=== PATIENT | female | born 1970 | race Asian ===

== ENCOUNTER 2018-12-14 16:56 | Inpatient (IN) | payer MEDICARE ==
[~2018-12-14] VITALS: Ht 162.6 cm; Wt 49.1 kg
[2018-12-14 16:56] VITALS: BP 154/88
[~2018-12-14 16:56] MED LIST: GABAPENTIN100 MG ORAL; TRAMADOL HCL100 M2 ORAL
--- NOTE | 2018-12-14 16:56 | NUR ---
ED Nurse Note: Patient brought in to ER by RA from home due to lower back pain. She is a dialysis patient with right upper leg shunt. Dialysis days are / / sat. Alert adn oriented, verbally responsive. No SOB. Breathing even and unlabored. VS are stable.
--- NOTE | 2018-12-14 17:10 | Emergency Room Report ---
History of Present Illness General Chief Complaint: Back Pain-No Injury Source: Patient, EMS Present Illness HPI Patient presents via EMS. She is complaining about lower back pain. She is a dialysis patient. Her last dialysis was on Friday. She states that she has had osteomyelitis of her lower spine. This feels similar to that although this began earlier this morning. The pain radiates down both legs. She refused to have surgery at that time. Pain is 10/10 at this time. Pain radiating to her legs as burning pain. She denies weakness or numbness. No recent trauma. She has been feeling flushed and with chills. Paramedics attributed this to the room being hot and enclosed. She denies shortness of breath. She does not produce urine. According to the EMS the patient just arrived in town a week ago. From the airport she was hospitalized [facility]. She was arranged to have dialysis from there. Her diagnosis unclear. According to EMS living conditions are not good. Also the patient told EMS she was unable to go to distant dialysis center. No fevers, sore throat, chest pain, palpitations, nausea, vomiting, diarrhea, abdominal pain, shortness of breath, joint pain, rashes, depression, anxiety, visual changes, headache. Allergies: Coded Allergies: CEPHALEXIN (Unverified Allergy, Unknown, 12/14/18) SULFAMETHOXAZOLE (Unverified Allergy, Unknown, 12/14/18) TRIMETHOPRIM (Unverified Allergy, Unknown, 12/14/18) VANCOMYCIN (Unverified Allergy, Unknown, 12/14/18) Patient History Past Medical History: see triage record, dialysis, other - osteomyelitis of spine Past Surgical History: other - Dialysis fistula Social History: Denies: smoking Social History Narrative Recently moved to [place] Reviewed Nursing Documentation: PMH: Agreed; PSxH: Agreed Nursing Documentation-PMH Past Medical History: No History, Except For Hx Hypertension: Yes Hx Dialysis: Yes - T/TH/SAT Review of Systems All Other Systems: negative except mentioned in HPI Physical Exam Vital Signs Date Time Temp Pulse Resp B/P (MAP) Pulse Ox O2 Delivery O2 Flow Rate FiO2 12/14/18 16:51 98.1 90 18 166/102 (123) 97 Room Air Sp02 EP Interpretation: reviewed, normal General Appearance: alert, GCS 15, mild distress, Chronically Ill Head: normocephalic Eyes: bilateral eye normal inspection, bilateral eye PERRL, bilateral eye EOMI ENT: moist mucus membranes Neck: supple Respiratory: chest non-tender, lungs clear, normal breath sounds Cardiovascular #1: regular rate, rhythm, JVD Cardiovascular #2: 2+ radial (R), 2+ radial (L) - Dialysis fistula left upper arm Gastrointestinal: normal inspection, normal bowel sounds, non tender, no mass, non-distended Genitourinary: no CVA tenderness Musculoskeletal: gait/station normal, normal range of motion, no calf tenderness, other - Atrophy lower extremities, tender - Upper lumbar spine, variable exam Neurologic: alert, motor strength/tone normal, DTRs symmetric, sensory intact, speech normal, oriented - X2 Psychiatric: anxious, other - Occasionally refusing care Skin: other - Sallow Procedures Critical Care Time Critical Care Time Total Critical Care Time: 120 min bedside evaluation and treatment excludes procedures (EKG). Reason for critical care: Hyperkalemia, renal failure, possible infective discitis, attempts at transfer to higher level of care. Treatment of hyperkalemia Possible complications: hypotension, hypertension, OK, shock, arrhythmias, metabolic acidosis, end organ damage, respiratory failure. Interventions:, Multiple calls for attempts at transfer, dealing with patient refusal of treatment Course: Dialysis patient presents with severe back pain. Evaluation encountered hyperkalemia. Treatment ordered. Patient refused Kayexalate and other treatment. Discussed the need for treatment and patient agreed. MRI performed. Patient initially refused because she had pain. Discussed with radiology tech and MRI completed. MRI with question of osteomyelitis versus discitis. Multiple discussions with [facility] and [facility] for the possibility of transfer. As they are on diversion this is not possible however they will consider transfer in the future hospital to hospital. Repeat evaluations of patient and treatment of pain. Consultations: nursing staff, EMS, radiology specialist, [facility] transferred, [facility] transfer, admitting physician Performed by: Dr. Rodríguez Tolerated well condition = critical Medical Decision Making Diagnostic Impression: Primary Impression: Hyperkalemia Additional Impressions: ESRD (end stage renal disease) on dialysis Diskitis Qualified Codes: M46.46 - Discitis, unspecified, lumbar region Anemia Qualified Codes: N18.6 - End stage renal disease; D63.1 - Anemia in chronic kidney disease; Z99.2 - Dependence on renal dialysis ER Course Patient presents with severe back pain with multiple comorbidities. She has a history of osteomyelitis. Differential includes back strain, back spasm, osteomyelitis, lumbar fracture, embolic phenomenon amongst others. She has clear JVD suggesting fluid overload. Evaluation will be with EKG, chest x-ray, MRI of the lumbar spine and labs. The patient will be treated with morphine. EKG without peak T waves. Chest x-ray pulmonary edema, mild. Labs with hyperkalemia and renal failure. Anemia. Medications ordered for hyperkalemia treatment. Patient refuses Kayexalate and all treatment. Discussed with patient and she accepts IV treatment. Still refusing Kayexalate. Threatening to sign out AGAINST MEDICAL ADVICE. Convinced to stay in the hospital. MRI diskitis possible osteo. Some compression of the dura into the canal. Repeat neurologic exam with good strength and sensation in lower extremities. Call [facility]. Call [facility] 22:00. Presented to both facilities. [facility] transfer case #[id number]. Both [facility] and [facility] unable to take patient due to saturation. Patient admitted to telemetry Dr. Nguyen. Laboratory Tests Test 12/14/18 17:20 White Blood Count 7.2 K/UL (4.8-10.8) Red Blood Count 2.37 M/UL (4.20-5.40) L Hemoglobin 7.3 G/DL (12.0-16.0) L Hematocrit 23.6 % (37.0-47.0) L Mean Corpuscular Volume 100 FL (80-99) H Mean Corpuscular Hemoglobin 30.7 PG (27.0-31.0) Mean Corpuscular Hemoglobin Concent 30.8 G/DL (32.0-36.0) L Red Cell Distribution Width 19.7 % (11.6-14.8) H Platelet Count 247 K/UL (150-450) Mean Platelet Volume 5.6 FL (6.5-10.1) L Neutrophils (%) (Auto) % (45.0-75.0) Lymphocytes (%) (Auto) % (20.0-45.0) Monocytes (%) (Auto) % (1.0-10.0) Eosinophils (%) (Auto) % (0.0-3.0) Basophils (%) (Auto) % (0.0-2.0) Differential Total Cells Counted 100 Neutrophils % (Manual) 71 % (45-75) Lymphocytes % (Manual) 15 % (20-45) L Monocytes % (Manual) 12 % (1-10) H Eosinophils % (Manual) 1 % (0-3) Basophils % (Manual) 0 % (0-2) Band Neutrophils 1 % (0-8) Platelet Estimate Adequate Platelet Morphology Normal Polychromasia 1+ Hypochromasia 2+ Anisocytosis 2+ Macrocytosis Prothrombin Time 9.8 SEC (9.30-11.50) Prothrombin Time INR 0.9 (0.9-1.1) PTT 26 SEC (23-33) Sodium Level 136 MMOL/L (136-145) Potassium Level 6.6 MMOL/L (3.5-5.1) *H Chloride Level 97 MMOL/L (98-107) L Carbon Dioxide Level 21 MMOL/L (21-32) Anion Gap 19 mmol/L (5-15) H Blood Urea Nitrogen 85 mg/dL (7-18) H Creatinine 7.5 MG/DL (0.55-1.30) H Estimate Glomerular Filtration Rate 5.8 mL/min (>60) Glucose Level 97 MG/DL (74-106) Calcium Level 8.8 MG/DL (8.5-10.1) Total Bilirubin 0.4 MG/DL (0.2-1.0) Aspartate Amino Transferase (AST) 37 U/L (15-37) Alanine Aminotransferase (ALT) 13 U/L (12-78) Alkaline Phosphatase 406 U/L (46-116) H Total Creatine Kinase 120 U/L (26-308) Troponin I 0.015 ng/mL (0.000-0.056) C-Reactive Protein, Quantitative 6.1 mg/dL (0.00-0.90) H Pro-B-Type Natriuretic Peptide 9694 pg/mL (0-125) H Total Protein 7.4 G/DL (6.4-8.2) Albumin 2.4 G/DL (3.4-5.0) L Globulin 5.0 g/dL Albumin/Globulin Ratio 0.5 (1.0-2.7) L Lipase 133 U/L (73-393) EKG Diagnostic Results Rate: normal Rhythm: NSR ST Segments: no acute changes - Left axis deviation left atrial enlargement Rhythm Strip Diag. Results EP Interpretation: yes Rhythm: NSR, no PVC's, no ectopy Chest X-Ray Diagnostic Results Chest X-Ray Diagnostic Results : Chest X-Ray Ordered: Yes # of Views/Limited/Complete: 1 View Indication: Other EP Interpretation: Yes Interpretation: no effusion, no pneumothorax, other - Reversal of flow Impression: Other Electronically Signed by: Electronically signed by Triston Rodríguez MD CT/MRI/US Diagnostic Results CT/MRI/US Diagnostic Results : Imaging Test Ordered: LS spine MRI Impression Impression: Findings suspicious of osteomyelitis discitis involving L2-L3 with some subtle epidural enhancement is suggested. Effacement of the canal due to collapse of the disc space and compression deformity of L2-L3 Last Vital Signs Date Time Temp Pulse Resp B/P (MAP) Pulse Ox O2 Delivery O2 Flow Rate FiO2 12/15/18 04:00 98.0 66 18 149/98 (115) 96 12/15/18 01:01 Room Air 12/14/18 23:55 21 Status: improved Disposition: ADMITTED INPATIENT Condition: Critical Triston Rodríguez MD Dec 14, 2018 17:09
[2018-12-14] MEDS ORDERED: Gadavist 7.5mMol/7.5ml vial IV PRN (17:15)
[2018-12-14] MEDS ORDERED: Morphine Sulfate 2mg/ml Inj(IV/IM USE ONLY) IVP ONE ×2 (17:15→20:15)
[2018-12-14 17:39] LABS: HEMATOCRIT 23.6 % (37.0-47.0); HEMOGLOBIN 7.3 G/DL (12.0-16.0); MEAN CORPUSCULAR VOLUME 100 FL (80-99); PLATELET COUNT 247 K/UL (150-450); RED BLOOD COUNT 2.37 M/UL (4.20-5.40); RED CELL DISTRIBUTION WIDTH 19.7 % (11.6-14.8); WHITE BLOOD COUNT 7.2 K/UL (4.8-10.8)
[2018-12-14 17:43] LABS: INR 0.9 (0.9-1.1)
--- NOTE | 2018-12-14 17:45 | NUR ---
ED Nurse Note: Went down for MRI.
--- NOTE | 2018-12-14 17:55 | NUR ---
attempted ekg, patient at MRI.
[2018-12-14 17:59] LABS: ALANINE AMINOTRANSFERASE 13 U/L (12-78); ALBUMIN 2.4 G/DL (3.4-5.0); ALBUMIN/GLOBULIN RATIO 0.5 (1.0-2.7); ALKALINE PHOSPHATASE 406 U/L (46-116); ANION GAP 19 mmol/L (5-15); ASPARTATE AMINO TRANSFERASE 37 U/L (15-37); BILIRUBIN,TOTAL 0.4 MG/DL (0.2-1.0); BLOOD UREA NITROGEN 85 mg/dL (7-18); CALCIUM 8.8 MG/DL (8.5-10.1); CARBON DIOXIDE 21 MMOL/L (21-32); CHLORIDE 97 MMOL/L (98-107); CREATINE KINASE 120 U/L (26-308); CREATININE 7.5 MG/DL (0.55-1.30); SODIUM 136 MMOL/L (136-145)
[2018-12-14 18:00] VITALS: BP 135/77
[2018-12-14 18:08] LABS: POTASSIUM 6.6 MMOL/L (3.5-5.1)
--- NOTE | 2018-12-14 18:42 | NUR ---
Patient still at MRI, EKG will be taken once patient comes back.
[2018-12-14] MEDS ORDERED: Sodium Bicarbonate 50ml Carp IV ONE (18:45)
[2018-12-14] MEDS ORDERED: Sodium Polystyrene Sulfonate 15gm Powder ORAL ONE (18:45)
[2018-12-14] MEDS ORDERED: Insulin Human Regular 100units/ml 3ml IV ONE (18:45)
[2018-12-14] MEDS ORDERED: Albuterol ud Inhalation HHN ONE (18:45)
[2018-12-14] MEDS ORDERED: Calcium Gluconate 1gm/10ml vial IVP ONE (18:45)
--- NOTE | 2018-12-14 19:12 | NUR ---
HAND-OFF: Report given to Caro JORDAN.
--- NOTE | 2018-12-14 19:15 | NUR ---
ED Nurse Note: Recieved report from am nurse to resume care, pt in bed awake, laert and oriented x 4, pt here for back pain and just returning from MRI, pt has patent iv line in right hand, placed pt on cardiac monitoring, pt has pain in back at 5/10, declines need for pain meds, will resume care as ordered and continue to closely monitor while waiting for disposition.
[2018-12-14 20:00] VITALS: BP 147/84
--- NOTE | 2018-12-14 20:00 | NUR ---
ED Nurse Note: Pt had med ordere, meds given, pt refuses to take oral kayexalate, stating she does not want to get diarrhea, importance of med explained and pt continues to refuse, MD informed immediately and spoke to pt, pt continues to refuse, all other meds given, pt remains on cardiac monitoring, deneis chest pain, will continue to closely monitor, pt waiting for transfer to [facility].
[2018-12-14 22:00] VITALS: BP 136/79
[2018-12-14 23:30] VITALS: BP 129/71
--- NOTE | 2018-12-14 23:30 | NUR ---
ED Nurse Note: Pt disposition has been chagned to admission for here, pt is aware and agrees, pt re-medicated for pain and meds effective, pt reports pain at 0 at this time, remains on cardiac monitoring, iv site patent, pt has ordered blood cultures not done, she refuses informed and states ok, pt threatning to leave AMA if we do it anyway, pt has room for admission here, report called to floor nurse JULIAN Barajas on unit, pt swabs collected and sent, pt being taken to floor bed via gurney and acls protocols with RN and Er-tech, nad noted during pt transport.
[2018-12-15 00:55] VITALS: BP 157/95
--- NOTE | 2018-12-15 00:57 | NUR ---
NURSE NOTES: Pt received from JULIAN Elizondo alert and oriented x4, irritated and yelling at staff. VS - 157/94, HR 77, RR 18, 95% on room air, 97.5 temp, 10/10 aching pain on the lower back radiating to bilateral legs. IV site asymptomatic and patent, on L hand 20g, saline lock. AV shunt on R upper thigh, dressing dry and intact, bruit auscultated and thrill palpated. Per pt, she is anuric. Pt refused to go over belongings and have her purse assessed. Skin intact. Bed in lowest position, call light and belongings within reach.
--- NOTE | 2018-12-15 01:01 | NUR ---
NURSE NOTES: RN contacted [facility] Nephrology for stat hemodialysis order. Per Katya, she will contact on-call nurse for HD.
[2018-12-15] MEDS: Morphine Sulfate 2mg/ml Inj(IV/IM USE ONLY) IVP PRN ×2 (01:18→05:26)
--- NOTE | 2018-12-15 02:15 | NUR ---
NURSE NOTES: RN called [facility] Nephrology and spoke with Melisa, informed of stat HD order. Per Melisa, she will call on-call HD nurse to confirm.
[2018-12-15 04:00] VITALS: BP 149/98
[2018-12-15] MEDS ORDERED: traMADol 50mg tab ORAL PRN (06:45)
[2018-12-15] MEDS ORDERED: Morphine Sulfate 2mg/ml Inj(IV/IM USE ONLY) IVP PRN (06:45)
--- NOTE | 2018-12-15 06:45 | NUR ---
NURSE NOTES: RN called [facility] Nephrology to confirm HD stat order and spoke with Frankie who stated that he will contact on-call HD RN regarding HD stat order.
--- NOTE | 2018-12-15 07:05 | NUR ---
NURSE NOTES: Received phone call from Isaias JENKINS RN from [facility] Nephrology who stated that "he will come in to do HD on pt and she will be the first patient because it is a stat order." AM nurse notified.
--- NOTE | 2018-12-15 07:20 | NUR ---
NURSE NOTES: Nurse report given by JULIAN Newman. Patient's eating breakfast in bed. Denies pain. No s/s of distress or SOB. IV is patent and flushed. R upper thigh AV shunt for dialysis only. Bed at lowest position, break engaged and call light within reach. Will continue to monitor.
[2018-12-15 07:33] LABS: HEMOGLOBIN 7.5 G/DL (12.0-16.0); MEAN CORPUSCULAR VOLUME 101 FL (80-99); PLATELET COUNT 241 K/UL (150-450); RED BLOOD COUNT 2.47 M/UL (4.20-5.40); RED CELL DISTRIBUTION WIDTH 19.4 % (11.6-14.8); WHITE BLOOD COUNT 6.5 K/UL (4.8-10.8)
[2018-12-15 07:35] LABS: ANION GAP 18 mmol/L (5-15); BLOOD UREA NITROGEN 97 mg/dL (7-18); CALCIUM 9.1 MG/DL (8.5-10.1); CARBON DIOXIDE 23 MMOL/L (21-32); CHLORIDE 97 MMOL/L (98-107); CREATININE 8.1 MG/DL (0.55-1.30); SODIUM 137 MMOL/L (136-145)
[2018-12-15 07:36] LABS: POTASSIUM 6.9 MMOL/L (3.5-5.1)
--- NOTE | 2018-12-15 07:36 | NUR ---
HAND-OFF: Report given to JULIAN Wright.
[2018-12-15 08:00] VITALS: BP 152/91
--- NOTE | 2018-12-15 08:11 | NUR ---
NURSE NOTES: placed a call to [facility], spoke to Frankie (answering service) and he said he marked it as second call, informed about the dialysis order 12/14/18 stat and still not done, Dr Baron here and aware, per Frankie Ramirez to call back.
[2018-12-15] MEDS ORDERED: Acetaminophen 500mg (ES) tab ORAL PRN (08:14)
[2018-12-15] MEDS ORDERED: Enoxaparin 30mg Inj SUBQ SCH (09:00)
[2018-12-15] MEDS ORDERED: Aspirin Baby 81mg ORAL SCH (09:00)
--- NOTE | 2018-12-15 10:45 | Diagnostic Imaging Report ---
Indication: Low back pain, 10 out of 10, burning feeling down bilateral legs Technique: Sagittal T 1 FSE, sagittal T2 FRFSE, sagittal STIR PROPELLER, axial T2 FRFSE, axial T2 disc cut, axial T1 FLAIR PROPELLER pre and postcontrast axial and sagittal T1 fat saturated images of the lumbar spine Comparison: none Findings: There is marked abnormality of the L2-3 disc and adjacent vertebral segments. There is fluid within the disc. There is destruction of the endplates and considerable edema within the adjacent vertebral segments. There is loss of height of both adjacent vertebral segments, particularly of L3. There is a combination of posterior retropulsion and severe posterior disc protrusion/osteophyte complex, with the disc protruding 10 mm into the spinal canal. This is predominantly left paracentral, narrowing the spinal canal to minimal 5 mm AP dimension on the left and may result in significant compression of the cauda equina. There is considerable enhancement of the disc and the adjacent vertebral segments, enhancement particularly intense involving L2. There is some edema and enhancement of the adjacent paraspinous soft tissues. No definite loculated collection to suggest abscess. There is no evidence of epidural abscess. The above abnormalities also result in severe narrowing of the bilateral neural foramina at this level. The remaining bony alignment is normal. The remaining vertebral body heights are preserved. The remaining disc spaces are preserved. At the remaining levels, no significant disc bulge or protrusion, spinal stenosis, or neural foraminal stenosis. There is some facet arthrosis bilaterally at L4-5. No other unusual contrast enhancement is noted. There are large sacral perineural cysts at the S3 level bilaterally, and small perineural cysts at S2 bilaterally. Pattern of marrow signal within the vertebral bodies suggests renal osteodystrophy The included extra spinal soft tissues are remarkable for the presence of atrophic multicystic kidneys bilaterally. Impression: Evidence of discitis/osteomyelitis at L2-3.. 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
--- NOTE | 2018-12-15 10:45 | Diagnostic Imaging Report ---
Indication: Chest pain Technique: One view of the chest Comparison: none Findings: There are bilateral pleural effusions. The lungs are clear. The heart is upper limits normal in size. The aorta is tortuous ectatic and calcified. What appears to be a very large eggshell calcification is seen in the right side of the neck. Right basilar nodular opacity presumably represents a nipple shadow. Impression: Bilateral pleural effusions Other findings as noted
--- NOTE | 2018-12-15 11:16 | Cardiology Report ---
APPROVED REPORT EKG Measurement Heart [id number] Normal sinus rhythm Possible Left atrial enlargement Left axis deviation Septal infarct, age undetermined Abnormal ECG t wave abnormlaity consider hyperkalemia
[2018-12-15 12:00] VITALS: BP 143/96
--- NOTE | 2018-12-15 13:00 | NUR ---
NURSE NOTES: Patient wanted to sign AMA. Notified to curriculum development manager regarding about the patient's situation. Notified Dr. Nguyen about patient's wish. Dr. Nguyen talked to the patient and explained the risk of going AMA. Patient acknowledge, did not want to explain the reason why she wanted to leave AMA. AMA document is signed by patient. IV removed, open hearth furnace laborer removed and ID band is removed and disposed properly.
--- NOTE | 2018-12-15 13:16 | NUR ---
Social Service Note SW spoke with [facility] [phone] and confirmed patient is on service //Sat at 2pm. Patient's first session was . Patient came from [place] to [place] with no housing plan. Patient is renting a room at [address] [place] [address]. Patient is signing out AMA and making own arrangements back to address provided.
--- NOTE | 2018-12-15 13:31 | NUR ---
CASE MANAGEMENT:REVIEW 48YR OLD FEMALE BIBA FROM HOME PMH: ESRD ON HD T- SI: HYPERKALEMIA. DISKITIS 98.1 90 18 166/102 97% ON RA H/H-7.3/23.6 K+6.6 BUN+85 CR+7.5 IS: IV MORPHINE KAYEXALATE PO X1 IV NAHCO3 X1 IV CA GLUCONATE X1 IV ZOFRAN MRI SPINE CHEST XRAY : TO TELEMETRY STATUS INTERQUAL CRITERIA MET
--- NOTE | 2018-12-15 18:15 | History and Physical Report ---
DATE OF ADMISSION: 12/14/2018 REASON FOR ADMISSION: 1. Hyperkalemia. 2. End-stage renal disease, on dialysis. 3. Low back pain. HISTORY OF PRESENT ILLNESS: The patient is a 48-year-old female, who [place] and has established dialysis center in [facility] with [facility], who presented to emergency room for further evaluation and care of pain in her lower spine. The patient stated she had history of osteomyelitis. She is complaining of burning in her lower back and lower legs. Potassium noted to be 6.6 upon presentation to emergency room and was treated medically overnight. ALLERGIES: Cephalexin, sulfamethoxazole, trimethoprim, and vancomycin. PAST MEDICAL HISTORY: 1. End-stage renal disease, on dialysis. 2. Osteomyelitis of the spine. 3. Hypertension. FAMILY HISTORY: Positive for hypertension. PAST SURGICAL HISTORY: The patient has a thigh PermCath on right side. SOCIAL HISTORY: No current tobacco, alcohol, or illicit drug use. REVIEW OF SYSTEMS: NEUROLOGIC: The patient denies headache, change in vision, syncope, or presyncopal episodes. CARDIOVASCULAR: No current chest pain, palpitations, or angina. PULMONARY: No difficulty breathing, productive cough, or sputum. GASTROINTESTINAL/GENITOURINARY: No change in bowel habits. No nausea, vomiting, or diarrhea. ENDOCRINOLOGY: No night sweats, fevers, or chills. MUSCULOSKELETAL: The patient complaining of low back pain and leg burning. LABORATORY DATA: Laboratories dated December 15, sodium 137, potassium 6.9, BUN 97, creatinine 8.1. Hemoglobin 7.5, white cell count 6.5, and platelet count 241,000. PHYSICAL EXAMINATION: VITAL SIGNS: Blood pressure 149/98, respiratory rate 18, pulse 66, temperature 98.0, and 96% oxygen saturation on room air. GENERAL: The patient is awake, alert, in no distress. HEENT: Extraocular muscles intact. No lymphadenopathy. Oropharyngeal mucosa is clear and dry. CARDIOVASCULAR: S1, S2. No rubs or gallops. PULMONARY: Clear to auscultation bilaterally. No rales, rhonchi, or wheezes. ABDOMEN: Nondistended and nontender. EXTREMITIES: No edema. ASSESSMENT AND PLAN: 1. Hyperkalemia. Potassium is now 6.9. Stat dialysis has been ordered and is pending. 2. End-stage renal disease, on hemodialysis. The patient will have hemodialysis today. 3. Low back pain with history of osteomyelitis. Infectious Disease to evaluate and make further recommendations. The patient may require transfer to higher level of care. 4. Pain. We will adjust medications appropriately. 5. DVT prophylaxis with SCDs. Gentry Nguyen MD DR: [facility] JOB#: [id number] CC:
--- NOTE | 2018-12-15 19:10 | Discharge Summary ---
Discharge Summary Discharge Summary _ DATE OF ADMISSION: 12/14/2018 DATE OF DISCHARGE: 12/15/2018 BRIEF HOSPITAL COURSE: Patient is a 48-year-old female, who is moving out of [facility], and had an established dialysis center in [facility] with [facility] dialysis chain, presented to ED for further evaluation and care of pain in her lower spine. The patient stated she had history of osteomyelitis. She complained of burning pain in the lower back and lower legs. Her pain scale is 10 out of 10. Pain was radiating to the legs. She denied weakness or numbness. No recent trauma. She has medical history significant for end-stage renal disease, on hemodialysis, osteomyelitis of the spine and hypertension. On evaluation at the ED, blood pressure was elevated to 166/102, heart rate 90, RR 18, temperature 98.1 F, 97% oxygen saturation. Blood work did not show any leukocytosis. Hemoglobin was 7.3 and hematocrit 24. Platelet 247. Potassium was elevated to 6.6. BUN 85, creatinine 7.5. Troponin was 0.015. proBNP 9694. EKG showed normal sinus rhythm without peaked T waves. Chest x- ray showed bilateral pleural effusion. MRI of the lumbosacral spine showed findings suspicious for osteomyelitis involving the L2-L3 with instructive change with loss of volume loss of height of L2 and L3 vertebral body and marked disc destructive changes. She was ordered treatment for hyperkalemia. Patient refused Kayexalate in all treatment. She was threatening to leave AMA. She finally agreed to IV calcium gluconate, insulin and dextrose. She was given albuterol. She was given sodium bicarbonate. She refused to take the Kayexalate. She was then admitted for evaluation of hyperkalemia. She was admitted to monitored floor. Hemodialysis was ordered. Repeat blood work showed anemia and hyperkalemia. Full treatment was not carried out as patient left against medical advise. Social service was called. Social service confirmed patient is with [facility] dialysis center [facility] every Friday , and Friday 2 pm. Patient's first session was on 12/12/2018. Patient left AMA. FINAL DIAGNOSES: Hyperkalemia End-stage renal disease, on hemodialysis Low back pain with history of osteomyelitis Pain DISPOSITION: Patient left against medical advise. I have been assigned to complete a discharge summary on this account, I was not involved with the patient's management.--BRUNA Manuel Jacqueline Robles NP Dec 15, 2018 19:10
== END 2018-12-15 14:44 | disposition left against medical advice (07) | DRG 640 ==
LOC: EDBD 16:56 → EMR 17:15 → 2E 18:19 → EDBEDREQ 19:07 → EDBEDREQSVC 19:07 → EDBEDREQ 20:16 → 2E 12-15 04:12
PROC: 5A1D70Z Performance of Urinary Filtration, Intermittent, Less than 6 Hours Per Day (ICD-10-PCS; principal; 2018-12-15)
DX: E87.5 Hyperkalemia (principal); N18.6 End stage renal disease; I12.0 Hypertensive chronic kidney disease with stage 5 chronic kidney disease or end stage renal disease; M46.46 Discitis, unspecified, lumbar region; Z88.1 Allergy status to other antibiotic agents; Z88.2 Allergy status to sulfonamides; D63.1 Anemia in chronic kidney disease
CPT/HCPCS: 36415; 71045; 72149; 72158; 80048; 80053; 82550; 83690; 83880; 84484; 85007; 85025; 85610; 85730; 86140; 87040; 87081; 93005; 94640; 96374; 96375; 96376; 99291; 99292; A9585; J2405

== ENCOUNTER 2018-12-22 15:06 | Emergency (ER) | payer MEDICARE ==
[~2018-12-22] VITALS: Ht 165.1 cm; Wt 45.4 kg
[2018-12-22 15:06] VITALS: BP 102/74
--- NOTE | 2018-12-22 15:28 | Emergency Room Report ---
History of Present Illness General Chief Complaint: Generalized Weakness Present Illness HPI Disclaimer: Please note that this report is being documented using DRAGON technology. This can lead to erroneous entry secondary to incorrect interpretation by the dictating instrument. HPI: 48-year-old female with a history of ESRD on hemodialysis TTS, osteomyelitis of the lumbar spine presents for evaluation after missing dialysis. Patient was scheduled for dialysis TTS however she went Friday instead and skipped Friday because of the holiday weekend. She also missed dialysis today stating that she felt too weak to go. She denies any chest pain , shortness of breath or lower extremity swelling. She is requesting evaluation for potassium levels that she has a problem with hyperkalemia in the past. She left AGAINST MEDICAL ADVICE on her last admission for hyperkalemia. Normally goes to the [facility] for hemodialysis. PMH: ESRD, osteomyelitis PSH: See chart Allergies: Keflex, sulfa, vancomycin Social Hx: Denies drug or alcohol abuse Allergies: Coded Allergies: CEPHALEXIN (Unverified Allergy, Unknown, 12/14/18) SULFAMETHOXAZOLE (Unverified Allergy, Unknown, 12/14/18) TRIMETHOPRIM (Unverified Allergy, Unknown, 12/14/18) VANCOMYCIN (Unverified Allergy, Unknown, 12/14/18) Nursing Documentation-PMH Hx Cardiac Problems: Yes Hx Hypertension: Yes Hx Cancer: No Hx Gastrointestinal Problems: No Hx Dialysis: Yes - T/TH/SAT Hx Neurological Problems: No Review of Systems All Other Systems: negative except mentioned in HPI Physical Exam Vital Signs Date Time Temp Pulse Resp B/P (MAP) Pulse Ox O2 Delivery O2 Flow Rate FiO2 12/22/18 15:03 98.2 72 22 102/74 (83) 99 Room Air General: Awake and alert, no acute distress HEENT: NC/AT. EOMI. Cardiovascular: RRR. S1 and S2 normal. No murmur appreciated. Dialysis access in the right hip Resp: Normal work of breathing. No cough, wheezing or crackles appreciated Abdomen: Abdomen is soft, nondistended. Nontender Skin: Intact. No abrasions, laceration or rash over the exposed skin MSK: Normal tone and bulk. Moving all extremities. No obvious deformity. Neuro: Awake and alert. Mentating appropriately. Verbally combative with staff and agitated at times though redirectable and not a danger to others. Procedures Critical Care Time Critical Care Time Total critical care time: Approximately 45 minutes Due to a high probability of clinically significant, life threatening deterioration, the patient required the highest level of preparedness to intervene emergently and I personally spent this critical care time directly and personally managing the patient. This critical care time included obtaining a history, examining the patient, pulse oximetry, ordering and reviewing studies , ordering treatments, evaluating response to treatment and updating management plan as needed, frequent reassessment and discussion with other providers as well as arranging for ultimate disposition. This critical to care time was performed to assess and manage the high probability of life-threatening deterioration that could result in multiorgan failure. This critical care time is separate from the separately billable procedures and treating other patients. Medical Decision Making Diagnostic Impression: Primary Impression: Episode of generalized weakness Additional Impressions: Hyperkalemia Anemia Renal failure Left against medical advice ER Course 48-year-old female with a history of ESRD presents for evaluation after missing hemodialysis. We will start a broad metabolic work-up to assess for hyperkalemia and fluid overload. Patient has no other complaints at this time and says she felt weak earlier but now says her symptoms have resolved after sitting in the air conditioning for a while. She is requesting something to eat. She is refusing an IV line but is allowing her blood work to be drawn. She states she will refuse Kayexalate which is consistent with her prior hospital admission in which she left AMA. Laboratory Tests Test 12/22/18 15:30 White Blood Count 6.6 K/UL (4.8-10.8) Red Blood Count 2.13 M/UL (4.20-5.40) L Hemoglobin 6.8 G/DL (12.0-16.0) *L Hematocrit 20.8 % (37.0-47.0) L Mean Corpuscular Volume 98 FL (80-99) Mean Corpuscular Hemoglobin 32.1 PG (27.0-31.0) H Mean Corpuscular Hemoglobin Concent 32.9 G/DL (32.0-36.0) Red Cell Distribution Width 17.5 % (11.6-14.8) H Platelet Count 352 K/UL (150-450) Mean Platelet Volume 4.9 FL (6.5-10.1) L Neutrophils (%) (Auto) % (45.0-75.0) Lymphocytes (%) (Auto) % (20.0-45.0) Monocytes (%) (Auto) % (1.0-10.0) Eosinophils (%) (Auto) % (0.0-3.0) Basophils (%) (Auto) % (0.0-2.0) Differential Total Cells Counted 100 Neutrophils % (Manual) 81 % (45-75) H Lymphocytes % (Manual) 17 % (20-45) L Monocytes % (Manual) 2 % (1-10) Eosinophils % (Manual) 0 % (0-3) Basophils % (Manual) 0 % (0-2) Band Neutrophils 0 % (0-8) Platelet Estimate Adequate Platelet Morphology Normal Polychromasia 1+ Anisocytosis 2+ Macrocytosis 1+ Sodium Level 136 MMOL/L (136-145) Potassium Level 7.1 MMOL/L (3.5-5.1) *H Chloride Level 96 MMOL/L (98-107) L Carbon Dioxide Level 18 MMOL/L (21-32) L Anion Gap 22 mmol/L (5-15) H Blood Urea Nitrogen 82 mg/dL (7-18) H Creatinine 8.7 MG/DL (0.55-1.30) H Estimate Glomerular Filtration Rate 4.8 mL/min (>60) Glucose Level 99 MG/DL (74-106) Calcium Level 8.7 MG/DL (8.5-10.1) Magnesium Level 3.1 MG/DL (1.8-2.4) H Total Bilirubin 0.3 MG/DL (0.2-1.0) Aspartate Amino Transferase (AST) 25 U/L (15-37) Alanine Aminotransferase (ALT) 10 U/L (12-78) L Alkaline Phosphatase 434 U/L (46-116) H Troponin I 0.009 ng/mL (0.000-0.056) Pro-B-Type Natriuretic Peptide 9349 pg/mL (0-125) H Total Protein 7.9 G/DL (6.4-8.2) Albumin 2.3 G/DL (3.4-5.0) L Globulin 5.6 g/dL Albumin/Globulin Ratio 0.4 (1.0-2.7) L EKG Diagnostic Results EKG Time: 16:41 Rate: normal Rhythm: NSR Other Impression Sinus rhythm, normal axis, first-degree AV block with PA interval 208 ms. Somewhat hyperacute T waves in the precordial leads. No acute ischemic changes. Rhythm Strip Diag. Results Rhythm Strip Time: 16:41 EP Interpretation: yes Rate: 60s Rhythm: NSR, no PVC's, no ectopy Reevaluation Time: 16:16 Last Vital Signs Date Time Temp Pulse Resp B/P (MAP) Pulse Ox O2 Delivery O2 Flow Rate FiO2 12/22/18 15:03 98.2 72 22 102/74 (83) 99 Room Air Status: unchanged Reevaluation Impression Patient found to be anemic with a hemoglobin of 6.8 and hyperkalemic with a potassium of 7.0. She refused EKG initially and then consented after much counseling. We will treat with calcium gluconate, D50 and insulin. She was refusing Kayexalate. I have ordered a type and screen and 1 unit of packed red cells for transfusion. She will be admitted to the SDU for treatment of hyperkalemia and anemia. She will require dialysis 1703: The patient is refusing an IV line and dialysis at this time. She is requesting to leave AGAINST MEDICAL ADVICE. She states she is uncomfortable staying in this hospital and does not trust any of the staff due to a bad experience during a prior admission where she also left AGAINST MEDICAL ADVICE. I spent over 30 minutes explaining to her that hyperkalemia so potentially fatal medical condition which could lead to cardiac arrhythmia, syncopal episode or any number of other life-threatening events should she leave the hospital without medical intervention for the elevated potassium levels. She repeated these risks to me and nursing staff and states she would not stay at this hospital under any circumstance. She states she will go to [facility] where she received better treatment in the past. She signed the paperwork and left AGAINST MEDICAL ADVICE. I strongly encouraged her to immediately return to an emergency department as she has potentially life- threatening medical issues that need to be addressed immediately. Patient stated understanding and left the emergency department. Disposition: AGAINST MEDICAL ADVICE Condition: Serious Dale Norris MD Dec 22, 2018 15:28
[2018-12-22 15:44] LABS: HEMATOCRIT 20.8 % (37.0-47.0); MEAN CORPUSCULAR VOLUME 98 FL (80-99); PLATELET COUNT 352 K/UL (150-450); RED BLOOD COUNT 2.13 M/UL (4.20-5.40); RED CELL DISTRIBUTION WIDTH 17.5 % (11.6-14.8); WHITE BLOOD COUNT 6.6 K/UL (4.8-10.8)
[2018-12-22 15:50] LABS: HEMOGLOBIN 6.8 G/DL (12.0-16.0)
[2018-12-22 16:08] LABS: ALANINE AMINOTRANSFERASE 10 U/L (12-78); ALBUMIN 2.3 G/DL (3.4-5.0); ALBUMIN/GLOBULIN RATIO 0.4 (1.0-2.7); ALKALINE PHOSPHATASE 434 U/L (46-116); ANION GAP 22 mmol/L (5-15); ASPARTATE AMINO TRANSFERASE 25 U/L (15-37); BILIRUBIN,TOTAL 0.3 MG/DL (0.2-1.0); BLOOD UREA NITROGEN 82 mg/dL (7-18); CALCIUM 8.7 MG/DL (8.5-10.1); CARBON DIOXIDE 18 MMOL/L (21-32); CHLORIDE 96 MMOL/L (98-107); CREATININE 8.7 MG/DL (0.55-1.30); SODIUM 136 MMOL/L (136-145)
[2018-12-22 16:09] LABS: POTASSIUM 7.1 MMOL/L (3.5-5.1)
[2018-12-22] MEDS ORDERED: Calcium Gluconate 1gm/10ml vial IVP ONE (16:15)
[2018-12-22] MEDS ORDERED: Insulin Human Regular 100units/ml 3ml IV ONE (16:15)
[2018-12-22 17:05] VITALS: BP 115/70
--- NOTE | 2018-12-24 15:14 | Cardiology Report ---
APPROVED REPORT EKG Measurement Heart [id number] Normal sinus rhythm Anterior infarct, age undetermined Abnormal ECG
== END 2018-12-22 17:05 | disposition left against medical advice (07) ==
LOC: EDBD 15:06 → EMR 15:45
DX: D64.9 Anemia, unspecified (principal); N17.9 Acute kidney failure, unspecified; R53.1 Weakness; E87.5 Hyperkalemia; I12.0 Hypertensive chronic kidney disease with stage 5 chronic kidney disease or end stage renal disease; N18.6 End stage renal disease; Z99.2 Dependence on renal dialysis; Z88.1 Allergy status to other antibiotic agents; Z88.2 Allergy status to sulfonamides
CPT/HCPCS: 36415; 80053; 83735; 83880; 84484; 85007; 85025; 93005; 99291

== ENCOUNTER 2018-12-26 15:40 | Inpatient (IN) | payer MEDICARE ==
[~2018-12-26] VITALS: Ht 157.5 cm; Wt 54.9 kg
--- NOTE | 2018-12-26 15:58 | NUR ---
ED Nurse Note: Pt BIBA from home for dizziness x 1 week and "blood transfusion". Pt came to the ER on 12/22/18 for the same reason but left and went to [facility] for blood transfusion and dialysis on Friday12/23/18. Pt usually has dialysis on T-Th-Sat. Fistula on R lateral thigh. AOx4, VSS tu. Will cont to monitor.
--- NOTE | 2018-12-26 16:09 | Emergency Room Report ---
History of Present Illness General Chief Complaint: Dizziness Source: Patient Present Illness HPI Disclaimer: Please note that this report is being documented using DRAGON technology. This can lead to erroneous entry secondary to incorrect interpretation by the dictating instrument. HPI: 48-year-old female with a history of ESRD on hemodialysis TTS, osteomyelitis of the lumbar spine presents for evaluation of lightheadedness and shortness of breath. The patient was seen in our emergency department last week and left AGAINST MEDICAL ADVICE after found anemic and hyperkalemic due to missed dialysis sessions. She did go to [facility] and was admitted where she was given 3 units of packed red cells and dialysis. Her last dialysis was as scheduled and is due today. She noted some lightheadedness while rising from a seated position while in her home earlier today without syncopal episode and without a fall or trauma. She now denies shortness of breath and states she experienced it earlier. Denied chest pain. Denies vertiginous symptoms. Otherwise denies any headache, visual changes, vomiting, diarrhea. She believes she may require additional blood transfusion. She is also complaining of right knee pain and states she has a history of osteoarthritis however it has been getting worse despite using extra strength Tylenol. There is no new injury or swelling. PMH: ESRD, osteomyelitis PSH: Permacath right leg Allergies: Keflex, sulfa, vancomycin Social Hx: Denies drug or alcohol abuse Allergies: Coded Allergies: CEPHALEXIN (Unverified Allergy, Unknown, 12/14/18) SULFAMETHOXAZOLE (Unverified Allergy, Unknown, 12/14/18) TRIMETHOPRIM (Unverified Allergy, Unknown, 12/14/18) VANCOMYCIN (Unverified Allergy, Unknown, 12/14/18) Patient History Last Menstrual Period: n/a Nursing Documentation-PM Past Medical History: No History, Except For Hx Cardiac Problems: Yes Hx Hypertension: Yes Hx Cancer: No Hx Gastrointestinal Problems: No Hx Dialysis: Yes Hx Neurological Problems: No Review of Systems All Other Systems: negative except mentioned in HPI Physical Exam Vital Signs Date Time Temp Pulse Resp B/P (MAP) Pulse Ox O2 Delivery O2 Flow Rate FiO2 12/26/18 15:36 98.1 73 18 144/100 (115) 98 Room Air General: Awake and alert, no acute distress, pleasant and cooperative HEENT: NC/AT. EOMI. anicteric sclera. Moist mucous membranes Cardiovascular: RRR. S1 and S2 normal. No murmur appreciated. Permacath in right upper thigh Resp: Normal work of breathing. No cough, wheezing or crackles appreciated Abdomen: Abdomen is soft, nondistended. Nontender Skin: Intact. No abrasions, laceration or rash over the exposed skin MSK: Normal tone and bulk. Moving all extremities. No obvious deformity. Tenderness over the tibial tuberosity and of the patella. No effusion. 2+ pedal pulses bilaterally. Neuro: Awake and alert. Mentating appropriately., Pleasant and cooperative Medical Decision Making Diagnostic Impression: Primary Impression: Hyperkalemia Additional Impressions: Anemia Right knee pain ER Course 48-year-old female with a history of ESRD on hemodialysis TTS presents for evaluation of lightheadedness and shortness of breath. Differential includes but is not limited to volume overload, electrolyte abnormality, anemia, ACS, orthostatic hypotension, dehydration. We will start broad metabolic and infectious work-up as well as then cardiac enzymes, obtain EKG and a right knee x-ray given her complaints of pain recently. She may require additional transfusion and it is her day for hemodialysis. We will arrange as necessary. Laboratory Tests Test 12/26/18 16:13 White Blood Count 6.7 K/UL (4.8-10.8) Red Blood Count 2.30 M/UL (4.20-5.40) L Hemoglobin 7.2 G/DL (12.0-16.0) L Hematocrit 21.3 % (37.0-47.0) L Mean Corpuscular Volume 93 FL (80-99) Mean Corpuscular Hemoglobin 31.4 PG (27.0-31.0) H Mean Corpuscular Hemoglobin Concent 33.9 G/DL (32.0-36.0) Red Cell Distribution Width 17.5 % (11.6-14.8) H Platelet Count 253 K/UL (150-450) Mean Platelet Volume 5.1 FL (6.5-10.1) L Neutrophils (%) (Auto) % (45.0-75.0) Lymphocytes (%) (Auto) % (20.0-45.0) Monocytes (%) (Auto) % (1.0-10.0) Eosinophils (%) (Auto) % (0.0-3.0) Basophils (%) (Auto) % (0.0-2.0) Differential Total Cells Counted 100 Neutrophils % (Manual) 86 % (45-75) H Lymphocytes % (Manual) 11 % (20-45) L Monocytes % (Manual) 2 % (1-10) Eosinophils % (Manual) 0 % (0-3) Basophils % (Manual) 1 % (0-2) Band Neutrophils 0 % (0-8) Platelet Estimate Adequate Platelet Morphology Normal Polychromasia 1+ Anisocytosis 1+ Prothrombin Time 10.4 SEC (9.30-11.50) Prothrombin Time INR 1.0 (0.9-1.1) PTT 26 SEC (23-33) Sodium Level 133 MMOL/L (136-145) L Potassium Level 6.9 MMOL/L (3.5-5.1) *H Chloride Level 92 MMOL/L (98-107) L Carbon Dioxide Level 22 MMOL/L (21-32) Anion Gap 20 mmol/L (5-15) H Blood Urea Nitrogen 98 mg/dL (7-18) H Creatinine 8.9 MG/DL (0.55-1.30) H Estimate Glomerular Filtration Rate 4.7 mL/min (>60) Glucose Level 93 MG/DL (74-106) Calcium Level 8.9 MG/DL (8.5-10.1) Total Bilirubin 0.4 MG/DL (0.2-1.0) Aspartate Amino Transferase (AST) 34 U/L (15-37) Alanine Aminotransferase (ALT) 21 U/L (12-78) Alkaline Phosphatase 512 U/L (46-116) H Troponin I 0.013 ng/mL (0.000-0.056) Pro-B-Type Natriuretic Peptide 87669 pg/mL (0-125) H Total Protein 7.6 G/DL (6.4-8.2) Albumin 2.2 G/DL (3.4-5.0) L Globulin 5.4 g/dL Albumin/Globulin Ratio 0.4 (1.0-2.7) L EKG Diagnostic Results EKG Time: 16:20 Rate: normal Rhythm: NSR ST Segments: other - Peak T waves Other Impression Sinus rhythm, borderline left axis, normal intervals. Peak T waves. No acute ischemic changes. Rhythm Strip Diag. Results Rhythm Strip Time: 16:20 EP Interpretation: yes Rate: 60s Rhythm: NSR Other X-Ray Diagnostic Results Other X-Ray Diagnostic Results : # of Views/Limited Vs Complete: 3 View Indication: Pain EP Interpretation: Yes PA Xray: Interpretation reviewed Interpretation: no dislocation, no soft tissue swelling, no fractures Impression: No acute disease Electronically Signed by: Electronically signed by Dr. Dale Norris Reevaluation Time: 16:54 Last Vital Signs Date Time Temp Pulse Resp B/P (MAP) Pulse Ox O2 Delivery O2 Flow Rate FiO2 12/26/18 15:57 73 18 Room Air 12/26/18 15:36 98.1 144/100 (115) 98 Status: unchanged Reevaluation Impression Patient is once again found to be hyperkalemic. Will order calcium gluconate, insulin and glucose. EKG does have peaked T waves and the patient will require dialysis. Can also transfuse for symptomatic anemia. She will require admission. Disposition: ADMITTED INPATIENT Condition: Serious Referrals: NOT CHOSEN IPA/,REFERRING (PCP) Dale Norris MD Dec 26, 2018 16:09
[2018-12-26 16:12] VITALS: BP 138/88
[2018-12-26 16:25] LABS: HEMATOCRIT 21.3 % (37.0-47.0); HEMOGLOBIN 7.2 G/DL (12.0-16.0); MEAN CORPUSCULAR VOLUME 93 FL (80-99); PLATELET COUNT 253 K/UL (150-450); RED CELL DISTRIBUTION WIDTH 17.5 % (11.6-14.8); WHITE BLOOD COUNT 6.7 K/UL (4.8-10.8)
[2018-12-26 16:41] LABS: ALANINE AMINOTRANSFERASE 21 U/L (12-78); ALBUMIN 2.2 G/DL (3.4-5.0); ALBUMIN/GLOBULIN RATIO 0.4 (1.0-2.7); ALKALINE PHOSPHATASE 512 U/L (46-116); ANION GAP 20 mmol/L (5-15); ASPARTATE AMINO TRANSFERASE 34 U/L (15-37); BILIRUBIN,TOTAL 0.4 MG/DL (0.2-1.0); BLOOD UREA NITROGEN 98 mg/dL (7-18); CALCIUM 8.9 MG/DL (8.5-10.1); CARBON DIOXIDE 22 MMOL/L (21-32); CHLORIDE 92 MMOL/L (98-107); CREATININE 8.9 MG/DL (0.55-1.30); SODIUM 133 MMOL/L (136-145)
[2018-12-26] MEDS ORDERED: AMLODIPINE BESYL5 MG ORAL (16:43)
[2018-12-26] MEDS ORDERED: CARVEDILOL6.25 MG ORAL (16:43)
[2018-12-26 16:50] LABS: POTASSIUM 6.9 MMOL/L (3.5-5.1)
[2018-12-26] MEDS ORDERED: Insulin Human Regular 100units/ml 3ml IV ONE (17:00)
[2018-12-26] MEDS ORDERED: Calcium Gluconate 1gm/10ml vial IVP ONE (17:00)
--- NOTE | 2018-12-26 17:05 | NUR ---
ED Nurse Note: Pt refused MARI/CRE swab.
--- NOTE | 2018-12-26 17:06 | Diagnostic Imaging Report ---
EXAM: XR Right Knee, 3 views CLINICAL HISTORY: PAIN TECHNIQUE: Three views of the right knee. COMPARISON: None FINDINGS: Bones/joints: No displaced fracture or dislocation identified. Osteopenia. No joint effusion. Soft tissues: Normal. IMPRESSION: No displaced fracture or dislocation identified.
[2018-12-26 17:54] VITALS: BP 120/81
--- NOTE | 2018-12-26 18:10 | NUR ---
ED Nurse Note: Dinner tray - renal/cardiac diet provided. Addendum: 12/26/18 at 1812 by [facility] ED Nurse Note: Dinner tray - renal/cardiac diet provided. Confirmed with ERMSandra that it is ok for pt to eat/drink.
--- NOTE | 2018-12-26 18:58 | NUR ---
ED Nurse Note: Tatyana - Dialysis nurse [phone] contacted and instructed RN to give him a call when pt is being transfered to floor. Will endorse to transferring RN.
--- NOTE | 2018-12-26 19:15 | NUR ---
ED Nurse Note: Recieved report from am nurse to resume care, pt in bed sleeping, pt is lethargic and arouses to tactile stimulus only, pt on cardiac monitoring, no sob or labored breathing, pt has patent saline lock and permacath is intact and patent, pt is to be admitted, will resume care and dispo pt.
[2018-12-26 19:45] VITALS: BP 120/80
--- NOTE | 2018-12-26 19:45 | NUR ---
ED Nurse Note: Placed call to floor nurse Nuria RN, report given, pt in bed and remains very sleepy like, informed MD to assess, pt awakens to tactile stimuli, blood sugar level taken and =118, pt being taken to floor bed via gursimin and acls protocols with RN and ER-tech.
[2018-12-26] MEDS ORDERED: Miralax 17gm pkt ORAL PRN (20:30)
[2018-12-26] MEDS ORDERED: Albuterol/Ipratropium 3ml neb HHN PRN (20:30)
[2018-12-26 20:45] VITALS: BP 144/86
--- NOTE | 2018-12-26 20:45 | NUR ---
NURSE NOTES: Received patient via gurney from the ED. Patient placed into bed and auto hauler is placed. Linens are changed. She will be receiving HD with VIP. Report received from JULIAN Elizondo.
[2018-12-26] MEDS ORDERED: Carvedilol 6.25mg Tab ORAL SCH (21:00)
[2018-12-26] MEDS ORDERED: Heparin 5000 units/ml inj SUBQ SCH (21:00)
--- NOTE | 2018-12-26 23:02 | NUR ---
NURSE NOTES: Patient complaints of knee and back pain. Tylenol 650mg was given at 2100 but complains that it is not relieving the pain. Contacted Dr. King for additional pains meds, she requested Henrietta. Awaiting reply.
[2018-12-26] MEDS ORDERED: Morphine Sulfate 4mg/ml Inj (IV USE ONLY) IVP PRN (23:30)
--- NOTE | 2018-12-26 23:30 | NUR ---
NURSE NOTES: Patient finished HD with 2800ml out. Vital signs are stable, patient remains in bed, showing no signs and symptoms of pain and/distress. All needs are met.
[2018-12-27] VITALS: BP 138/93
--- NOTE | 2018-12-27 | NUR ---
NURSE NOTES: Patient request to sign AMA, food and beverages are provided to keep her comfortable until the morning. Explained to patient risks of leaving. Patient is adamant about leaving will continue to follow up with her.
--- NOTE | 2018-12-27 00:30 | NUR ---
AMA: PATIENT LEFT AGAINST MEDICAL ADVICE. PATIENT WAS ALERT AND ORIENTED AND ABLE TO MAKE RATIONAL DECISIONS FOR SELF. VITALS WERE STABLE AND NO OTHER COMPLICATIONS WERE APPARENT. ATTENDING MD WAS NOTIFIED. SEE AMA FORM.
--- NOTE | 2018-12-27 00:38 | NUR ---
NURSE NOTES: Patient signed AMA. Explained the risk of her leaving against medical advice. Advised her that it would be beneficial for her to leave in the morning rather than tonight. Patient refuses and adamant about leaving back to home. Patient is ambulatory is gait is assessed. Patient is alert and oriented x4 and able to make rationale decisions for herself. Dr. Villatoro, Dr. King and Dr. Nguyen made aware. night monitor and IV removed. 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
--- NOTE | 2018-12-27 15:16 | Cardiology Report ---
APPROVED REPORT EKG Measurement Heart [id number] Normal sinus rhythm Low voltage QRS Cannot rule out Anterior infarct, age undetermined Abnormal ECG
--- NOTE | 2018-12-28 12:47 | Discharge Summary ---
Discharge Summary Discharge Summary _ DATE OF ADMISSION: 12/26/2018 DATE OF DISCHARGE: 12/27/2018 Patient left AGAINST MEDICAL ADVICE REASON FOR ADMISSION: , 48 years old female with past medical history of end-stage renal disease, on hemodialysis Friday, , and Friday, osteomyelitis of the lumbar spine, presented for evaluation due to shortness of breath and lightheadedness. Patient was seen in emergency department last week and left AGAINST MEDICAL ADVICE after she was found to be anemic and had hyperkalemia due to missed dialysis session. Patient reported that she went to [facility] where she was admitted and received 3 units of packed red blood cells along with dialysis. Last dialysis was on 12/24 as scheduled and was due on the day on presentation to ED. Patient noted lightheadedness , while rising from a seated position , while in her home earlier that day. She denied any syncopal episode ; no fall or trauma. Later she denied shortness of breath and stated that she experienced it earlier . She denied chest pain. She denied vertiginous symptoms. No headache , no visual changes, no vomiting, no diarrhea. Upon evaluation laboratory work-up revealed no leukocytosis , hemoglobin 7.2, hematocrit 21.3 , platelet count 253. Troponin - 0.013 . EKG revealed normal sinus rhythm, no acute ischemic changes . Pro BNP 71438. Renal parameters revealed potassium 6.9, sodium 133. BUN 98, creatinine 8.9. Chest x-ray revealed no acute cardiopulmonary pathology. In emergency department patient was treated with calcium gluconate, insulin and dextrose for hyperkalemia. Patient subsequently admitted to stepdown unit for further management. HOSPITAL COURSE: Patient admitted to stepdown unit. Patient was typed and crossed to get ready for transfusion. Home medication resumed. Blood pressure was managed with calcium channel kimberley and beta-kimberley. Supplemental oxygen was on board as needed to keep pulse oximetry above 92%. Pulse oximetry was stable on room air. Pain management was addressed as needed for right knee and back pain. DVT prophylaxis provided. Patient had hemodialysis that evening with 2800 mL out. Patient remained hemodynamically stable. After dialysis she felt better and requested to sign AGAINST MEDICAL ADVICE. The risks and consequences of signing AGAINST MEDICAL ADVICE were discussed with patient in detail. Patient verbalized understanding, nevertheless signed AMA form and left. FINAL DIAGNOSES: Hyperkalemia ESRD, on hemodialysis Anemia of chronic renal disease I have been assigned to dictate discharge summary for this account. I was not involved in the patient's management. Barbara Sheridan NP Dec 28, 2018 12:47
== END 2018-12-27 00:10 | disposition left against medical advice (07) | DRG 640 ==
LOC: EDBD 15:40 → EMR 15:46 → 2W 16:58 → EDBEDREQ 17:14 → 2W 21:18
DX: E87.5 Hyperkalemia (principal); N18.6 End stage renal disease; I12.0 Hypertensive chronic kidney disease with stage 5 chronic kidney disease or end stage renal disease; Z99.2 Dependence on renal dialysis; Z88.1 Allergy status to other antibiotic agents; Z88.2 Allergy status to sulfonamides; D63.1 Anemia in chronic kidney disease
CPT/HCPCS: 36415; 80053; 82962; 83880; 84484; 85007; 85025; 85610; 85730; 86850; 86900; 86901; 87081; 93005; 96374; 96375; 99285

== ENCOUNTER 2019-01-08 17:17 | Inpatient (IN) | payer MEDICARE ==
[~2019-01-08] VITALS: Ht 167.6 cm; Wt 59.0 kg
[~2019-01-08 17:17] MED LIST changes: +AMLODIPINE BESYL5 MG ORAL; +CARVEDILOL6.25 MG ORAL
[2019-01-08 17:22] VITALS: BP 131/91
--- NOTE | 2019-01-08 17:33 | Emergency Room Report ---
History of Present Illness General Chief Complaint: Dyspnea/Respdistress Source: Patient, Medical Record Present Illness HPI 48-year-old female presents with dyspnea, shortness of breath that started last night patient is dyspneic, patient states she is missed 2 dialysis sessions, she has shortness of breath and chest tightness, aggravated by not having dialysis, alleviated by having dialysis severity is severe symptoms have been constant, no nausea no vomiting no fevers no chills no cough no congestion, patient presents for evaluation. Allergies: Coded Allergies: CEPHALEXIN (Unverified Allergy, Unknown, 12/14/18) SULFAMETHOXAZOLE (Unverified Allergy, Unknown, 12/14/18) TRIMETHOPRIM (Unverified Allergy, Unknown, 12/14/18) VANCOMYCIN (Unverified Allergy, Unknown, 12/14/18) Patient History Past Medical History: see triage record Last Menstrual Period: n/a Reviewed Nursing Documentation: PMH: Agreed; PSxH: Agreed Nursing Documentation-PMH Past Medical History: No History, Except For Hx Cardiac Problems: Yes Hx Hypertension: Yes Hx Cancer: No Hx Gastrointestinal Problems: No Hx Dialysis: Yes - Friday, , Friday Port right femoral Hx Neurological Problems: No Review of Systems All Other Systems: negative except mentioned in HPI Physical Exam Vital Signs Date Time Temp Pulse Resp B/P (MAP) Pulse Ox O2 Delivery O2 Flow Rate FiO2 01/08/19 17:22 97.5 81 18 131/91 (104) 98 Room Air Sp02 EP Interpretation: reviewed, normal General Appearance: alert, moderate distress Head: normocephalic, atraumatic Eyes: bilateral eye PERRL, bilateral eye EOMI ENT: uvula midline, moist mucus membranes Neck: supple, thyroid normal, supple/symm/no masses Respiratory: no retraction, no accessory muscle use, decreased breath sounds, accessory muscle use, other - Tachypnea Cardiovascular #1: normal peripheral pulses, no edema, no gallop, no murmur, tachycardia Gastrointestinal: non tender, soft, no guarding, no rebound Musculoskeletal: normal inspection Neurologic: alert, oriented x3 Psychiatric: mood/affect normal Skin: no rash, warm/dry Procedures Critical Care Time Critical Care Time Given the critical condition in which the patient arrived, the patient was immediately assessed by myself and the nurse, and cardiac monitoring initiated due to the potential for rapid decompensation of the patient's clinical condition. During the course of the patient's stay, I spent a considerable amount of time at the bedside performing serial re-evaluations of the patient's hemodynamic and clinical status because of the recognized potential threat to life or limb in this condition. I then had a chance to review not only all of the available current laboratory and radiographic studies obtained today, but I also reviewed old records available to me at the time. Additionally, any ancillary information available including supervisor pipelines records were reviewed. Sequential vital signs were obtained. Critical Care time of 34 minutes was performed exclusive of billable procedures for hyperkalemia management Medical Decision Making Diagnostic Impression: Primary Impression: Hyperkalemia Additional Impression: Dyspnea Qualified Codes: R06.02 - Shortness of breath ER Course 48-year-old female presents with generalized weakness, chest pain, shortness of breath, concerning for ACS versus hyperkalemia versus fluid overload secondary to dialysis noncompliance reevaluation tachypnea, shortness of breath resolved, patient is able to sleep flat without any intervention Will provide patient with insulin, glucose given her elevated potassium Patient will be admitted to telemetry, patient will receive dialysis Patient admitted to Dr. Villatoro Laboratory Tests Test 01/08/19 17:38 White Blood Count 7.7 K/UL (4.8-10.8) Red Blood Count 2.32 M/UL (4.20-5.40) L Hemoglobin 7.5 G/DL (12.0-16.0) L Hematocrit 23.5 % (37.0-47.0) L Mean Corpuscular Volume 101 FL (80-99) H Mean Corpuscular Hemoglobin 32.5 PG (27.0-31.0) H Mean Corpuscular Hemoglobin Concent 32.1 G/DL (32.0-36.0) Red Cell Distribution Width 16.0 % (11.6-14.8) H Platelet Count 276 K/UL (150-450) Mean Platelet Volume 5.1 FL (6.5-10.1) L Neutrophils (%) (Auto) 84.6 % (45.0-75.0) H Lymphocytes (%) (Auto) 7.4 % (20.0-45.0) L Monocytes (%) (Auto) 6.1 % (1.0-10.0) Eosinophils (%) (Auto) 0.5 % (0.0-3.0) Basophils (%) (Auto) 1.4 % (0.0-2.0) Prothrombin Time 10.3 SEC (9.30-11.50) Prothrombin Time INR 1.0 (0.9-1.1) PTT 27 SEC (23-33) Sodium Level 133 MMOL/L (136-145) L Potassium Level 6.8 MMOL/L (3.5-5.1) *H Chloride Level 96 MMOL/L (98-107) L Carbon Dioxide Level 13 MMOL/L (21-32) L Anion Gap 23 mmol/L (5-15) H Blood Urea Nitrogen 114 mg/dL (7-18) H Creatinine 10.5 MG/DL (0.55-1.30) H Estimate Glomerular Filtration Rate 3.9 mL/min (>60) Glucose Level 103 MG/DL (74-106) Calcium Level 8.5 MG/DL (8.5-10.1) Total Bilirubin 0.4 MG/DL (0.2-1.0) Aspartate Amino Transferase (AST) 17 U/L (15-37) Alanine Aminotransferase (ALT) 9 U/L (12-78) L Alkaline Phosphatase 513 U/L (46-116) H Total Creatine Kinase 216 U/L (26-308) Creatine Kinase MB 5.8 NG/ML (0.0-3.6) H Creatine Kinase MB Relative Index 2.6 Troponin I 0.000 ng/mL (0.000-0.056) Pro-B-Type Natriuretic Peptide 7826 pg/mL (0-125) H Total Protein 8.8 G/DL (6.4-8.2) H Albumin 2.4 G/DL (3.4-5.0) L Globulin 6.4 g/dL Albumin/Globulin Ratio 0.4 (1.0-2.7) L Lipase 535 U/L (73-393) H EKG Diagnostic Results EKG Time: 17:34 EP Interpretation: NSR, rate 85, QTc 518, no acute ST elevations, no peaked T waves, nl axis Rhythm Strip Diag. Results Rhythm Strip Time: 18:27 EP Interpretation: yes Rate: 79 Rhythm: NSR, no PVC's, no ectopy Chest X-Ray Diagnostic Results Chest X-Ray Diagnostic Results : Chest X-Ray Ordered: Yes # of Views/Limited/Complete: 1 View Indication: Chest Pain EP Interpretation: Yes Interpretation: other - Right pulmonary fullness Impression: Other Last Vital Signs Date Time Temp Pulse Resp B/P (MAP) Pulse Ox O2 Delivery O2 Flow Rate FiO2 01/08/19 17:22 97.5 81 18 131/91 (104) 98 Room Air Disposition: ADMITTED INPATIENT Condition: Stable Jose Winters MD Jan 08, 2019 17:33
--- NOTE | 2019-01-08 17:40 | NUR ---
ED Nurse Note: Inserted 20 gauge on the R chest per pt.'s request. Informed Dr. Winters and said it's ok. IV access intact and patent. 1st attempt was successful.
[2019-01-08 17:49] LABS: HEMATOCRIT 23.5 % (37.0-47.0); HEMOGLOBIN 7.5 G/DL (12.0-16.0); MEAN CORPUSCULAR VOLUME 101 FL (80-99); PLATELET COUNT 276 K/UL (150-450); RED BLOOD COUNT 2.32 M/UL (4.20-5.40); WHITE BLOOD COUNT 7.7 K/UL (4.8-10.8)
[2019-01-08 17:52] LABS: BASOPHILS % (AUTO) 1.4 % (0.0-2.0); EOSINOPHILS % (AUTO) 0.5 % (0.0-3.0); LYMPHOCYTES % (AUTO) 7.4 % (20.0-45.0); MONOCYTES % (AUTO) 6.1 % (1.0-10.0); NEUTROPHILS % (AUTO) 84.6 % (45.0-75.0)
--- NOTE | 2019-01-08 17:52 | NUR ---
Pt refused ABG. Informed RN.
--- NOTE | 2019-01-08 17:55 | NUR ---
ED Nurse Note: Patient wheeled into ED due to SOB that started last night, patient stated that she has missed her dialysis for the past 2 sessions, Patient has dialysis Friday, , Friday. Dialysis access on the R femoral. Pt. is AAOx4.
[2019-01-08 18:00] VITALS: BP 142/83
[2019-01-08 18:20] LABS: ALANINE AMINOTRANSFERASE 9 U/L (12-78); ALBUMIN 2.4 G/DL (3.4-5.0); ALBUMIN/GLOBULIN RATIO 0.4 (1.0-2.7); ALKALINE PHOSPHATASE 513 U/L (46-116); ANION GAP 23 mmol/L (5-15); ASPARTATE AMINO TRANSFERASE 17 U/L (15-37); BILIRUBIN,TOTAL 0.4 MG/DL (0.2-1.0); BLOOD UREA NITROGEN 114 mg/dL (7-18); CALCIUM 8.5 MG/DL (8.5-10.1); CARBON DIOXIDE 13 MMOL/L (21-32); CHLORIDE 96 MMOL/L (98-107); CKMB 5.8 NG/ML (0.0-3.6); CREATINE KINASE 216 U/L (26-308); CREATININE 10.5 MG/DL (0.55-1.30); SODIUM 133 MMOL/L (136-145)
[2019-01-08 18:22] LABS: POTASSIUM 6.8 MMOL/L (3.5-5.1)
[2019-01-08 18:30] VITALS: BP 139/85
[2019-01-08] MEDS ORDERED: Calcium Gluconate 1gm/10ml vial IVP ONE (18:30)
[2019-01-08] MEDS ORDERED: Sodium Polystyrene Sulfonate 15gm Powder ORAL ONE ×2 (18:30→21:45)
[2019-01-08] MEDS ORDERED: Insulin Human Regular 100units/ml 3ml IV ONE (18:30)
--- NOTE | 2019-01-08 19:14 | Diagnostic Imaging Report ---
EXAM: XR Chest, 1 View CLINICAL HISTORY: DYSPNEA TECHNIQUE: Frontal view of the chest. COMPARISON: 12 14 18 FINDINGS: Lungs: See below. Pleural space: Increased density in the mid and lower lungs which is likely related to bilateral pleural effusions with adjacent atelectasis versus infiltrate. This appears worse compared to the prior exam. No definite plain film evidence for pneumothorax. Heart: There is some prominence of the cardiomediastinal silhouette which may at least partly be related to the portable technique. Mediastinum: Large 5.4 x 3.7 cm calcified nodule projected along the right side of the trachea which is likely related to a thyroid nodule. The trachea is deviated towards the left due to the nodule. This grossly has a similar appearance compared to the prior exam. Bones joints: Thoracic dextroscoliosis. A partially imaged tubular structure is projected along the right side of the thoracolumbar spine. It is unclear if this is internal or external to the patient. IMPRESSION: Increased density in the mid and lower lungs which is likely related to bilateral pleural effusions with adjacent atelectasis versus infiltrate. This appears worse compared to the prior exam.
[2019-01-08 19:20] VITALS: BP 136/85
--- NOTE | 2019-01-08 19:22 | NUR ---
ED Nurse Note: Medications given as prescribed. Patient complaining of knee pain to the right knee MD informed analgesdic requested. Patient has IV catheter in the right groin used for dialysis. Handoff to night nurse.
[2019-01-08] MEDS ORDERED: HYDROcodone/Acetamin 5/325 tab ORAL ONE (19:30)
--- NOTE | 2019-01-08 19:57 | NUR ---
ED Nurse Note: Contacted Telemetry department and gave report to Cristin JORDAN.
[2019-01-08 20:00] VITALS: BP 144/94
--- NOTE | 2019-01-08 20:02 | NUR ---
ED Nurse Note: Patient refused to finish polystyrene at bedside prior to transport to tele.
--- NOTE | 2019-01-08 20:04 | NUR ---
ED Nurse Note: Patient escorted to tele with RN accompanied by landscape technician without incident.
--- NOTE | 2019-01-08 20:30 | NUR ---
NURSE NOTES: pt arrived on the floor awake, alert, and talkative. Pt refusing tele box and oral medication for potassium level. Skin intact. Called and left a message with Dr. Ag for admission orders. Also called and left a message with HD Nurse. Bed in lowest position. Call light within reach. Will continue to monitor.
[2019-01-08] MEDS ORDERED: Albuterol/Ipratropium 3ml neb HHN PRN (21:45)
[2019-01-08] MEDS ORDERED: Zolpidem 5mg tab ORAL PRN (21:45)
[2019-01-08] MEDS ORDERED: Miralax 17gm pkt ORAL PRN (21:45)
--- NOTE | 2019-01-08 23:00 | NUR ---
NURSE NOTES: HD nurse came and was unable to use pts femoral access. Called and left a message with Dr. Lopez. Pt still refusing to drink Kayexelate. Will continue to monitor.
[2019-01-08] MEDS ORDERED: Zosyn 3.375gm inj ONE (23:33)
[2019-01-09] VITALS: BP 156/89
[2019-01-09] MEDS ORDERED: Sodium Polystyrene Sulfonate 15gm Powder ORAL ONE (00:15)
[2019-01-09] MEDS ORDERED: Morphine Sulfate 2mg/ml Inj(IV/IM USE ONLY) IVP PRN (02:45)
[2019-01-09 04:00] VITALS: BP 129/91
--- NOTE | 2019-01-09 07:35 | NUR ---
NURSE NOTES: Received report from Cristin JORDAN
--- NOTE | 2019-01-09 07:35 | NUR ---
HAND-OFF: Report given to JULIAN Winston. Pt stable.
--- NOTE | 2019-01-09 07:35 | NUR ---
NURSE NOTES: Pt in bed awake and oriented and eating breakfast. No c/o pain. IV line in right chest SL 20G asymptomatic. Pt refused PT/PTT blood drawn. bed in its lowest position and locked. Bed rails x2 up for safety. Right femoral perma cath noted. Will continue to plan of care.
[2019-01-09 08:00] VITALS: BP 139/88
--- NOTE | 2019-01-09 08:15 | NUR ---
NURSE NOTES: Pt was seen by Dr. Lopez and Dr. Haywood this morning. Dr. Lopez explained the patient about the procedure to change the current perma cath in right femoral area due to cath malfunction but the patient refusedx3 verbally. Pt AOX4. The patient stated "then I will leave AMA, I don't want a new cath. I will look for the another hospital." Dr. Lopez explained the risks of hyperkalemia without any intervention but she refusedx3 and kept asking "I will leave here now with AMA" Made Dr. King notified.
[2019-01-09 08:24] LABS: HEMATOCRIT 22.9 % (37.0-47.0); HEMOGLOBIN 7.2 G/DL (12.0-16.0); MEAN CORPUSCULAR VOLUME 100 FL (80-99); PLATELET COUNT 256 K/UL (150-450); RED BLOOD COUNT 2.28 M/UL (4.20-5.40); RED CELL DISTRIBUTION WIDTH 17.3 % (11.6-14.8); WHITE BLOOD COUNT 11.2 K/UL (4.8-10.8)
[2019-01-09] MEDS ORDERED: Heparin 5000 units/ml inj SUBQ SCH ×2 (09:00)
[2019-01-09] MEDS ORDERED: Docusate 100mg cap ORAL SCH (09:00)
[2019-01-09] MEDS ORDERED: Carvedilol 6.25mg Tab ORAL SCH (09:00)
--- NOTE | 2019-01-09 09:11 | Consultation ---
Consult Note Consult Note asked nara carpio for dialysis management 48-year-old female presents with dyspnea, shortness of breath that started last night patient is dyspneic, patient states she is missed 2 dialysis sessions, she has shortness of breath and chest tightness, aggravated by not having dialysis, alleviated by having dialysis severity is severe symptoms have been constant, no nausea no vomiting no fevers no chills no cough no congestion, patient presents for evaluation. Allergies: CEPHALEXIN (Unverified Allergy, Unknown, 12/14/18) SULFAMETHOXAZOLE (Unverified Allergy, Unknown, 12/14/18) TRIMETHOPRIM (Unverified Allergy, Unknown, 12/14/18) VANCOMYCIN (Unverified Allergy, Unknown, 12/14/18) Past Medical History: No History, Except For Hx Cardiac Problems: Yes Hx Hypertension: Yes Hx Dialysis: Yes - Friday, , Friday Port right femoral interviewed lab reviewed Assessment/Plan ESRD- presents with missed HD and high K h/o Osteomyelitis of spine Anemia of CKD non compliance and last ER visit patient left AMA plan: Refuses femoral catheter change for dialysis Kayexelate for high K per orders and consultants [id number] Yobani Lopez MD Jan 09, 2019 09:11
[2019-01-09] MEDS ORDERED: Sodium Polystyrene Sulfonate 15gm Powder ORAL SCH (09:15)
[2019-01-09 09:22] LABS: ALANINE AMINOTRANSFERASE 11 U/L (12-78); ALBUMIN 2.2 G/DL (3.4-5.0); ALBUMIN/GLOBULIN RATIO 0.4 (1.0-2.7); ALKALINE PHOSPHATASE 494 U/L (46-116); ANION GAP 24 mmol/L (5-15); ASPARTATE AMINO TRANSFERASE 15 U/L (15-37); BILIRUBIN,TOTAL 0.4 MG/DL (0.2-1.0); BLOOD UREA NITROGEN 121 mg/dL (7-18); CALCIUM 8.1 MG/DL (8.5-10.1); CARBON DIOXIDE 13 MMOL/L (21-32); CHLORIDE 97 MMOL/L (98-107); CREATININE 11.1 MG/DL (0.55-1.30); PHOSPHORUS 8.6 MG/DL (2.5-4.9); SODIUM 134 MMOL/L (136-145)
[2019-01-09 09:24] LABS: POTASSIUM 6.9 MMOL/L (3.5-5.1)
--- NOTE | 2019-01-09 09:26 | Consultation ---
History of Present Illness General Date patient seen: Jan 09, 2019 Chief Complaint: Dyspnea/Respdistress Present Illness HPI 48-year-old female with hx of ESRF on HD presented to ER with dyspnea, shortness of breath. She is missed 2 dialysis sessions, she has shortness of breath and chest tightness, aggravated by not having dialysis. There has been a problem with pts HD catheter. Her K was dangerously high. She is admitted to telemetry for further treatment. Allergies: Coded Allergies: CEPHALEXIN (Unverified Allergy, Unknown, 12/14/18) SULFAMETHOXAZOLE (Unverified Allergy, Unknown, 12/14/18) TRIMETHOPRIM (Unverified Allergy, Unknown, 12/14/18) VANCOMYCIN (Unverified Allergy, Unknown, 12/14/18) Medication History Scheduled Amlodipine Besylate* (Amlodipine Besylate*), 5 MG ORAL DAILY, (Reported) Carvedilol* (Carvedilol*), 6.25 MG ORAL EVERY 12 HOURS, (Reported) Gabapentin* (Gabapentin*), 100 MG ORAL THREE TIMES A DAY, (Reported) Patient History Healthcare decision maker brother Michelle Begum Resuscitation status Full Code Advanced Directive on File Past Medical/Surgical History Past Medical/Surgical History: (1) ESRF (end stage renal failure) Review of Systems All Other Systems: negative except mentioned in HPI Physical Exam General Appearance: thin Lines, tubes and drains: peripheral HEENT: normocephalic, atraumatic Neck: non-tender, normal alignment Respiratory/Chest: chest wall non-tender, lungs clear Breasts: no masses Cardiovascular/Chest: normal peripheral pulses Abdomen: normal bowel sounds, non tender Genitourinary/Rectal: normal rectal exam Extremities: normal range of motion Skin Exam: normal pigmentation Last 24 Hour Vital Signs Date Time Temp Pulse Resp B/P (MAP) Pulse Ox O2 Delivery O2 Flow Rate FiO2 01/09/19 08:00 97.9 82 20 139/88 (105) 97 01/09/19 04:00 97.9 83 22 129/91 (104) 95 01/09/19 00:00 97.0 78 20 156/89 (111) 95 01/08/19 21:33 Room Air 01/08/19 20:04 97.5 20 136/85 98 Room Air 01/08/19 20:03 97.5 01/08/19 20:00 97.5 93 18 144/94 (111) 95 01/08/19 19:20 20 136/85 98 01/08/19 18:30 78 19 139/85 98 Room Air 01/08/19 18:00 74 15 142/83 97 Room Air 01/08/19 17:22 81 18 Room Air 01/08/19 17:22 97.5 81 18 131/91 (104) 98 Room Air 01/08/19 17:22 97.5 18 131/91 98 Room Air Intake and Output 01/08/19 01/09/19 18:59 06:59 Output Total 0 ml Balance 0 ml Output Urine Total 0 ml # Voids 1 Laboratory Tests Test 01/08/19 17:38 01/09/19 07:10 White Blood Count 7.7 K/UL (4.8-10.8) 11.2 K/UL (4.8-10.8) H Red Blood Count 2.32 M/UL (4.20-5.40) L 2.28 M/UL (4.20-5.40) L Hemoglobin 7.5 G/DL (12.0-16.0) L 7.2 G/DL (12.0-16.0) L Hematocrit 23.5 % (37.0-47.0) L 22.9 % (37.0-47.0) L Mean Corpuscular Volume 101 FL (80-99) H 100 FL (80-99) H Mean Corpuscular Hemoglobin 32.5 PG (27.0-31.0) H 31.6 PG (27.0-31.0) H Mean Corpuscular Hemoglobin Concent 32.1 G/DL (32.0-36.0) 31.4 G/DL (32.0-36.0) L Red Cell Distribution Width 16.0 % (11.6-14.8) H 17.3 % (11.6-14.8) H Platelet Count 276 K/UL (150-450) 256 K/UL (150-450) Mean Platelet Volume 5.1 FL (6.5-10.1) L 5.0 FL (6.5-10.1) L Neutrophils (%) (Auto) 84.6 % (45.0-75.0) H % (45.0-75.0) Lymphocytes (%) (Auto) 7.4 % (20.0-45.0) L % (20.0-45.0) Monocytes (%) (Auto) 6.1 % (1.0-10.0) % (1.0-10.0) Eosinophils (%) (Auto) 0.5 % (0.0-3.0) % (0.0-3.0) Basophils (%) (Auto) 1.4 % (0.0-2.0) % (0.0-2.0) Prothrombin Time 10.3 SEC (9.30-11.50) Prothromb Time International Ratio 1.0 (0.9-1.1) Activated Partial Thromboplast Time 27 SEC (23-33) Sodium Level 133 MMOL/L (136-145) L Pending Potassium Level 6.8 MMOL/L (3.5-5.1) *H Pending Chloride Level 96 MMOL/L (98-107) L Pending Carbon Dioxide Level 13 MMOL/L (21-32) L Pending Anion Gap 23 mmol/L (5-15) H Blood Urea Nitrogen 114 mg/dL (7-18) H Pending Creatinine 10.5 MG/DL (0.55-1.30) H Pending Estimat Glomerular Filtration Rate 3.9 mL/min (>60) Pending Glucose Level 103 MG/DL (74-106) Pending Calcium Level 8.5 MG/DL (8.5-10.1) Pending Total Bilirubin 0.4 MG/DL (0.2-1.0) Pending Aspartate Amino Transf (AST/SGOT) 17 U/L (15-37) Pending Alanine Aminotransferase (ALT/SGPT) 9 U/L (12-78) L Pending Alkaline Phosphatase 513 U/L (46-116) H Pending Total Creatine Kinase 216 U/L (26-308) Creatine Kinase MB 5.8 NG/ML (0.0-3.6) H Creatine Kinase MB Relative Index 2.6 Troponin I 0.000 ng/mL (0.000-0.056) Pro-B-Type Natriuretic Peptide 7826 pg/mL (0-125) H Total Protein 8.8 G/DL (6.4-8.2) H Pending Albumin 2.4 G/DL (3.4-5.0) L Pending Globulin 6.4 g/dL Pending Albumin/Globulin Ratio 0.4 (1.0-2.7) L Lipase 535 U/L (73-393) H Neutrophils % (Manual) Pending Lymphocytes % (Manual) Pending Platelet Estimate Pending Platelet Morphology Pending Hemoglobin A1c Pending Phosphorus Level Pending Iron Level Pending Unsaturated Iron Binding Pending Ferritin Pending Vitamin B12 Level Pending Folate Pending Thyroid Stimulating Hormone (TSH) Pending Hepatitis B Surface Antigen Pending Height (Feet): 5 Height (Inches): 6.00 Weight (Pounds): 130 Medications Current Medications Medications (Trade) Dose Ordered Sig/Juliano Route PRN Reason Start Time Stop Time Status Last Admin Dose Admin Acetaminophen (Tylenol) 650 mg Q4H PRN ORAL fever 01/08/19 21:45 02/07/19 21:44 01/09/19 03:43 Acetaminophen (Tylenol) 650 mg Q4H PRN ORAL Fever 01/08/19 21:45 02/07/19 21:44 Albuterol/ Ipratropium (Albuterol/ Ipratropium) 3 ml EVERY 4 HOURS PRN HHN Shortness of Breath 01/08/19 21:45 01/13/19 21:44 Amlodipine Besylate (Norvasc) 5 mg DAILY ORAL 01/09/19 09:00 02/08/19 08:59 Carvedilol (Coreg) 6.25 mg EVERY 12 HOURS ORAL 01/09/19 09:00 02/08/19 08:59 Dextrose (Dextrose 50%) 25 ml Q30M PRN IV Hypoglycemia 01/08/19 21:45 02/07/19 21:44 Dextrose (Dextrose 50%) 50 ml Q30M PRN IV Hypoglycemia 01/08/19 21:45 02/07/19 21:44 Docusate Sodium (Colace) 100 mg TWICE A DAY ORAL 01/09/19 09:00 02/08/19 08:59 Gabapentin (Neurontin) 100 mg THREE TIMES A DAY ORAL 01/09/19 09:00 02/08/19 08:59 Heparin Sodium (Porcine) (Heparin 5000 units/ml) 5,000 units EVERY 12 HOURS SUBQ 01/09/19 09:00 02/08/19 08:59 Morphine Sulfate (Morphine Sulfate) 2 mg Q4H PRN IVP For Pain 01/09/19 02:45 01/16/19 02:44 Ondansetron HCl (Zofran) 4 mg Q6H PRN IVP Nausea & Vomiting 01/08/19 21:45 02/07/19 21:44 Polyethylene Glycol (Miralax) 17 gm DAILYPRN PRN ORAL Constipation 01/08/19 21:45 02/07/19 21:44 Sodium Polystyrene Sulfonate (Kayexalate) 30 gm DAILY ORAL 01/09/19 09:15 02/08/19 09:14 Temazepam (Restoril) 15 mg HSPRN PRN ORAL Insomnia 01/08/19 21:45 01/15/19 21:44 Zolpidem Tartrate (Ambien) 5 mg HSPRN PRN ORAL Insomnia 01/08/19 21:45 01/15/19 21:44 Assessment/Plan Problem List: (1) Dyspnea ICD Codes: R06.00 - Dyspnea, unspecified SNOMED: 492063596 Qualifiers: Qualified Codes: R06.02 - Shortness of breath (2) Hyperkalemia ICD Codes: E87.5 - Hyperkalemia SNOMED: 79267576 (3) ESRF (end stage renal failure) ICD Codes: N18.6 - End stage renal disease SNOMED: 06153910 (4) Anemia ICD Codes: D64.9 - Anemia, unspecified SNOMED: 411073252 (5) Noncompliance ICD Codes: Z91.19 - Patient's noncompliance with other medical treatment and regimen SNOMED: 7887593 Assessment/Plan: respiratory treatment Kayexalate HD nephrology to see monitor electrolytes Jarad King MD Jan 09, 2019 09:26
--- NOTE | 2019-01-09 09:30 | NUR ---
NURSE NOTES: RN came to the patient's room for AM meds administration including Kayexalate ordered by dr. Lopez due to K:6.9 this morning but the patient refused and stated "I know what the this meds is for but I don't need Kayexalate, I will take my blood pressure pills and gabapentin" Explained the benefits and risks of Kayexalate, but she refused." Dr. Lopez mede aware."
[2019-01-09 09:38] VITALS: BP 139/88
[2019-01-09 09:41] LABS: FERRITIN 847 NG/ML (8-388)
[2019-01-09 09:53] LABS: % IRON SATURATION 62 % (15-50); IRON 72 ug/dL (50-175); TOTAL IRON BINDING CAPACITY 116 ug/dL (250-450)
--- NOTE | 2019-01-09 09:56 | NUR ---
CARDIOLOGY : PT IS REFUSED 2-D ECHO SHE SAID SHES LEAVING NOW.RN MIN IS AWARE
--- NOTE | 2019-01-09 10:10 | NUR ---
AMA:see the form Patient is being leaving from medical care. Awake, alert and oriented x4. the patient was assisted via wheelchair by RN and transferred to her own car via wheelchair. Asked the patient to use the taxi for transfer but she refused x3. Patient verbalized understanding of AMA discharge and at this time patient does not request medications, equipment or placement. Patient signed patient consent in the medical record upon discharge. All medical devices such as IV and ID band were removed and no bleeding from IV removal site noted. Patient assisted to her private car via wheelchair by RN with her personal belongings.
--- NOTE | 2019-01-09 10:10 | NUR ---
AMA The patient admitted for hyperkalemia due to missing dialysis x2 this week and Dr. Lopez ordered for the patient to have hemodialysis stat on 01/08/19 but the perma cath was clotted so the dialysis nurse could not dislysis the patient. Per the patient, she has had perma cath in her right femoral for last 10years and she did not want to change the cath or insert AV shunt at this time when dr. lopez came to the patient and recommended to change to the new cath today(on 01/09/19) with Dr. Haywood(surgeon). Dr. Lopez explained the benefits and risks of dialysis with heperkalemia including sudden heart attact and dysarhythmia if the patient might not get the dialysis today. But she refused and she said she will find another hospital where can do dislysis without inserting a new dialysis cath. and she signed AMA consent form. RN came to the patient's room for AM meds administration including Kayexalate ordered by dr. Lopez due to K:6.9 this morning but the patient refused and stated "I know what the this meds are for but I don't need Kayexalate, I will take my blood pressure pills and gabapentin" Explained the benefits and risks of Kayexalate, but she refused." Dr. Lopez mede aware." Patient is being leaving from medical care. Awake, alert and oriented x4. the patient was assisted by RN via wheelchair and transferred to her own car. Asked the patient to use the taxi for discharge but she refused x3. Patient verbalized understanding of AMA discharge and at this time patient does not request medications, equipment or placement. Patient signed patient consent in the medical record upon discharge. All medical devices such as IV and ID band were removed and no bleeding from IV removal site noted. Patient assisted to her private car via wheelchair by RN with her personal belongings.
--- NOTE | 2019-01-09 12:00 | Consultation ---
DATE OF CONSULTATION: 01/09/2019 RENAL CONSULTATION CONSULTING PHYSICIAN: Yobani Lopez M.D. HISTORY OF PRESENT ILLNESS: I was called by Dr. Narinder Villatoro to consult this 48-year-old female for dialysis consultation. She comes in to emergency room with shortness of breath and dyspnea and claims that she had missed two dialysis. At the emergency room, the patient was found to have a hemoglobin of 7.5, potassium of 6.8, and a creatinine of 10.5. I discussed the condition with the ER physician and ordered emergency dialysis for the patient. When the dialysis patient arrived at 1 o'clock in the morning, the patient who had a femoral catheter and apparently was not used for quite sometimes, was clogged, and the dialysis nurse could not dialyzed the patient and suggested that the catheter should be changed. When I arrived this morning at the presence of the nurse in charge and the patient's nurse, Naty and , I talked to the patient and explained that her potassium is elevated and her femoral catheter needs to be changed. The patient declined and said, I don't want to change the catheter. When asked that how long has been on dialysis, she claimed to be on dialysis for the past 10 years, but she never wanted to have a fistula or graft placed because she does not want people know that she is on dialysis. At this time, the patient declines any further treatment and with regard to changing the catheter and arranging for the dialysis, my only option is to keep the potassium down with p.o. Kayexalate. Primary physician if needed, can call a psychiatric consultation or at any time that the patient's decision changes I will be available to arrange for the dialysis. Please also refer to my written note. Yobani Lopez M.D. DR: NERIS JOB#: [id number] CC:
--- NOTE | 2019-01-10 17:27 | Cardiology Report ---
APPROVED REPORT EKG Measurement Heart [id number] Sinus rhythm with occasional premature ventricular complexes Possible Anterior infarct, age undetermined Prolonged QT Abnormal ECG
--- NOTE | 2019-01-11 10:12 | Discharge Summary ---
Discharge Summary Discharge Summary _ DATE OF ADMISSION: 01/08/2019 DATE OF DISCHARGE: 01/09/2019 Patient left AGAINST MEDICAL ADVICE REASON FOR ADMISSION: 48 years old female with past medical history of end-stage renal disease, on hemodialysis, hypertension, history of osteomyelitis, discitis, presented to emergency department with dyspnea, shortness of breath from the previous night. According to patient , she missed two hemodialysis session. Patient reported shortness of breath and chest tightness, but no fever, no chills. No nausea, no vomiting. No cough, no congestion. Upon evaluation vital signs were stable. Blood pressure was slightly elevated 131/91. Laboratory work-up revealed no leukocytosis , hemoglobin 7.5 , hematocrit 23.5 . Sodium 133. Potassium 6.8 . BUN 114, creatinine 10.5, consistent with known history of end-stage renal disease. Glucose 103. Stable LFT. Troponin negative. Pro BNP 7826. Lipase 535. EKG revealed sinus rhythm , no acute ischemic changes , no peaked T waves. Chest x-ray demonstrated increased density in the mid and lower lung likely related to bilateral pleural effusion with adjacent atelectasis versus infiltrate. In emergency department patient was treated for hyperkalemia. Patient subsequently admitted to telemetry floor for urgent hemodialysis. CONSULTANTS: hospitalist/induction heating equipment setter Dr. King blaster helper Dr. Lopez [facility] COURSE: Patient admitted to telemetry floor. Supplemental oxygen provided as needed to keep pulse oximetry above 92%. Hemodialysis nurse arrived at 1:00am in the morning . Patient had femoral hemodialysis catheter , which apparently was clotted. Subsequently dialysis nurse was not able to dialyze the patient and suggested to change the catheter . Patient refused exchange of the catheter. Patient apparently was on dialysis for 10 years , but never wanted to have a fistula or graft placed before. Patient declined any further treatment with regards to changing the catheter and arranging for dialysis. Hyperkalemia was further treated with oral Kayexalate. Patient appeared to be noncompliant and on the last ER visit left AGAINST MEDICAL ADVICE. Hemoglobin and hematocrit were closely monitored with goal to keep hemoglobin above 7. Anemia work-up revealed evidence of anemia of chronic disease with high ferritin. Blood pressure was managed with calcium channel kimberley and beta-kimberley. DVT prophylaxis provided. Pain management was addressed. Pulse oximetry was stable on room air. On 01/09 patient decided to leave AGAINST MEDICAL ADVICE. The risks and consequences of signing AGAINST MEDICAL ADVICE were discussed with patient in detail. Patient verbalized understanding, nevertheless signed AMA form and left. FINAL DIAGNOSES: End-stage renal disease, on hemodialysis Missed hemodialysis Hyperkalemia Anemia of chronic kidney disease Noncompliance with hemodialysis History of osteomyelitis of spine Hypertension I have been assigned to dictate discharge summary for this account. I was not involved in the patient's management. Barbara Sheridan NP Jan 11, 2019 10:12
== END 2019-01-09 10:10 | disposition left against medical advice (07) | DRG 640 ==
LOC: EMR 17:54 → 2E 18:05 → EDBEDREQ 19:31
DX: E87.5 Hyperkalemia (principal); N18.6 End stage renal disease; I12.0 Hypertensive chronic kidney disease with stage 5 chronic kidney disease or end stage renal disease; T82.49XA Other complication of vascular dialysis catheter, initial encounter; R06.00 Dyspnea, unspecified; Z88.1 Allergy status to other antibiotic agents; Z88.2 Allergy status to sulfonamides; Z91.15 Patient's noncompliance with renal dialysis; N18.9 Chronic kidney disease, unspecified; D63.1 Anemia in chronic kidney disease; Z99.2 Dependence on renal dialysis; Y84.6 Urinary catheterization as the cause of abnormal reaction of the patient, or of later complication, without mention of misadventure at the time of the procedure; Z91.19 Patient's noncompliance with other medical treatment and regimen
CPT/HCPCS: 36415; 71045; 80053; 80069; 82550; 82553; 82607; 82728; 82746; 82962; 83036; 83540; 83550; 83690; 83880; 84443; 84484; 85007; 85025; 85610; 85730; 87081; 87340; 93005; 96374; 96375; 99291

== ENCOUNTER 2019-02-06 19:39 | Emergency (ER) | payer MEDICARE ==
[~2019-02-06] VITALS: Ht 165.1 cm; Wt 43.1 kg
--- NOTE | 2019-02-06 19:45 | NUR ---
ED Nurse Note: Pt brought in by ambulance from home c/o 01/28 generalized body pain. Pt has daily dialysis. Pt A&Ox4, Pt VSS, pt is irritable and resistant to care. ERMD at bedside
[2019-02-06] MEDS ORDERED: Morphine Sulfate 4mg/ml Inj (IV USE ONLY) IVP ONE ×2 (20:00→22:15)
--- NOTE | 2019-02-06 20:22 | NUR ---
ED Nurse Note: Pt refusing IV at this time, combative and verbally abrasive. ERMD aware and at bedside. 4mg Morphine given IM per ERMD order.
[2019-02-06 20:23] VITALS: BP 143/96
--- NOTE | 2019-02-06 21:26 | NUR ---
ED Nurse Note: Dr No inserted 20g Iv into R external jugular without complication. Pt tolerated well. Blood sent to lab
--- NOTE | 2019-02-06 21:27 | Diagnostic Imaging Report ---
EXAM: XR Chest, 1 View CLINICAL HISTORY: PAIN TECHNIQUE: Frontal view of the chest. COMPARISON: No relevant prior studies available. FINDINGS: Lungs: Trace interstitial edema. Pleural space: Moderate right and small left pleural effusions. No pneumothorax. Heart: Cardiomegaly. Mediastinum: Unremarkable. Bones joints: Unremarkable. IMPRESSION: 1. Trace interstitial edema. 2. Moderate right and small left pleural effusions. 3. Cardiomegaly.
[2019-02-06 21:38] LABS: HEMATOCRIT 17.9 % (37.0-47.0); MEAN CORPUSCULAR VOLUME 101 FL (80-99); PLATELET COUNT 328 K/UL (150-450); RED BLOOD COUNT 1.77 M/UL (4.20-5.40); RED CELL DISTRIBUTION WIDTH 14.8 % (11.6-14.8); WHITE BLOOD COUNT 7.2 K/UL (4.8-10.8)
[2019-02-06 21:45] LABS: HEMOGLOBIN 5.8 G/DL (12.0-16.0)
[2019-02-06 22:00] LABS: ANION GAP 13 mmol/L (5-15); BLOOD UREA NITROGEN 27 mg/dL (7-18); CALCIUM 9.1 MG/DL (8.5-10.1); CARBON DIOXIDE 27 MMOL/L (21-32); CHLORIDE 97 MMOL/L (98-107); CREATININE 3.6 MG/DL (0.55-1.30); POTASSIUM 3.8 MMOL/L (3.5-5.1); SODIUM 137 MMOL/L (136-145)
[2019-02-06 22:02] LABS: ALANINE AMINOTRANSFERASE 15 U/L (12-78); ALBUMIN 2.2 G/DL (3.4-5.0); ALBUMIN/GLOBULIN RATIO 0.3 (1.0-2.7); ALKALINE PHOSPHATASE 236 U/L (46-116); ASPARTATE AMINO TRANSFERASE 21 U/L (15-37); BILIRUBIN,TOTAL 0.4 MG/DL (0.2-1.0)
--- NOTE | 2019-02-06 22:09 | Emergency Room Report ---
History of Present Illness General Chief Complaint: Pain Source: Patient (Mumtaz No MD) Present Illness HPI 48-year-old female presents ED for evaluation. Brought in by EMS from home. Complaining of generalized body pain. History of end-stage renal disease on dialysis. Gets dialysis normally 3 times a week but states that for the last week she was getting dialysis every single day. Patient got dialysis today as well. Patient was admitted recently to another hospital left AMA yesterday. States that every time she gets dialysis she gets some generalized pain but states it is worse today. States she did not have pain medications at home so she called 911. Pain is 10 out of 10, throbbing, nonradiating. Denies chest pain or shortness of breath. No other aggravating relieving factors. Denies any other associated symptoms (Mumtaz No MD) Allergies: Coded Allergies: CEPHALEXIN (Unverified Allergy, Unknown, 12/14/18) SULFAMETHOXAZOLE (Unverified Allergy, Unknown, 12/14/18) TRIMETHOPRIM (Unverified Allergy, Unknown, 12/14/18) VANCOMYCIN (Unverified Allergy, Unknown, 12/14/18) Patient History Past Medical History: HTN, renal disease, dialysis Past Surgical History: none Pertinent Family History: none Social History: Denies: smoking, alcohol use, drug use Now: No Immunizations: UTD Reviewed Nursing Documentation: PMH: Agreed; PSxH: Agreed (Mumtaz No MD) Nursing Documentation-PMH Past Medical History: No History, Except For Hx Cardiac Problems: Yes Hx Hypertension: Yes Hx Cancer: No Hx Gastrointestinal Problems: No Hx Dialysis: Yes - Friday, , Friday Port right femoral Hx Neurological Problems: No (Mumtaz No MD) Review of Systems All Other Systems: negative except mentioned in HPI (Mumtaz No MD) Physical Exam Vital Signs Date Time Temp Pulse Resp B/P (MAP) Pulse Ox O2 Delivery O2 Flow Rate FiO2 02/06/19 19:34 99.1 118 16 143/96 (112) 98 Room Air Sp02 EP Interpretation: reviewed, normal General Appearance: no apparent distress, alert, GCS 15, non-toxic Head: normocephalic, atraumatic Eyes: bilateral eye normal inspection, bilateral eye PERRL ENT: hearing grossly normal, normal pharynx, no angioedema, normal voice Neck: full range of motion, supple/symm/no masses Respiratory: chest non-tender, lungs clear, normal breath sounds, speaking full sentences Cardiovascular #1: regular rate, rhythm, no edema Cardiovascular #2: 2+ carotid (R), 2+ carotid (L), 2+ radial (R), 2+ radial (L) , 2+ dorsalis pedis (R), 2+ dorsalis pedis (L) Gastrointestinal: normal bowel sounds, non tender, soft, non-distended, no guarding, no rebound Rectal: deferred Genitourinary: normal inspection, no CVA tenderness Musculoskeletal: back normal, gait/station normal, normal range of motion, non- tender Neurologic: alert, oriented x3, responsive, motor strength/tone normal, sensory intact, speech normal Psychiatric: judgement/insight normal, memory normal, mood/affect normal, no suicidal/homicidal ideation Reflexes: 3+ bicep (R), 3+ bicep (L), 3+ tricep (R), 3+ tricep (L), 3+ knee (R) , 3+ knee (L) Skin: diaphoresis, other - see nrusign notes for skin Lymphatic: no adenopathy (Mumtaz No MD) Medical Decision Making Diagnostic Impression: Primary Impression: Anemia Additional Impressions: ESRF (end stage renal failure) Noncompliance Labs Test 02/06/19 21:20 White Blood Count 7.2 K/UL (4.8-10.8) Red Blood Count 1.77 M/UL (4.20-5.40) Hemoglobin 5.8 G/DL (12.0-16.0) Hematocrit 17.9 % (37.0-47.0) Mean Corpuscular Volume 101 FL (80-99) Mean Corpuscular Hemoglobin 32.7 PG (27.0-31.0) Mean Corpuscular Hemoglobin Concent 32.4 G/DL (32.0-36.0) Red Cell Distribution Width 14.8 % (11.6-14.8) Platelet Count 328 K/UL (150-450) Mean Platelet Volume 5.2 FL (6.5-10.1) Neutrophils (%) (Auto) % (45.0-75.0) Lymphocytes (%) (Auto) % (20.0-45.0) Monocytes (%) (Auto) % (1.0-10.0) Eosinophils (%) (Auto) % (0.0-3.0) Basophils (%) (Auto) % (0.0-2.0) Prothrombin Time 10.7 SEC (9.30-11.50) Prothromb Time International Ratio 1.0 (0.9-1.1) Activated Partial Thromboplast Time 27 SEC (23-33) Sodium Level 137 MMOL/L (136-145) Potassium Level 3.8 MMOL/L (3.5-5.1) Chloride Level 97 MMOL/L (98-107) Carbon Dioxide Level 27 MMOL/L (21-32) Anion Gap 13 mmol/L (5-15) Blood Urea Nitrogen 27 mg/dL (7-18) Creatinine 3.6 MG/DL (0.55-1.30) Estimat Glomerular Filtration Rate 13.4 mL/min (>60) Glucose Level 104 MG/DL (74-106) Calcium Level 9.1 MG/DL (8.5-10.1) Total Bilirubin 0.4 MG/DL (0.2-1.0) Aspartate Amino Transf (AST/SGOT) 21 U/L (15-37) Alanine Aminotransferase (ALT/SGPT) 15 U/L (12-78) Alkaline Phosphatase 236 U/L (46-116) Total Protein 8.5 G/DL (6.4-8.2) Albumin 2.2 G/DL (3.4-5.0) Globulin 6.3 g/dL Albumin/Globulin Ratio 0.3 (1.0-2.7) (Mumtaz No MD) ER Course Patient signed out to me. She presents with generalized body pain. She does not want to be admitted. She does not want blood transfusion. She is stable. Oxygenation is normal. No evidence of hyperkalemia. Will discharge home since there is no other reason to keep her in the hospital. (Donald Luke MD) EKG Diagnostic Results Rate: tachycardiac Rhythm: NSR ST Segments: no acute changes ASA given to the pt in ED: No (Mumtaz No MD) Rhythm Strip Diag. Results EP Interpretation: yes Rhythm: NSR, no PVC's, no ectopy (Mumtaz No MD) Chest X-Ray Diagnostic Results Chest X-Ray Diagnostic Results : Chest X-Ray Ordered: Yes # of Views/Limited/Complete: 1 View Indication: Other EP Interpretation: Yes Interpretation: no pneumothorax, other - bilteral pleural effusion Impression: Other - pleural effusion Electronically Signed by: Electronically signed by Mumtaz No MD (Mumtaz No MD) Last Vital Signs Date Time Temp Pulse Resp B/P (MAP) Pulse Ox O2 Delivery O2 Flow Rate FiO2 02/06/19 21:02 99.1 02/06/19 20:23 96 16 143/96 98 Room Air Status: improved (Mumtaz No MD) Status: improved (Donald Luke MD) Disposition: HOME, SELF-CARE Condition: Stable Referrals: NON PHYSICIAN (PCP) Additional Instructions: Follow up with your doctor in 7 days. Return if symptoms worsen. Go to dialysis as scheduled. Mumtaz No MD Feb 06, 2019 22:09 Donald Luke MD Feb 06, 2019 23:49
--- NOTE | 2019-02-06 22:26 | NUR ---
ED Nurse Note: med recon done at the bedside, pt reports no changes in med from previous visit but unable to recall other meds, pt advised to notify staff if pt has to provide more info.
--- NOTE | 2019-02-06 22:34 | NUR ---
ED Nurse Note: Pt refusing blood transfusion against ERMD's advice, refusal form signed. ERMD notified.
--- NOTE | 2019-02-07 | NUR ---
ED Nurse Note: Pt given discharge instructions and paperwork, pt refusing to leave, continuing to be manipulative and uncooperative. ERMD aware. PT is stable to be discharged.
--- NOTE | 2019-02-07 00:20 | NUR ---
ED Nurse Note: Pt on the phone with 911, pt is upset that we are discharging her. Continues to be combative and resistant
[2019-02-07 00:35] VITALS: BP 143/96
--- NOTE | 2019-02-07 00:35 | NUR ---
ER DISCHARGE NOTE: Patient is cleared to be discharged per ERMD, pt is aox4, on room air, with stable vital signs. pt was given dc and prescription instructions, pt was able to verbalize understanding, pt id band and iv site removed without complications. pt is able to ambulate with steady gait. pt took all belongings.
--- NOTE | 2019-02-08 13:55 | Cardiology Report ---
APPROVED REPORT EKG Measurement Heart [id number] Sinus tachycardia Nonspecific T wave abnormality Abnormal ECG
== END 2019-02-07 00:35 | disposition home or self-care (01) ==
LOC: EDBD 19:39 → EMR 20:00 → 2E 22:08 → UNDOADMIN 22:08 → EDBEDREQ 22:24 → EMR 02-07 00:35
DX: I12.0 Hypertensive chronic kidney disease with stage 5 chronic kidney disease or end stage renal disease (principal); N18.6 End stage renal disease; Z99.2 Dependence on renal dialysis; Z91.15 Patient's noncompliance with renal dialysis; D63.1 Anemia in chronic kidney disease; Z88.1 Allergy status to other antibiotic agents; Z88.2 Allergy status to sulfonamides; J90 Pleural effusion, not elsewhere classified; I51.7 Cardiomegaly
CPT/HCPCS: 36415; 71045; 80053; 83880; 85007; 85025; 85610; 85730; 86850; 86900; 86901; 93005; 96374; 96376; 99284; J2270

== ENCOUNTER 2019-02-09 12:52 | Inpatient (IN) | payer MEDICARE ==
[~2019-02-09] VITALS: Ht 165.1 cm; Wt 64.5 kg
[2019-02-09 12:55] VITALS: BP 154/89
--- NOTE | 2019-02-09 12:55 | NUR ---
ED Nurse Note: pt brought in to ER by ambulance from home after fall in front of her place. per pt, she was transferring from a car to home and lost balance. pt c/o Rt hip pain 10/10 and Lt arm edema noted. pt gets dialysis every T, , S and missted today due to fall. pt aao x4 and bedridden at this moment. calm and cooperative. skin dry but no wound noted. no bruise or open wound noted on Rt hip. pt is on monitoring engineer and gowned.
--- NOTE | 2019-02-09 13:05 | NUR ---
ED Nurse Note: pt went down for x-ray in stable condition.
[2019-02-09 13:16] LABS: HEMATOCRIT 18.7 % (37.0-47.0); MEAN CORPUSCULAR VOLUME 105 FL (80-99); PLATELET COUNT 281 K/UL (150-450); RED BLOOD COUNT 1.78 M/UL (4.20-5.40); RED CELL DISTRIBUTION WIDTH 15.2 % (11.6-14.8); WHITE BLOOD COUNT 5.5 K/UL (4.8-10.8)
[2019-02-09 13:20] LABS: HEMOGLOBIN 5.8 G/DL (12.0-16.0)
--- NOTE | 2019-02-09 13:20 | NUR ---
ED Nurse Note: pt came back from x-ray to get pain medication. Morphine 4mg ivp and zofran 4mg ivp given.
[2019-02-09] MEDS ORDERED: Morphine Sulfate 4mg/ml Inj (IV USE ONLY) ONE (13:27)
[2019-02-09] MEDS ORDERED: Morphine Sulfate 4mg/ml Inj (IV USE ONLY) IVP ONE (13:30)
[2019-02-09 13:31] LABS: ANION GAP 19 mmol/L (5-15); BLOOD UREA NITROGEN 58 mg/dL (7-18); CALCIUM 9.8 MG/DL (8.5-10.1); CARBON DIOXIDE 23 MMOL/L (21-32); CHLORIDE 97 MMOL/L (98-107); CREATININE 7.2 MG/DL (0.55-1.30); POTASSIUM 4.6 MMOL/L (3.5-5.1); SODIUM 139 MMOL/L (136-145)
[2019-02-09 13:38] LABS: ALANINE AMINOTRANSFERASE 11 U/L (12-78); ALBUMIN 2.3 G/DL (3.4-5.0); ALBUMIN/GLOBULIN RATIO 0.4 (1.0-2.7); ALKALINE PHOSPHATASE 217 U/L (46-116); ASPARTATE AMINO TRANSFERASE 19 U/L (15-37); BILIRUBIN,TOTAL 0.4 MG/DL (0.2-1.0); CREATINE KINASE 80 U/L (26-308)
--- NOTE | 2019-02-09 14:12 | Emergency Room Report ---
History of Present Illness General Chief Complaint: Multiple Trauma/Fall Source: Patient, Medical Record Present Illness HPI 48-year-old female history of dialysis Friday, missed her dialysis today presents with right leg pain, right hip pain, patient states she fell, and tripped, and could not get up. Now with right hip pain, aggravated with movement alleviated with rest. Severity is mild. Allergies: Coded Allergies: CEPHALEXIN (Unverified Allergy, Unknown, 12/14/18) SULFAMETHOXAZOLE (Unverified Allergy, Unknown, 12/14/18) TRIMETHOPRIM (Unverified Allergy, Unknown, 12/14/18) VANCOMYCIN (Unverified Allergy, Unknown, 12/14/18) Uncoded Allergies: BACTRIM DS (Allergy, Unknown, 02/09/19) Patient History Past Medical History: see triage record Reviewed Nursing Documentation: PMH: Agreed; PSxH: Agreed Nursing Documentation-PMH Hx Cardiac Problems: Yes Hx Hypertension: Yes Hx Cancer: No Hx Gastrointestinal Problems: No Hx Dialysis: Yes - Friday, , Friday Port right femoral Hx Neurological Problems: No Review of Systems All Other Systems: negative except mentioned in HPI Physical Exam Vital Signs Date Time Temp Pulse Resp B/P (MAP) Pulse Ox O2 Delivery O2 Flow Rate FiO2 02/09/19 12:41 97.7 95 18 180/110 (133) 85 Room Air Sp02 EP Interpretation: reviewed, normal General Appearance: well appearing, no apparent distress, alert Head: normocephalic, atraumatic Eyes: bilateral eye PERRL, bilateral eye EOMI ENT: uvula midline, moist mucus membranes Neck: supple, thyroid normal, supple/symm/no masses Respiratory: lungs clear, no respiratory distress, no retraction, no accessory muscle use Cardiovascular #1: normal peripheral pulses, regular rate, rhythm, no edema, no gallop, no murmur Gastrointestinal: non tender, soft, no guarding, no rebound Musculoskeletal: normal inspection Neurologic: alert, oriented x3 Psychiatric: mood/affect normal Skin: no rash, warm/dry Procedures Critical Care Time Critical Care Time Given the critical condition in which the patient arrived, the patient was immediately assessed by myself and the nurse, and cardiac monitoring initiated due to the potential for rapid decompensation of the patient's clinical condition. During the course of the patient's stay, I spent a considerable amount of time at the bedside performing serial re-evaluations of the patient's hemodynamic and clinical status because of the recognized potential threat to life or limb in this condition. I then had a chance to review not only all of the available current laboratory and radiographic studies obtained today, but I also reviewed old records available to me at the time. Additionally, any ancillary information available including position clerk records were reviewed. Sequential vital signs were obtained. Critical Care time of 31 minutes was performed exclusive of billable procedures. Medical Decision Making Diagnostic Impression: Primary Impression: Fall Qualified Codes: W19.XXXA - Unspecified fall, initial encounter Additional Impressions: Missed dialysis Symptomatic anemia Pneumothorax, left ER Course 48-year-old female presents with mechanical fall right hip pain, missed dialysis , found down. Patient found to have symptom medic anemia, patient states she is been having some shortness of breath and she thinks she fell because she was more tired We will transfuse blood will admit patient for blood transfusion and dialysis Dr. Haywood consulted for eval of left incidental pneumo, patient not in respiratory distress Patient admitted to Dr. Villatoro Patient will be transfused blood Surgery to follow possible pneumo Multiple coordination was done to ensure stability of patient. Laboratory Tests Test 02/09/19 13:00 02/09/19 13:50 White Blood Count 5.5 K/UL (4.8-10.8) Red Blood Count 1.78 M/UL (4.20-5.40) L Hemoglobin 5.8 G/DL (12.0-16.0) *L Hematocrit 18.7 % (37.0-47.0) L Mean Corpuscular Volume 105 FL (80-99) H Mean Corpuscular Hemoglobin 32.6 PG (27.0-31.0) H Mean Corpuscular Hemoglobin Concent 31.1 G/DL (32.0-36.0) L Red Cell Distribution Width 15.2 % (11.6-14.8) H Platelet Count 281 K/UL (150-450) Mean Platelet Volume 5.7 FL (6.5-10.1) L Neutrophils (%) (Auto) % (45.0-75.0) Lymphocytes (%) (Auto) % (20.0-45.0) Monocytes (%) (Auto) % (1.0-10.0) Eosinophils (%) (Auto) % (0.0-3.0) Basophils (%) (Auto) % (0.0-2.0) Differential Total Cells Counted 100 Neutrophils % (Manual) 84 % (45-75) H Lymphocytes % (Manual) 10 % (20-45) L Monocytes % (Manual) 6 % (1-10) Eosinophils % (Manual) 0 % (0-3) Basophils % (Manual) 0 % (0-2) Band Neutrophils 0 % (0-8) Platelet Estimate Adequate Platelet Morphology Normal Hypochromasia 1+ Anisocytosis 1+ Macrocytosis 1+ Prothrombin Time 10.7 SEC (9.30-11.50) Prothrombin Time INR 1.0 (0.9-1.1) PTT 25 SEC (23-33) Sodium Level 139 MMOL/L (136-145) Potassium Level 4.6 MMOL/L (3.5-5.1) Chloride Level 97 MMOL/L (98-107) L Carbon Dioxide Level 23 MMOL/L (21-32) Anion Gap 19 mmol/L (5-15) H Blood Urea Nitrogen 58 mg/dL (7-18) H Creatinine 7.2 MG/DL (0.55-1.30) H Estimate Glomerular Filtration Rate 6.0 mL/min (>60) Glucose Level 89 MG/DL (74-106) Calcium Level 9.8 MG/DL (8.5-10.1) Total Bilirubin 0.4 MG/DL (0.2-1.0) Aspartate Amino Transferase (AST) 19 U/L (15-37) Alanine Aminotransferase (ALT) 11 U/L (12-78) L Alkaline Phosphatase 217 U/L (46-116) H Total Creatine Kinase 80 U/L (26-308) Pro-B-Type Natriuretic Peptide 80545 pg/mL (0-125) H Total Protein 8.6 G/DL (6.4-8.2) H Albumin 2.3 G/DL (3.4-5.0) L Globulin 6.3 g/dL Albumin/Globulin Ratio 0.4 (1.0-2.7) L Lipase 161 U/L (73-393) Arterial Blood pH 7.405 (7.350-7.450) Arterial Blood Partial Pressure CO2 39.3 mmHg (35.0-45.0) Arterial Blood Partial Pressure O2 65.1 mmHg (75.0-100.0) L Arterial Blood HCO3 24.1 mmol/L (22.0-26.0) Arterial Blood Oxygen Saturation 88.7 % (95-100) *L Arterial Blood Base Excess -0.6 (-2-2) Ady Test Positive EKG Diagnostic Results EKG Time: 13:07 EP Interpretation: NSR rate 88, qtc 445, no acute st elevations, normal axis Rhythm Strip Diag. Results Rhythm Strip Time: 13:47 EP Interpretation: yes Rate: 87 Rhythm: NSR, no PVC's, no ectopy Chest X-Ray Diagnostic Results Chest X-Ray Diagnostic Results : Chest X-Ray Ordered: Yes # of Views/Limited/Complete: 1 View Indication: Shortness of Breath EP Interpretation: Yes Interpretation: other - left small pneumo Impression: Other - left small pneumo Electronically Signed by: Jose Winters MD CT/MRI/US Diagnostic Results CT/MRI/US Diagnostic Results : Impression Procedure: CT Pelvis no Contrast Indication: Pelvic pain, status post fall Technique: Noncontrast spiral acquisitions obtained through the pelvis. Multiplanar reconstructions generated. Total dose length product 576 mGycm. CTDIvol(s) 14 mGy. Dose reduction achieved using automated exposure control Comparison: none Findings: No acute fractures. No dislocations. No definite soft tissue contusion , although this is difficult to rule out given the extensive edema of the subcutaneous fat that is demonstrated. There is a large synovial herniation pit in the right femoral neck. The bones are diffusely osteosclerotic. The highest cuts demonstrate destructive changes of the L3 vertebral body with a pathologic fracture of the left pedicle. Small focal lucencies are seen within the bone, seen within the right L3 lamina and right acetabulum. More symmetric and less well delineated lucencies are seen in the sacral wings bilaterally and probably does represent areas of physiologic rarefaction. There is expansion of the distal sacral spinal canal, probably due to nerve root sleeve cysts. There is a tunneled dialysis catheter entering via the right common femoral vein , tip projected beyond the upper limits of the imaging volume. The kidneys are atrophic with multiple cysts. The remaining pelvic viscera are unremarkable. Large venous varicosities are seen within the anterior abdominal wall. Impression: No definite acute bony or soft tissue trauma. Destructive changes of the L3 vertebral body, inconclusively visualized, and a pathologic fracture of the left 3 pedicle. Note that advanced destructive changes of the L2 and L3 vertebral segments are described also on a prior MRI of 12/14/2018. 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 Dictated By: Owen Rg MD Electronically Signed By: Owen Rg MD Signed Date/Time 02/09/19 1522 CC: Jose Winters MD Procedure: CT Chest no Contrast Clinical Indication: Chest pain, status post fall, abnormal recent chest radiograph Technique: Spiral acquisitions obtained through the chest. No IV contrast utilized, reason not stated. Multiplanar reconstructions generated. Total dose length product 675 mGycm. CTDIvol(s) 14 mGy. Dose reduction achieved using automated exposure control Comparison: none Findings: There are large bilateral pleural effusions, slightly larger on the right than on the left. No pneumothorax is evident. There is compressive atelectasis of portions of both lower lobes. Scarring or atelectasis is also seen in the inferior right upper lobe. Other than the areas of volume loss, the aerated portions of both lungs are clear. The heart size is normal. Numerous enlarged mediastinal nodes are demonstrated. There is a tubular calcification in the right innominate vein and in the superior vena cava. This presumably represents a fibrin sheath from a previous dialysis catheter. There is generalized edema of the mediastinal and subcutaneous fat. In very large eggshell calcification is seen in the right neck. It is unclear whether this is arising from or just adjacent to the thyroid. There is apparent asymmetry to the breast size. This probably is artifactual due to the left arm not being elevated. Prominent axillary nodes are demonstrated, most striking on the left. The included upper abdominal anatomy demonstrates atrophic kidneys with multiple cysts. The tip of a dialysis catheter is seen in the inferior vena cava. There is mild thoracic scoliotic deformity. There is diffuse osteosclerosis. There is an advanced destructive change of the L2 and L3 vertebral bodies and intervening discs. This was also described on a prior MRI scan of 12/14/2018. Included upper abdominal anatomy demonstrates that spleen may be enlarged, although is not completely included on the exam. There is evidence of lymphadenopathy in the peripancreatic region and in the lesser sac, not well delineated due to the lack of IV contrast. Gas bubbles are seen in the right lower chest wall. Impression: No pneumothorax. Findings on recent chest radiograph or presumably factitious Large bilateral pleural effusions Evidence of anasarca, with diffuse edema of the subcutaneous, mediastinal, and abdominal fat in addition to the above Advanced destructive changes of the L2 and L3 vertebral bodies, presumably related to suspected discitis/osteomyelitis described on prior MRI of 12/14/2018 Atrophic bilateral kidneys, consistent with chronic renal insufficiency. Multiple renal cysts, consistent with polycystic disease of uremia. Mediastinal, axillary, and abdominal lymphadenopathy. Possible mild splenomegaly. Findings raise concern for lymphoproliferative disorder Gas bubbles in the right lower chest wall, may reflect recent injections versus penetrating trauma. Correlate with clinical findings Diffuse osteosclerosis, presumably representing renal osteodystrophy Inferior vena cava dialysis catheter demonstrated Tubular calcifications in the superior vena cava most likely represent an old fibrin sheath from a prior dialysis catheter Large right neck eggshell calcification, uncertain as to whether of thyroid or extrathyroidal origin. Presumably related to prior inflammatory disease. The CT scanner at [facility] is accredited by the [employer] and the scans are performed using protocols designed to limit radiation exposure to as low as reasonably achievable to attain images of sufficient resolution adequate for diagnostic evaluation. Dictated By: Owen Rg MD Electronically Signed By: Owen Rg MD Signed Date/Time 02/09/19 6194 CC: Jose Winters MD Last Vital Signs Date Time Temp Pulse Resp B/P (MAP) Pulse Ox O2 Delivery O2 Flow Rate FiO2 02/09/19 12:55 95 18 Room Air 02/09/19 12:55 97.7 154/89 95 Disposition: ADMITTED INPATIENT Condition: Stable Referrals: NON PHYSICIAN (PCP) Jose Winters MD Feb 09, 2019 14:12
--- NOTE | 2019-02-09 14:20 | Diagnostic Imaging Report ---
Indication: Chest pain Technique: One view of the chest Comparison: 02/06/2019 Findings: There is a lucency at the left costophrenic sulcus, with there is previously pleural fluid. Small basilar pneumothorax possible. There is bilateral interstitial edema again demonstrated. Moderate to large right pleural effusion is again demonstrated. The heart is upper limits normal in size. Large eggshell calcification in the right neck is probably thyroid in origin. Impression: Doubt but cannot completely exclude small left basilar pneumothorax. Bilateral interstitial edema and moderate to large right pleural effusion, not significantly changed from 02/06/2019 Other findings as noted Findings discussed by phone with Dr. Winters at the time of interpretation
--- NOTE | 2019-02-09 14:20 | NUR ---
ED Nurse Note: pt went down for imagings in stable condition.
[2019-02-09] MEDS ORDERED: Hydromorphone 0.5mg/0.5ml inj IVP ONE (15:00)
--- NOTE | 2019-02-09 15:15 | Diagnostic Imaging Report ---
Clinical Indication: Chest pain, status post fall, abnormal recent chest radiograph Technique: Spiral acquisitions obtained through the chest. No IV contrast utilized, reason not stated. Multiplanar reconstructions generated. Total dose length product 675 mGycm. CTDIvol(s) 14 mGy. Dose reduction achieved using automated exposure control Comparison: none Findings: There are large bilateral pleural effusions, slightly larger on the right than on the left. No pneumothorax is evident. There is compressive atelectasis of portions of both lower lobes. Scarring or atelectasis is also seen in the inferior right upper lobe. Other than the areas of volume loss, the aerated portions of both lungs are clear. The heart size is normal. Numerous enlarged mediastinal nodes are demonstrated. There is a tubular calcification in the right innominate vein and in the superior vena cava. This presumably represents a fibrin sheath from a previous dialysis catheter. There is generalized edema of the mediastinal and subcutaneous fat. In very large eggshell calcification is seen in the right neck. It is unclear whether this is arising from or just adjacent to the thyroid. There is apparent asymmetry to the breast size. This probably is artifactual due to the left arm not being elevated. Prominent axillary nodes are demonstrated, most striking on the left. The included upper abdominal anatomy demonstrates atrophic kidneys with multiple cysts. The tip of a dialysis catheter is seen in the inferior vena cava. There is mild thoracic scoliotic deformity. There is diffuse osteosclerosis. There is an advanced destructive change of the L2 and L3 vertebral bodies and intervening discs. This was also described on a prior MRI scan of 12/14/2018. Included upper abdominal anatomy demonstrates that spleen may be enlarged, although is not completely included on the exam. There is evidence of lymphadenopathy in the peripancreatic region and in the lesser sac, not well delineated due to the lack of IV contrast. Gas bubbles are seen in the right lower chest wall. Impression: No pneumothorax. Findings on recent chest radiograph or presumably factitious Large bilateral pleural effusions Evidence of anasarca, with diffuse edema of the subcutaneous, mediastinal, and abdominal fat in addition to the above Advanced destructive changes of the L2 and L3 vertebral bodies, presumably related to suspected discitis/osteomyelitis described on prior MRI of 12/14/2018 Atrophic bilateral kidneys, consistent with chronic renal insufficiency. Multiple renal cysts, consistent with polycystic disease of uremia. Mediastinal, axillary, and abdominal lymphadenopathy. Possible mild splenomegaly. Findings raise concern for lymphoproliferative disorder Gas bubbles in the right lower chest wall, may reflect recent injections versus penetrating trauma. Correlate with clinical findings Diffuse osteosclerosis, presumably representing renal osteodystrophy Inferior vena cava dialysis catheter demonstrated Tubular calcifications in the superior vena cava most likely represent an old fibrin sheath from a prior dialysis catheter Large right neck eggshell calcification, uncertain as to whether of thyroid or extrathyroidal origin. Presumably related to prior inflammatory disease. The CT scanner at [facility] is accredited by the [employer] and the scans are performed using protocols designed to limit radiation exposure to as low as reasonably achievable to attain images of sufficient resolution adequate for diagnostic evaluation.
--- NOTE | 2019-02-09 15:20 | NUR ---
ED Nurse Note: blood transfusion initiated with blood transfusion double chamber iv line and 500cc NS primed. vss as documented. blood verified with JULIAN Nguyen at bedside.
--- NOTE | 2019-02-09 15:27 | Diagnostic Imaging Report ---
Indication: Pelvic pain, status post fall Technique: Noncontrast spiral acquisitions obtained through the pelvis. Multiplanar reconstructions generated. Total dose length product 576 mGycm. CTDIvol(s) 14 mGy. Dose reduction achieved using automated exposure control Comparison: none Findings: No acute fractures. No dislocations. No definite soft tissue contusion, although this is difficult to rule out given the extensive edema of the subcutaneous fat that is demonstrated. There is a large synovial herniation pit in the right femoral neck. The bones are diffusely osteosclerotic. The highest cuts demonstrate destructive changes of the L3 vertebral body with a pathologic fracture of the left pedicle. Small focal lucencies are seen within the bone, seen within the right L3 lamina and right acetabulum. More symmetric and less well delineated lucencies are seen in the sacral wings bilaterally and probably does represent areas of physiologic rarefaction. There is expansion of the distal sacral spinal canal, probably due to nerve root sleeve cysts. There is a tunneled dialysis catheter entering via the right common femoral vein, tip projected beyond the upper limits of the imaging volume. The kidneys are atrophic with multiple cysts. The remaining pelvic viscera are unremarkable. Large venous varicosities are seen within the anterior abdominal wall. Impression: No definite acute bony or soft tissue trauma. Destructive changes of the L3 vertebral body, inconclusively visualized, and a pathologic fracture of the left 3 pedicle. Note that advanced destructive changes of the L2 and L3 vertebral segments are described also on a prior MRI of 12/14/2018. 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
[2019-02-09 15:35] VITALS: BP 163/82
--- NOTE | 2019-02-09 15:35 | NUR ---
ED Nurse Note: stayed with pt for 15 minutes. no side effect noted. 97.1F, 86/min, 163/82mmHg, 96%. pt stated "I feel so much better."
--- NOTE | 2019-02-09 15:46 | Consultation ---
History of Present Illness General Date patient seen: Feb 09, 2019 Reason for Hospitalization: Multiple Trauma/Fall Present Illness HPI This is a 48-year-old female with multiple medical comorbidities history of renal insufficiency on hemodialysis Friday who presents to [facility] emergency department after sustaining a fall. Patient is a poor historian but states that she missed dialysis was feeling weak fell her her right hip and has been unable to walk well since. States she is been living in her car and sleeping in her car and eating fast food because of this. States that she was recently admitted to [facility] where she was cared for over a week because of left upper extremity edema which was initially thought to be potential septic arthritis and orthopedic surgery had likely joint effusion on more than one occasion to obtain cultures but no micro growth. Chest x-ray performed in the emergency department concerning for possible pneumothorax. Chest CT was ordered and surgery was called to evaluate. Patient seen, patient evaluated, chart reviewed. Chest CT reviewed with radiology. Patient with right femoral HD temp catheter. Regurgitating food in her mouth. Continues to complain of discomfort in the right hip. Allergies: Coded Allergies: CEPHALEXIN (Unverified Allergy, Unknown, 12/14/18) SULFAMETHOXAZOLE (Unverified Allergy, Unknown, 12/14/18) TRIMETHOPRIM (Unverified Allergy, Unknown, 12/14/18) VANCOMYCIN (Unverified Allergy, Unknown, 12/14/18) Uncoded Allergies: BACTRIM DS (Allergy, Unknown, 02/09/19) Medication History Scheduled Amlodipine Besylate* (Amlodipine Besylate*), 5 MG ORAL DAILY, (Reported) Carvedilol* (Carvedilol*), 6.25 MG ORAL EVERY 12 HOURS, (Reported) Gabapentin* (Gabapentin*), 100 MG ORAL THREE TIMES A DAY, (Reported) Patient History Limited by: medical condition History Provided By: Patient, Medical Record, PMD Healthcare decision maker Resuscitation status Advanced Directive on File Past Medical/Surgical History Past Medical/Surgical History: (1) Episode of generalized weakness (2) Left against medical advice (3) Renal failure (4) Hyperkalemia (5) Anemia (6) ESRF (end stage renal failure) (7) Noncompliance (8) Pneumothorax on left (9) Fall (10) Pneumothorax, left (11) Symptomatic anemia (12) Missed dialysis Review of Systems Review of Symptoms General ROS: no weight loss or fever Psychological ROS: no depression or mood changes, no memory loss Ophthalmic ROS: no visual changes or eye irritation ENT ROS: no nasal congestion, hearing loss, dizziness Allergy and Immunology ROS: no allergic symptoms or urticaria Hematological and Lymphatic ROS: no swollen glands, unusual bleeding or bruising Endocrine ROS: no polyuria, polydipsia, weight changes, temperature intolerance Respiratory ROS: no cough, shortness of breath, or wheezing Cardiovascular ROS: no chest pain or dyspnea on exertion Gastrointestinal ROS: denies abdominal pain, bright red blood in stool. Musculoskeletal ROS: Right hip pain. Neurological ROS: no TIA or stroke symptoms Dermatological ROS: no new or changing skin lesions, rashes or pruritis Physical Exam Physical Exam General appearance: alert, cooperative, no distress, appears stated age Head: Normocephalic, without obvious abnormality, atraumatic Eyes: conjunctivae/corneas clear. PERRL, EOM's intact. Fundi benign Throat: Lips, mucosa, and tongue normal. Teeth and gums normal Neck: supple, symmetrical, trachea midline, no adenopathy, thyroid: not enlarged, symmetric, no tenderness/mass/nodules, no carotid bruit and no JVD Lungs: clear to auscultation bilaterally Heart: regular rate and rhythm, S1, S2 normal, no murmur, click, rub or gallop Abdomen: soft, non-tender. Bowel sounds normal. No masses, no organomegaly Extremities: Moderate left upper extremity edema with no necrosis cyanosis or cellulitis. Seemingly chronic right hip discomfort on palpation no signs of active infection. Pulses: 2+ and symmetric Skin: Skin color, texture, turgor normal. No rashes or lesions Neurologic: Grossly normal Last 24 Hour Vital Signs Date Time Temp Pulse Resp B/P (MAP) Pulse Ox O2 Delivery O2 Flow Rate FiO2 02/09/19 15:26 97.0 02/09/19 15:20 97.0 86 17 02/09/19 14:00 97.7 02/09/19 12:55 95 18 Room Air 02/09/19 12:55 97.7 85 18 154/89 95 Room Air 02/09/19 12:41 97.7 95 18 180/110 (133) 85 Room Air Laboratory Tests Test 02/09/19 13:00 02/09/19 13:50 White Blood Count 5.5 K/UL (4.8-10.8) Red Blood Count 1.78 M/UL (4.20-5.40) L Hemoglobin 5.8 G/DL (12.0-16.0) *L Hematocrit 18.7 % (37.0-47.0) L Mean Corpuscular Volume 105 FL (80-99) H Mean Corpuscular Hemoglobin 32.6 PG (27.0-31.0) H Mean Corpuscular Hemoglobin Concent 31.1 G/DL (32.0-36.0) L Red Cell Distribution Width 15.2 % (11.6-14.8) H Platelet Count 281 K/UL (150-450) Mean Platelet Volume 5.7 FL (6.5-10.1) L Neutrophils (%) (Auto) % (45.0-75.0) Lymphocytes (%) (Auto) % (20.0-45.0) Monocytes (%) (Auto) % (1.0-10.0) Eosinophils (%) (Auto) % (0.0-3.0) Basophils (%) (Auto) % (0.0-2.0) Differential Total Cells Counted 100 Neutrophils % (Manual) 84 % (45-75) H Lymphocytes % (Manual) 10 % (20-45) L Monocytes % (Manual) 6 % (1-10) Eosinophils % (Manual) 0 % (0-3) Basophils % (Manual) 0 % (0-2) Band Neutrophils 0 % (0-8) Platelet Estimate Adequate Platelet Morphology Normal Hypochromasia 1+ Anisocytosis 1+ Macrocytosis 1+ Prothrombin Time 10.7 SEC (9.30-11.50) Prothromb Time International Ratio 1.0 (0.9-1.1) Activated Partial Thromboplast Time 25 SEC (23-33) Sodium Level 139 MMOL/L (136-145) Potassium Level 4.6 MMOL/L (3.5-5.1) Chloride Level 97 MMOL/L (98-107) L Carbon Dioxide Level 23 MMOL/L (21-32) Anion Gap 19 mmol/L (5-15) H Blood Urea Nitrogen 58 mg/dL (7-18) H Creatinine 7.2 MG/DL (0.55-1.30) H Estimat Glomerular Filtration Rate 6.0 mL/min (>60) Glucose Level 89 MG/DL (74-106) Calcium Level 9.8 MG/DL (8.5-10.1) Total Bilirubin 0.4 MG/DL (0.2-1.0) Aspartate Amino Transf (AST/SGOT) 19 U/L (15-37) Alanine Aminotransferase (ALT/SGPT) 11 U/L (12-78) L Alkaline Phosphatase 217 U/L (46-116) H Total Creatine Kinase 80 U/L (26-308) Pro-B-Type Natriuretic Peptide 32605 pg/mL (0-125) H Total Protein 8.6 G/DL (6.4-8.2) H Albumin 2.3 G/DL (3.4-5.0) L Globulin 6.3 g/dL Albumin/Globulin Ratio 0.4 (1.0-2.7) L Lipase 161 U/L (73-393) Arterial Blood pH 7.405 (7.350-7.450) Arterial Blood Partial Pressure CO2 39.3 mmHg (35.0-45.0) Arterial Blood Partial Pressure O2 65.1 mmHg (75.0-100.0) L Arterial Blood HCO3 24.1 mmol/L (22.0-26.0) Arterial Blood Oxygen Saturation 88.7 % (95-100) *L Arterial Blood Base Excess -0.6 (-2-2) Ady Test Positive Height (Feet): 5 Height (Inches): 5.00 Weight (Pounds): 95 Assessment/Plan Problem List: (1) Pneumothorax on left Assessment & Plan: Findings: There is a lucency at the left costophrenic sulcus , with there is previously pleural fluid. Small basilar pneumothorax possible. There is bilateral interstitial edema again demonstrated. Moderate to large right pleural effusion is again demonstrated. The heart is upper limits normal in size. Large eggshell calcification in the right neck is probably thyroid in origin. Impression: Doubt but cannot completely exclude small left basilar pneumothorax. Bilateral interstitial edema and moderate to large right pleural effusion, not significantly changed from 02/06/2019 ICD Codes: J93.9 - Pneumothorax, unspecified SNOMED: 241366525 (2) Missed dialysis Assessment & Plan: Will receive dialysis during admission. Transfuse with dialysis. SNOMED: 156333615 (3) Symptomatic anemia Assessment & Plan: Hematology work-up pending. Labs noted. Transfusion with dialysis. ICD Codes: D64.9 - Anemia, unspecified SNOMED: 511476886 (4) Noncompliance ICD Codes: Z91.19 - Patient's noncompliance with other medical treatment and regimen SNOMED: 8378316 (5) Episode of generalized weakness ICD Codes: R53.1 - Weakness SNOMED: 04009605 (6) Fall Assessment & Plan: Patient with unwitnessed fall. States that she missed her dialysis felt weak and fell onto her right hip. Has had pain there since with decreased mobility and requiring her to live in her cardiac fast food from drive -through. Pelvic CT ordered and pending. Plain films will be ordered if necessary. PT/OT pain control will follow with recs ICD Codes: W19.XXXA - Unspecified fall, initial encounter SNOMED: 7312237, 371101832 Qualifiers: Qualified Codes: W19.XXXA - Unspecified fall, initial encounter Kar Haywood Feb 09, 2019 15:46
[2019-02-09] MEDS ORDERED: Albuterol/Ipratropium 3ml neb HHN PRN (16:15)
[2019-02-09] MEDS ORDERED: Miralax 17gm pkt ORAL PRN (16:15)
--- NOTE | 2019-02-09 16:16 | NUR ---
ED Nurse Note: Report given to JULIAN Perez.
--- NOTE | 2019-02-09 16:32 | NUR ---
ED Nurse Note: pt refused VRE swab x3. pt aao x4.
--- NOTE | 2019-02-09 16:45 | NUR ---
ED Nurse Note: pt left unit with blood infusion in stable condition with 1 RN and 1 field radio technician.
--- NOTE | 2019-02-09 18:17 | NUR ---
NURSE NOTES: Per patient states would like to be Do Not Intubate for codes status. Informed charge nurse and primary nurse to inform primary physician of patient's request. Noted.
--- NOTE | 2019-02-09 18:59 | NUR ---
NURSE NOTES: pt want to be DNI advised Doctor Kimberli, awaiting for response. Also endorsed to night nurse to contact Doctor Foladin for dialysis orders.
--- NOTE | 2019-02-09 19:30 | NUR ---
NURSE NOTES: Received report from JULIAN Perez. Patient is awake, lying in semi gillis's; still complains of pain at right hip. Patient stated that tylenol is not working and is requesting for another pain medication like tramadol or norco. No signs of distress noted. Checked IV site and flushed. No erythema, bleeding or infiltration noted. Edema noted at left forearm and hand. Elevate left arm with pillow. With right femoral port for hemodialysis. Bed at lowest position, brakes on, siderails x3. Call light within reach. Will continue to monitor.
[2019-02-09 20:00] VITALS: BP 158/110
--- NOTE | 2019-02-09 20:20 | NUR ---
NURSE NOTES: Paged Dr. Villatoro with regards to patient's request of pain medication. Awaiting for callback.
--- NOTE | 2019-02-09 20:25 | NUR ---
NURSE NOTES: Per Dr. Villatoro, to give morphine 2mg IV Q54 PRN. Noted and carried out.
--- NOTE | 2019-02-09 20:57 | NUR ---
NURSE NOTES: Admitted pt to Tele. pt in stable condition. Put program attendant on pt, pt has no signs of cardiac or respiratory distress at this time. Call light near pt. Bed locked and in lowest position. Belonging sheet reviewed with pt.
--- NOTE | 2019-02-09 21:06 | NUR ---
HAND-OFF: Report given to Valeria/JULIAN.
[2019-02-09] MEDS: Carvedilol 6.25mg Tab ORAL SCH (21:34)
[2019-02-09] MEDS: Heparin 5000 units/ml inj SUBQ SCH (21:34)
--- NOTE | 2019-02-09 21:55 | NUR ---
NURSE NOTES: Paged Dr. Lopez with regards to patient's hemodialysis. Awaiting for callback.
[2019-02-09] MEDS: Morphine Sulfate 2mg/ml Inj(IV/IM USE ONLY) IVP PRN (22:02)
[2019-02-10] VITALS: BP 160/99
--- NOTE | 2019-02-10 01:51 | NUR ---
NURSE NOTES: Resting throughout the night. No significant change of condition. Will continue to monitor.
[2019-02-10] MEDS: Morphine Sulfate 2mg/ml Inj(IV/IM USE ONLY) IVP PRN ×4 (03:03→17:31)
[2019-02-10 04:00] VITALS: BP 148/95
[2019-02-10 07:24] LABS: HEMATOCRIT 21.9 % (37.0-47.0); MEAN CORPUSCULAR VOLUME 100 FL (80-99); PLATELET COUNT 286 K/UL (150-450); RED CELL DISTRIBUTION WIDTH 16.1 % (11.6-14.8); WHITE BLOOD COUNT 7.4 K/UL (4.8-10.8)
--- NOTE | 2019-02-10 07:25 | NUR ---
HAND-OFF: Report given to JULIAN Perez. Plan of care endorsed.
[2019-02-10 07:49] LABS: ALBUMIN 2.2 G/DL (3.4-5.0); ANION GAP 15 mmol/L (5-15); BLOOD UREA NITROGEN 73 mg/dL (7-18); CALCIUM 9.7 MG/DL (8.5-10.1); CARBON DIOXIDE 25 MMOL/L (21-32); CHLORIDE 96 MMOL/L (98-107); CREATININE 8.1 MG/DL (0.55-1.30); PHOSPHORUS 10.6 MG/DL (2.5-4.9); POTASSIUM 5.3 MMOL/L (3.5-5.1); SODIUM 136 MMOL/L (136-145)
--- NOTE | 2019-02-10 08:06 | NUR ---
NURSE NOTES: pt is in bed just had breakfast. Pt is alert and talking. Pt may have dialysis today. 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 call light is within reach. Bed is locked and in lowest position. Will continue to monitor pt.
[2019-02-10 08:34] VITALS: BP 182/109
[2019-02-10] MEDS: Heparin 5000 units/ml inj SUBQ SCH ×2 (09:00→21:48)
[2019-02-10] MEDS: Carvedilol 6.25mg Tab ORAL SCH ×2 (09:04→21:43)
--- NOTE | 2019-02-10 10:11 | Consultation ---
Consult Note Consult Note I was asked by Dr Villatoro to arrange for patients dialysis [facility] Known to me from her previous admissions ER: 48-year-old female history of dialysis Friday, missed her dialysis today presents with right leg pain, right hip pain, patient states she fell, and tripped, and could not get up. Now with right hip pain, aggravated with movement alleviated with rest. Severity is mild. Coded Allergies: CEPHALEXIN (Unverified Allergy, Unknown, 12/14/18) SULFAMETHOXAZOLE (Unverified Allergy, Unknown, 12/14/18) TRIMETHOPRIM (Unverified Allergy, Unknown, 12/14/18) VANCOMYCIN (Unverified Allergy, Unknown, 12/14/18) Uncoded Allergies: BACTRIM DS (Allergy, Unknown, 02/09/19) Hx Cardiac Problems: Yes Hx Hypertension: Yes Hx Dialysis: Yes - Friday, , Friday Port right femoral interviewed examined Assessment/Plan ESRD- Missed HD Fall h/o Osteomyelitis of spine Anasarca Anemia of CKD, symptomatic now ? Lymphoproliferative Ds non compliance and last admit patient left AMA Patient transfused already one unit- will order dialysis Chest CT: No pneumothorax. Findings on recent chest radiograph or presumably factitious Large bilateral pleural effusions Evidence of anasarca, with diffuse edema of the subcutaneous, mediastinal, and abdominal fat in addition to the above Advanced destructive changes of the L2 and L3 vertebral bodies, presumably related to suspected discitis/osteomyelitis described on prior MRI of 12/14/2018 Atrophic bilateral kidneys, consistent with chronic renal insufficiency. Multiple renal cysts, consistent with polycystic disease of uremia. Mediastinal, axillary, and abdominal lymphadenopathy. Possible mild splenomegaly. Findings raise concern for lymphoproliferative disorder Gas bubbles in the right lower chest wall, may reflect recent injections versus penetrating trauma. Correlate with clinical findings Diffuse osteosclerosis, presumably representing renal osteodystrophy Inferior vena cava dialysis catheter demonstrated Tubular calcifications in the superior vena cava most likely represent an old fibrin sheath from a prior dialysis catheter Large right neck eggshell calcification, uncertain as to whether of thyroid or extrathyroidal origin. Presumably related to prior inflammatory disease. Yobani Lopez MD Feb 10, 2019 10:11
--- NOTE | 2019-02-10 10:36 | NUR ---
PT NOTE Received MD order for PT evaluation. Currently BP 182/117, Ana JORDAN notified. PT evaluation deferred due to elevated BP. Will re-attempt later as schedule permits.
--- NOTE | 2019-02-10 10:51 | Consultation ---
History of Present Illness General Date patient seen: Feb 10, 2019 Chief Complaint: Multiple Trauma/Fall Present Illness HPI 48-year-old female with hx of ESRD, on HD, non-compliance presented to ER with right leg pain and hip pain. Apparently she tripped in a parking lot on concrete and could not get up. Now with right hip pain, aggravated with movement alleviated with rest. Severity is mild. Her initial CXR showed possible left pneumothorax and large pleural effusion. Allergies: Coded Allergies: CEPHALEXIN (Unverified Allergy, Unknown, 12/14/18) SULFAMETHOXAZOLE (Unverified Allergy, Unknown, 12/14/18) TRIMETHOPRIM (Unverified Allergy, Unknown, 12/14/18) VANCOMYCIN (Unverified Allergy, Unknown, 12/14/18) Uncoded Allergies: BACTRIM DS (Allergy, Unknown, 02/09/19) Medication History Scheduled Amlodipine Besylate* (Amlodipine Besylate*), 5 MG ORAL DAILY, (Reported) Carvedilol* (Carvedilol*), 6.25 MG ORAL EVERY 12 HOURS, (Reported) Gabapentin* (Gabapentin*), 100 MG ORAL THREE TIMES A DAY, (Reported) Patient History Healthcare decision maker N Resuscitation status Do Not Intubate Advanced Directive on File Past Medical/Surgical History Past Medical/Surgical History: (1) Anemia (2) ESRF (end stage renal failure) (3) Noncompliance Review of Systems All Other Systems: negative except mentioned in HPI Physical Exam General Appearance: WD/WN Lines, tubes and drains: peripheral HEENT: normocephalic, atraumatic Neck: non-tender, normal alignment Respiratory/Chest: chest wall non-tender, lungs clear Breasts: no masses Cardiovascular/Chest: normal peripheral pulses Abdomen: normal bowel sounds, non tender Genitourinary/Rectal: normal genital exam, normal rectal exam Skin Exam: normal pigmentation 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 Last 24 Hour Vital Signs Date Time Temp Pulse Resp B/P (MAP) Pulse Ox O2 Delivery O2 Flow Rate FiO2 02/10/19 09:04 81 182/109 02/10/19 09:04 81 182/109 02/10/19 08:34 97.7 81 20 182/109 (133) 98 02/10/19 04:00 83 02/10/19 04:00 98.3 83 16 148/95 (112) 94 02/10/19 03:33 98.2 02/10/19 00:54 98.2 02/10/19 00:00 89 02/10/19 00:00 98.2 90 16 160/99 (119) 94 02/09/19 21:34 86 158/110 02/09/19 21:00 Room Air 02/09/19 20:00 85 02/09/19 20:00 98.2 86 16 158/110 (126) 93 02/09/19 17:43 Room Air 02/09/19 16:48 97.1 89 17 163/82 98 Room Air 02/09/19 15:35 97.1 89 17 163/82 97 Room Air 02/09/19 15:26 97.0 02/09/19 15:20 97.0 86 17 02/09/19 14:00 97.7 02/09/19 12:55 95 18 Room Air 02/09/19 12:55 97.7 85 18 154/89 95 Room Air 02/09/19 12:41 97.7 95 18 180/110 (133) 85 Room Air Intake and Output 02/09/19 02/10/19 19:00 07:00 Intake Total 850 ml 480 ml Balance 850 ml 480 ml Intake Oral 850 ml 480 ml Laboratory Tests Test 02/09/19 13:00 02/09/19 13:50 02/10/19 06:30 White Blood Count 5.5 K/UL (4.8-10.8) 7.4 K/UL (4.8-10.8) Red Blood Count 1.78 M/UL (4.20-5.40) L 2.20 M/UL (4.20-5.40) L Hemoglobin 5.8 G/DL (12.0-16.0) *L 7.0 G/DL (12.0-16.0) L Hematocrit 18.7 % (37.0-47.0) L 21.9 % (37.0-47.0) L Mean Corpuscular Volume 105 FL (80-99) H 100 FL (80-99) H Mean Corpuscular Hemoglobin 32.6 PG (27.0-31.0) H 31.9 PG (27.0-31.0) H Mean Corpuscular Hemoglobin Concent 31.1 G/DL (32.0-36.0) L 31.9 G/DL (32.0-36.0) L Red Cell Distribution Width 15.2 % (11.6-14.8) H 16.1 % (11.6-14.8) H Platelet Count 281 K/UL (150-450) 286 K/UL (150-450) Mean Platelet Volume 5.7 FL (6.5-10.1) L 5.0 FL (6.5-10.1) L Neutrophils (%) (Auto) % (45.0-75.0) % (45.0-75.0) Lymphocytes (%) (Auto) % (20.0-45.0) % (20.0-45.0) Monocytes (%) (Auto) % (1.0-10.0) % (1.0-10.0) Eosinophils (%) (Auto) % (0.0-3.0) % (0.0-3.0) Basophils (%) (Auto) % (0.0-2.0) % (0.0-2.0) Differential Total Cells Counted 100 100 Neutrophils % (Manual) 84 % (45-75) H 79 % (45-75) H Lymphocytes % (Manual) 10 % (20-45) L 12 % (20-45) L Monocytes % (Manual) 6 % (1-10) 6 % (1-10) Eosinophils % (Manual) 0 % (0-3) 3 % (0-3) Basophils % (Manual) 0 % (0-2) 0 % (0-2) Band Neutrophils 0 % (0-8) 0 % (0-8) Platelet Estimate Adequate Adequate Platelet Morphology Normal Normal Hypochromasia 1+ Anisocytosis 1+ Macrocytosis 1+ Prothrombin Time 10.7 SEC (9.30-11.50) Prothromb Time International Ratio 1.0 (0.9-1.1) Activated Partial Thromboplast Time 25 SEC (23-33) Sodium Level 139 MMOL/L (136-145) 136 MMOL/L (136-145) Potassium Level 4.6 MMOL/L (3.5-5.1) 5.3 MMOL/L (3.5-5.1) H Chloride Level 97 MMOL/L (98-107) L 96 MMOL/L (98-107) L Carbon Dioxide Level 23 MMOL/L (21-32) 25 MMOL/L (21-32) Anion Gap 19 mmol/L (5-15) H 15 mmol/L (5-15) Blood Urea Nitrogen 58 mg/dL (7-18) H 73 mg/dL (7-18) H Creatinine 7.2 MG/DL (0.55-1.30) H 8.1 MG/DL (0.55-1.30) H Estimat Glomerular Filtration Rate 6.0 mL/min (>60) 5.3 mL/min (>60) Glucose Level 89 MG/DL (74-106) 104 MG/DL (74-106) Calcium Level 9.8 MG/DL (8.5-10.1) 9.7 MG/DL (8.5-10.1) Total Bilirubin 0.4 MG/DL (0.2-1.0) Aspartate Amino Transf (AST/SGOT) 19 U/L (15-37) Alanine Aminotransferase (ALT/SGPT) 11 U/L (12-78) L Alkaline Phosphatase 217 U/L (46-116) H Total Creatine Kinase 80 U/L (26-308) Troponin I 0.041 ng/mL (0.000-0.056) Pro-B-Type Natriuretic Peptide 47066 pg/mL (0-125) H Total Protein 8.6 G/DL (6.4-8.2) H Albumin 2.3 G/DL (3.4-5.0) L 2.2 G/DL (3.4-5.0) L Globulin 6.3 g/dL Albumin/Globulin Ratio 0.4 (1.0-2.7) L Lipase 161 U/L (73-393) Arterial Blood pH 7.405 (7.350-7.450) Arterial Blood Partial Pressure CO2 39.3 mmHg (35.0-45.0) Arterial Blood Partial Pressure O2 65.1 mmHg (75.0-100.0) L Arterial Blood HCO3 24.1 mmol/L (22.0-26.0) Arterial Blood Oxygen Saturation 88.7 % (95-100) *L Arterial Blood Base Excess -0.6 (-2-2) Ady Test Positive Phosphorus Level 10.6 MG/DL (2.5-4.9) H Folate 8.0 NG/ML (8.6-58.9) L Height (Feet): 5 Height (Inches): 5.00 Weight (Pounds): 142 Medications Current Medications Medications (Trade) Dose Ordered Sig/Juliano Route PRN Reason Start Time Stop Time Status Last Admin Dose Admin Acetaminophen (Tylenol) 650 mg Q4H PRN ORAL Fever 02/09/19 16:15 03/11/19 16:14 02/10/19 10:42 Albuterol/ Ipratropium (Albuterol/ Ipratropium) 3 ml Q4H PRN HHN Shortness of Breath 02/09/19 16:15 02/14/19 16:14 Amlodipine Besylate (Norvasc) 5 mg DAILY ORAL 02/10/19 09:00 03/12/19 08:59 02/10/19 09:04 Carvedilol (Coreg) 6.25 mg EVERY 12 HOURS ORAL 02/09/19 21:00 03/11/19 20:59 02/10/19 09:04 Dextrose (Dextrose 50%) 25 ml Q30M PRN IV Hypoglycemia 02/09/19 16:15 03/11/19 16:14 Dextrose (Dextrose 50%) 50 ml Q30M PRN IV Hypoglycemia 02/09/19 16:15 03/11/19 16:14 Gabapentin (Neurontin) 100 mg THREE TIMES A DAY ORAL 02/09/19 18:00 03/11/19 17:59 02/10/19 09:04 Heparin Sodium (Porcine) (Heparin 5000 units/ml) 5,000 units EVERY 12 HOURS SUBQ 02/09/19 21:00 03/11/19 20:59 02/09/19 21:34 Hydralazine HCl (Apresoline) 25 mg Q4H PRN ORAL bp over 160 syst 02/10/19 10:30 03/12/19 10:29 Morphine Sulfate (Morphine Sulfate) 2 mg Q4H PRN IVP PAIN 4-10 02/09/19 20:45 02/16/19 20:44 02/10/19 03:03 Ondansetron HCl (Zofran) 4 mg Q6H PRN IVP Nausea & Vomiting 02/09/19 16:15 03/11/19 16:14 Polyethylene Glycol (Miralax) 17 gm DAILYPRN PRN ORAL Constipation 02/09/19 16:15 03/11/19 16:14 Temazepam (Restoril) 15 mg HSPRN PRN ORAL Insomnia 02/09/19 16:15 02/16/19 16:14 Assessment/Plan Problem List: (1) ESRF (end stage renal failure) ICD Codes: N18.6 - End stage renal disease SNOMED: 35793411 (2) Symptomatic anemia ICD Codes: D64.9 - Anemia, unspecified SNOMED: 453055506 (3) Noncompliance ICD Codes: Z91.19 - Patient's noncompliance with other medical treatment and regimen SNOMED: 5656995 Assessment/Plan: CT of chest to rule out pneumothorax check electrolytes HD by customer service technician prbc prn pain management symptomatic treatment. Jarad King MD Feb 10, 2019 10:51
[2019-02-10] MEDS: HydrALAZINE 25mg tab ORAL PRN (10:57)
--- NOTE | 2019-02-10 11:05 | NUR ---
NURSE NOTES: pulled morphine for pt, pt IV infiltrated unable to give morphine. Asked the pt if we could start another IV, pt declined and said "i don't want morphine anymore, just give me tylenol. Dispose of morphine inside disposable med jar.
--- NOTE | 2019-02-10 11:28 | NUR ---
NURSE NOTES: started new IV for pt. advice she needs to have IV while she is in the hospital so she agreed.
[2019-02-10 12:00] VITALS: BP 172/102
--- NOTE | 2019-02-10 14:30 | Surgery Progress Note ---
Surgery Progress Note Subjective Additional Comments no acute events receiving HD CT chest noted and no true ptx exam stable still with hip pain Objective Last 24 Hour Vital Signs Date Time Temp Pulse Resp B/P (MAP) Pulse Ox O2 Delivery O2 Flow Rate FiO2 02/10/19 10:57 180/107 02/10/19 09:04 81 182/109 02/10/19 09:04 81 182/109 02/10/19 08:34 97.7 81 20 182/109 (133) 98 02/10/19 08:00 83 02/10/19 04:00 83 02/10/19 04:00 98.3 83 16 148/95 (112) 94 02/10/19 03:33 98.2 02/10/19 00:54 98.2 02/10/19 00:00 89 02/10/19 00:00 98.2 90 16 160/99 (119) 94 02/09/19 21:34 86 158/110 02/09/19 21:00 Room Air 02/09/19 20:00 85 02/09/19 20:00 98.2 86 16 158/110 (126) 93 02/09/19 17:43 Room Air 02/09/19 16:48 97.1 89 17 163/82 98 Room Air 02/09/19 15:35 97.1 89 17 163/82 97 Room Air 02/09/19 15:26 97.0 02/09/19 15:20 97.0 86 17 I&O Intake and Output 02/09/19 02/10/19 19:00 07:00 Intake Total 850 ml 480 ml Balance 850 ml 480 ml Intake Oral 850 ml 480 ml Dressing: dry Wound: clean Cardiovascular: RSR Respiratory: clear Abdomen: soft, non-tender, present bowel sounds, non-distended Extremities: no cyanosis, other Laboratory Tests Test 02/10/19 06:30 02/10/19 13:03 White Blood Count 7.4 K/UL (4.8-10.8) Red Blood Count 2.20 M/UL (4.20-5.40) L Hemoglobin 7.0 G/DL (12.0-16.0) L Hematocrit 21.9 % (37.0-47.0) L Mean Corpuscular Volume 100 FL (80-99) H Mean Corpuscular Hemoglobin 31.9 PG (27.0-31.0) H Mean Corpuscular Hemoglobin Concent 31.9 G/DL (32.0-36.0) L Red Cell Distribution Width 16.1 % (11.6-14.8) H Platelet Count 286 K/UL (150-450) Mean Platelet Volume 5.0 FL (6.5-10.1) L Neutrophils (%) (Auto) % (45.0-75.0) Lymphocytes (%) (Auto) % (20.0-45.0) Monocytes (%) (Auto) % (1.0-10.0) Eosinophils (%) (Auto) % (0.0-3.0) Basophils (%) (Auto) % (0.0-2.0) Differential Total Cells Counted 100 Neutrophils % (Manual) 79 % (45-75) H Lymphocytes % (Manual) 12 % (20-45) L Monocytes % (Manual) 6 % (1-10) Eosinophils % (Manual) 3 % (0-3) Basophils % (Manual) 0 % (0-2) Band Neutrophils 0 % (0-8) Platelet Estimate Adequate Platelet Morphology Normal Sodium Level 136 MMOL/L (136-145) Potassium Level 5.3 MMOL/L (3.5-5.1) H Chloride Level 96 MMOL/L (98-107) L Carbon Dioxide Level 25 MMOL/L (21-32) Anion Gap 15 mmol/L (5-15) Blood Urea Nitrogen 73 mg/dL (7-18) H Creatinine 8.1 MG/DL (0.55-1.30) H Estimat Glomerular Filtration Rate 5.3 mL/min (>60) Glucose Level 104 MG/DL (74-106) Calcium Level 9.7 MG/DL (8.5-10.1) Phosphorus Level 10.6 MG/DL (2.5-4.9) H Albumin 2.2 G/DL (3.4-5.0) L Folate 8.0 NG/ML (8.6-58.9) L Troponin I 0.057 ng/mL (0.000-0.056) Plan Problems: (1) Pneumothorax on left Assessment & Plan: Findings: There is a lucency at the left costophrenic sulcus , with there is previously pleural fluid. Small basilar pneumothorax possible. There is bilateral interstitial edema again demonstrated. Moderate to large right pleural effusion is again demonstrated. The heart is upper limits normal in size. Large eggshell calcification in the right neck is probably thyroid in origin. Impression: Doubt but cannot completely exclude small left basilar pneumothorax. Bilateral interstitial edema and moderate to large right pleural effusion, not significantly changed from 02/06/2019 Impression: No pneumothorax. Findings on recent chest radiograph or presumably factitious Large bilateral pleural effusions Evidence of anasarca, with diffuse edema of the subcutaneous, mediastinal, and abdominal fat in addition to the above Advanced destructive changes of the L2 and L3 vertebral bodies, presumably related to suspected discitis/osteomyelitis described on prior MRI of 12/14/2018 Atrophic bilateral kidneys, consistent with chronic renal insufficiency. Multiple renal cysts, consistent with polycystic disease of uremia. Mediastinal, axillary, and abdominal lymphadenopathy. Possible mild splenomegaly. Findings raise concern for lymphoproliferative disorder Gas bubbles in the right lower chest wall, may reflect recent injections versus penetrating trauma. Correlate with clinical findings Diffuse osteosclerosis, presumably representing renal osteodystrophy Inferior vena cava dialysis catheter demonstrated Tubular calcifications in the superior vena cava most likely represent an old fibrin sheath from a prior dialysis catheter Large right neck eggshell calcification, uncertain as to whether of thyroid or extrathyroidal origin. Presumably related to prior inflammatory disease. (2) Missed dialysis Assessment & Plan: Will receive dialysis during admission. Transfuse with dialysis. (3) Symptomatic anemia Assessment & Plan: Hematology work-up pending. Labs noted. Transfusion with dialysis. (4) Noncompliance (5) Episode of generalized weakness (6) Fall Assessment & Plan: Patient with unwitnessed fall. States that she missed her dialysis felt weak and fell onto her right hip. Has had pain there since with decreased mobility and requiring her to live in her cardiac fast food from drive -through. Impression: No definite acute bony or soft tissue trauma. Destructive changes of the L3 vertebral body, inconclusively visualized, and a pathologic fracture of the left 3 pedicle. Note that advanced destructive changes of the L2 and L3 vertebral segments are described also on a prior MRI of 12/14/2018. Evidence of renal osteodystrophy Small focal lucencies within the bones probably represent areas of physiologic rarefaction, although some of these could represent small brown tumors Atrophic bilateral kidneys with multiple cysts, consistent with medical renal disease and cystic disease of uremia Right common femoral tunneled dialysis catheter Abdominal wall venous varicosities, may indicate central venoocclusive disease related to the above Anasarca Other findings as noted, in including distal sacral nerve root sleeve cysts, large synovial herniation pit in the right femoral neck PT/OT pain control will follow with Kar Post Feb 10, 2019 14:30
--- NOTE | 2019-02-10 16:15 | History and Physical Report ---
DATE OF ADMISSION: 02/09/2019 DATE AND TIME SEEN: 02/10/2019 at 9 a.m. CONSULTANTS: 1. Kar Haywood M.D. 2. Yobani Lopez M.D. 3. Jarad King M.D. 4. Lamberto Herron M.D. CHIEF COMPLAINT: Fall, weakness, shortness of breath, ESRD, right hip pain, and anemia. BRIEF HISTORY: This is a 48-year-old female, who lives at home with a roommate presents with history of fall with right hip pain, came to [place], diagnosed with above, was found to have hemoglobin 5.8, admitted to telemetry for further care and received transfusion. Currently calm in bed. Slight hip pain. No complaint. REVIEW OF SYSTEMS: No chest pain. No shortness of breath. No nausea. PAST MEDICAL HISTORY: Includes ESRD, right hip pain, anemia, pneumothorax, renal failure, hypertension. PAST SURGICAL HISTORY: Shunt, . ALLERGIES: Keflex, Bactrim, vancomycin. SOCIAL HISTORY: No smoking. No alcohol. No intravenous drug abuse. FAMILY HISTORY: Noncontributory. PHYSICAL EXAMINATION: GENERAL: Calm in bed, oriented x3, no acute distress. VITAL SIGNS: Temperature is 97 degrees, pulse 81, respirations 20, blood pressure 182/109. CARDIOVASCULAR: No murmur. LUNGS: Poor exchange. ABDOMEN: Bowel sounds distant. EXTREMITIES: No cyanosis or edema. NEUROLOGIC: The patient moves all extremities, slightly weak. LABORATORY AND DIAGNOSTIC DATA: Labs at this time show initial hemoglobin and hematocrit was 5.8/18, now 7/21, platelets 286. Potassium 5.3, chloride 96, BUN/creatinine 73/8.1. INR is 1.0, PTT is 25. MEDICATIONS: Include Norvasc, Lamictal, Coreg, heparin, morphine, Neurontin, albuterol, Zofran, Tylenol, MiraLAX, Restoril. ASSESSMENT: 1. ESRD. 2. Right hip pain. 3. Anemia. 4. Pneumothorax. 5. Hypertension. 6. Renal failure. PLAN: 1. Blood pressure and pain control. 2. Dietary followup. 3. Dialysis p.r.n. 4. Transfuse p.r.n. 5. PT and dietary eval. 6. CBC, BMP in the morning. Narinder Villatoro D.O. DR: OLGA JOB#: [id number] CC:
--- NOTE | 2019-02-10 19:20 | NUR ---
NURSE NOTES: Received report from JULIAN Perez. Patient is awake, lying in semi gillis's; resting comfortably. A/Ox4. Denies pain at this time. No signs of acute cardiorespiratory distress noted. Checked IV site and flushed. No erythema, bleeding or infiltration noted. With right femoral port at hemodialysis. Bed at lowest position, brakes on, siderailsx3. Call light within reach. Will continue to monitor. Addendum: 02/10/19 at 2342 by Valeria Cortes RN Edema noted at left forearm and hand. Elevate left arm with pillow.
--- NOTE | 2019-02-10 19:48 | Consultation ---
History of Present Illness General Chief Complaint: Multiple Trauma/Fall Present Illness Allergies: Coded Allergies: CEPHALEXIN (Unverified Allergy, Unknown, 12/14/18) SULFAMETHOXAZOLE (Unverified Allergy, Unknown, 12/14/18) TRIMETHOPRIM (Unverified Allergy, Unknown, 12/14/18) VANCOMYCIN (Unverified Allergy, Unknown, 12/14/18) Uncoded Allergies: BACTRIM DS (Allergy, Unknown, 02/09/19) Medication History Scheduled Amlodipine Besylate* (Amlodipine Besylate*), 5 MG ORAL DAILY, (Reported) Carvedilol* (Carvedilol*), 6.25 MG ORAL EVERY 12 HOURS, (Reported) Gabapentin* (Gabapentin*), 100 MG ORAL THREE TIMES A DAY, (Reported) Patient History Healthcare decision maker N Resuscitation status Do Not Intubate Advanced Directive on File Physical Exam Last 24 Hour Vital Signs Date Time Temp Pulse Resp B/P (MAP) Pulse Ox O2 Delivery O2 Flow Rate FiO2 02/10/19 16:00 98 02/10/19 12:00 76 02/10/19 12:00 96.6 75 18 172/102 (125) 91 02/10/19 10:57 180/107 02/10/19 09:04 81 182/109 02/10/19 09:04 81 182/109 02/10/19 08:34 97.7 81 20 182/109 (133) 98 02/10/19 08:00 83 02/10/19 04:00 83 02/10/19 04:00 98.3 83 16 148/95 (112) 94 02/10/19 03:33 98.2 02/10/19 00:54 98.2 02/10/19 00:00 89 02/10/19 00:00 98.2 90 16 160/99 (119) 94 02/09/19 21:34 86 158/110 02/09/19 21:00 Room Air 02/09/19 20:00 85 02/09/19 20:00 98.2 86 16 158/110 (126) 93 Intake and Output 02/09/19 02/10/19 19:00 07:00 Intake Total 850 ml 480 ml Balance 850 ml 480 ml Intake Oral 850 ml 480 ml Laboratory Tests Test 02/10/19 06:30 02/10/19 13:03 White Blood Count 7.4 K/UL (4.8-10.8) Red Blood Count 2.20 M/UL (4.20-5.40) L Hemoglobin 7.0 G/DL (12.0-16.0) L Hematocrit 21.9 % (37.0-47.0) L Mean Corpuscular Volume 100 FL (80-99) H Mean Corpuscular Hemoglobin 31.9 PG (27.0-31.0) H Mean Corpuscular Hemoglobin Concent 31.9 G/DL (32.0-36.0) L Red Cell Distribution Width 16.1 % (11.6-14.8) H Platelet Count 286 K/UL (150-450) Mean Platelet Volume 5.0 FL (6.5-10.1) L Neutrophils (%) (Auto) % (45.0-75.0) Lymphocytes (%) (Auto) % (20.0-45.0) Monocytes (%) (Auto) % (1.0-10.0) Eosinophils (%) (Auto) % (0.0-3.0) Basophils (%) (Auto) % (0.0-2.0) Differential Total Cells Counted 100 Neutrophils % (Manual) 79 % (45-75) H Lymphocytes % (Manual) 12 % (20-45) L Monocytes % (Manual) 6 % (1-10) Eosinophils % (Manual) 3 % (0-3) Basophils % (Manual) 0 % (0-2) Band Neutrophils 0 % (0-8) Platelet Estimate Adequate Platelet Morphology Normal Sodium Level 136 MMOL/L (136-145) Potassium Level 5.3 MMOL/L (3.5-5.1) H Chloride Level 96 MMOL/L (98-107) L Carbon Dioxide Level 25 MMOL/L (21-32) Anion Gap 15 mmol/L (5-15) Blood Urea Nitrogen 73 mg/dL (7-18) H Creatinine 8.1 MG/DL (0.55-1.30) H Estimat Glomerular Filtration Rate 5.3 mL/min (>60) Glucose Level 104 MG/DL (74-106) Calcium Level 9.7 MG/DL (8.5-10.1) Phosphorus Level 10.6 MG/DL (2.5-4.9) H Albumin 2.2 G/DL (3.4-5.0) L Folate 8.0 NG/ML (8.6-58.9) L Troponin I 0.057 ng/mL (0.000-0.056) Height (Feet): 5 Height (Inches): 5.00 Weight (Pounds): 142 Medications Current Medications Medications (Trade) Dose Ordered Sig/Juliano Route PRN Reason Start Time Stop Time Status Last Admin Dose Admin Acetaminophen (Tylenol) 650 mg Q4H PRN ORAL Fever 02/09/19 16:15 03/11/19 16:14 02/10/19 10:42 Albuterol/ Ipratropium (Albuterol/ Ipratropium) 3 ml Q4H PRN HHN Shortness of Breath 02/09/19 16:15 02/14/19 16:14 Amlodipine Besylate (Norvasc) 5 mg DAILY ORAL 02/10/19 09:00 03/12/19 08:59 02/10/19 09:04 Carvedilol (Coreg) 6.25 mg EVERY 12 HOURS ORAL 02/09/19 21:00 03/11/19 20:59 02/10/19 09:04 Dextrose (Dextrose 50%) 25 ml Q30M PRN IV Hypoglycemia 02/09/19 16:15 03/11/19 16:14 Dextrose (Dextrose 50%) 50 ml Q30M PRN IV Hypoglycemia 02/09/19 16:15 03/11/19 16:14 Gabapentin (Neurontin) 100 mg THREE TIMES A DAY ORAL 02/09/19 18:00 03/11/19 17:59 02/10/19 17:29 Heparin Sodium (Porcine) (Heparin 5000 units/ml) 5,000 units EVERY 12 HOURS SUBQ 02/09/19 21:00 03/11/19 20:59 02/09/19 21:34 Hydralazine HCl (Apresoline) 25 mg Q4H PRN ORAL bp over 160 syst 02/10/19 10:30 03/12/19 10:29 02/10/19 10:57 Morphine Sulfate (Morphine Sulfate) 2 mg Q4H PRN IVP PAIN 4-10 02/09/19 20:45 02/16/19 20:44 02/10/19 17:31 Ondansetron HCl (Zofran) 4 mg Q6H PRN IVP Nausea & Vomiting 02/09/19 16:15 03/11/19 16:14 Polyethylene Glycol (Miralax) 17 gm DAILYPRN PRN ORAL Constipation 02/09/19 16:15 03/11/19 16:14 Temazepam (Restoril) 15 mg HSPRN PRN ORAL Insomnia 02/09/19 16:15 02/16/19 16:14 Assessment/Plan Assessment/Plan: Hematology Consultation DOS: 02/10/19 Chief Complaint: Multiple Trauma/Fall Source: Patient, Medical Record RFC: Anemia evaluation, hyperproteinemia ID 48-year-old female history of dialysis Friday, missed her dialysis today presents with right leg pain, right hip pain, patient states she fell, and tripped, and could not get up. Now with right hip pain, aggravated with movement alleviated with rest. Severity is mild. She had a xray completed and then a ct which didn't show a pneumothorax, noted to get hd today and anemia panel reviewed from prior admission, heme consulted. Allergies: Coded Allergies: CEPHALEXIN (Unverified Allergy, Unknown, 12/14/18) SULFAMETHOXAZOLE (Unverified Allergy, Unknown, 12/14/18) TRIMETHOPRIM (Unverified Allergy, Unknown, 12/14/18) VANCOMYCIN (Unverified Allergy, Unknown, 12/14/18) Uncoded Allergies: BACTRIM DS (Allergy, Unknown, 02/09/19) Past Medical History: see triage record Reviewed Nursing Documentation: PMH: Agreed; PSxH: Agreed Nursing Documentation-PMH Hx Cardiac Problems: Yes Hx Hypertension: Yes Hx Cancer: No Hx Gastrointestinal Problems: No Hx Dialysis: Yes - Friday, , Friday Port right femoral Hx Neurological Problems: No Review of Systems All Other Systems: negative except mentioned in HPI Physical Exam: Vitals: reviewed General Appearance: NAD HEENT: normocephalic, atraumatic Neck: non-tender, normal alignment Respiratory/Chest: normal breath sounds bilaterally Cardiovascular/Chest: normal peripheral pulses, normal rate Abdomen: normal bowel sounds, soft, nontender Extremities: normal range of motion Labs: noted Imaging: reviewed Assessment and Recs: # Anemia of chronic disease (or of iron deficiency) due to underlying chronic medical issues, multifactorial --> Anemia workup has been ordered, rule out gi bleed --> No evidence of hemolysis is noted, peripheral smear has been reviewed. --> Hgb goal >7. Transfuse prn. --> Epogen has been started --> Medications have been reviewed --> low threshold for gi evaluation in case has occult + --> bone marrow biopsy is not indicated given the other more likely causes # Hyperproteinemia with decreased albumin -- this is a dissociation that is abnormal --> obtain SPEP (serum protein electrophoresis) and UPEP (urine protein electrophoresis) if spep is negative --> if above results in a m-spike or abnormally enhanced protein, will need to send off immunofixation serum/urine --> in the case of a m-spike or abnormally enhanced protein, will obtain a bone marrow biopsy # Fall --> to get pt/ot, eval for ads --> hearing test, vision as op # ESRD 3 x a week with missed session --> as per renal # Pneumothorax, left --> per pulm # Mechanical fall right hip pain The timing of this note does not necessarily reflect the time of the patient was seen. Greatly appreciate consultation. Germán Herron MD Feb 10, 2019 19:48
[2019-02-10 20:00] VITALS: BP 155/92
[2019-02-10] MEDS ORDERED: CARVEDILOL12.5 MG ORAL (20:00)
[2019-02-10] MEDS ORDERED: AMLODIPINE BESY10 MG ORAL (20:00)
[2019-02-10] MEDS ORDERED: GABAPENTIN100 MG ORAL (20:01)
[2019-02-10] MEDS ORDERED: ACETAMINOPHEN325 M1 ORAL (20:02)
[2019-02-10] MEDS ORDERED: IBUPROFEN200 M2 ORAL (20:03)
[2019-02-10] MEDS ORDERED: NORCO 5-325 TA1 EACH ORAL (20:04)
--- NOTE | 2019-02-10 20:54 | NUR ---
HAND-OFF: Report given to Valeria/JULIAN.
--- NOTE | 2019-02-10 21:00 | NUR ---
NURSE NOTES: Patient refused to have her temperature taken. Addendum: 02/10/19 at 2205 by Valeria Cortes RN Explained risk and benefit x3. Patient still refused to have her temperature taken and stated, "I don't want it".
[2019-02-11] VITALS: BP 159/110
--- NOTE | 2019-02-11 00:15 | NUR ---
NURSE NOTES: Notified Dr. Villatoro of patient's troponin I 0.057. Awaiting for callback.
--- NOTE | 2019-02-11 02:54 | NUR ---
NURSE NOTES: Resting throughout the night. No significant change of condition noted. Will continue to monitor.
--- NOTE | 2019-02-11 03:00 | NUR ---
NURSE NOTES: Per Dr. Villatoro, to call Dr. Blevins.
[2019-02-11 04:00] VITALS: BP 153/89
--- NOTE | 2019-02-11 04:30 | NUR ---
NURSE NOTES: Patient refused to have temperature taken. Explained risk and benefitsx3. Still, patient insisted not to have her temperature taken.
--- NOTE | 2019-02-11 05:00 | NUR ---
NURSE NOTES: Paged Dr. Villatoro, for consult order of Dr. Blevins. Awaiting for callback.
--- NOTE | 2019-02-11 05:43 | Hematology/Onc Progress Note ---
Assessment/Plan Assessment/Plan Assessment and Recs: # Anemia of chronic disease due to underlying chronic medical issues, multifactorial --> Anemia workup has been ordered, rule out gi bleed --> No evidence of hemolysis is noted, peripheral smear has been reviewed. --> Hgb goal >7. Transfuse prn. --> Epogen has been started --> Medications have been reviewed --> low threshold for gi evaluation in case has occult + --> bone marrow biopsy is not indicated given the other more likely causes --> folic acid 1mg po daily started # Hyperproteinemia with decreased albumin -- this is a dissociation that is abnormal --> obtain SPEP (serum protein electrophoresis) and UPEP (urine protein electrophoresis) if spep is negative --> if above results in a m-spike or abnormally enhanced protein, will need to send off immunofixation serum/urine --> in the case of a m-spike or abnormally enhanced protein, will obtain a bone marrow biopsy # Fall --> to get pt/ot, eval for ads --> hearing test, vision as op # ESRD 3 x a week with missed session --> as per renal # Pneumothorax, left --> per pulm # Mechanical fall right hip pain The timing of this note does not necessarily reflect the time of the patient was seen. Greatly appreciate consultation. Subjective HEENT: Denies: no symptoms, eye pain, blurred vision, tearing, double vision, ear pain, ear discharge, nose pain, nose congestion, throat pain, throat swelling, mouth pain, mouth swelling, other Cardiovascular: Denies: no symptoms, chest pain, edema, irregular heart rate, lightheadedness, palpitations, syncope, other Gastrointestinal/Abdominal: Denies: no symptoms, abdomen distended, abdominal pain, black stools, tarry stools, blood in stool, constipated, diarrhea, difficulty swallowing, nausea, poor appetite, poor fluid intake, rectal bleeding , vomiting, other Genitourinary: Denies: no symptoms, burning, discharge, frequency, flank pain, hematuria, incontinence, pain, urgency, other Neurologic/Psychiatric: Denies: no symptoms, anxiety, depressed, emotional problems, headache, numbness, paresthesia, pre-existing deficit, seizure, tingling, tremors, weakness, other Endocrine: Denies: no symptoms, excessive sweating, flushing, intolerance to cold, intolerance to heat, increased hunger, increased thirst, increased urine, unexplained weight gain, unexplained weight loss, other Allergies: Coded Allergies: CEPHALEXIN (Unverified Allergy, Unknown, 12/14/18) SULFAMETHOXAZOLE (Unverified Allergy, Unknown, 12/14/18) TRIMETHOPRIM (Unverified Allergy, Unknown, 12/14/18) VANCOMYCIN (Unverified Allergy, Unknown, 12/14/18) Uncoded Allergies: BACTRIM DS (Allergy, Unknown, 02/09/19) Subjective 02/11: labs pending from am, folic acid started, refusing temp Objective Objective Current Medications Medications (Trade) Dose Ordered Sig/Juliano Route PRN Reason Start Time Stop Time Status Last Admin Dose Admin Acetaminophen (Tylenol) 650 mg Q4H PRN ORAL Fever 02/09/19 16:15 03/11/19 16:14 02/10/19 21:45 Albuterol/ Ipratropium (Albuterol/ Ipratropium) 3 ml Q4H PRN HHN Shortness of Breath 02/09/19 16:15 02/14/19 16:14 Amlodipine Besylate (Norvasc) 5 mg DAILY ORAL 02/10/19 09:00 03/12/19 08:59 02/10/19 09:04 Carvedilol (Coreg) 6.25 mg EVERY 12 HOURS ORAL 02/09/19 21:00 03/11/19 20:59 02/10/19 21:43 Dextrose (Dextrose 50%) 25 ml Q30M PRN IV Hypoglycemia 02/09/19 16:15 03/11/19 16:14 Dextrose (Dextrose 50%) 50 ml Q30M PRN IV Hypoglycemia 02/09/19 16:15 03/11/19 16:14 Gabapentin (Neurontin) 100 mg THREE TIMES A DAY ORAL 02/09/19 18:00 03/11/19 17:59 02/10/19 17:29 Heparin Sodium (Porcine) (Heparin 5000 units/ml) 5,000 units EVERY 12 HOURS SUBQ 02/09/19 21:00 03/11/19 20:59 02/10/19 21:48 Hydralazine HCl (Apresoline) 25 mg Q4H PRN ORAL bp over 160 syst 02/10/19 10:30 03/12/19 10:29 02/10/19 10:57 Morphine Sulfate (Morphine Sulfate) 2 mg Q4H PRN IVP PAIN 4-10 02/09/19 20:45 02/16/19 20:44 02/10/19 17:31 Ondansetron HCl (Zofran) 4 mg Q6H PRN IVP Nausea & Vomiting 02/09/19 16:15 03/11/19 16:14 Polyethylene Glycol (Miralax) 17 gm DAILYPRN PRN ORAL Constipation 02/09/19 16:15 03/11/19 16:14 Temazepam (Restoril) 15 mg HSPRN PRN ORAL Insomnia 02/09/19 16:15 02/16/19 16:14 Last 24 Hour Vital Signs Date Time Temp Pulse Resp B/P (MAP) Pulse Ox O2 Delivery O2 Flow Rate FiO2 02/11/19 04:00 78 02/11/19 04:00 83 20 153/89 (110) 95 02/11/19 00:00 85 02/11/19 00:00 96.6 86 19 159/110 (126) 95 02/10/19 21:43 91 155/92 02/10/19 21:00 Room Air 02/10/19 20:01 96 18 96 Room Air 21 02/10/19 20:00 90 02/10/19 20:00 91 18 155/92 (113) 94 02/10/19 16:00 98 02/10/19 12:00 76 02/10/19 12:00 96.6 75 18 172/102 (125) 91 02/10/19 10:57 180/107 02/10/19 09:04 81 182/109 02/10/19 09:04 81 182/109 02/10/19 09:00 Room Air 02/10/19 08:34 97.7 81 20 182/109 (133) 98 02/10/19 08:00 83 02/10/19 04:00 83 02/10/19 04:00 98.3 83 16 148/95 (112) 94 02/10/19 03:33 98.2 02/10/19 00:54 98.2 02/10/19 00:00 89 02/10/19 00:00 98.2 90 16 160/99 (119) 94 02/09/19 21:34 86 158/110 02/09/19 21:00 Room Air 02/09/19 20:00 85 02/09/19 20:00 98.2 86 16 158/110 (126) 93 02/09/19 17:43 Room Air 02/09/19 16:48 97.1 89 17 163/82 98 Room Air 02/09/19 15:35 97.1 89 17 163/82 97 Room Air 02/09/19 15:26 97.0 02/09/19 15:20 97.0 86 17 02/09/19 14:00 97.7 02/09/19 12:55 95 18 Room Air 02/09/19 12:55 97.7 85 18 154/89 95 Room Air 02/09/19 12:41 97.7 95 18 180/110 (133) 85 Room Air Intake and Output 02/10/19 02/11/19 19:00 07:00 Intake Total 540 ml Balance 540 ml Intake Oral 540 ml Labs Test 02/09/19 13:00 02/09/19 13:50 02/10/19 06:30 02/10/19 13:03 White Blood Count 5.5 K/UL (4.8-10.8) 7.4 K/UL (4.8-10.8) Red Blood Count 1.78 M/UL (4.20-5.40) 2.20 M/UL (4.20-5.40) Hemoglobin 5.8 G/DL (12.0-16.0) 7.0 G/DL (12.0-16.0) Hematocrit 18.7 % (37.0-47.0) 21.9 % (37.0-47.0) Mean Corpuscular Volume 105 FL (80-99) 100 FL (80-99) Mean Corpuscular Hemoglobin 32.6 PG (27.0-31.0) 31.9 PG (27.0-31.0) Mean Corpuscular Hemoglobin Concent 31.1 G/DL (32.0-36.0) 31.9 G/DL (32.0-36.0) Red Cell Distribution Width 15.2 % (11.6-14.8) 16.1 % (11.6-14.8) Platelet Count 281 K/UL (150-450) 286 K/UL (150-450) Mean Platelet Volume 5.7 FL (6.5-10.1) 5.0 FL (6.5-10.1) Neutrophils (%) (Auto) % (45.0-75.0) % (45.0-75.0) Lymphocytes (%) (Auto) % (20.0-45.0) % (20.0-45.0) Monocytes (%) (Auto) % (1.0-10.0) % (1.0-10.0) Eosinophils (%) (Auto) % (0.0-3.0) % (0.0-3.0) Basophils (%) (Auto) % (0.0-2.0) % (0.0-2.0) Differential Total Cells Counted 100 100 Neutrophils % (Manual) 84 % (45-75) 79 % (45-75) Lymphocytes % (Manual) 10 % (20-45) 12 % (20-45) Monocytes % (Manual) 6 % (1-10) 6 % (1-10) Eosinophils % (Manual) 0 % (0-3) 3 % (0-3) Basophils % (Manual) 0 % (0-2) 0 % (0-2) Band Neutrophils 0 % (0-8) 0 % (0-8) Platelet Estimate Adequate Adequate Platelet Morphology Normal Normal Hypochromasia 1+ Anisocytosis 1+ Macrocytosis 1+ Prothrombin Time 10.7 SEC (9.30-11.50) Prothromb Time International Ratio 1.0 (0.9-1.1) Activated Partial Thromboplast Time 25 SEC (23-33) Sodium Level 139 MMOL/L (136-145) 136 MMOL/L (136-145) Potassium Level 4.6 MMOL/L (3.5-5.1) 5.3 MMOL/L (3.5-5.1) Chloride Level 97 MMOL/L (98-107) 96 MMOL/L (98-107) Carbon Dioxide Level 23 MMOL/L (21-32) 25 MMOL/L (21-32) Anion Gap 19 mmol/L (5-15) 15 mmol/L (5-15) Blood Urea Nitrogen 58 mg/dL (7-18) 73 mg/dL (7-18) Creatinine 7.2 MG/DL (0.55-1.30) 8.1 MG/DL (0.55-1.30) Estimat Glomerular Filtration Rate 6.0 mL/min (>60) 5.3 mL/min (>60) Glucose Level 89 MG/DL (74-106) 104 MG/DL (74-106) Calcium Level 9.8 MG/DL (8.5-10.1) 9.7 MG/DL (8.5-10.1) Total Bilirubin 0.4 MG/DL (0.2-1.0) Aspartate Amino Transf (AST/SGOT) 19 U/L (15-37) Alanine Aminotransferase (ALT/SGPT) 11 U/L (12-78) Alkaline Phosphatase 217 U/L (46-116) Total Creatine Kinase 80 U/L (26-308) Troponin I 0.041 ng/mL (0.000-0.056) 0.057 ng/mL (0.000-0.056) Pro-B-Type Natriuretic Peptide 44395 pg/mL (0-125) Total Protein 8.6 G/DL (6.4-8.2) Albumin 2.3 G/DL (3.4-5.0) 2.2 G/DL (3.4-5.0) Globulin 6.3 g/dL Albumin/Globulin Ratio 0.4 (1.0-2.7) Lipase 161 U/L (73-393) Arterial Blood pH 7.405 (7.350-7.450) Arterial Blood Partial Pressure CO2 39.3 mmHg (35.0-45.0) Arterial Blood Partial Pressure O2 65.1 mmHg (75.0-100.0) Arterial Blood HCO3 24.1 mmol/L (22.0-26.0) Arterial Blood Oxygen Saturation 88.7 % (95-100) Arterial Blood Base Excess -0.6 (-2-2) Ayd Test Positive Phosphorus Level 10.6 MG/DL (2.5-4.9) Folate 8.0 NG/ML (8.6-58.9) Height (Feet): 5 Height (Inches): 5.00 Weight (Pounds): 142 Objective Physical Exam: Vitals: reviewed General Appearance: NAD HEENT: normocephalic, atraumatic Neck: non-tender, normal alignment Respiratory/Chest: normal breath sounds bilaterally Cardiovascular/Chest: normal peripheral pulses, normal rate Abdomen: normal bowel sounds, soft, nontender Extremities: normal range of motion Germán Herron MD Feb 11, 2019 05:43
--- NOTE | 2019-02-11 06:00 | NUR ---
NURSE NOTES: Per Dr. Villatoro, replied yes for consult to Dr. Blevins. Noted and carried out.
--- NOTE | 2019-02-11 06:58 | NUR ---
NURSE NOTES: Paged Dr. Blevins regarding patient's Troponin I, with no new order.
--- NOTE | 2019-02-11 07:05 | NUR ---
NURSE NOTES: Received report from JULIAN Shaw. Patient is asleep in bed, lying in semi gillis's; resting comfortably. No signs of acute cardiorespiratory distress noted. Patient on school lunch monitor. Noted right femoral port at hemodialysis. Bed at lowest position, brakes on, [id number]. Call light within reach. Will continue to monitor.
--- NOTE | 2019-02-11 07:10 | NUR ---
HAND-OFF: Report given to JULIAN Holguin. Plan of care endorsed.
[2019-02-11 07:20] LABS: HEMATOCRIT 21.5 % (37.0-47.0); MEAN CORPUSCULAR VOLUME 100 FL (80-99); PLATELET COUNT 281 K/UL (150-450); RED BLOOD COUNT 2.15 M/UL (4.20-5.40); RED CELL DISTRIBUTION WIDTH 15.7 % (11.6-14.8); WHITE BLOOD COUNT 6.6 K/UL (4.8-10.8)
[2019-02-11 07:29] LABS: HEMOGLOBIN 6.9 G/DL (12.0-16.0)
[2019-02-11 07:37] LABS: ANION GAP 11 mmol/L (5-15); BLOOD UREA NITROGEN 44 mg/dL (7-18); CALCIUM 9.8 MG/DL (8.5-10.1); CARBON DIOXIDE 25 MMOL/L (21-32); CHLORIDE 96 MMOL/L (98-107); CREATININE 5.8 MG/DL (0.55-1.30); POTASSIUM 4.3 MMOL/L (3.5-5.1); SODIUM 132 MMOL/L (136-145)
--- NOTE | 2019-02-11 07:37 | NUR ---
NURSE NOTES: 7:30am Received critical lab value of hgb 6.9 fro laboratory. 7:36am: Spoke with Dr. Lesli Herron about critical lab. Receive orders for transfuse one unit prbc, Benadryl 25 mg PO x one (before blood transfusion), and Tylenol 325 mg PO x one (before blood transfusion).
[2019-02-11 08:00] VITALS: BP 171/115
[2019-02-11] MEDS: Morphine Sulfate 2mg/ml Inj(IV/IM USE ONLY) IVP PRN ×4 (08:38→21:34)
[2019-02-11] MEDS: Heparin 5000 units/ml inj SUBQ SCH ×2 (08:45→21:00)
[2019-02-11] MEDS: Carvedilol 12.5mg tab ORAL SCH ×2 (08:51→21:26)
[2019-02-11 09:04] LABS: ALANINE AMINOTRANSFERASE 12 U/L (12-78); ALBUMIN 2.2 G/DL (3.4-5.0); ALKALINE PHOSPHATASE 213 U/L (46-116); ASPARTATE AMINO TRANSFERASE 19 U/L (15-37); BILIRUBIN,DIRECT 0.1 MG/DL (0.0-0.3); BILIRUBIN,TOTAL 0.4 MG/DL (0.2-1.0); PHOSPHORUS 7.8 MG/DL (2.5-4.9)
[2019-02-11 09:15] LABS: FERRITIN 979 NG/ML (8-388)
[2019-02-11 09:30] LABS: % IRON SATURATION 21 % (15-50); IRON 32 ug/dL (50-175); TOTAL IRON BINDING CAPACITY 151 ug/dL (250-450)
--- NOTE | 2019-02-11 09:45 | NUR ---
NURSE NOTES: @9:30am: Received call from blood bank that blood is ready. @9:45am: Was about to recheck v/s and setup blood tranfusion. Patient refused blood transfusion and states she we will have the blood transfusion at 2pm today. @9:50am: Spoke to Dr. Lawanda Ibarra. Dr. Ibarra is aware. Notified blood bank and pharmacy about the delay.
--- NOTE | 2019-02-11 10:34 | Nephrology Progress Note ---
Assessment/Plan Problem List: (1) ESRF (end stage renal failure) (2) Anemia (3) Hypertensive chronic kidney disease Assessment ESRD- Missed HD Fall h/o Osteomyelitis of spine Anasarca Anemia of CKD, symptomatic now ? Lymphoproliferative Ds non compliance and last admit patient left AMA Plan Patient transfused [id number] and 02/12 Phos binders SQ EPO Chest CT: No pneumothorax. Findings on recent chest radiograph or presumably factitious Large bilateral pleural effusions Evidence of anasarca, with diffuse edema of the subcutaneous, mediastinal, and abdominal fat in addition to the above Advanced destructive changes of the L2 and L3 vertebral bodies, presumably related to suspected discitis/osteomyelitis described on prior MRI of 12/14/2018 Atrophic bilateral kidneys, consistent with chronic renal insufficiency. Multiple renal cysts, consistent with polycystic disease of uremia. Mediastinal, axillary, and abdominal lymphadenopathy. Possible mild splenomegaly. Findings raise concern for lymphoproliferative disorder Gas bubbles in the right lower chest wall, may reflect recent injections versus penetrating trauma. Correlate with clinical findings Diffuse osteosclerosis, presumably representing renal osteodystrophy Inferior vena cava dialysis catheter demonstrated Tubular calcifications in the superior vena cava most likely represent an old fibrin sheath from a prior dialysis catheter Large right neck eggshell calcification, uncertain as to whether of thyroid or extrathyroidal origin. Presumably related to prior inflammatory diseas Subjective ROS Limited/Unobtainable: No Constitutional: Reports: malaise Objective Objective Last 24 Hour Vital Signs Date Time Temp Pulse Resp B/P (MAP) Pulse Ox O2 Delivery O2 Flow Rate FiO2 02/11/19 09:08 98.0 02/11/19 08:51 89 171/115 02/11/19 08:51 89 171/115 02/11/19 08:00 98.0 89 19 171/115 (133) 95 02/11/19 07:35 78 02/11/19 04:00 78 02/11/19 04:00 83 20 153/89 (110) 95 02/11/19 00:00 85 02/11/19 00:00 96.6 86 19 159/110 (126) 95 02/10/19 21:43 91 155/92 02/10/19 21:00 Room Air 02/10/19 20:01 96 18 96 Room Air 21 02/10/19 20:00 90 02/10/19 20:00 91 18 155/92 (113) 94 02/10/19 16:00 98 02/10/19 12:00 76 02/10/19 12:00 96.6 75 18 172/102 (125) 91 02/10/19 10:57 180/107 Intake and Output 02/10/19 02/11/19 19:00 07:00 Intake Total 540 ml 120 ml Balance 540 ml 120 ml Intake Oral 540 ml 120 ml Laboratory Tests 02/10/19 13:03: Troponin I 0.057H 02/11/19 05:58: Troponin I [Pending], White Blood Count 6.6, Red Blood Count 2.15L, Hemoglobin 6.9*L, Hematocrit 21.5L, Mean Corpuscular Volume 100H, Mean Corpuscular Hemoglobin 32.2H, Mean Corpuscular Hemoglobin Concent 32.2, Red Cell Distribution Width 15.7H, Platelet Count 281, Mean Platelet Volume 5.5L, Neutrophils (%) (Auto) , Lymphocytes (%) (Auto) , Monocytes (%) (Auto) , Eosinophils (%) (Auto) , Basophils (%) (Auto) , Differential Total Cells Counted 100, Neutrophils % (Manual) 79H, Lymphocytes % (Manual) 8L, Monocytes % (Manual) 10, Eosinophils % (Manual) 3, Basophils % (Manual) 0, Band Neutrophils 0, Platelet Estimate Adequate, Platelet Morphology Normal, Hypochromasia 1+, Anisocytosis 1+, Macrocytosis 1+, Sodium Level 132L, Potassium Level 4.3, Chloride Level 96L, Carbon Dioxide Level 25, Anion Gap 11, Blood Urea Nitrogen 44H, Creatinine 5.8H, Estimat Glomerular Filtration Rate 7.7, Glucose Level 90, Uric Acid 5.3, Calcium Level 9.8, Phosphorus Level 7.8H, Magnesium Level 2.3, Iron Level 32L, Total Iron Binding Capacity 151L, Percent Iron Saturation 21, Unsaturated Iron Binding 119, Ferritin 979H, Total Bilirubin 0.4, Direct Bilirubin 0.1, Aspartate Amino Transf (AST/SGOT) 19, Alanine Aminotransferase ( ALT/SGPT) 12, Alkaline Phosphatase 213H, Total Protein 7.6, Albumin 2.2L, Vitamin B12 Level 710 Height (Feet): 5 Height (Inches): 5.00 Weight (Pounds): 142 General Appearance: no apparent distress Respiratory/Chest: decreased breath sounds Abdomen: distended Objective no change Yobani Lopez MD Feb 11, 2019 10:34
--- NOTE | 2019-02-11 10:50 | NUR ---
PT NOTE Ezio JORDAN requesting to defer PT evaluation until tomorrow as patient's Hgb is low and patient is scheduled to receive blood transfusion. Will follow up tomorrow.
--- NOTE | 2019-02-11 11:44 | Pulmonology Progress Note ---
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, try to take out more fluids if possible symptomatic treatment prbc prn Subjective ROS Limited/Unobtainable: No Constitutional: Reports: no symptoms HEENT: Repors: no symptoms Respiratory: Reports: no symptoms Allergies: Coded Allergies: CEPHALEXIN (Unverified Allergy, Unknown, 12/14/18) SULFAMETHOXAZOLE (Unverified Allergy, Unknown, 12/14/18) TRIMETHOPRIM (Unverified Allergy, Unknown, 12/14/18) VANCOMYCIN (Unverified Allergy, Unknown, 12/14/18) Uncoded Allergies: BACTRIM DS (Allergy, Unknown, 02/09/19) Objective Last 24 Hour Vital Signs Date Time Temp Pulse Resp B/P (MAP) Pulse Ox O2 Delivery O2 Flow Rate FiO2 02/11/19 10:48 82 02/11/19 09:08 98.0 02/11/19 09:00 Room Air 02/11/19 08:51 89 171/115 02/11/19 08:51 89 171/115 02/11/19 08:00 98.0 89 19 171/115 (133) 95 02/11/19 04:00 78 02/11/19 04:00 83 20 153/89 (110) 95 02/11/19 00:00 85 02/11/19 00:00 96.6 86 19 159/110 (126) 95 02/10/19 21:43 91 155/92 02/10/19 21:00 Room Air 02/10/19 20:01 96 18 96 Room Air 21 02/10/19 20:00 90 02/10/19 20:00 91 18 155/92 (113) 94 02/10/19 16:00 98 02/10/19 12:00 76 02/10/19 12:00 96.6 75 18 172/102 (125) 91 Intake and Output 02/10/19 02/11/19 19:00 07:00 Intake Total 540 ml 120 ml Balance 540 ml 120 ml Intake Oral 540 ml 120 ml General Appearance: WD/WN HEENT: normocephalic, atraumatic Respiratory/Chest: chest wall non-tender, lungs clear Breasts: no masses Cardiovascular: normal peripheral pulses Abdomen: normal bowel sounds, soft, non tender, no organomegaly Genitourinary: normal external genitalia Extremities: no cyanosis Skin: no lesions 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, no motor/sensory deficits Laboratory Tests 02/10/19 13:03: Troponin I 0.057H 02/11/19 05:18: Hemoglobin A1c 5.2 02/11/19 05:58: Troponin I [Pending], White Blood Count 6.6, Red Blood Count 2.15L, Hemoglobin 6.9*L, Hematocrit 21.5L, Mean Corpuscular Volume 100H, Mean Corpuscular Hemoglobin 32.2H, Mean Corpuscular Hemoglobin Concent 32.2, Red Cell Distribution Width 15.7H, Platelet Count 281, Mean Platelet Volume 5.5L, Neutrophils (%) (Auto) , Lymphocytes (%) (Auto) , Monocytes (%) (Auto) , Eosinophils (%) (Auto) , Basophils (%) (Auto) , Differential Total Cells Counted 100, Neutrophils % (Manual) 79H, Lymphocytes % (Manual) 8L, Monocytes % (Manual) 10, Eosinophils % (Manual) 3, Basophils % (Manual) 0, Band Neutrophils 0, Platelet Estimate Adequate, Platelet Morphology Normal, Hypochromasia 1+, Anisocytosis 1+, Macrocytosis 1+, Sodium Level 132L, Potassium Level 4.3, Chloride Level 96L, Carbon Dioxide Level 25, Anion Gap 11, Blood Urea Nitrogen 44H, Creatinine 5.8H, Estimat Glomerular Filtration Rate 7.7, Glucose Level 90, Uric Acid 5.3, Calcium Level 9.8, Phosphorus Level 7.8H, Magnesium Level 2.3, Iron Level 32L, Total Iron Binding Capacity 151L, Percent Iron Saturation 21, Unsaturated Iron Binding 119, Ferritin 979H, Total Bilirubin 0.4, Direct Bilirubin 0.1, Aspartate Amino Transf (AST/SGOT) 19, Alanine Aminotransferase ( ALT/SGPT) 12, Alkaline Phosphatase 213H, Total Protein 7.6, Albumin 2.2L, Vitamin B12 Level 710 Current Medications Medications (Trade) Dose Ordered Sig/Juliano Route PRN Reason Start Time Stop Time Status Last Admin Dose Admin Acetaminophen (Tylenol) 325 mg ONCE ORAL 02/11/19 08:45 02/11/19 15:00 Acetaminophen (Tylenol) 650 mg Q4H PRN ORAL Fever 02/09/19 16:15 03/11/19 16:14 02/10/19 21:45 Albuterol/ Ipratropium (Albuterol/ Ipratropium) 3 ml Q4H PRN HHN Shortness of Breath 02/09/19 16:15 02/14/19 16:14 Amlodipine Besylate (Norvasc) 10 mg DAILY ORAL 02/11/19 09:00 03/12/19 08:59 02/11/19 08:51 Carvedilol (Coreg) 12.5 mg EVERY 12 HOURS ORAL 02/11/19 09:00 03/11/19 20:59 02/11/19 08:51 Clonidine HCl (Catapres TTS-3) 1 patch QWEEK TDERMAL 02/11/19 12:00 03/13/19 11:59 Dextrose (Dextrose 50%) 25 ml Q30M PRN IV Hypoglycemia 02/09/19 16:15 03/11/19 16:14 Dextrose (Dextrose 50%) 50 ml Q30M PRN IV Hypoglycemia 02/09/19 16:15 03/11/19 16:14 Diphenhydramine HCl (Benadryl) 25 mg ONCE ORAL 02/11/19 08:45 02/11/19 15:00 Docusate Sodium (Colace) 100 mg THREE TIMES A DAY ORAL 02/11/19 13:00 03/13/19 12:59 Epoetin David (Epoetin David(ESRD on dialysis)) 10,000 unit FRI-FRI-FRI SUBQ 02/12/19 21:00 03/14/19 20:59 UNV Folic Acid (Folate) 3 mg DAILY ORAL 02/11/19 09:00 03/13/19 08:59 02/11/19 08:51 Gabapentin (Neurontin) 100 mg THREE TIMES A DAY ORAL 02/09/19 18:00 03/11/19 17:59 02/11/19 08:43 Heparin Sodium (Porcine) (Heparin 5000 units/ml) 5,000 units EVERY 12 HOURS SUBQ 02/09/19 21:00 03/11/19 20:59 02/11/19 08:45 Hydralazine HCl (Apresoline) 25 mg Q4H PRN ORAL bp over 160 syst 02/10/19 10:30 03/12/19 10:29 02/10/19 10:57 Hydralazine HCl (Apresoline) 25 mg Q6HR ORAL 02/11/19 12:00 03/13/19 11:59 Morphine Sulfate (Morphine Sulfate) 2 mg Q4H PRN IVP PAIN 4-10 02/09/19 20:45 02/16/19 20:44 02/11/19 08:38 Ondansetron HCl (Zofran) 4 mg Q6H PRN IVP Nausea & Vomiting 02/09/19 16:15 03/11/19 16:14 Pantoprazole (Protonix) 40 mg EVERY 12 HOURS ORAL 02/11/19 11:00 03/13/19 10:59 Polyethylene Glycol (Miralax) 17 gm DAILYPRN PRN ORAL Constipation 02/09/19 16:15 03/11/19 16:14 Sevelamer Carbonate (Renvela) 2,400 mg THREE TIMES A DAY ORAL 02/11/19 09:00 03/13/19 08:59 02/11/19 08:46 Temazepam (Restoril) 15 mg HSPRN PRN ORAL Insomnia 02/09/19 16:15 02/16/19 16:14 Jarad King MD Feb 11, 2019 11:44
[2019-02-11 12:00] VITALS: BP 151/95
--- NOTE | 2019-02-11 12:00 | NUR ---
RD ASSESSMENT & RECOMMENDATIONS SEE CARE ACTIVITY FOR COMPLETE ASSESSMENT DAILY ESTIMATED NEEDS: Needs based on underweight, ESRD/HD; 43kg 30-35 kcals/kg 1290- 1505 total kcals 1.2-1.8 g protein/kg 52- 77 g total protein Fluid per MD, on HD NUTRITION DIAGNOSIS: Increased kcal and pro needs r/t underweight status and renal dysfunction AEB pt w/ ESRD, on HD, underweight per guidelines, @76% of [place] Body Weight. CURRENT DIET:Renal PO DIET RECOMMENDATIONS: Maintain Renal ADDITIONAL RECOMMENDATIONS: Maintain accurate bedscale wt or obtain standing weight + Daily weights 2/2 underweight status Provide high protein snacks in b/w meals. -> pt does not like Nepro
[2019-02-11] MEDS: HydrALAZINE 25mg tab ORAL SCH ×2 (12:12→17:26)
[2019-02-11] MEDS: Docusate 100mg cap ORAL SCH ×2 (12:13→17:27)
--- NOTE | 2019-02-11 13:04 | NUR ---
NURSE NOTES: @12:10pm - Setup for Dobutamine stress test was done. @12:40pm - Patient requested pain medication for chest pain (morphine 2mg IVP). Made attempt to wait for doctor for another ten minutes. 12:50pm- attempt to contact Dr. Mistry. 13:00- Discuss and explained with patient for the stress test could be cancelled. Patient still wanted pain medication. Pain medication was given.
--- NOTE | 2019-02-11 14:11 | NUR ---
NURSE NOTES: Patient refused blood transfusion now. Patient states she will have the blood transfusion tonight. Will notify Dr. Ibarra. Charge nurse is also aware. Addendum: 02/11/19 at 1453 [address] Ezio Mo RN Dr[address] Ibarra is aware. No new orders.
--- NOTE | 2019-02-11 14:57 | General Progress Note ---
Assessment/Plan Problem List: (1) HTN (hypertension) ICD Codes: I10 - Essential (primary) hypertension SNOMED: 51378469 (2) Weak ICD Codes: R53.1 - Weakness SNOMED: 92773062 (3) ESRD (end stage renal disease) ICD Codes: N18.6 - End stage renal disease SNOMED: 73336955 (4) Hypertensive chronic kidney disease ICD Codes: I12.9 - Hypertensive chronic kidney disease with stage 1 through stage 4 chronic kidney disease, or unspecified chronic kidney disease SNOMED: 713161449584363 (5) Anemia ICD Codes: D64.9 - Anemia, unspecified SNOMED: 692147576 (6) ESRF (end stage renal failure) ICD Codes: N18.6 - End stage renal disease SNOMED: 29547802 Status: stable, progressing Assessment/Plan: o2 pulm tx pt diet transfuse prn renal f/u cbc bmp am aru eval Subjective Constitutional: Reports: weakness Allergies: Coded Allergies: CEPHALEXIN (Unverified Allergy, Unknown, 12/14/18) SULFAMETHOXAZOLE (Unverified Allergy, Unknown, 12/14/18) TRIMETHOPRIM (Unverified Allergy, Unknown, 12/14/18) VANCOMYCIN (Unverified Allergy, Unknown, 12/14/18) Uncoded Allergies: BACTRIM DS (Allergy, Unknown, 02/09/19) All Systems: reviewed and negative except above Subjective calm in bed Objective Last 24 Hour Vital Signs Date Time Temp Pulse Resp B/P (MAP) Pulse Ox O2 Delivery O2 Flow Rate FiO2 02/11/19 13:12 98.2 02/11/19 12:12 151/95 02/11/19 12:00 98.2 76 19 151/95 (113) 95 02/11/19 10:48 82 02/11/19 09:13 76 20 95 Room Air 21 02/11/19 09:00 Room Air 02/11/19 08:51 89 171/115 02/11/19 08:51 89 171/115 02/11/19 08:00 98.0 89 19 171/115 (133) 95 02/11/19 04:00 78 02/11/19 04:00 83 20 153/89 (110) 95 02/11/19 00:00 85 02/11/19 00:00 96.6 86 19 159/110 (126) 95 02/10/19 21:43 91 155/92 02/10/19 21:00 Room Air 02/10/19 20:01 96 18 96 Room Air 21 02/10/19 20:00 90 02/10/19 20:00 91 18 155/92 (113) 94 02/10/19 16:00 98 Intake and Output 02/10/19 02/11/19 18:59 06:59 Intake Total 540 ml 120 ml Balance 540 ml 120 ml Intake Oral 540 ml 120 ml Laboratory Tests 02/11/19 05:18: Hemoglobin A1c 5.2 02/11/19 05:58: White Blood Count 6.6, Red Blood Count 2.15L, Hemoglobin 6.9*L, Hematocrit 21.5L , Mean Corpuscular Volume 100H, Mean Corpuscular Hemoglobin 32.2H, Mean Corpuscular Hemoglobin Concent 32.2, Red Cell Distribution Width 15.7H, Platelet Count 281, Mean Platelet Volume 5.5L, Neutrophils (%) (Auto) , Lymphocytes (%) (Auto) , Monocytes (%) (Auto) , Eosinophils (%) (Auto) , Basophils (%) (Auto) , Differential Total Cells Counted 100, Neutrophils % ( Manual) 79H, Lymphocytes % (Manual) 8L, Monocytes % (Manual) 10, Eosinophils % ( Manual) 3, Basophils % (Manual) 0, Band Neutrophils 0, Platelet Estimate Adequate, Platelet Morphology Normal, Hypochromasia 1+, Anisocytosis 1+, Macrocytosis 1+, Sodium Level 132L, Potassium Level 4.3, Chloride Level 96L, Carbon Dioxide Level 25, Anion Gap 11, Blood Urea Nitrogen 44H, Creatinine 5.8H , Estimat Glomerular Filtration Rate 7.7, Glucose Level 90, Uric Acid 5.3, Calcium Level 9.8, Phosphorus Level 7.8H, Magnesium Level 2.3, Iron Level 32L, Total Iron Binding Capacity 151L, Percent Iron Saturation 21, Unsaturated Iron Binding 119, Ferritin 979H, Total Bilirubin 0.4, Direct Bilirubin 0.1, Aspartate Amino Transf (AST/SGOT) 19, Alanine Aminotransferase (ALT/SGPT) 12, Alkaline Phosphatase 213H, Total Protein 7.6, Albumin 2.2L, Vitamin B12 Level 710 02/11/19 13:20: Troponin I 0.041 Height (Feet): 5 Height (Inches): 5.00 Weight (Pounds): 142 General Appearance: lethargic EENT: normal ENT inspection Neck: normal alignment Cardiovascular: normal peripheral pulses, normal rate, regular rhythm Respiratory/Chest: chest wall non-tender, lungs clear, normal breath sounds Abdomen: normal bowel sounds, non tender, soft Extremities: normal inspection Edema: 1+ Arm (L); no edema noted Arm (R), no edema noted Leg (L), no edema noted Leg (R), no edema noted Pedal (L), no edema noted Pedal (R), no edema noted Generalized Neurologic: motor weakness Skin: normal pigmentation, warm/dry Narinder Villatoro DO Feb 11, 2019 14:57
[2019-02-11 16:00] VITALS: BP 130/84
--- NOTE | 2019-02-11 17:08 | Surgery Progress Note ---
Surgery Progress Note Subjective Additional Comments no acute events anemia labs noted exam stable Objective Last 24 Hour Vital Signs Date Time Temp Pulse Resp B/P (MAP) Pulse Ox O2 Delivery O2 Flow Rate FiO2 02/11/19 16:00 97.9 83 18 130/84 (99) 94 02/11/19 13:12 98.2 02/11/19 12:12 151/95 02/11/19 12:00 98.2 76 19 151/95 (113) 95 02/11/19 11:50 78 02/11/19 10:48 82 02/11/19 09:13 76 20 95 Room Air 21 02/11/19 09:00 Room Air 02/11/19 08:51 89 171/115 02/11/19 08:51 89 171/115 02/11/19 08:00 98.0 89 19 171/115 (133) 95 02/11/19 04:00 78 02/11/19 04:00 83 20 153/89 (110) 95 02/11/19 00:00 85 02/11/19 00:00 96.6 86 19 159/110 (126) 95 02/10/19 21:43 91 155/92 02/10/19 21:00 Room Air 02/10/19 20:01 96 18 96 Room Air 21 02/10/19 20:00 90 02/10/19 20:00 91 18 155/92 (113) 94 I&O Intake and Output 02/10/19 02/11/19 18:59 06:59 Intake Total 540 ml 120 ml Balance 540 ml 120 ml Intake Oral 540 ml 120 ml Laboratory Tests Test 02/11/19 05:18 02/11/19 05:58 02/11/19 13:20 Hemoglobin A1c 5.2 % (4.3-6.0) White Blood Count 6.6 K/UL (4.8-10.8) Red Blood Count 2.15 M/UL (4.20-5.40) L Hemoglobin 6.9 G/DL (12.0-16.0) *L Hematocrit 21.5 % (37.0-47.0) L Mean Corpuscular Volume 100 FL (80-99) H Mean Corpuscular Hemoglobin 32.2 PG (27.0-31.0) H Mean Corpuscular Hemoglobin Concent 32.2 G/DL (32.0-36.0) Red Cell Distribution Width 15.7 % (11.6-14.8) H Platelet Count 281 K/UL (150-450) Mean Platelet Volume 5.5 FL (6.5-10.1) L Neutrophils (%) (Auto) % (45.0-75.0) Lymphocytes (%) (Auto) % (20.0-45.0) Monocytes (%) (Auto) % (1.0-10.0) Eosinophils (%) (Auto) % (0.0-3.0) Basophils (%) (Auto) % (0.0-2.0) Differential Total Cells Counted 100 Neutrophils % (Manual) 79 % (45-75) H Lymphocytes % (Manual) 8 % (20-45) L Monocytes % (Manual) 10 % (1-10) Eosinophils % (Manual) 3 % (0-3) Basophils % (Manual) 0 % (0-2) Band Neutrophils 0 % (0-8) Platelet Estimate Adequate Platelet Morphology Normal Hypochromasia 1+ Anisocytosis 1+ Macrocytosis 1+ Sodium Level 132 MMOL/L (136-145) L Potassium Level 4.3 MMOL/L (3.5-5.1) Chloride Level 96 MMOL/L (98-107) L Carbon Dioxide Level 25 MMOL/L (21-32) Anion Gap 11 mmol/L (5-15) Blood Urea Nitrogen 44 mg/dL (7-18) H Creatinine 5.8 MG/DL (0.55-1.30) H Estimat Glomerular Filtration Rate 7.7 mL/min (>60) Glucose Level 90 MG/DL (74-106) Uric Acid 5.3 MG/DL (2.6-7.2) Calcium Level 9.8 MG/DL (8.5-10.1) Phosphorus Level 7.8 MG/DL (2.5-4.9) H Magnesium Level 2.3 MG/DL (1.8-2.4) Iron Level 32 ug/dL (50-175) L Total Iron Binding Capacity 151 ug/dL (250-450) L Percent Iron Saturation 21 % (15-50) Unsaturated Iron Binding 119 ug/dL (112-346) Ferritin 979 NG/ML (8-388) H Total Bilirubin 0.4 MG/DL (0.2-1.0) Direct Bilirubin 0.1 MG/DL (0.0-0.3) Aspartate Amino Transf (AST/SGOT) 19 U/L (15-37) Alanine Aminotransferase (ALT/SGPT) 12 U/L (12-78) Alkaline Phosphatase 213 U/L (46-116) H Total Protein 7.6 G/DL (6.4-8.2) Albumin 2.2 G/DL (3.4-5.0) L Vitamin B12 Level 710 PG/ML (193-986) Troponin I 0.041 ng/mL (0.000-0.056) Plan Problems: (1) Pneumothorax on left Assessment & Plan: Findings: There is a lucency at the left costophrenic sulcus , with there is previously pleural fluid. Small basilar pneumothorax possible. There is bilateral interstitial edema again demonstrated. Moderate to large right pleural effusion is again demonstrated. The heart is upper limits normal in size. Large eggshell calcification in the right neck is probably thyroid in origin. Impression: Doubt but cannot completely exclude small left basilar pneumothorax. Bilateral interstitial edema and moderate to large right pleural effusion, not significantly changed from 02/06/2019 Impression: No pneumothorax. Findings on recent chest radiograph or presumably factitious Large bilateral pleural effusions Evidence of anasarca, with diffuse edema of the subcutaneous, mediastinal, and abdominal fat in addition to the above Advanced destructive changes of the L2 and L3 vertebral bodies, presumably related to suspected discitis/osteomyelitis described on prior MRI of 12/14/2018 Atrophic bilateral kidneys, consistent with chronic renal insufficiency. Multiple renal cysts, consistent with polycystic disease of uremia. Mediastinal, axillary, and abdominal lymphadenopathy. Possible mild splenomegaly. Findings raise concern for lymphoproliferative disorder Gas bubbles in the right lower chest wall, may reflect recent injections versus penetrating trauma. Correlate with clinical findings Diffuse osteosclerosis, presumably representing renal osteodystrophy Inferior vena cava dialysis catheter demonstrated Tubular calcifications in the superior vena cava most likely represent an old fibrin sheath from a prior dialysis catheter Large right neck eggshell calcification, uncertain as to whether of thyroid or extrathyroidal origin. Presumably related to prior inflammatory disease. (2) Missed dialysis Assessment & Plan: Will receive dialysis during admission. Transfuse with dialysis. (3) Symptomatic anemia Assessment & Plan: Hematology work-up pending. Labs noted. Transfusion with dialysis. (4) Noncompliance (5) Episode of generalized weakness (6) Fall Assessment & Plan: Patient with unwitnessed fall. States that she missed her dialysis felt weak and fell onto her right hip. Has had pain there since with decreased mobility and requiring her to live in her cardiac fast food from drive -through. Impression: No definite acute bony or soft tissue trauma. Destructive changes of the L3 vertebral body, inconclusively visualized, and a pathologic fracture of the left 3 pedicle. Note that advanced destructive changes of the L2 and L3 vertebral segments are described also on a prior MRI of 12/14/2018. Evidence of renal osteodystrophy Small focal lucencies within the bones probably represent areas of physiologic rarefaction, although some of these could represent small brown tumors Atrophic bilateral kidneys with multiple cysts, consistent with medical renal disease and cystic disease of uremia Right common femoral tunneled dialysis catheter Abdominal wall venous varicosities, may indicate central venoocclusive disease related to the above Anasarca Other findings as noted, in including distal sacral nerve root sleeve cysts, large synovial herniation pit in the right femoral neck PT/OT pain control will follow with [facility] Post Feb 11, 2019 17:08
--- NOTE | 2019-02-11 18:00 | NUR ---
NURSE NOTES: Patient states she want the blood transfusion later tonight.
--- NOTE | 2019-02-11 19:45 | NUR ---
NURSE NOTES: Received pt and report from JULIAN Holguin. Observed pt resting in bed with both eyes open. Pt is A/Ox4. scallop dredger is in placed, IV site intact, asymptomatic, and patent. Bed is in the lowest position and locked. Call light within reach. Per JULIAN Holguin, pt has been refusing blood transfusion all day. Pt now agrees to receive blood transfusion tomorrow during dialysis. No signs/symptoms of acute distress noted at this time. Will continue plan of care.
[2019-02-11 20:00] VITALS: BP 157/94
--- NOTE | 2019-02-11 20:02 | NUR ---
HAND-OFF: Report given to JULIAN Duong. Patient request blood tranfusion during dialysis tomorrow. Was endorsed.
[2019-02-12] VITALS: BP 159/91
[2019-02-12] MEDS: HydrALAZINE 25mg tab ORAL SCH ×2 (00:47→06:11)
[2019-02-12] MEDS: Morphine Sulfate 2mg/ml Inj(IV/IM USE ONLY) IVP PRN ×4 (01:46→21:39)
[2019-02-12 04:00] VITALS: BP 149/97
--- NOTE | 2019-02-12 07:37 | NUR ---
NURSE NOTES: Report given by JULIAN Duong. Patient's awake in bed and eating breakfast. AO x 4, stated pain 5/10, generalized. Bed low and locked, call light within reach. cat driver is in placed. IV is patent and asymptomatic. Agreed to get blood transfusion with dialysis, endorsed by previous nurse. Will continue to monitor.
[2019-02-12 07:38] LABS: HEMATOCRIT 21.6 % (37.0-47.0); MEAN CORPUSCULAR VOLUME 100 FL (80-99); PLATELET COUNT 286 K/UL (150-450); RED BLOOD COUNT 2.15 M/UL (4.20-5.40); RED CELL DISTRIBUTION WIDTH 14.9 % (11.6-14.8); WHITE BLOOD COUNT 6.6 K/UL (4.8-10.8)
--- NOTE | 2019-02-12 07:53 | NUR ---
HAND-OFF: Report given to JULIAN Berman. Plan of care endorsed.
[2019-02-12 08:00] VITALS: BP 154/97
[2019-02-12 08:03] LABS: HEMOGLOBIN 6.9 G/DL (12.0-16.0)
[2019-02-12 08:15] LABS: ALANINE AMINOTRANSFERASE 10 U/L (12-78); ALBUMIN 2.1 G/DL (3.4-5.0); ALBUMIN/GLOBULIN RATIO 0.3 (1.0-2.7); ALKALINE PHOSPHATASE 209 U/L (46-116); ANION GAP 14 mmol/L (5-15); ASPARTATE AMINO TRANSFERASE 17 U/L (15-37); BILIRUBIN,TOTAL 0.4 MG/DL (0.2-1.0); BLOOD UREA NITROGEN 63 mg/dL (7-18); CALCIUM 9.5 MG/DL (8.5-10.1); CARBON DIOXIDE 26 MMOL/L (21-32); CHLORIDE 94 MMOL/L (98-107); PHOSPHORUS 8.6 MG/DL (2.5-4.9); SODIUM 133 MMOL/L (136-145)
--- NOTE | 2019-02-12 08:48 | General Progress Note ---
Assessment/Plan Problem List: (1) HTN (hypertension) ICD Codes: I10 - Essential (primary) hypertension SNOMED: 92693245 (2) Weak ICD Codes: R53.1 - Weakness SNOMED: 46660154 (3) ESRD (end stage renal disease) ICD Codes: N18.6 - End stage renal disease SNOMED: 97955463 (4) Hypertensive chronic kidney disease ICD Codes: I12.9 - Hypertensive chronic kidney disease with stage 1 through stage 4 chronic kidney disease, or unspecified chronic kidney disease SNOMED: 551759998712368 (5) Anemia ICD Codes: D64.9 - Anemia, unspecified SNOMED: 142140124 (6) ESRF (end stage renal failure) ICD Codes: N18.6 - End stage renal disease SNOMED: 66735141 Status: stable, progressing Assessment/Plan: o2 pulm tx pt diet transfuse prn renal f/u cbc bmp am aru eval Subjective Constitutional: Reports: weakness Allergies: Coded Allergies: CEPHALEXIN (Unverified Allergy, Unknown, 12/14/18) SULFAMETHOXAZOLE (Unverified Allergy, Unknown, 12/14/18) TRIMETHOPRIM (Unverified Allergy, Unknown, 12/14/18) VANCOMYCIN (Unverified Allergy, Unknown, 12/14/18) Uncoded Allergies: BACTRIM DS (Allergy, Unknown, 02/09/19) All Systems: reviewed and negative except above Subjective calm in bed Objective Last 24 Hour Vital Signs Date Time Temp Pulse Resp B/P (MAP) Pulse Ox O2 Delivery O2 Flow Rate FiO2 02/12/19 06:11 161/68 02/12/19 04:00 88 02/12/19 04:00 99.1 87 19 149/97 (114) 93 02/12/19 00:47 159/91 02/12/19 00:00 98.9 89 18 159/91 (113) 93 02/12/19 00:00 91 02/11/19 21:26 87 157/94 02/11/19 21:00 Room Air 02/11/19 20:06 88 20 96 Room Air 21 02/11/19 20:00 92 02/11/19 20:00 99.1 87 17 157/94 (115) 92 02/11/19 17:53 97.9 02/11/19 17:26 130/84 02/11/19 16:03 82 02/11/19 16:00 97.9 83 18 130/84 (99) 94 02/11/19 12:12 151/95 02/11/19 12:00 98.2 76 19 151/95 (113) 95 02/11/19 11:50 78 02/11/19 10:48 82 02/11/19 09:13 76 20 95 Room Air 21 02/11/19 09:00 Room Air 02/11/19 08:51 89 171/115 02/11/19 08:51 89 171/115 Intake and Output 02/11/19 02/12/19 19:00 07:00 Intake Total 240 ml Balance 240 ml Intake Oral 240 ml Laboratory Tests 02/11/19 13:20: Troponin I 0.041 02/12/19 05:58: White Blood Count 6.6, Red Blood Count 2.15L, Hemoglobin 6.9*L, Hematocrit 21.6L , Mean Corpuscular Volume 100H, Mean Corpuscular Hemoglobin 32.3H, Mean Corpuscular Hemoglobin Concent 32.1, Red Cell Distribution Width 14.9H, Platelet Count 286, Mean Platelet Volume 5.2L, Neutrophils (%) (Auto) , Lymphocytes (%) (Auto) , Monocytes (%) (Auto) , Eosinophils (%) (Auto) , Basophils (%) (Auto) , Neutrophils % (Manual) [Pending], Lymphocytes % (Manual) [Pending], Platelet Estimate [Pending], Platelet Morphology [Pending], Sodium Level 133L, Potassium Level 5.0, Chloride Level 94L, Carbon Dioxide Level 26, Anion Gap 14, Blood Urea Nitrogen 63H, Creatinine 7.0H, Estimat Glomerular Filtration Rate 6.2, Glucose Level 93, Calcium Level 9.5, Phosphorus Level 8.6H , Total Bilirubin 0.4, Aspartate Amino Transf (AST/SGOT) 17, Alanine Aminotransferase (ALT/SGPT) 10L, Alkaline Phosphatase 209H, C-Reactive Protein, Quantitative 8.0H, Pro-B-Type Natriuretic Peptide 99233P, Total Protein 8.3H, Albumin 2.1L, Globulin 6.2, Albumin/Globulin Ratio 0.3L Height (Feet): 5 Height (Inches): 5.00 Weight (Pounds): 142 General Appearance: lethargic EENT: normal ENT inspection Neck: normal alignment Cardiovascular: normal peripheral pulses, normal rate, regular rhythm Respiratory/Chest: chest wall non-tender, lungs clear, normal breath sounds Abdomen: normal bowel sounds, non tender, soft Extremities: normal inspection Edema: no edema noted Arm (L), no edema noted Arm (R), no edema noted Leg (L), no edema noted Leg (R), no edema noted Pedal (L), no edema noted Pedal (R), no edema noted Generalized Neurologic: motor weakness Skin: normal pigmentation, warm/dry Narinder Villatoro DO Feb 12, 2019 08:48
[2019-02-12] MEDS: Docusate 100mg cap ORAL SCH ×3 (08:51→18:00)
[2019-02-12] MEDS: Heparin 5000 units/ml inj SUBQ SCH ×2 (08:52→21:35)
[2019-02-12] MEDS: Carvedilol 12.5mg tab ORAL SCH ×2 (09:09→21:34)
--- NOTE | 2019-02-12 10:00 | NUR ---
NURSE NOTES: Patient's getting dialysis. Consent is signed by patient and nurse at bedside.
--- NOTE | 2019-02-12 10:05 | NUR ---
PT NOTE Hgb 6.9, did not get blood transfusion yesterday. Patient scheduled to have dialysis today with blood transfusion. Will follow up with patient following dialysis, Adriana JORDAN notified.
--- NOTE | 2019-02-12 10:19 | NUR ---
NURSE NOTES: Spoke to Melisa from [facility] to confirm patient is getting dialysis today. She confirmed that the dialysis nurse, Isaias will come and perform the dialysis today. Waiting for response from dialysis nurse for estimated time arrival.
--- NOTE | 2019-02-12 10:54 | Nephrology Progress Note ---
Assessment/Plan Problem List: (1) ESRF (end stage renal failure) (2) Anemia (3) Hypertensive chronic kidney disease Assessment ESRD- Missed HD Fall h/o Osteomyelitis of spine Anasarca Anemia of CKD, symptomatic now ? Lymphoproliferative Ds non compliance and last admit patient left AMA Plan about to get started on HD Patient transfused [id number] and 02/12 Phos binders SQ EPO Chest CT: No pneumothorax. Findings on recent chest radiograph or presumably factitious Large bilateral pleural effusions Evidence of anasarca, with diffuse edema of the subcutaneous, mediastinal, and abdominal fat in addition to the above Advanced destructive changes of the L2 and L3 vertebral bodies, presumably related to suspected discitis/osteomyelitis described on prior MRI of 12/14/2018 Atrophic bilateral kidneys, consistent with chronic renal insufficiency. Multiple renal cysts, consistent with polycystic disease of uremia. Mediastinal, axillary, and abdominal lymphadenopathy. Possible mild splenomegaly. Findings raise concern for lymphoproliferative disorder Gas bubbles in the right lower chest wall, may reflect recent injections versus penetrating trauma. Correlate with clinical findings Diffuse osteosclerosis, presumably representing renal osteodystrophy Inferior vena cava dialysis catheter demonstrated Tubular calcifications in the superior vena cava most likely represent an old fibrin sheath from a prior dialysis catheter Large right neck eggshell calcification, uncertain as to whether of thyroid or extrathyroidal origin. Presumably related to prior inflammatory diseas Subjective ROS Limited/Unobtainable: No Constitutional: Reports: malaise Objective Objective Last 24 Hour Vital Signs Date Time Temp Pulse Resp B/P (MAP) Pulse Ox O2 Delivery O2 Flow Rate FiO2 02/12/19 09:33 80 20 96 Room Air 21 02/12/19 09:09 80 154/97 02/12/19 09:00 Room Air 02/12/19 08:52 82 154/92 02/12/19 08:00 99.0 80 18 154/97 (116) 93 02/12/19 08:00 82 02/12/19 06:11 161/68 02/12/19 04:00 88 02/12/19 04:00 99.1 87 19 149/97 (114) 93 02/12/19 00:47 159/91 02/12/19 00:00 98.9 89 18 159/91 (113) 93 02/12/19 00:00 91 02/11/19 21:26 87 157/94 02/11/19 21:00 Room Air 02/11/19 20:06 88 20 96 Room Air 21 02/11/19 20:00 92 02/11/19 20:00 99.1 87 17 157/94 (115) 92 02/11/19 17:53 97.9 02/11/19 17:26 130/84 02/11/19 16:03 82 02/11/19 16:00 97.9 83 18 130/84 (99) 94 02/11/19 12:12 151/95 02/11/19 12:00 98.2 76 19 151/95 (113) 95 02/11/19 11:50 78 Intake and Output 02/11/19 02/12/19 19:00 07:00 Intake Total 240 ml Balance 240 ml Intake Oral 240 ml Laboratory Tests 02/11/19 13:20: Troponin I 0.041 02/12/19 05:58: White Blood Count 6.6, Red Blood Count 2.15L, Hemoglobin 6.9*L, Hematocrit 21.6L , Mean Corpuscular Volume 100H, Mean Corpuscular Hemoglobin 32.3H, Mean Corpuscular Hemoglobin Concent 32.1, Red Cell Distribution Width 14.9H, Platelet Count 286, Mean Platelet Volume 5.2L, Neutrophils (%) (Auto) , Lymphocytes (%) (Auto) , Monocytes (%) (Auto) , Eosinophils (%) (Auto) , Basophils (%) (Auto) , Differential Total Cells Counted 100, Neutrophils % ( Manual) 76H, Lymphocytes % (Manual) 13L, Monocytes % (Manual) 9, Eosinophils % ( Manual) 2, Basophils % (Manual) 0, Band Neutrophils 0, Platelet Estimate Adequate, Platelet Morphology Normal, Hypochromasia 1+, Anisocytosis 1+, Macrocytosis 1+, Sodium Level 133L, Potassium Level 5.0, Chloride Level 94L, Carbon Dioxide Level 26, Anion Gap 14, Blood Urea Nitrogen 63H, Creatinine 7.0H , Estimat Glomerular Filtration Rate 6.2, Glucose Level 93, Calcium Level 9.5, Phosphorus Level 8.6H, Total Bilirubin 0.4, Aspartate Amino Transf (AST/SGOT) 17 , Alanine Aminotransferase (ALT/SGPT) 10L, Alkaline Phosphatase 209H, C- Reactive Protein, Quantitative 8.0H, Pro-B-Type Natriuretic Peptide 08746M, Total Protein 8.3H, Albumin 2.1L, Globulin 6.2, Albumin/Globulin Ratio 0.3L Height (Feet): 5 Height (Inches): 5.00 Weight (Pounds): 142 General Appearance: no apparent distress Objective no change Yobani Lopez MD Feb 12, 2019 10:54
[2019-02-12] MEDS ORDERED: Acetaminophen 500mg (ES) tab ORAL SCH (11:15)
[2019-02-12] MEDS ORDERED: DiphenhydrAMINE 50mg/ml Inj IVP SCH (11:15)
--- NOTE | 2019-02-12 11:15 | NUR ---
NURSE NOTES: Patient's getting dialysis alone with Packed Red Blood Cell transfusion by JULIAN Esparza. Order and patient's information reread and reconfirmed with 2nd nurse at bedside. All informations are correct. Patient tolerated the procedure well. No s/s of adverse reaction with the transfusion. Will continue to monitor closely.
--- NOTE | 2019-02-12 11:47 | NUR ---
INK [employer] PLUMBER SI; ANEMIA T. 99.0 HR 80 RR 18 B/P 154/97 H/H 6.9/21.6 ALK PHOS 209 BNP [id number] IS: PROTONIX PO CIPRO PO HEPARIN SUBC MED/SURG STATUS
--- NOTE | 2019-02-12 11:52 | Pulmonology Progress Note ---
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, try to take out more fluids if possible symptomatic treatment prbc prn dc planing Subjective HEENT: Repors: no symptoms Respiratory: Reports: no symptoms Cardiovascular: Reports: no symptoms Allergies: Coded Allergies: CEPHALEXIN (Unverified Allergy, Unknown, 12/14/18) SULFAMETHOXAZOLE (Unverified Allergy, Unknown, 12/14/18) TRIMETHOPRIM (Unverified Allergy, Unknown, 12/14/18) VANCOMYCIN (Unverified Allergy, Unknown, 12/14/18) Uncoded Allergies: BACTRIM DS (Allergy, Unknown, 02/09/19) Objective Last 24 Hour Vital Signs Date Time Temp Pulse Resp B/P (MAP) Pulse Ox O2 Delivery O2 Flow Rate FiO2 02/12/19 09:33 80 20 96 Room Air 21 02/12/19 09:09 80 154/97 02/12/19 09:00 Room Air 02/12/19 08:52 82 154/92 02/12/19 08:00 99.0 80 18 154/97 (116) 93 02/12/19 08:00 82 02/12/19 06:11 161/68 02/12/19 04:00 88 02/12/19 04:00 99.1 87 19 149/97 (114) 93 02/12/19 00:47 159/91 02/12/19 00:00 98.9 89 18 159/91 (113) 93 02/12/19 00:00 91 02/11/19 21:26 87 157/94 02/11/19 21:00 Room Air 02/11/19 20:06 88 20 96 Room Air 21 02/11/19 20:00 92 02/11/19 20:00 99.1 87 17 157/94 (115) 92 02/11/19 17:53 97.9 02/11/19 17:26 130/84 02/11/19 16:03 82 02/11/19 16:00 97.9 83 18 130/84 (99) 94 02/11/19 12:12 151/95 02/11/19 12:00 98.2 76 19 151/95 (113) 95 Intake and Output 02/11/19 02/12/19 19:00 07:00 Intake Total 240 ml Balance 240 ml Intake Oral 240 ml General Appearance: WD/WN HEENT: normocephalic, atraumatic Respiratory/Chest: lungs clear, normal breath sounds Cardiovascular: normal peripheral pulses, normal rate Abdomen: normal bowel sounds, no organomegaly Microbiology Date/Time Source Procedure Growth Status 02/09/19 21:00 Nasal Nares MRSA Culture - Final NO METHICILLIN RESISTANT STAPH AUREUS... Complete Laboratory Tests 02/11/19 13:20: Troponin I 0.041 02/12/19 05:58: White Blood Count 6.6, Red Blood Count 2.15L, Hemoglobin 6.9*L, Hematocrit 21.6L , Mean Corpuscular Volume 100H, Mean Corpuscular Hemoglobin 32.3H, Mean Corpuscular Hemoglobin Concent 32.1, Red Cell Distribution Width 14.9H, Platelet Count 286, Mean Platelet Volume 5.2L, Neutrophils (%) (Auto) , Lymphocytes (%) (Auto) , Monocytes (%) (Auto) , Eosinophils (%) (Auto) , Basophils (%) (Auto) , Differential Total Cells Counted 100, Neutrophils % ( Manual) 76H, Lymphocytes % (Manual) 13L, Monocytes % (Manual) 9, Eosinophils % ( Manual) 2, Basophils % (Manual) 0, Band Neutrophils 0, Platelet Estimate Adequate, Platelet Morphology Normal, Hypochromasia 1+, Anisocytosis 1+, Macrocytosis 1+, Sodium Level 133L, Potassium Level 5.0, Chloride Level 94L, Carbon Dioxide Level 26, Anion Gap 14, Blood Urea Nitrogen 63H, Creatinine 7.0H , Estimat Glomerular Filtration Rate 6.2, Glucose Level 93, Calcium Level 9.5, Phosphorus Level 8.6H, Total Bilirubin 0.4, Aspartate Amino Transf (AST/SGOT) 17 , Alanine Aminotransferase (ALT/SGPT) 10L, Alkaline Phosphatase 209H, C- Reactive Protein, Quantitative 8.0H, Pro-B-Type Natriuretic Peptide 53652O, Total Protein 8.3H, Albumin 2.1L, Globulin 6.2, Albumin/Globulin Ratio 0.3L Current Medications Medications (Trade) Dose Ordered Sig/Juliano Route PRN Reason Start Time Stop Time Status Last Admin Dose Admin Acetaminophen (Tylenol) 325 mg ONCE ORAL 10/25/19 11:15 02/12/19 15:00 02/12/19 11:26 Acetaminophen (Tylenol) 650 mg Q4H PRN ORAL Fever 02/09/19 16:15 03/11/19 16:14 02/11/19 23:44 Albuterol/ Ipratropium (Albuterol/ Ipratropium) 3 ml Q4H PRN HHN Shortness of Breath 02/09/19 16:15 02/14/19 16:14 Amlodipine Besylate (Norvasc) 10 mg DAILY ORAL 02/11/19 09:00 03/12/19 08:59 02/12/19 08:52 Carvedilol (Coreg) 12.5 mg EVERY 12 HOURS ORAL 02/11/19 09:00 03/11/19 20:59 02/12/19 09:09 Clonidine HCl (Catapres TTS-3) 1 patch QWEEK TDERMAL 02/11/19 12:00 03/13/19 11:59 Dextrose (Dextrose 50%) 25 ml Q30M PRN IV Hypoglycemia 02/09/19 16:15 03/11/19 16:14 Dextrose (Dextrose 50%) 50 ml Q30M PRN IV Hypoglycemia 02/09/19 16:15 03/11/19 16:14 Diphenhydramine HCl (Benadryl) 25 mg ONCE IVP 02/12/19 11:15 02/12/19 15:00 02/12/19 11:26 Docusate Sodium (Colace) 100 mg THREE TIMES A DAY ORAL 02/11/19 13:00 03/13/19 12:59 02/12/19 08:51 Epoetin David (Epoetin David(ESRD on dialysis)) 10,000 unit FRI-FRI-FRI SUBQ 02/12/19 21:00 03/14/19 20:59 Folic Acid (Folate) 3 mg DAILY ORAL 02/11/19 09:00 03/13/19 08:59 02/12/19 08:51 Gabapentin (Neurontin) 100 mg THREE TIMES A DAY ORAL 02/09/19 18:00 03/11/19 17:59 02/12/19 08:51 Heparin Sodium (Porcine) (Heparin 5000 units/ml) 5,000 units EVERY 12 HOURS SUBQ 02/09/19 21:00 03/11/19 20:59 02/11/19 08:45 Hydralazine HCl (Apresoline) 25 mg Q4H PRN ORAL bp over 160 syst 02/10/19 10:30 03/12/19 10:29 02/10/19 10:57 Hydralazine HCl (Apresoline) 50 mg Q8HR ORAL 02/12/19 14:00 03/13/19 11:59 Morphine Sulfate (Morphine Sulfate) 2 mg Q4H PRN IVP PAIN 4-10 02/09/19 20:45 02/16/19 20:44 02/12/19 06:12 Ondansetron HCl (Zofran) 4 mg Q6H PRN IVP Nausea & Vomiting 02/09/19 16:15 03/11/19 16:14 Pantoprazole (Protonix) 40 mg EVERY 12 HOURS ORAL 02/11/19 11:00 03/13/19 10:59 02/12/19 08:51 Polyethylene Glycol (Miralax) 17 gm DAILYPRN PRN ORAL Constipation 02/09/19 16:15 03/11/19 16:14 Sevelamer Carbonate (Renvela) 2,400 mg THREE TIMES A DAY ORAL 02/11/19 09:00 03/13/19 08:59 02/12/19 08:51 Temazepam (Restoril) 15 mg HSPRN PRN ORAL Insomnia 02/09/19 16:15 02/16/19 16:14 Jarad King MD Feb 12, 2019 11:52
[2019-02-12 12:00] VITALS: BP 153/98
--- NOTE | 2019-02-12 13:25 | NUR ---
PT NOTE Attempted to see patient for PT evaluation, just completed dialysis. culinary chef requesting to defer PT until tomorrow as patient received benadryl and is groggy. Will follow up tomorrow.
--- NOTE | 2019-02-12 13:30 | NUR ---
NURSE NOTES: Patient finished with dialysis and blood transfusion. No s/f of adverse reaction. Patient received full 250ml of blood. Blood bag disposed properly in laboratory room. Dialysis removed 3 liters. Patient's stable. No s/s of distress or SOB. Will continue to monitor closely.
--- NOTE | 2019-02-12 14:26 | Hematology/Onc Progress Note ---
Assessment/Plan Assessment/Plan Assessment and Recs: # Anemia of chronic disease due to underlying chronic medical issues, multifactorial --> Anemia workup has been ordered, rule out gi bleed --> No evidence of hemolysis is noted, peripheral smear has been reviewed. --> Hgb goal >7. Transfuse prn. --> Epogen has been started --> Medications have been reviewed --> low threshold for gi evaluation in case has occult + --> bone marrow biopsy is not indicated given the other more likely causes --> folic acid 1mg po daily started ---> hgb 5.8-->7-->6.9-->6.9 --> noncomplaint with transfusions # Hyperproteinemia with decreased albumin -- this is a dissociation that is abnormal --> spep does show band elevation, and will likely be cause from renal d/o --> if above results in a m-spike or abnormally enhanced protein, will need to send off immunofixation serum/urine --> in the case of a m-spike or abnormally enhanced protein, will obtain a bone marrow biopsy # Fall --> to get pt/ot, eval for ads --> hearing test, vision as op # ESRD 3 x a week with missed session --> as per renal # Pneumothorax, left --> per pulm # Mechanical fall right hip pain # Dvt ppx heparin sq The timing of this note does not necessarily reflect the time of the patient was seen. Greatly appreciate consultation. Subjective Constitutional: Denies: no symptoms, chills, fever, malaise, weakness, other HEENT: Denies: no symptoms, eye pain, blurred vision, tearing, double vision, ear pain, ear discharge, nose pain, nose congestion, throat pain, throat swelling, mouth pain, mouth swelling, other Cardiovascular: Denies: no symptoms, chest pain, edema, irregular heart rate, lightheadedness, palpitations, syncope, other Gastrointestinal/Abdominal: Denies: no symptoms, abdomen distended, abdominal pain, black stools, tarry stools, blood in stool, constipated, diarrhea, difficulty swallowing, nausea, poor appetite, poor fluid intake, rectal bleeding , vomiting, other Genitourinary: Denies: no symptoms, burning, discharge, frequency, flank pain, hematuria, incontinence, pain, urgency, other Neurologic/Psychiatric: Denies: no symptoms, anxiety, depressed, emotional problems, headache, numbness, paresthesia, pre-existing deficit, seizure, tingling, tremors, weakness, other Endocrine: Denies: no symptoms, excessive sweating, flushing, intolerance to cold, intolerance to heat, increased hunger, increased thirst, increased urine, unexplained weight gain, unexplained weight loss, other Allergies: Coded Allergies: CEPHALEXIN (Unverified Allergy, Unknown, 12/14/18) SULFAMETHOXAZOLE (Unverified Allergy, Unknown, 12/14/18) TRIMETHOPRIM (Unverified Allergy, Unknown, 12/14/18) VANCOMYCIN (Unverified Allergy, Unknown, 12/14/18) Uncoded Allergies: BACTRIM DS (Allergy, Unknown, 02/09/19) Subjective 02/11: labs pending from am, folic acid started, refusing temp 02/12: no events to note, no bleeding, to get hd, to get prbc too Objective Objective Current Medications Medications (Trade) Dose Ordered Sig/Juliano Route PRN Reason Start Time Stop Time Status Last Admin Dose Admin Acetaminophen (Tylenol) 325 mg ONCE ORAL 02/12/19 11:15 02/12/19 15:00 02/12/19 11:26 Acetaminophen (Tylenol) 650 mg Q4H PRN ORAL Fever 02/09/19 16:15 03/11/19 16:14 02/11/19 23:44 Albuterol/ Ipratropium (Albuterol/ Ipratropium) 3 ml Q4H PRN HHN Shortness of Breath 02/09/19 16:15 02/14/19 16:14 Amlodipine Besylate (Norvasc) 10 mg DAILY ORAL 02/11/19 09:00 03/12/19 08:59 02/12/19 08:52 Carvedilol (Coreg) 12.5 mg EVERY 12 HOURS ORAL 02/11/19 09:00 03/11/19 20:59 02/12/19 09:09 Clonidine HCl (Catapres TTS-3) 1 patch QWEEK TDERMAL 02/11/19 12:00 03/13/19 11:59 Dextrose (Dextrose 50%) 25 ml Q30M PRN IV Hypoglycemia 02/09/19 16:15 03/11/19 16:14 Dextrose (Dextrose 50%) 50 ml Q30M PRN IV Hypoglycemia 02/09/19 16:15 03/11/19 16:14 Diphenhydramine HCl (Benadryl) 25 mg ONCE IVP 02/12/19 11:15 02/12/19 15:00 02/12/19 11:26 Docusate Sodium (Colace) 100 mg THREE TIMES A DAY ORAL 02/11/19 13:00 03/13/19 12:59 02/12/19 12:38 Epoetin David (Epoetin David(ESRD on dialysis)) 10,000 unit FRI- SUBQ 02/12/19 21:00 03/14/19 20:59 Folic Acid (Folate) 3 mg DAILY ORAL 02/11/19 09:00 03/13/19 08:59 02/12/19 08:51 Gabapentin (Neurontin) 100 mg THREE TIMES A DAY ORAL 02/09/19 18:00 03/11/19 17:59 02/12/19 12:38 Heparin Sodium (Porcine) (Heparin 5000 units/ml) 5,000 units EVERY 12 HOURS SUBQ 02/09/19 21:00 03/11/19 20:59 02/11/19 08:45 Hydralazine HCl (Apresoline) 25 mg Q4H PRN ORAL bp over 160 syst 02/10/19 10:30 03/12/19 10:29 02/10/19 10:57 Hydralazine HCl (Apresoline) 50 mg Q8HR ORAL 02/12/19 14:00 03/13/19 11:59 Morphine Sulfate (Morphine Sulfate) 2 mg Q4H PRN IVP PAIN 4-10 02/09/19 20:45 02/16/19 20:44 02/12/19 06:12 Ondansetron HCl (Zofran) 4 mg Q6H PRN IVP Nausea & Vomiting 02/09/19 16:15 03/11/19 16:14 Pantoprazole (Protonix) 40 mg EVERY 12 HOURS ORAL 02/11/19 11:00 03/13/19 10:59 02/12/19 08:51 Polyethylene Glycol (Miralax) 17 gm DAILYPRN PRN ORAL Constipation 02/09/19 16:15 03/11/19 16:14 Sevelamer Carbonate (Renvela) 2,400 mg THREE TIMES A DAY ORAL 02/11/19 09:00 03/13/19 08:59 02/12/19 12:38 Temazepam (Restoril) 15 mg HSPRN PRN ORAL Insomnia 02/09/19 16:15 02/16/19 16:14 Last 24 Hour Vital Signs Date Time Temp Pulse Resp B/P (MAP) Pulse Ox O2 Delivery O2 Flow Rate FiO2 02/12/19 12:00 98.2 78 18 153/98 (116) 96 02/12/19 12:00 79 02/12/19 09:33 80 20 96 Room Air 21 02/12/19 09:09 80 154/97 02/12/19 09:00 Room Air 02/12/19 08:52 82 154/92 02/12/19 08:00 99.0 80 18 154/97 (116) 93 02/12/19 08:00 82 02/12/19 06:11 161/68 02/12/19 04:00 88 02/12/19 04:00 99.1 87 19 149/97 (114) 93 02/12/19 00:47 159/91 02/12/19 00:00 98.9 89 18 159/91 (113) 93 02/12/19 00:00 91 02/11/19 21:26 87 157/94 02/11/19 21:00 Room Air 02/11/19 20:06 88 20 96 Room Air 21 02/11/19 20:00 92 02/11/19 20:00 99.1 87 17 157/94 (115) 92 02/11/19 17:53 97.9 02/11/19 17:26 130/84 02/11/19 16:03 82 02/11/19 16:00 97.9 83 18 130/84 (99) 94 02/11/19 12:12 151/95 02/11/19 12:00 98.2 76 19 151/95 (113) 95 02/11/19 11:50 78 02/11/19 10:48 82 02/11/19 09:13 76 20 95 Room Air 21 02/11/19 09:00 Room Air 02/11/19 08:51 89 171/115 02/11/19 08:51 89 171/115 02/11/19 08:00 98.0 89 19 171/115 (133) 95 02/11/19 04:00 78 02/11/19 04:00 83 20 153/89 (110) 95 02/11/19 00:00 85 02/11/19 00:00 96.6 86 19 159/110 (126) 95 02/10/19 21:43 91 155/92 02/10/19 21:00 Room Air 02/10/19 20:01 96 18 96 Room Air 21 02/10/19 20:00 90 02/10/19 20:00 91 18 155/92 (113) 94 02/10/19 16:00 98 Intake and Output 02/11/19 02/12/19 19:00 07:00 Intake Total 240 ml Balance 240 ml Intake Oral 240 ml Labs Test 02/10/19 06:30 02/10/19 13:03 02/11/19 05:18 02/11/19 05:58 White Blood Count 7.4 K/UL (4.8-10.8) 6.6 K/UL (4.8-10.8) Red Blood Count 2.20 M/UL (4.20-5.40) 2.15 M/UL (4.20-5.40) Hemoglobin 7.0 G/DL (12.0-16.0) 6.9 G/DL (12.0-16.0) Hematocrit 21.9 % (37.0-47.0) 21.5 % (37.0-47.0) Mean Corpuscular Volume 100 FL (80-99) 100 FL (80-99) Mean Corpuscular Hemoglobin 31.9 PG (27.0-31.0) 32.2 PG (27.0-31.0) Mean Corpuscular Hemoglobin Concent 31.9 G/DL (32.0-36.0) 32.2 G/DL (32.0-36.0) Red Cell Distribution Width 16.1 % (11.6-14.8) 15.7 % (11.6-14.8) Platelet Count 286 K/UL (150-450) 281 K/UL (150-450) Mean Platelet Volume 5.0 FL (6.5-10.1) 5.5 FL (6.5-10.1) Neutrophils (%) (Auto) % (45.0-75.0) % (45.0-75.0) Lymphocytes (%) (Auto) % (20.0-45.0) % (20.0-45.0) Monocytes (%) (Auto) % (1.0-10.0) % (1.0-10.0) Eosinophils (%) (Auto) % (0.0-3.0) % (0.0-3.0) Basophils (%) (Auto) % (0.0-2.0) % (0.0-2.0) Differential Total Cells Counted 100 100 Neutrophils % (Manual) 79 % (45-75) 79 % (45-75) Lymphocytes % (Manual) 12 % (20-45) 8 % (20-45) Monocytes % (Manual) 6 % (1-10) 10 % (1-10) Eosinophils % (Manual) 3 % (0-3) 3 % (0-3) Basophils % (Manual) 0 % (0-2) 0 % (0-2) Band Neutrophils 0 % (0-8) 0 % (0-8) Platelet Estimate Adequate Adequate Platelet Morphology Normal Normal Sodium Level 136 MMOL/L (136-145) 132 MMOL/L (136-145) Potassium Level 5.3 MMOL/L (3.5-5.1) 4.3 MMOL/L (3.5-5.1) Chloride Level 96 MMOL/L (98-107) 96 MMOL/L (98-107) Carbon Dioxide Level 25 MMOL/L (21-32) 25 MMOL/L (21-32) Anion Gap 15 mmol/L (5-15) 11 mmol/L (5-15) Blood Urea Nitrogen 73 mg/dL (7-18) 44 mg/dL (7-18) Creatinine 8.1 MG/DL (0.55-1.30) 5.8 MG/DL (0.55-1.30) Estimat Glomerular Filtration Rate 5.3 mL/min (>60) 7.7 mL/min (>60) Glucose Level 104 MG/DL (74-106) 90 MG/DL (74-106) Calcium Level 9.7 MG/DL (8.5-10.1) 9.8 MG/DL (8.5-10.1) Phosphorus Level 10.6 MG/DL (2.5-4.9) 7.8 MG/DL (2.5-4.9) Total Protein (PEP) 7.5 g/dL (6.0-8.5) Albumin 2.2 G/DL (3.4-5.0) 2.2 G/DL (3.4-5.0) Albumin (PEP) 2.8 g/dL (2.9-4.4) Globulin (PEP) 4.7 g/dL (2.2-3.9) Albumin/Globulin Ratio 0.6 (0.7-1.7) Kuumg-0-Qnnjslmrq 0.4 g/dL (0.0-0.4) Akxbl-0-Ljetxijkx 0.6 g/dL (0.4-1.0) Beta Globulins 1.1 g/dL (0.7-1.3) Beta Gamma Globulin 2.6 g/dL (0.4-1.8) PEP Abnormal Protein Bands 0.4 g/dL (Not Observed) Protein Electrophoresis Interpret Comment (.) Folate 8.0 NG/ML (8.6-58.9) Troponin I 0.057 ng/mL (0.000-0.056) Hemoglobin A1c 5.2 % (4.3-6.0) Hypochromasia 1+ Anisocytosis 1+ Macrocytosis 1+ Uric Acid 5.3 MG/DL (2.6-7.2) Magnesium Level 2.3 MG/DL (1.8-2.4) Iron Level 32 ug/dL (50-175) Total Iron Binding Capacity 151 ug/dL (250-450) Percent Iron Saturation 21 % (15-50) Unsaturated Iron Binding 119 ug/dL (112-346) Ferritin 979 NG/ML (8-388) Total Bilirubin 0.4 MG/DL (0.2-1.0) Direct Bilirubin 0.1 MG/DL (0.0-0.3) Aspartate Amino Transf (AST/SGOT) 19 U/L (15-37) Alanine Aminotransferase (ALT/SGPT) 12 U/L (12-78) Alkaline Phosphatase 213 U/L (46-116) Total Protein 7.6 G/DL (6.4-8.2) Vitamin B12 Level 710 PG/ML (193-986) Test 02/11/19 13:20 02/12/19 05:58 Troponin I 0.041 ng/mL (0.000-0.056) White Blood Count 6.6 K/UL (4.8-10.8) Red Blood Count 2.15 M/UL (4.20-5.40) Hemoglobin 6.9 G/DL (12.0-16.0) Hematocrit 21.6 % (37.0-47.0) Mean Corpuscular Volume 100 FL (80-99) Mean Corpuscular Hemoglobin 32.3 PG (27.0-31.0) Mean Corpuscular Hemoglobin Concent 32.1 G/DL (32.0-36.0) Red Cell Distribution Width 14.9 % (11.6-14.8) Platelet Count 286 K/UL (150-450) Mean Platelet Volume 5.2 FL (6.5-10.1) Neutrophils (%) (Auto) % (45.0-75.0) Lymphocytes (%) (Auto) % (20.0-45.0) Monocytes (%) (Auto) % (1.0-10.0) Eosinophils (%) (Auto) % (0.0-3.0) Basophils (%) (Auto) % (0.0-2.0) Differential Total Cells Counted 100 Neutrophils % (Manual) 76 % (45-75) Lymphocytes % (Manual) 13 % (20-45) Monocytes % (Manual) 9 % (1-10) Eosinophils % (Manual) 2 % (0-3) Basophils % (Manual) 0 % (0-2) Band Neutrophils 0 % (0-8) Platelet Estimate Adequate Platelet Morphology Normal Hypochromasia 1+ Anisocytosis 1+ Macrocytosis 1+ Sodium Level 133 MMOL/L (136-145) Potassium Level 5.0 MMOL/L (3.5-5.1) Chloride Level 94 MMOL/L (98-107) Carbon Dioxide Level 26 MMOL/L (21-32) Anion Gap 14 mmol/L (5-15) Blood Urea Nitrogen 63 mg/dL (7-18) Creatinine 7.0 MG/DL (0.55-1.30) Estimat Glomerular Filtration Rate 6.2 mL/min (>60) Glucose Level 93 MG/DL (74-106) Calcium Level 9.5 MG/DL (8.5-10.1) Phosphorus Level 8.6 MG/DL (2.5-4.9) Total Bilirubin 0.4 MG/DL (0.2-1.0) Aspartate Amino Transf (AST/SGOT) 17 U/L (15-37) Alanine Aminotransferase (ALT/SGPT) 10 U/L (12-78) Alkaline Phosphatase 209 U/L (46-116) C-Reactive Protein, Quantitative 8.0 mg/dL (0.00-0.90) Pro-B-Type Natriuretic Peptide 80269 pg/mL (0-125) Total Protein 8.3 G/DL (6.4-8.2) Albumin 2.1 G/DL (3.4-5.0) Globulin 6.2 g/dL Albumin/Globulin Ratio 0.3 (1.0-2.7) Height (Feet): 5 Height (Inches): 5.00 Weight (Pounds): 142 Objective Physical Exam: Vitals: reviewed General Appearance: NAD HEENT: normocephalic, atraumatic Neck: non-tender, normal alignment Respiratory/Chest: normal breath sounds bilaterally Cardiovascular/Chest: normal peripheral pulses, normal rate Abdomen: normal bowel sounds, soft, nontender Extremities: normal range of motion Germán Herron MD Feb 12, 2019 14:26
[2019-02-12] MEDS: HydrALAZINE 50mg tab ORAL SCH ×2 (14:57→21:34)
--- NOTE | 2019-02-12 15:37 | Surgery Progress Note ---
Surgery Progress Note Subjective Additional Comments Patient seen and examined bedside. No acute events. Anemia. Abnormal labs. Patient receiving dialysis currently when seen and was given Benadryl so she is a little out of it. nods head that she feels okay. Objective Last 24 Hour Vital Signs Date Time Temp Pulse Resp B/P (MAP) Pulse Ox O2 Delivery O2 Flow Rate FiO2 02/12/19 14:57 153/98 02/12/19 12:00 98.2 78 18 153/98 (116) 96 02/12/19 12:00 79 02/12/19 09:33 80 20 96 Room Air 21 02/12/19 09:09 80 154/97 02/12/19 09:00 Room Air 02/12/19 08:52 82 154/92 02/12/19 08:00 99.0 80 18 154/97 (116) 93 02/12/19 08:00 82 02/12/19 06:11 161/68 02/12/19 04:00 88 02/12/19 04:00 99.1 87 19 149/97 (114) 93 02/12/19 00:47 159/91 02/12/19 00:00 98.9 89 18 159/91 (113) 93 02/12/19 00:00 91 02/11/19 21:26 87 157/94 02/11/19 21:00 Room Air 02/11/19 20:06 88 20 96 Room Air 21 02/11/19 20:00 92 02/11/19 20:00 99.1 87 17 157/94 (115) 92 02/11/19 17:53 97.9 02/11/19 17:26 130/84 02/11/19 16:03 82 02/11/19 16:00 97.9 83 18 130/84 (99) 94 I&O Intake and Output 02/11/19 02/12/19 19:00 07:00 Intake Total 240 ml Balance 240 ml Intake Oral 240 ml Dressing: dry Wound: other Drains: other Cardiovascular: RSR Respiratory: decreased breath sounds Abdomen: soft, present bowel sounds, non-distended Extremities: no cyanosis, other Laboratory Tests Test 02/12/19 05:58 White Blood Count 6.6 K/UL (4.8-10.8) Red Blood Count 2.15 M/UL (4.20-5.40) L Hemoglobin 6.9 G/DL (12.0-16.0) *L Hematocrit 21.6 % (37.0-47.0) L Mean Corpuscular Volume 100 FL (80-99) H Mean Corpuscular Hemoglobin 32.3 PG (27.0-31.0) H Mean Corpuscular Hemoglobin Concent 32.1 G/DL (32.0-36.0) Red Cell Distribution Width 14.9 % (11.6-14.8) H Platelet Count 286 K/UL (150-450) Mean Platelet Volume 5.2 FL (6.5-10.1) L Neutrophils (%) (Auto) % (45.0-75.0) Lymphocytes (%) (Auto) % (20.0-45.0) Monocytes (%) (Auto) % (1.0-10.0) Eosinophils (%) (Auto) % (0.0-3.0) Basophils (%) (Auto) % (0.0-2.0) Differential Total Cells Counted 100 Neutrophils % (Manual) 76 % (45-75) H Lymphocytes % (Manual) 13 % (20-45) L Monocytes % (Manual) 9 % (1-10) Eosinophils % (Manual) 2 % (0-3) Basophils % (Manual) 0 % (0-2) Band Neutrophils 0 % (0-8) Platelet Estimate Adequate Platelet Morphology Normal Hypochromasia 1+ Anisocytosis 1+ Macrocytosis 1+ Sodium Level 133 MMOL/L (136-145) L Potassium Level 5.0 MMOL/L (3.5-5.1) Chloride Level 94 MMOL/L (98-107) L Carbon Dioxide Level 26 MMOL/L (21-32) Anion Gap 14 mmol/L (5-15) Blood Urea Nitrogen 63 mg/dL (7-18) H Creatinine 7.0 MG/DL (0.55-1.30) H Estimat Glomerular Filtration Rate 6.2 mL/min (>60) Glucose Level 93 MG/DL (74-106) Calcium Level 9.5 MG/DL (8.5-10.1) Phosphorus Level 8.6 MG/DL (2.5-4.9) H Total Bilirubin 0.4 MG/DL (0.2-1.0) Aspartate Amino Transf (AST/SGOT) 17 U/L (15-37) Alanine Aminotransferase (ALT/SGPT) 10 U/L (12-78) L Alkaline Phosphatase 209 U/L (46-116) H C-Reactive Protein, Quantitative 8.0 mg/dL (0.00-0.90) H Pro-B-Type Natriuretic Peptide 02553 pg/mL (0-125) H Total Protein 8.3 G/DL (6.4-8.2) H Albumin 2.1 G/DL (3.4-5.0) L Globulin 6.2 g/dL Albumin/Globulin Ratio 0.3 (1.0-2.7) L Plan Problems: (1) Pneumothorax on left Assessment & Plan: Findings: There is a lucency at the left costophrenic sulcus , with there is previously pleural fluid. Small basilar pneumothorax possible. There is bilateral interstitial edema again demonstrated. Moderate to large right pleural effusion is again demonstrated. The heart is upper limits normal in size. Large eggshell calcification in the right neck is probably thyroid in origin. Impression: Doubt but cannot completely exclude small left basilar pneumothorax. Bilateral interstitial edema and moderate to large right pleural effusion, not significantly changed from 02/06/2019 Impression: No pneumothorax. Findings on recent chest radiograph or presumably factitious Large bilateral pleural effusions Evidence of anasarca, with diffuse edema of the subcutaneous, mediastinal, and abdominal fat in addition to the above Advanced destructive changes of the L2 and L3 vertebral bodies, presumably related to suspected discitis/osteomyelitis described on prior MRI of 12/14/2018 Atrophic bilateral kidneys, consistent with chronic renal insufficiency. Multiple renal cysts, consistent with polycystic disease of uremia. Mediastinal, axillary, and abdominal lymphadenopathy. Possible mild splenomegaly. Findings raise concern for lymphoproliferative disorder Gas bubbles in the right lower chest wall, may reflect recent injections versus penetrating trauma. Correlate with clinical findings Diffuse osteosclerosis, presumably representing renal osteodystrophy Inferior vena cava dialysis catheter demonstrated Tubular calcifications in the superior vena cava most likely represent an old fibrin sheath from a prior dialysis catheter Large right neck eggshell calcification, uncertain as to whether of thyroid or extrathyroidal origin. Presumably related to prior inflammatory disease. (2) Missed dialysis Assessment & Plan: Will receive dialysis during admission. Transfuse with dialysis. (3) Symptomatic anemia Assessment & Plan: Hematology work-up pending. Labs noted. Transfusion with dialysis. (4) Noncompliance (5) Episode of generalized weakness (6) Fall Assessment & Plan: Patient with unwitnessed fall. States that she missed her dialysis felt weak and fell onto her right hip. Has had pain there since with decreased mobility and requiring her to live in her cardiac fast food from drive -through. Impression: No definite acute bony or soft tissue trauma. Destructive changes of the L3 vertebral body, inconclusively visualized, and a pathologic fracture of the left 3 pedicle. Note that advanced destructive changes of the L2 and L3 vertebral segments are described also on a prior MRI of 12/14/2018. Evidence of renal osteodystrophy Small focal lucencies within the bones probably represent areas of physiologic rarefaction, although some of these could represent small brown tumors Atrophic bilateral kidneys with multiple cysts, consistent with medical renal disease and cystic disease of uremia Right common femoral tunneled dialysis catheter Abdominal wall venous varicosities, may indicate central venoocclusive disease related to the above Anasarca Other findings as noted, in including distal sacral nerve root sleeve cysts, large synovial herniation pit in the right femoral neck PT/OT pain control outpatient ortho eval will follow with Kar Post Feb 12, 2019 15:37
--- NOTE | 2019-02-12 15:37 | NUR ---
NURSE NOTES: Left message for Dr. Villatoro regarding whether patient is getting the CHG bath at night. Awaiting for response.
--- NOTE | 2019-02-12 15:43 | NUR ---
NURSE NOTES: Spoke to Betsy from Dr. Lopez's office, left message regarding if patient should get CHG bath at night because there's no order for it. Awaiting for response.
[2019-02-12 16:00] VITALS: BP 157/95
--- NOTE | 2019-02-12 16:30 | NUR ---
NURSE NOTES: Contacted Dr. Lopez's office for the CHG bath given and there is no bath order given at this moment.
--- NOTE | 2019-02-12 16:52 | NUR ---
NURSE NOTES: Patient's being irritable and agitated, refused for nurse to do physical assessment, especially to check the femoral port for dialysis. Patient stated: "it's none of your business. It's the dialysis nurse job to assess the port. Your job is to give me Morphine only." Nurse explained that: "I am your primary nurse and taking care of you is my job and I need to assess that port." Patient still refused to be assessed.
--- NOTE | 2019-02-12 19:30 | NUR ---
HAND-OFF: Report given to JULIAN Tavares. Patient's stable, plan of care endorsed.
--- NOTE | 2019-02-12 19:34 | NUR ---
NURSE NOTES: Report given by JULIAN Wright. Patient's awake in bed, resting at this time. AO x 4, stated pain 5/10, generalized. Bed low and locked, call light within reach, bed alarm on. playground monitor is in place. IV is patent and asymptomatic. Pt received blood transfusion with dialysis, with 3 L removed earlier today. Will continue to monitor.
[2019-02-12 20:00] VITALS: BP 169/98
--- NOTE | 2019-02-12 20:00 | NUR ---
NURSE NOTES: Pt allowed me to observe the dialysis site and it has a dressing with biopatch in place, asymptomatic, no signs of bleeding.
--- NOTE | 2019-02-12 20:55 | NUR ---
NURSE NOTES: Pt said she is itching and is scratching her back, I Noticed small quarter size brown discoloration on spine 3/4 way down, about 8 inches above sacrum. Pt states it does not hurt and it just very "itchy." Pt continues to scratch it. I applied small amount of lotion to the area at her request.
[2019-02-12] MEDS ORDERED: Epoetin Alfa-EPBX(ESRD on dialysis)10,000 unit/ml vial SUBQ SCH (21:00)
[2019-02-13] VITALS: BP 159/90
[2019-02-13] MEDS: Morphine Sulfate 2mg/ml Inj(IV/IM USE ONLY) IVP PRN ×4 (01:32→23:19)
[2019-02-13] MEDS: HydrALAZINE 25mg tab ORAL PRN (01:33)
--- NOTE | 2019-02-13 02:27 | NUR ---
HAND-OFF: Report given to RN.
--- NOTE | 2019-02-13 02:28 | NUR ---
NURSE NOTES: Patient came to the unit @2 AM. Report given by JULIAN Tavares. Patient is awake, alert and verbal. Breathing on room air. No acute distress notedBelongings list verified and singed. Skin assessment done, noted brown discoloration on the lower back and scratches on the upper back. IV on right wrist is patent and asymptomatic. Fall precaution and aspiration precautions in place. Bed low and locked position. Bed alarm is on. call light within reach. Will continue to monitor.
[2019-02-13] MEDS ORDERED: Albuterol/Ipratropium 3ml neb HHN PRN (02:30)
[2019-02-13] MEDS ORDERED: HydrALAZINE 25mg tab ORAL PRN (02:30)
[2019-02-13] MEDS ORDERED: Miralax 17gm pkt ORAL PRN (02:30)
--- NOTE | 2019-02-13 02:58 | NUR ---
NURSE NOTES: During initial assessment noted that Patient's left arm is swollen and elevated on pillow.
[2019-02-13 04:00] VITALS: BP 148/95
[2019-02-13] MEDS: HydrALAZINE 50mg tab ORAL SCH ×3 (06:14→21:14)
--- NOTE | 2019-02-13 07:14 | NUR ---
HAND-OFF: Report given to JULIAN Schuster.
--- NOTE | 2019-02-13 07:37 | NUR ---
NURSE NOTES: Received pt in bed, AAO x 4. Room air. No c/o of pain/distress. IV on R wrist 22g intact and patent, with saline lock. Femoral port for dialysis noted. Bed in the lowest, locked, and alarm on. Call light within reach. Will continue to monitor
[2019-02-13 08:00] VITALS: BP 150/89
[2019-02-13] MEDS: Carvedilol 12.5mg tab ORAL SCH ×2 (08:59→21:14)
[2019-02-13] MEDS: Heparin 5000 units/ml inj SUBQ SCH ×2 (09:00→21:33)
[2019-02-13] MEDS: Docusate 100mg cap ORAL SCH ×3 (09:00→17:08)
[2019-02-13 09:24] LABS: BASOPHILS % (AUTO) 1.1 % (0.0-2.0); EOSINOPHILS % (AUTO) 3.5 % (0.0-3.0); HEMATOCRIT 25.3 % (37.0-47.0); HEMOGLOBIN 8.2 G/DL (12.0-16.0); LYMPHOCYTES % (AUTO) 7.8 % (20.0-45.0); MEAN CORPUSCULAR VOLUME 99 FL (80-99); MONOCYTES % (AUTO) 11.7 % (1.0-10.0); NEUTROPHILS % (AUTO) 75.9 % (45.0-75.0); PLATELET COUNT 280 K/UL (150-450); RED BLOOD COUNT 2.56 M/UL (4.20-5.40); RED CELL DISTRIBUTION WIDTH 15.4 % (11.6-14.8); WHITE BLOOD COUNT 6.1 K/UL (4.8-10.8)
--- NOTE | 2019-02-13 09:37 | Pulmonology Progress Note ---
Assessment/Plan Assessment/Plan ASSESSMENT s/p mechanical fall with right hip pain bilateral pleural effusion anasarca ESRD on hemodialysis noncompliance /missed hemodialysis anemia of chronic disease, status post 2 units PRBC Hypertensive chronic kidney disease history of osteomyelitis of spine hyperproteinemia with hypoalbuminemia/dissociation , ?lymphoproliferative disorder Renal osteodystrophy PLAN OF CARE MS floor CT chest no pneumothorax CT pelvis no acute bony or soft tissue injury HD as as per nephro BP management with multiply anti-HTN , including CCB, BB, clonidine patch and hydralazine O2 HHN PRN DVT prophylaxis monitor H&H with goal to keep hemoglobin above 7, s/p 2 u PRBC continue EPO GI prophylaxis work-up for hyperproteinemia as per hematology/oncologist fall precaution PT evl and Rx dc planning: patient wants to go SNF vs acute rehab case discussed and evaluated by supervising physician Subjective Allergies: Coded Allergies: CEPHALEXIN (Unverified Allergy, Unknown, 12/14/18) SULFAMETHOXAZOLE (Unverified Allergy, Unknown, 12/14/18) TRIMETHOPRIM (Unverified Allergy, Unknown, 12/14/18) VANCOMYCIN (Unverified Allergy, Unknown, 12/14/18) Uncoded Allergies: BACTRIM DS (Allergy, Unknown, 02/09/19) Subjective transferred to [facility] s/p HD and 2 u PRBC no CP no SOB on RA pulse ox stable Objective Last 24 Hour Vital Signs Date Time Temp Pulse Resp B/P (MAP) Pulse Ox O2 Delivery O2 Flow Rate FiO2 02/13/19 09:00 Room Air 02/13/19 09:00 76 150/89 02/13/19 08:59 76 150/89 02/13/19 08:00 97.9 76 18 150/89 (109) 93 02/13/19 06:14 148/95 02/13/19 04:00 97.7 81 18 148/95 (112) 97 02/13/19 01:33 163/93 02/13/19 00:57 99.2 02/13/19 00:00 99.1 91 18 159/90 (113) 95 02/13/19 00:00 93 02/12/19 21:34 169/98 02/12/19 21:34 90 169/98 02/12/19 21:00 Room Air 02/12/19 20:00 99.2 90 18 169/98 (121) 96 02/12/19 20:00 82 02/12/19 19:55 74 18 98 Room Air 21 02/12/19 16:00 98.1 81 18 157/95 (115) 99 02/12/19 16:00 74 02/12/19 14:57 153/98 02/12/19 12:00 98.2 78 18 153/98 (116) 96 02/12/19 12:00 79 Intake and Output 02/12/19 02/13/19 19:00 07:00 Intake Total 350 ml 120 ml Balance 350 ml 120 ml Intake Oral 350 ml 120 ml # Voids 1 General Appearance: no acute distress HEENT: normocephalic, atraumatic, anicteric, mucous membranes moist Respiratory/Chest: lungs clear, no respiratory distress, no accessory muscle use Cardiovascular: normal peripheral pulses, normal rate, no gallop/murmur, no JVD , other - R femoral HD catheter Abdomen: soft, non tender, non distended Extremities: no edema, pedal pulses normal Skin: other - dry skin Neurologic/Psychiatric: abnormal gait - unsteady , alert, oriented x 3, responsive Musculoskeletal: normal muscle bulk Laboratory Tests 02/13/19 08:52: White Blood Count 6.1, Red Blood Count 2.56L, Hemoglobin 8.2L, Hematocrit 25.3L , Mean Corpuscular Volume 99, Mean Corpuscular Hemoglobin 32.1H, Mean Corpuscular Hemoglobin Concent 32.4, Red Cell Distribution Width 15.4H, Platelet Count 280, Mean Platelet Volume 5.1L, Neutrophils (%) (Auto) 75.9H, Lymphocytes (%) (Auto) 7.8L, Monocytes (%) (Auto) 11.7H, Eosinophils (%) (Auto) 3.5H, Basophils (%) (Auto) 1.1, Sodium Level [Pending], Potassium Level [Pending ], Chloride Level [Pending], Carbon Dioxide Level [Pending], Blood Urea Nitrogen [Pending], Creatinine [Pending], Estimat Glomerular Filtration Rate [ Pending], Glucose Level [Pending], Calcium Level [Pending], Phosphorus Level [ Pending], Total Bilirubin [Pending], Aspartate Amino Transf (AST/SGOT) [Pending] , Alanine Aminotransferase (ALT/SGPT) [Pending], Alkaline Phosphatase [Pending] , Total Protein [Pending], Albumin [Pending], Globulin [Pending] Current Medications Medications (Trade) Dose Ordered Sig/Juliano Route PRN Reason Start Time Stop Time Status Last Admin Dose Admin Acetaminophen (Tylenol) 650 mg Q4H PRN ORAL Fever 02/13/19 02:30 03/11/19 02:29 Albuterol/ Ipratropium (Albuterol/ Ipratropium) 3 ml Q4H PRN HHN Shortness of Breath 02/13/19 02:30 02/14/19 02:29 Amlodipine Besylate (Norvasc) 10 mg DAILY ORAL 02/13/19 09:00 03/12/19 08:59 02/13/19 09:00 Carvedilol (Coreg) 12.5 mg EVERY 12 HOURS ORAL 02/13/19 09:00 03/11/19 20:59 02/13/19 08:59 Clonidine HCl (Catapres TTS-3) 1 patch QWEEK TDERMAL 02/18/19 12:00 03/13/19 11:59 Dextrose (Dextrose 50%) 25 ml Q30M PRN IV Hypoglycemia 02/13/19 02:45 03/11/19 16:14 Dextrose (Dextrose 50%) 50 ml Q30M PRN IV Hypoglycemia 02/13/19 02:45 03/11/19 16:14 Docusate Sodium (Colace) 100 mg THREE TIMES A DAY ORAL 02/13/19 09:00 03/13/19 12:59 02/13/19 09:00 Epoetin David (Epoetin David(ESRD on dialysis)) 10,000 unit FRI-FRI-FRI SUBQ 02/15/19 21:00 03/14/19 20:59 Folic Acid (Folate) 3 mg DAILY ORAL 02/13/19 09:00 03/13/19 08:59 02/13/19 09:01 Gabapentin (Neurontin) 100 mg THREE TIMES A DAY ORAL 02/13/19 09:00 03/11/19 17:59 02/13/19 08:58 Heparin Sodium (Porcine) (Heparin 5000 units/ml) 5,000 units EVERY 12 HOURS SUBQ 02/13/19 09:00 03/11/19 20:59 02/13/19 09:00 Hydralazine HCl (Apresoline) 25 mg Q4H PRN ORAL bp over 160 syst 02/13/19 02:30 03/12/19 10:29 Hydralazine HCl (Apresoline) 50 mg Q8HR ORAL 02/13/19 06:00 03/13/19 11:59 02/13/19 06:14 Morphine Sulfate (Morphine Sulfate) 2 mg Q4H PRN IVP PAIN 4-10 02/13/19 02:30 02/16/19 02:29 02/13/19 09:02 Ondansetron HCl (Zofran) 4 mg Q6H PRN IVP Nausea & Vomiting 02/13/19 02:30 03/11/19 02:29 Pantoprazole (Protonix) 40 mg EVERY 12 HOURS ORAL 02/13/19 09:00 03/13/19 10:59 02/13/19 08:59 Polyethylene Glycol (Miralax) 17 gm DAILYPRN PRN ORAL Constipation 02/13/19 02:30 03/11/19 02:29 Sevelamer Carbonate (Renvela) 2,400 mg THREE TIMES A DAY ORAL 02/13/19 09:00 03/13/19 08:59 02/13/19 08:58 Temazepam (Restoril) 15 mg HSPRN PRN ORAL Insomnia 02/13/19 16:15 02/16/19 16:14 Barbara Sheridan NP Feb 13, 2019 09:37
[2019-02-13 09:56] LABS: ALANINE AMINOTRANSFERASE 8 U/L (12-78); ALBUMIN 2.1 G/DL (3.4-5.0); ALBUMIN/GLOBULIN RATIO 0.3 (1.0-2.7); ALKALINE PHOSPHATASE 200 U/L (46-116); ANION GAP 14 mmol/L (5-15); ASPARTATE AMINO TRANSFERASE 19 U/L (15-37); BILIRUBIN,TOTAL 0.6 MG/DL (0.2-1.0); BLOOD UREA NITROGEN 54 mg/dL (7-18); CALCIUM 9.7 MG/DL (8.5-10.1); CARBON DIOXIDE 23 MMOL/L (21-32); CHLORIDE 96 MMOL/L (98-107); CREATININE 5.8 MG/DL (0.55-1.30); PHOSPHORUS 6.9 MG/DL (2.5-4.9); POTASSIUM 4.9 MMOL/L (3.5-5.1); SODIUM 133 MMOL/L (136-145)
--- NOTE | 2019-02-13 10:42 | Nephrology Progress Note ---
Assessment/Plan Problem List: (1) ESRF (end stage renal failure) (2) Anemia (3) Hypertensive chronic kidney disease Assessment ESRD- Missed HD Fall h/o Osteomyelitis of spine Anasarca Anemia of CKD, symptomatic now ? Lymphoproliferative Ds non compliance and last admit patient left AMA Plan Patient transfused [id number] and 02/12 next 02/14 Phos binders SQ EPO Chest CT: No pneumothorax. Findings on recent chest radiograph or presumably factitious Large bilateral pleural effusions Evidence of anasarca, with diffuse edema of the subcutaneous, mediastinal, and abdominal fat in addition to the above Advanced destructive changes of the L2 and L3 vertebral bodies, presumably related to suspected discitis/osteomyelitis described on prior MRI of 12/14/2018 Atrophic bilateral kidneys, consistent with chronic renal insufficiency. Multiple renal cysts, consistent with polycystic disease of uremia. Mediastinal, axillary, and abdominal lymphadenopathy. Possible mild splenomegaly. Findings raise concern for lymphoproliferative disorder Gas bubbles in the right lower chest wall, may reflect recent injections versus penetrating trauma. Correlate with clinical findings Diffuse osteosclerosis, presumably representing renal osteodystrophy Inferior vena cava dialysis catheter demonstrated Tubular calcifications in the superior vena cava most likely represent an old fibrin sheath from a prior dialysis catheter Large right neck eggshell calcification, uncertain as to whether of thyroid or extrathyroidal origin. Presumably related to prior inflammatory diseas Subjective ROS Limited/Unobtainable: No Constitutional: Reports: malaise Objective Objective Last 24 Hour Vital Signs Date Time Temp Pulse Resp B/P (MAP) Pulse Ox O2 Delivery O2 Flow Rate FiO2 02/13/19 09:00 Room Air 02/13/19 09:00 76 150/89 02/13/19 08:59 76 150/89 02/13/19 08:00 97.9 76 18 150/89 (109) 93 02/13/19 06:14 148/95 02/13/19 04:00 97.7 81 18 148/95 (112) 97 02/13/19 01:33 163/93 02/13/19 00:57 99.2 02/13/19 00:00 99.1 91 18 159/90 (113) 95 02/13/19 00:00 93 02/12/19 21:34 169/98 02/12/19 21:34 90 169/98 02/12/19 21:00 Room Air 02/12/19 20:00 99.2 90 18 169/98 (121) 96 02/12/19 20:00 82 02/12/19 19:55 74 18 98 Room Air 21 02/12/19 16:00 98.1 81 18 157/95 (115) 99 02/12/19 16:00 74 02/12/19 14:57 153/98 02/12/19 12:00 98.2 78 18 153/98 (116) 96 02/12/19 12:00 79 Intake and Output 02/12/19 02/13/19 18:59 06:59 Intake Total 350 ml 120 ml Balance 350 ml 120 ml Intake Oral 350 ml 120 ml # Voids 1 Laboratory Tests 02/13/19 08:52: White Blood Count 6.1, Red Blood Count 2.56L, Hemoglobin 8.2L, Hematocrit 25.3L , Mean Corpuscular Volume 99, Mean Corpuscular Hemoglobin 32.1H, Mean Corpuscular Hemoglobin Concent 32.4, Red Cell Distribution Width 15.4H, Platelet Count 280, Mean Platelet Volume 5.1L, Neutrophils (%) (Auto) 75.9H, Lymphocytes (%) (Auto) 7.8L, Monocytes (%) (Auto) 11.7H, Eosinophils (%) (Auto) 3.5H, Basophils (%) (Auto) 1.1, Sodium Level 133L, Potassium Level 4.9, Chloride Level 96L, Carbon Dioxide Level 23, Anion Gap 14, Blood Urea Nitrogen 54H, Creatinine 5.8H, Estimat Glomerular Filtration Rate 7.7, Glucose Level 95, Calcium Level 9.7, Phosphorus Level 6.9H, Total Bilirubin 0.6, Aspartate Amino Transf (AST/SGOT) 19, Alanine Aminotransferase (ALT/SGPT) 8L, Alkaline Phosphatase 200H, Total Protein 8.2, Albumin 2.1L, Globulin 6.1, Albumin/ Globulin Ratio 0.3L Height (Feet): 5 Height (Inches): 5.00 Weight (Pounds): 142 General Appearance: no apparent distress Objective no change Yobani Lopez MD Feb 13, 2019 10:42
--- NOTE | 2019-02-13 10:49 | NUR ---
NURSE NOTES: Called [facility] and confirmed with Frankie for dialysis for 02/14/19
[2019-02-13 12:00] VITALS: BP 142/80
--- NOTE | 2019-02-13 12:25 | Hematology/Onc Progress Note ---
Assessment/Plan Assessment/Plan Assessment and Recs: # Anemia of chronic disease due to underlying chronic medical issues, multifactorial --> Anemia workup has been ordered, rule out gi bleed --> No evidence of hemolysis is noted, peripheral smear has been reviewed. --> Hgb goal >7. Transfuse prn. --> Epogen has been started --> Medications have been reviewed --> low threshold for gi evaluation in case has occult + --> bone marrow biopsy is not indicated given the other more likely causes --> folic acid 1mg po daily started ---> hgb 5.8-->7-->6.9-->6.9->8.2 --> noncomplaint with transfusions # Hyperproteinemia with decreased albumin -- this is a dissociation that is abnormal --> spep does show band elevation, and will likely be cause from renal d/o --> if above results in a m-spike or abnormally enhanced protein, will need to send off immunofixation serum/urine --> in the case of a m-spike or abnormally enhanced protein, will obtain a bone marrow biopsy # Fall --> to get pt/ot, eval for ads --> hearing test, vision as op # ESRD 3 x a week with missed session --> as per renal # Pneumothorax, left --> per pulm # Mechanical fall right hip pain # Dvt ppx heparin sq The timing of this note does not necessarily reflect the time of the patient was seen. Greatly appreciate consultation. Subjective Respiratory: Denies: no symptoms, cough, shortness of breath, SOB with excertion, SOB at rest, sputum, wheezing, other Genitourinary: Denies: no symptoms, burning, discharge, frequency, flank pain, hematuria, incontinence, pain, urgency, other Hematologic/Lymphatic: Denies: no symptoms, anemia, easy bleeding, easy bruising, adenopathy, other Allergies: Coded Allergies: CEPHALEXIN (Unverified Allergy, Unknown, 12/14/18) SULFAMETHOXAZOLE (Unverified Allergy, Unknown, 12/14/18) TRIMETHOPRIM (Unverified Allergy, Unknown, 12/14/18) VANCOMYCIN (Unverified Allergy, Unknown, 12/14/18) Uncoded Allergies: BACTRIM DS (Allergy, Unknown, 02/09/19) Subjective 02/11: labs pending from am, folic acid started, refusing temp 02/12: no events to note, no bleeding, to get hd, to get prbc too 02/13: for vip hd tomorrow, no bleeding no chills, reviewed labs Objective Objective Current Medications Medications (Trade) Dose Ordered Sig/Juliano Route PRN Reason Start Time Stop Time Status Last Admin Dose Admin Acetaminophen (Tylenol) 650 mg Q4H PRN ORAL Fever 02/13/19 02:30 03/11/19 02:29 Albuterol/ Ipratropium (Albuterol/ Ipratropium) 3 ml Q4H PRN HHN Shortness of Breath 02/13/19 02:30 02/14/19 02:29 Amlodipine Besylate (Norvasc) 10 mg DAILY ORAL 02/13/19 09:00 03/12/19 08:59 02/13/19 09:00 Carvedilol (Coreg) 12.5 mg EVERY 12 HOURS ORAL 02/13/19 09:00 03/11/19 20:59 02/13/19 08:59 Clonidine HCl (Catapres TTS-3) 1 patch QWEEK TDERMAL 02/18/19 12:00 03/13/19 11:59 Dextrose (Dextrose 50%) 25 ml Q30M PRN IV Hypoglycemia 02/13/19 02:45 03/11/19 16:14 Dextrose (Dextrose 50%) 50 ml Q30M PRN IV Hypoglycemia 02/13/19 02:45 03/11/19 16:14 Docusate Sodium (Colace) 100 mg THREE TIMES A DAY ORAL 02/13/19 09:00 03/13/19 12:59 02/13/19 12:06 Epoetin David (Epoetin David(ESRD on dialysis)) 10,000 unit FRI-FRI-FRI SUBQ 02/15/19 21:00 03/14/19 20:59 Folic Acid (Folate) 3 mg DAILY ORAL 02/13/19 09:00 03/13/19 08:59 02/13/19 09:01 Gabapentin (Neurontin) 100 mg THREE TIMES A DAY ORAL 02/13/19 09:00 03/11/19 17:59 02/13/19 12:06 Heparin Sodium (Porcine) (Heparin 5000 units/ml) 5,000 units EVERY 12 HOURS SUBQ 02/13/19 09:00 03/11/19 20:59 02/13/19 09:00 Hydralazine HCl (Apresoline) 25 mg Q4H PRN ORAL bp over 160 syst 02/13/19 02:30 03/12/19 10:29 Hydralazine HCl (Apresoline) 50 mg Q8HR ORAL 02/13/19 06:00 03/13/19 11:59 02/13/19 06:14 Morphine Sulfate (Morphine Sulfate) 2 mg Q4H PRN IVP PAIN 4-10 02/13/19 02:30 02/16/19 02:29 02/13/19 09:02 Ondansetron HCl (Zofran) 4 mg Q6H PRN IVP Nausea & Vomiting 02/13/19 02:30 03/11/19 02:29 Pantoprazole (Protonix) 40 mg EVERY 12 HOURS ORAL 02/13/19 09:00 03/13/19 10:59 02/13/19 08:59 Polyethylene Glycol (Miralax) 17 gm DAILYPRN PRN ORAL Constipation 02/13/19 02:30 03/11/19 02:29 Sevelamer Carbonate (Renvela) 2,400 mg THREE TIMES A DAY ORAL 02/13/19 09:00 03/13/19 08:59 02/13/19 12:06 Temazepam (Restoril) 15 mg HSPRN PRN ORAL Insomnia 02/13/19 16:15 02/16/19 16:14 Last 24 Hour Vital Signs Date Time Temp Pulse Resp B/P (MAP) Pulse Ox O2 Delivery O2 Flow Rate FiO2 02/13/19 12:16 75 16 94 Room Air 21 02/13/19 12:00 98.0 77 18 142/80 (100) 95 02/13/19 09:00 Room Air 02/13/19 09:00 76 150/89 02/13/19 08:59 76 150/89 02/13/19 08:00 97.9 76 18 150/89 (109) 93 02/13/19 06:14 148/95 02/13/19 04:00 97.7 81 18 148/95 (112) 97 02/13/19 01:33 163/93 02/13/19 00:57 99.2 02/13/19 00:00 99.1 91 18 159/90 (113) 95 02/13/19 00:00 93 02/12/19 21:34 169/98 02/12/19 21:34 90 169/98 02/12/19 21:00 Room Air 02/12/19 20:00 99.2 90 18 169/98 (121) 96 02/12/19 20:00 82 02/12/19 19:55 74 18 98 Room Air 21 02/12/19 16:00 98.1 81 18 157/95 (115) 99 02/12/19 16:00 74 02/12/19 14:57 153/98 02/12/19 12:00 98.2 78 18 153/98 (116) 96 02/12/19 12:00 79 02/12/19 09:33 80 20 96 Room Air 21 02/12/19 09:09 80 154/97 02/12/19 09:00 Room Air 02/12/19 08:52 82 154/92 02/12/19 08:00 99.0 80 18 154/97 (116) 93 02/12/19 08:00 82 02/12/19 06:11 161/68 02/12/19 04:00 88 02/12/19 04:00 99.1 87 19 149/97 (114) 93 02/12/19 00:47 159/91 02/12/19 00:00 98.9 89 18 159/91 (113) 93 02/12/19 00:00 91 02/11/19 21:26 87 157/94 02/11/19 21:00 Room Air 02/11/19 20:06 88 20 96 Room Air 21 02/11/19 20:00 92 02/11/19 20:00 99.1 87 17 157/94 (115) 92 02/11/19 17:53 97.9 02/11/19 17:26 130/84 02/11/19 16:03 82 02/11/19 16:00 97.9 83 18 130/84 (99) 94 Intake and Output 02/12/19 02/13/19 19:00 07:00 Intake Total 350 ml 120 ml Balance 350 ml 120 ml Intake Oral 350 ml 120 ml # Voids 1 Labs Test 02/10/19 13:03 02/11/19 05:18 02/11/19 05:58 02/11/19 13:20 Troponin I 0.057 ng/mL (0.000-0.056) 0.041 ng/mL (0.000-0.056) Hemoglobin A1c 5.2 % (4.3-6.0) White Blood Count 6.6 K/UL (4.8-10.8) Red Blood Count 2.15 M/UL (4.20-5.40) Hemoglobin 6.9 G/DL (12.0-16.0) Hematocrit 21.5 % (37.0-47.0) Mean Corpuscular Volume 100 FL (80-99) Mean Corpuscular Hemoglobin 32.2 PG (27.0-31.0) Mean Corpuscular Hemoglobin Concent 32.2 G/DL (32.0-36.0) Red Cell Distribution Width 15.7 % (11.6-14.8) Platelet Count 281 K/UL (150-450) Mean Platelet Volume 5.5 FL (6.5-10.1) Neutrophils (%) (Auto) % (45.0-75.0) Lymphocytes (%) (Auto) % (20.0-45.0) Monocytes (%) (Auto) % (1.0-10.0) Eosinophils (%) (Auto) % (0.0-3.0) Basophils (%) (Auto) % (0.0-2.0) Differential Total Cells Counted 100 Neutrophils % (Manual) 79 % (45-75) Lymphocytes % (Manual) 8 % (20-45) Monocytes % (Manual) 10 % (1-10) Eosinophils % (Manual) 3 % (0-3) Basophils % (Manual) 0 % (0-2) Band Neutrophils 0 % (0-8) Platelet Estimate Adequate Platelet Morphology Normal Hypochromasia 1+ Anisocytosis 1+ Macrocytosis 1+ Sodium Level 132 MMOL/L (136-145) Potassium Level 4.3 MMOL/L (3.5-5.1) Chloride Level 96 MMOL/L (98-107) Carbon Dioxide Level 25 MMOL/L (21-32) Anion Gap 11 mmol/L (5-15) Blood Urea Nitrogen 44 mg/dL (7-18) Creatinine 5.8 MG/DL (0.55-1.30) Estimat Glomerular Filtration Rate 7.7 mL/min (>60) Glucose Level 90 MG/DL (74-106) Uric Acid 5.3 MG/DL (2.6-7.2) Calcium Level 9.8 MG/DL (8.5-10.1) Phosphorus Level 7.8 MG/DL (2.5-4.9) Magnesium Level 2.3 MG/DL (1.8-2.4) Iron Level 32 ug/dL (50-175) Total Iron Binding Capacity 151 ug/dL (250-450) Percent Iron Saturation 21 % (15-50) Unsaturated Iron Binding 119 ug/dL (112-346) Ferritin 979 NG/ML (8-388) Total Bilirubin 0.4 MG/DL (0.2-1.0) Direct Bilirubin 0.1 MG/DL (0.0-0.3) Aspartate Amino Transf (AST/SGOT) 19 U/L (15-37) Alanine Aminotransferase (ALT/SGPT) 12 U/L (12-78) Alkaline Phosphatase 213 U/L (46-116) Total Protein 7.6 G/DL (6.4-8.2) Albumin 2.2 G/DL (3.4-5.0) Vitamin B12 Level 710 PG/ML (193-986) Test 02/12/19 05:58 02/13/19 08:52 White Blood Count 6.6 K/UL (4.8-10.8) 6.1 K/UL (4.8-10.8) Red Blood Count 2.15 M/UL (4.20-5.40) 2.56 M/UL (4.20-5.40) Hemoglobin 6.9 G/DL (12.0-16.0) 8.2 G/DL (12.0-16.0) Hematocrit 21.6 % (37.0-47.0) 25.3 % (37.0-47.0) Mean Corpuscular Volume 100 FL (80-99) 99 FL (80-99) Mean Corpuscular Hemoglobin 32.3 PG (27.0-31.0) 32.1 PG (27.0-31.0) Mean Corpuscular Hemoglobin Concent 32.1 G/DL (32.0-36.0) 32.4 G/DL (32.0-36.0) Red Cell Distribution Width 14.9 % (11.6-14.8) 15.4 % (11.6-14.8) Platelet Count 286 K/UL (150-450) 280 K/UL (150-450) Mean Platelet Volume 5.2 FL (6.5-10.1) 5.1 FL (6.5-10.1) Neutrophils (%) (Auto) % (45.0-75.0) 75.9 % (45.0-75.0) Lymphocytes (%) (Auto) % (20.0-45.0) 7.8 % (20.0-45.0) Monocytes (%) (Auto) % (1.0-10.0) 11.7 % (1.0-10.0) Eosinophils (%) (Auto) % (0.0-3.0) 3.5 % (0.0-3.0) Basophils (%) (Auto) % (0.0-2.0) 1.1 % (0.0-2.0) Differential Total Cells Counted 100 Neutrophils % (Manual) 76 % (45-75) Lymphocytes % (Manual) 13 % (20-45) Monocytes % (Manual) 9 % (1-10) Eosinophils % (Manual) 2 % (0-3) Basophils % (Manual) 0 % (0-2) Band Neutrophils 0 % (0-8) Platelet Estimate Adequate Platelet Morphology Normal Hypochromasia 1+ Anisocytosis 1+ Macrocytosis 1+ Sodium Level 133 MMOL/L (136-145) 133 MMOL/L (136-145) Potassium Level 5.0 MMOL/L (3.5-5.1) 4.9 MMOL/L (3.5-5.1) Chloride Level 94 MMOL/L (98-107) 96 MMOL/L (98-107) Carbon Dioxide Level 26 MMOL/L (21-32) 23 MMOL/L (21-32) Anion Gap 14 mmol/L (5-15) 14 mmol/L (5-15) Blood Urea Nitrogen 63 mg/dL (7-18) 54 mg/dL (7-18) Creatinine 7.0 MG/DL (0.55-1.30) 5.8 MG/DL (0.55-1.30) Estimat Glomerular Filtration Rate 6.2 mL/min (>60) 7.7 mL/min (>60) Glucose Level 93 MG/DL (74-106) 95 MG/DL (74-106) Calcium Level 9.5 MG/DL (8.5-10.1) 9.7 MG/DL (8.5-10.1) Phosphorus Level 8.6 MG/DL (2.5-4.9) 6.9 MG/DL (2.5-4.9) Total Bilirubin 0.4 MG/DL (0.2-1.0) 0.6 MG/DL (0.2-1.0) Aspartate Amino Transf (AST/SGOT) 17 U/L (15-37) 19 U/L (15-37) Alanine Aminotransferase (ALT/SGPT) 10 U/L (12-78) 8 U/L (12-78) Alkaline Phosphatase 209 U/L (46-116) 200 U/L (46-116) C-Reactive Protein, Quantitative 8.0 mg/dL (0.00-0.90) Pro-B-Type Natriuretic Peptide 48594 pg/mL (0-125) Total Protein 8.3 G/DL (6.4-8.2) 8.2 G/DL (6.4-8.2) Albumin 2.1 G/DL (3.4-5.0) 2.1 G/DL (3.4-5.0) Globulin 6.2 g/dL 6.1 g/dL Albumin/Globulin Ratio 0.3 (1.0-2.7) 0.3 (1.0-2.7) Height (Feet): 5 Height (Inches): 5.00 Weight (Pounds): 142 Objective Physical Exam: Vitals: reviewed General Appearance: NAD HEENT: normocephalic, atraumatic Neck: non-tender, normal alignment Respiratory/Chest: normal breath sounds bilaterally Cardiovascular/Chest: normal peripheral pulses, normal rate Abdomen: normal bowel sounds, soft, nontender Extremities: normal range of motion Germán Herron MD Feb 13, 2019 12:25
--- NOTE | 2019-02-13 14:06 | Surgery Progress Note ---
Surgery Progress Note Subjective Additional Comments No acute events. Much more awake alert today. No complaints. States that initially when she came in the food tasted really well but feels that may be a change in her medications makes the food taste more bland now. No nausea vomiting fever chills. Hip pain improved. Understands that she is not very active and needs rehab. Is amenable to going to rehab/custodial until improved. Objective Last 24 Hour Vital Signs Date Time Temp Pulse Resp B/P (MAP) Pulse Ox O2 Delivery O2 Flow Rate FiO2 02/13/19 12:16 75 16 94 Room Air 21 02/13/19 12:00 98.0 77 18 142/80 (100) 95 02/13/19 09:00 Room Air 02/13/19 09:00 76 150/89 02/13/19 08:59 76 150/89 02/13/19 08:00 97.9 76 18 150/89 (109) 93 02/13/19 06:14 148/95 02/13/19 04:00 97.7 81 18 148/95 (112) 97 02/13/19 01:33 163/93 02/13/19 00:57 99.2 02/13/19 00:00 99.1 91 18 159/90 (113) 95 02/13/19 00:00 93 02/12/19 21:34 169/98 02/12/19 21:34 90 169/98 02/12/19 21:00 Room Air 02/12/19 20:00 99.2 90 18 169/98 (121) 96 02/12/19 20:00 82 02/12/19 19:55 74 18 98 Room Air 21 02/12/19 16:00 98.1 81 18 157/95 (115) 99 02/12/19 16:00 74 02/12/19 14:57 153/98 I&O Intake and Output 02/12/19 02/13/19 19:00 07:00 Intake Total 350 ml 120 ml Balance 350 ml 120 ml Intake Oral 350 ml 120 ml # Voids 1 Dressing: dry Wound: clean Cardiovascular: RSR Respiratory: clear Abdomen: soft, non-tender, present bowel sounds Extremities: no tenderness, no cyanosis Laboratory Tests Test 02/13/19 08:52 White Blood Count 6.1 K/UL (4.8-10.8) Red Blood Count 2.56 M/UL (4.20-5.40) L Hemoglobin 8.2 G/DL (12.0-16.0) L Hematocrit 25.3 % (37.0-47.0) L Mean Corpuscular Volume 99 FL (80-99) Mean Corpuscular Hemoglobin 32.1 PG (27.0-31.0) H Mean Corpuscular Hemoglobin Concent 32.4 G/DL (32.0-36.0) Red Cell Distribution Width 15.4 % (11.6-14.8) H Platelet Count 280 K/UL (150-450) Mean Platelet Volume 5.1 FL (6.5-10.1) L Neutrophils (%) (Auto) 75.9 % (45.0-75.0) H Lymphocytes (%) (Auto) 7.8 % (20.0-45.0) L Monocytes (%) (Auto) 11.7 % (1.0-10.0) H Eosinophils (%) (Auto) 3.5 % (0.0-3.0) H Basophils (%) (Auto) 1.1 % (0.0-2.0) Sodium Level 133 MMOL/L (136-145) L Potassium Level 4.9 MMOL/L (3.5-5.1) Chloride Level 96 MMOL/L (98-107) L Carbon Dioxide Level 23 MMOL/L (21-32) Anion Gap 14 mmol/L (5-15) Blood Urea Nitrogen 54 mg/dL (7-18) H Creatinine 5.8 MG/DL (0.55-1.30) H Estimat Glomerular Filtration Rate 7.7 mL/min (>60) Glucose Level 95 MG/DL (74-106) Calcium Level 9.7 MG/DL (8.5-10.1) Phosphorus Level 6.9 MG/DL (2.5-4.9) H Total Bilirubin 0.6 MG/DL (0.2-1.0) Aspartate Amino Transf (AST/SGOT) 19 U/L (15-37) Alanine Aminotransferase (ALT/SGPT) 8 U/L (12-78) L Alkaline Phosphatase 200 U/L (46-116) H Total Protein 8.2 G/DL (6.4-8.2) Albumin 2.1 G/DL (3.4-5.0) L Globulin 6.1 g/dL Albumin/Globulin Ratio 0.3 (1.0-2.7) L Plan Problems: (1) Pneumothorax on left Assessment & Plan: Findings: There is a lucency at the left costophrenic sulcus , with there is previously pleural fluid. Small basilar pneumothorax possible. There is bilateral interstitial edema again demonstrated. Moderate to large right pleural effusion is again demonstrated. The heart is upper limits normal in size. Large eggshell calcification in the right neck is probably thyroid in origin. Impression: Doubt but cannot completely exclude small left basilar pneumothorax. Bilateral interstitial edema and moderate to large right pleural effusion, not significantly changed from 02/06/2019 Impression: No pneumothorax. Findings on recent chest radiograph or presumably factitious Large bilateral pleural effusions Evidence of anasarca, with diffuse edema of the subcutaneous, mediastinal, and abdominal fat in addition to the above Advanced destructive changes of the L2 and L3 vertebral bodies, presumably related to suspected discitis/osteomyelitis described on prior MRI of 12/14/2018 Atrophic bilateral kidneys, consistent with chronic renal insufficiency. Multiple renal cysts, consistent with polycystic disease of uremia. Mediastinal, axillary, and abdominal lymphadenopathy. Possible mild splenomegaly. Findings raise concern for lymphoproliferative disorder Gas bubbles in the right lower chest wall, may reflect recent injections versus penetrating trauma. Correlate with clinical findings Diffuse osteosclerosis, presumably representing renal osteodystrophy Inferior vena cava dialysis catheter demonstrated Tubular calcifications in the superior vena cava most likely represent an old fibrin sheath from a prior dialysis catheter Large right neck eggshell calcification, uncertain as to whether of thyroid or extrathyroidal origin. Presumably related to prior inflammatory disease. (2) Missed dialysis Assessment & Plan: Will receive dialysis during admission. Transfuse with dialysis. (3) Symptomatic anemia Assessment & Plan: Hematology work-up pending. Labs noted. Transfusion with dialysis. (4) Noncompliance (5) Episode of generalized weakness (6) Fall Assessment & Plan: Patient with unwitnessed fall. States that she missed her dialysis felt weak and fell onto her right hip. Has had pain there since with decreased mobility and requiring her to live in her cardiac fast food from drive -through. Impression: No definite acute bony or soft tissue trauma. Destructive changes of the L3 vertebral body, inconclusively visualized, and a pathologic fracture of the left 3 pedicle. Note that advanced destructive changes of the L2 and L3 vertebral segments are described also on a prior MRI of 12/14/2018. Evidence of renal osteodystrophy Small focal lucencies within the bones probably represent areas of physiologic rarefaction, although some of these could represent small brown tumors Atrophic bilateral kidneys with multiple cysts, consistent with medical renal disease and cystic disease of uremia Right common femoral tunneled dialysis catheter Abdominal wall venous varicosities, may indicate central venoocclusive disease related to the above Anasarca Other findings as noted, in including distal sacral nerve root sleeve cysts, large synovial herniation pit in the right femoral neck PT/OT pain control outpatient ortho eval will follow with [facility] Feb 13, 2019 14:06
--- NOTE | 2019-02-13 14:59 | General Progress Note ---
Assessment/Plan Problem List: (1) HTN (hypertension) ICD Codes: I10 - Essential (primary) hypertension SNOMED: 10779679 (2) Weak ICD Codes: R53.1 - Weakness SNOMED: 00653792 (3) ESRD (end stage renal disease) ICD Codes: N18.6 - End stage renal disease SNOMED: 35961843 (4) Hypertensive chronic kidney disease ICD Codes: I12.9 - Hypertensive chronic kidney disease with stage 1 through stage 4 chronic kidney disease, or unspecified chronic kidney disease SNOMED: 732766461603427 (5) Anemia ICD Codes: D64.9 - Anemia, unspecified SNOMED: 739607285 (6) ESRF (end stage renal failure) ICD Codes: N18.6 - End stage renal disease SNOMED: 91419855 Status: stable, progressing Assessment/Plan: o2 pulm tx pt diet transfuse prn renal f/u cbc bmp am aru eval vs snf Subjective Constitutional: Reports: weakness Allergies: Coded Allergies: CEPHALEXIN (Unverified Allergy, Unknown, 12/14/18) SULFAMETHOXAZOLE (Unverified Allergy, Unknown, 12/14/18) TRIMETHOPRIM (Unverified Allergy, Unknown, 12/14/18) VANCOMYCIN (Unverified Allergy, Unknown, 12/14/18) Uncoded Allergies: BACTRIM DS (Allergy, Unknown, 02/09/19) All Systems: reviewed and negative except above Subjective calm in bed Objective Last 24 Hour Vital Signs Date Time Temp Pulse Resp B/P (MAP) Pulse Ox O2 Delivery O2 Flow Rate FiO2 02/13/19 14:09 142/80 02/13/19 12:16 75 16 94 Room Air 21 02/13/19 12:00 98.0 77 18 142/80 (100) 95 02/13/19 09:00 Room Air 02/13/19 09:00 76 150/89 02/13/19 08:59 76 150/89 02/13/19 08:00 97.9 76 18 150/89 (109) 93 02/13/19 06:14 148/95 02/13/19 04:00 97.7 81 18 148/95 (112) 97 02/13/19 01:33 163/93 02/13/19 00:57 99.2 02/13/19 00:00 99.1 91 18 159/90 (113) 95 02/13/19 00:00 93 02/12/19 21:34 169/98 02/12/19 21:34 90 169/98 02/12/19 21:00 Room Air 02/12/19 20:00 99.2 90 18 169/98 (121) 96 02/12/19 20:00 82 02/12/19 19:55 74 18 98 Room Air 21 02/12/19 16:00 98.1 81 18 157/95 (115) 99 02/12/19 16:00 74 Intake and Output 02/12/19 02/13/19 19:00 07:00 Intake Total 350 ml 120 ml Balance 350 ml 120 ml Intake Oral 350 ml 120 ml # Voids 1 Laboratory Tests 02/13/19 08:52: White Blood Count 6.1, Red Blood Count 2.56L, Hemoglobin 8.2L, Hematocrit 25.3L , Mean Corpuscular Volume 99, Mean Corpuscular Hemoglobin 32.1H, Mean Corpuscular Hemoglobin Concent 32.4, Red Cell Distribution Width 15.4H, Platelet Count 280, Mean Platelet Volume 5.1L, Neutrophils (%) (Auto) 75.9H, Lymphocytes (%) (Auto) 7.8L, Monocytes (%) (Auto) 11.7H, Eosinophils (%) (Auto) 3.5H, Basophils (%) (Auto) 1.1, Sodium Level 133L, Potassium Level 4.9, Chloride Level 96L, Carbon Dioxide Level 23, Anion Gap 14, Blood Urea Nitrogen 54H, Creatinine 5.8H, Estimat Glomerular Filtration Rate 7.7, Glucose Level 95, Calcium Level 9.7, Phosphorus Level 6.9H, Total Bilirubin 0.6, Aspartate Amino Transf (AST/SGOT) 19, Alanine Aminotransferase (ALT/SGPT) 8L, Alkaline Phosphatase 200H, Total Protein 8.2, Albumin 2.1L, Globulin 6.1, Albumin/ Globulin Ratio 0.3L Height (Feet): 5 Height (Inches): 5.00 Weight (Pounds): 142 General Appearance: lethargic EENT: normal ENT inspection Neck: normal alignment Cardiovascular: normal peripheral pulses, normal rate, regular rhythm Respiratory/Chest: chest wall non-tender, lungs clear, normal breath sounds Abdomen: normal bowel sounds, non tender, soft Extremities: normal inspection Edema: no edema noted Arm (L), no edema noted Arm (R), no edema noted Leg (L), no edema noted Leg (R), no edema noted Pedal (L), no edema noted Pedal (R), no edema noted Generalized Neurologic: motor weakness Skin: normal pigmentation, warm/dry Narinder Villatoro DO Feb 13, 2019 14:59
[2019-02-13 16:00] VITALS: BP 151/87
[2019-02-13] MEDS ORDERED: NS 500ML ONE (16:07)
[2019-02-13] MEDS ORDERED: Tubing Blood Filter IV ONE (16:07)
--- NOTE | 2019-02-13 16:41 | NUR ---
PT Note PT shirin completed, treatment initiated. Patient has muscle weakness with atrophy of BLE muscles. She has LUE edema, pain on the right hip and left shoulder. She was unable to come to sit at the EOB due to c/o severe pain. Patient needs PT to increase her muscle strength and balance and decrease pain to improve her functional mobility and gait. Addendum: 02/13/19 at 1642 by TIA ABARCA PT Amended: Links added.
--- NOTE | 2019-02-13 18:55 | NUR ---
HAND-OFF: Report given to JULIAN Arellano.
--- NOTE | 2019-02-13 19:33 | NUR ---
NURSE NOTES: Received report from JULIAN Mosquera. Patient is in bed, awake and alert x4. On RA with no signs of distress or SOB. No C/O pain at this time. Hemodialysis port noted on R femoral. IV intact. Bed locked and in lowest position. Call alarm in reach. Will continue to monitor the patient.
[2019-02-13 20:00] VITALS: BP 153/90
[2019-02-14] VITALS: BP 144/90
[2019-02-14] MEDS: Morphine Sulfate 2mg/ml Inj(IV/IM USE ONLY) IVP PRN ×3 (03:20→21:14)
[2019-02-14 04:00] VITALS: BP 124/63
[2019-02-14] MEDS: HydrALAZINE 50mg tab ORAL SCH ×3 (05:22→21:15)
--- NOTE | 2019-02-14 07:29 | Pulmonology Progress Note ---
Assessment/Plan Assessment/Plan ASSESSMENT s/p mechanical fall with right hip pain bilateral pleural effusion anasarca ESRD on hemodialysis noncompliance /missed hemodialysis anemia of chronic disease, status post 2 units PRBC Hypertensive chronic kidney disease history of osteomyelitis of spine hyperproteinemia with hypoalbuminemia/dissociation , ?lymphoproliferative disorder Renal osteodystrophy PLAN OF CARE MS floor CT chest no pneumothorax CT pelvis no acute bony or soft tissue injury HD as as per nephro hyper K today-Kayexalate BP management with multiply anti-HTN , including CCB, BB, clonidine patch and hydralazine O2 HHN PRN DVT prophylaxis monitor H&H with goal to keep hemoglobin above 7, s/p 2 u PRBC continue EPO GI prophylaxis work-up for hyperproteinemia as per hematology/oncologist fall precaution PT evl and Rx dc planning: patient wants to go SNF vs acute rehab case discussed and evaluated by supervising physician Subjective Allergies: Coded Allergies: CEPHALEXIN (Unverified Allergy, Unknown, 12/14/18) SULFAMETHOXAZOLE (Unverified Allergy, Unknown, 12/14/18) TRIMETHOPRIM (Unverified Allergy, Unknown, 12/14/18) VANCOMYCIN (Unverified Allergy, Unknown, 12/14/18) Uncoded Allergies: BACTRIM DS (Allergy, Unknown, 02/09/19) Subjective s/p HD and 2 u PRBC no CP no SOB on RA pulse ox stable awaiting for placement Objective Last 24 Hour Vital Signs Date Time Temp Pulse Resp B/P (MAP) Pulse Ox O2 Delivery O2 Flow Rate FiO2 02/14/19 05:22 124/63 02/14/19 04:00 97.9 72 19 124/63 (83) 97 02/14/19 00:00 98.2 92 18 144/90 (108) 98 02/13/19 21:14 153/90 02/13/19 21:14 86 153/90 02/13/19 20:30 Room Air 02/13/19 20:00 99.0 86 19 153/90 (111) 98 02/13/19 20:00 85 18 96 Room Air 21 02/13/19 16:00 98.1 83 18 151/87 (108) 95 02/13/19 14:30 80 18 96 Room Air 21 02/13/19 14:09 142/80 02/13/19 12:16 75 16 94 Room Air 21 02/13/19 12:00 98.0 77 18 142/80 (100) 95 02/13/19 09:00 Room Air 02/13/19 09:00 76 150/89 02/13/19 08:59 76 150/89 02/13/19 08:00 97.9 76 18 150/89 (109) 93 Intake and Output 02/13/19 02/14/19 19:00 07:00 Intake Total 700 ml 480 ml Balance 700 ml 480 ml Intake Oral 480 ml Other 700 ml # Voids 2 Objective General Appearance: no acute distress HEENT: normocephalic, atraumatic, anicteric, mucous membranes moist Respiratory/Chest: lungs clear, no respiratory distress, no accessory muscle use Cardiovascular: normal peripheral pulses, normal rate, no gallop/murmur, no JVD , R femoral HD catheter Abdomen: soft, non tender, non distended Extremities: no edema, pedal pulses normal Skin: other - dry skin Neurologic/Psychiatric: abnormal gait - unsteady , alert, oriented x 3, responsive, NXIOUS Musculoskeletal: normal muscle bulk Laboratory Tests 02/13/19 08:52: White Blood Count 6.1, Red Blood Count 2.56L, Hemoglobin 8.2L, Hematocrit 25.3L , Mean Corpuscular Volume 99, Mean Corpuscular Hemoglobin 32.1H, Mean Corpuscular Hemoglobin Concent 32.4, Red Cell Distribution Width 15.4H, Platelet Count 280, Mean Platelet Volume 5.1L, Neutrophils (%) (Auto) 75.9H, Lymphocytes (%) (Auto) 7.8L, Monocytes (%) (Auto) 11.7H, Eosinophils (%) (Auto) 3.5H, Basophils (%) (Auto) 1.1, Sodium Level 133L, Potassium Level 4.9, Chloride Level 96L, Carbon Dioxide Level 23, Anion Gap 14, Blood Urea Nitrogen 54H, Creatinine 5.8H, Estimat Glomerular Filtration Rate 7.7, Glucose Level 95, Calcium Level 9.7, Phosphorus Level 6.9H, Total Bilirubin 0.6, Aspartate Amino Transf (AST/SGOT) 19, Alanine Aminotransferase (ALT/SGPT) 8L, Alkaline Phosphatase 200H, Total Protein 8.2, Albumin 2.1L, Globulin 6.1, Albumin/ Globulin Ratio 0.3L 02/14/19 06:50: White Blood Count [Pending], Red Blood Count [Pending], Hemoglobin [Pending], Hematocrit [Pending], Mean Corpuscular Volume [Pending], Mean Corpuscular Hemoglobin [Pending], Mean Corpuscular Hemoglobin Concent [Pending], Red Cell Distribution Width [Pending], Platelet Count [Pending], Mean Platelet Volume [ Pending], Neutrophils (%) (Auto) [Pending], Lymphocytes (%) (Auto) [Pending], Monocytes (%) (Auto) [Pending], Eosinophils (%) (Auto) [Pending], Basophils (%) (Auto) [Pending], Sodium Level [Pending], Potassium Level [Pending], Chloride Level [Pending], Carbon Dioxide Level [Pending], Blood Urea Nitrogen [Pending], Creatinine [Pending], Estimat Glomerular Filtration Rate [Pending], Glucose Level [Pending], Calcium Level [Pending] Current Medications Medications (Trade) Dose Ordered Sig/Juliano Route PRN Reason Start Time Stop Time Status Last Admin Dose Admin Acetaminophen (Tylenol) 650 mg Q4H PRN ORAL Fever 02/13/19 02:30 03/11/19 02:29 Amlodipine Besylate (Norvasc) 10 mg DAILY ORAL 02/13/19 09:00 03/12/19 08:59 02/13/19 09:00 Carvedilol (Coreg) 12.5 mg EVERY 12 HOURS ORAL 02/13/19 09:00 03/11/19 20:59 02/13/19 21:14 Clonidine HCl (Catapres TTS-3) 1 patch QWEEK TDERMAL 02/18/19 12:00 03/13/19 11:59 Dextrose (Dextrose 50%) 25 ml Q30M PRN IV Hypoglycemia 02/13/19 02:45 03/11/19 16:14 Dextrose (Dextrose 50%) 50 ml Q30M PRN IV Hypoglycemia 02/13/19 02:45 03/11/19 16:14 Docusate Sodium (Colace) 100 mg THREE TIMES A DAY ORAL 02/13/19 09:00 03/13/19 12:59 02/13/19 17:08 Epoetin David (Epoetin David(ESRD on dialysis)) 10,000 unit MON-FRI-FRI SUBQ 02/15/19 21:00 03/14/19 20:59 Folic Acid (Folate) 3 mg DAILY ORAL 02/13/19 09:00 03/13/19 08:59 02/13/19 09:01 Gabapentin (Neurontin) 100 mg THREE TIMES A DAY ORAL 02/13/19 09:00 03/11/19 17:59 02/13/19 17:08 Heparin Sodium (Porcine) (Heparin 5000 units/ml) 5,000 units EVERY 12 HOURS SUBQ 02/13/19 09:00 03/11/19 20:59 02/13/19 21:33 Hydralazine HCl (Apresoline) 25 mg Q4H PRN ORAL bp over 160 syst 02/13/19 02:30 03/12/19 10:29 Hydralazine HCl (Apresoline) 50 mg Q8HR ORAL 02/13/19 06:00 03/13/19 11:59 02/14/19 05:22 Morphine Sulfate (Morphine Sulfate) 2 mg Q4H PRN IVP PAIN 4-10 02/13/19 02:30 02/16/19 02:29 02/14/19 03:20 Ondansetron HCl (Zofran) 4 mg Q6H PRN IVP Nausea & Vomiting 02/13/19 02:30 03/11/19 02:29 Pantoprazole (Protonix) 40 mg EVERY 12 HOURS ORAL 02/13/19 09:00 03/13/19 10:59 02/13/19 21:14 Polyethylene Glycol (Miralax) 17 gm DAILYPRN PRN ORAL Constipation 02/13/19 02:30 03/11/19 02:29 Sevelamer Carbonate (Renvela) 2,400 mg THREE TIMES A DAY ORAL 02/13/19 09:00 03/13/19 08:59 02/13/19 17:08 Temazepam (Restoril) 15 mg HSPRN PRN ORAL Insomnia 02/13/19 16:15 02/16/19 16:14 02/13/19 21:38 Barbara Sheridan NP Feb 14, 2019 07:29
--- NOTE | 2019-02-14 07:37 | NUR ---
HAND-OFF: Report given to JULIAN Martinez.
--- NOTE | 2019-02-14 07:38 | NUR ---
NURSE NOTES: Received patient on bed asleep. No SOB or cardiac distress. HD port in right femoral intact, dressing intact. IV line intact, no s/s of infiltration. For HD today around 10:30-11am. Will continue plan of care.
--- NOTE | 2019-02-14 07:50 | General Progress Note ---
Assessment/Plan Problem List: (1) HTN (hypertension) ICD Codes: I10 - Essential (primary) hypertension SNOMED: 32999642 (2) Weak ICD Codes: R53.1 - Weakness SNOMED: 20721630 (3) ESRD (end stage renal disease) ICD Codes: N18.6 - End stage renal disease SNOMED: 45028676 (4) Hypertensive chronic kidney disease ICD Codes: I12.9 - Hypertensive chronic kidney disease with stage 1 through stage 4 chronic kidney disease, or unspecified chronic kidney disease SNOMED: 501947204785022 (5) Anemia ICD Codes: D64.9 - Anemia, unspecified SNOMED: 741868918 (6) ESRF (end stage renal failure) ICD Codes: N18.6 - End stage renal disease SNOMED: 02563660 Status: stable, progressing Assessment/Plan: o2 pulm tx pt diet transfuse prn renal f/u cbc bmp am aru eval vs snf Subjective Constitutional: Reports: weakness Allergies: Coded Allergies: CEPHALEXIN (Unverified Allergy, Unknown, 12/14/18) SULFAMETHOXAZOLE (Unverified Allergy, Unknown, 12/14/18) TRIMETHOPRIM (Unverified Allergy, Unknown, 12/14/18) VANCOMYCIN (Unverified Allergy, Unknown, 12/14/18) Uncoded Allergies: BACTRIM DS (Allergy, Unknown, 02/09/19) All Systems: reviewed and negative except above Subjective calm in bed Objective Last 24 Hour Vital Signs Date Time Temp Pulse Resp B/P (MAP) Pulse Ox O2 Delivery O2 Flow Rate FiO2 02/14/19 05:22 124/63 02/14/19 04:00 97.9 72 19 124/63 (83) 97 02/14/19 00:00 98.2 92 18 144/90 (108) 98 02/13/19 21:14 153/90 02/13/19 21:14 86 153/90 02/13/19 20:30 Room Air 02/13/19 20:00 99.0 86 19 153/90 (111) 98 02/13/19 20:00 85 18 96 Room Air 21 02/13/19 16:00 98.1 83 18 151/87 (108) 95 02/13/19 14:30 80 18 96 Room Air 21 02/13/19 14:09 142/80 02/13/19 12:16 75 16 94 Room Air 21 02/13/19 12:00 98.0 77 18 142/80 (100) 95 02/13/19 09:00 Room Air 02/13/19 09:00 76 150/89 02/13/19 08:59 76 150/89 02/13/19 08:00 97.9 76 18 150/89 (109) 93 Intake and Output 02/13/19 02/14/19 19:00 07:00 Intake Total 700 ml 480 ml Balance 700 ml 480 ml Intake Oral 480 ml Other 700 ml # Voids 2 Laboratory Tests 02/13/19 08:52: White Blood Count 6.1, Red Blood Count 2.56L, Hemoglobin 8.2L, Hematocrit 25.3L , Mean Corpuscular Volume 99, Mean Corpuscular Hemoglobin 32.1H, Mean Corpuscular Hemoglobin Concent 32.4, Red Cell Distribution Width 15.4H, Platelet Count 280, Mean Platelet Volume 5.1L, Neutrophils (%) (Auto) 75.9H, Lymphocytes (%) (Auto) 7.8L, Monocytes (%) (Auto) 11.7H, Eosinophils (%) (Auto) 3.5H, Basophils (%) (Auto) 1.1, Sodium Level 133L, Potassium Level 4.9, Chloride Level 96L, Carbon Dioxide Level 23, Anion Gap 14, Blood Urea Nitrogen 54H, Creatinine 5.8H, Estimat Glomerular Filtration Rate 7.7, Glucose Level 95, Calcium Level 9.7, Phosphorus Level 6.9H, Total Bilirubin 0.6, Aspartate Amino Transf (AST/SGOT) 19, Alanine Aminotransferase (ALT/SGPT) 8L, Alkaline Phosphatase 200H, Total Protein 8.2, Albumin 2.1L, Globulin 6.1, Albumin/ Globulin Ratio 0.3L 02/14/19 06:50: White Blood Count [Pending], Red Blood Count [Pending], Hemoglobin [Pending], Hematocrit [Pending], Mean Corpuscular Volume [Pending], Mean Corpuscular Hemoglobin [Pending], Mean Corpuscular Hemoglobin Concent [Pending], Red Cell Distribution Width [Pending], Platelet Count [Pending], Mean Platelet Volume [ Pending], Neutrophils (%) (Auto) [Pending], Lymphocytes (%) (Auto) [Pending], Monocytes (%) (Auto) [Pending], Eosinophils (%) (Auto) [Pending], Basophils (%) (Auto) [Pending], Sodium Level [Pending], Potassium Level [Pending], Chloride Level [Pending], Carbon Dioxide Level [Pending], Blood Urea Nitrogen [Pending], Creatinine [Pending], Estimat Glomerular Filtration Rate [Pending], Glucose Level [Pending], Calcium Level [Pending] Height (Feet): 5 Height (Inches): 5.00 Weight (Pounds): 142 General Appearance: lethargic EENT: normal ENT inspection Neck: normal alignment Cardiovascular: normal peripheral pulses, normal rate, regular rhythm Respiratory/Chest: chest wall non-tender, lungs clear, normal breath sounds Abdomen: normal bowel sounds, non tender, soft Extremities: normal inspection Edema: 1+ Arm (L) Neurologic: motor weakness Skin: normal pigmentation, warm/dry Narinder Villatoro DO Feb 14, 2019 07:49
[2019-02-14 07:52] LABS: BASOPHILS % (AUTO) 1.1 % (0.0-2.0); EOSINOPHILS % (AUTO) 3.6 % (0.0-3.0); HEMOGLOBIN 8.7 G/DL (12.0-16.0); LYMPHOCYTES % (AUTO) 10.6 % (20.0-45.0); MEAN CORPUSCULAR VOLUME 100 FL (80-99); MONOCYTES % (AUTO) 9.2 % (1.0-10.0); NEUTROPHILS % (AUTO) 75.6 % (45.0-75.0); PLATELET COUNT 293 K/UL (150-450); RED CELL DISTRIBUTION WIDTH 14.5 % (11.6-14.8); WHITE BLOOD COUNT 6.2 K/UL (4.8-10.8)
[2019-02-14 08:00] VITALS: BP 146/92
[2019-02-14 08:06] LABS: ANION GAP 15 mmol/L (5-15); BLOOD UREA NITROGEN 65 mg/dL (7-18); CALCIUM 10.2 MG/DL (8.5-10.1); CARBON DIOXIDE 23 MMOL/L (21-32); CHLORIDE 94 MMOL/L (98-107); CREATININE 7.2 MG/DL (0.55-1.30); POTASSIUM 5.8 MMOL/L (3.5-5.1); SODIUM 132 MMOL/L (136-145)
[2019-02-14] MEDS ORDERED: Albuterol/Ipratropium 3ml neb HHN PRN (09:30)
[2019-02-14] MEDS ORDERED: Sodium Polystyrene Sulfonate 15gm Powder ORAL SCH ×2 (09:30→10:15)
[2019-02-14] MEDS: Docusate 100mg cap ORAL SCH ×3 (10:43→17:37)
[2019-02-14] MEDS: Heparin 5000 units/ml inj SUBQ SCH ×2 (10:45→21:35)
[2019-02-14] MEDS: Carvedilol 12.5mg tab ORAL SCH ×2 (11:03→21:15)
--- NOTE | 2019-02-14 11:08 | NUR ---
Patient refused Kayexelate, explained risks and benefits and still refused despite offering 3 times. Also refused HD today, wanted to have it tomorrow. made aware by Yesenia of HD.
--- NOTE | 2019-02-14 11:52 | Nephrology Progress Note ---
Assessment/Plan Problem List: (1) ESRF (end stage renal failure) (2) Anemia (3) Hypertensive chronic kidney disease Assessment ESRD- Missed HD Fall h/o Osteomyelitis of spine Anasarca Anemia of CKD, symptomatic now ? Lymphoproliferative Ds non compliance and last admit patient left AMA Plan refused dialysis today, Kayexelate ordered Patient transfused [id number] and 02/12 next 02/15 since refused 02/14 Phos binders SQ EPO Chest CT: No pneumothorax. Findings on recent chest radiograph or presumably factitious Large bilateral pleural effusions Evidence of anasarca, with diffuse edema of the subcutaneous, mediastinal, and abdominal fat in addition to the above Advanced destructive changes of the L2 and L3 vertebral bodies, presumably related to suspected discitis/osteomyelitis described on prior MRI of 12/14/2018 Atrophic bilateral kidneys, consistent with chronic renal insufficiency. Multiple renal cysts, consistent with polycystic disease of uremia. Mediastinal, axillary, and abdominal lymphadenopathy. Possible mild splenomegaly. Findings raise concern for lymphoproliferative disorder Gas bubbles in the right lower chest wall, may reflect recent injections versus penetrating trauma. Correlate with clinical findings Diffuse osteosclerosis, presumably representing renal osteodystrophy Inferior vena cava dialysis catheter demonstrated Tubular calcifications in the superior vena cava most likely represent an old fibrin sheath from a prior dialysis catheter Large right neck eggshell calcification, uncertain as to whether of thyroid or extrathyroidal origin. Presumably related to prior inflammatory diseas Subjective ROS Limited/Unobtainable: No Objective Objective Last 24 Hour Vital Signs Date Time Temp Pulse Resp B/P (MAP) Pulse Ox O2 Delivery O2 Flow Rate FiO2 02/14/19 11:03 82 146/92 02/14/19 11:03 82 146/92 02/14/19 09:00 Room Air 02/14/19 08:00 82 19 146/92 (110) 96 02/14/19 05:22 124/63 02/14/19 04:00 97.9 72 19 124/63 (83) 97 02/14/19 00:00 98.2 92 18 144/90 (108) 98 02/13/19 21:14 153/90 02/13/19 21:14 86 153/90 02/13/19 20:30 Room Air 02/13/19 20:00 99.0 86 19 153/90 (111) 98 02/13/19 20:00 85 18 96 Room Air 21 02/13/19 16:00 98.1 83 18 151/87 (108) 95 02/13/19 14:30 80 18 96 Room Air 21 02/13/19 14:09 142/80 02/13/19 12:16 75 16 94 Room Air 21 02/13/19 12:00 98.0 77 18 142/80 (100) 95 Intake and Output 02/13/19 02/14/19 19:00 07:00 Intake Total 700 ml 480 ml Balance 700 ml 480 ml Intake Oral 480 ml Other 700 ml # Voids 2 Laboratory Tests 02/14/19 06:50: White Blood Count 6.2, Red Blood Count 2.70L, Hemoglobin 8.7L, Hematocrit 27.0L , Mean Corpuscular Volume 100H, Mean Corpuscular Hemoglobin 32.3H, Mean Corpuscular Hemoglobin Concent 32.4, Red Cell Distribution Width 14.5, Platelet Count 293, Mean Platelet Volume 5.4L, Neutrophils (%) (Auto) 75.6H, Lymphocytes (%) (Auto) 10.6L, Monocytes (%) (Auto) 9.2, Eosinophils (%) (Auto) 3.6H, Basophils (%) (Auto) 1.1, Sodium Level 132L, Potassium Level 5.8H, Chloride Level 94L, Carbon Dioxide Level 23, Anion Gap 15, Blood Urea Nitrogen 65H, Creatinine 7.2H, Estimat Glomerular Filtration Rate 6.0, Glucose Level 91, Calcium Level 10.2H Height (Feet): 5 Height (Inches): 5.00 Weight (Pounds): 142 General Appearance: no apparent distress Cardiovascular: normal rate Respiratory/Chest: lungs clear Abdomen: soft Objective no change Yobani Lopez MD Feb 14, 2019 11:52
--- NOTE | 2019-02-14 12:39 | NUR ---
NURSE NOTES: Spoke with Dr. Lopez that patient refused HD and Kayexelate.
--- NOTE | 2019-02-14 13:12 | Surgery Progress Note ---
Surgery Progress Note Subjective Symptoms: improved, tolerating diet, passing flatus Objective Last 24 Hour Vital Signs Date Time Temp Pulse Resp B/P (MAP) Pulse Ox O2 Delivery O2 Flow Rate FiO2 02/14/19 11:03 82 146/92 02/14/19 11:03 82 146/92 02/14/19 09:00 Room Air 02/14/19 08:00 82 19 146/92 (110) 96 02/14/19 05:22 124/63 02/14/19 04:00 97.9 72 19 124/63 (83) 97 02/14/19 00:00 98.2 92 18 144/90 (108) 98 02/13/19 21:14 153/90 02/13/19 21:14 86 153/90 02/13/19 20:30 Room Air 02/13/19 20:00 99.0 86 19 153/90 (111) 98 02/13/19 20:00 85 18 96 Room Air 21 02/13/19 16:00 98.1 83 18 151/87 (108) 95 02/13/19 14:30 80 18 96 Room Air 21 02/13/19 14:09 142/80 I&O Intake and Output 02/13/19 02/14/19 19:00 07:00 Intake Total 700 ml 480 ml Balance 700 ml 480 ml Intake Oral 480 ml Other 700 ml # Voids 2 Cardiovascular: RSR Respiratory: clear Abdomen: soft, flat, present bowel sounds, non-distended Extremities: no tenderness, no cyanosis Laboratory Tests Test 02/14/19 06:50 White Blood Count 6.2 K/UL (4.8-10.8) Red Blood Count 2.70 M/UL (4.20-5.40) L Hemoglobin 8.7 G/DL (12.0-16.0) L Hematocrit 27.0 % (37.0-47.0) L Mean Corpuscular Volume 100 FL (80-99) H Mean Corpuscular Hemoglobin 32.3 PG (27.0-31.0) H Mean Corpuscular Hemoglobin Concent 32.4 G/DL (32.0-36.0) Red Cell Distribution Width 14.5 % (11.6-14.8) Platelet Count 293 K/UL (150-450) Mean Platelet Volume 5.4 FL (6.5-10.1) L Neutrophils (%) (Auto) 75.6 % (45.0-75.0) H Lymphocytes (%) (Auto) 10.6 % (20.0-45.0) L Monocytes (%) (Auto) 9.2 % (1.0-10.0) Eosinophils (%) (Auto) 3.6 % (0.0-3.0) H Basophils (%) (Auto) 1.1 % (0.0-2.0) Sodium Level 132 MMOL/L (136-145) L Potassium Level 5.8 MMOL/L (3.5-5.1) H Chloride Level 94 MMOL/L (98-107) L Carbon Dioxide Level 23 MMOL/L (21-32) Anion Gap 15 mmol/L (5-15) Blood Urea Nitrogen 65 mg/dL (7-18) H Creatinine 7.2 MG/DL (0.55-1.30) H Estimat Glomerular Filtration Rate 6.0 mL/min (>60) Glucose Level 91 MG/DL (74-106) Calcium Level 10.2 MG/DL (8.5-10.1) H Plan Problems: (1) Pneumothorax on left Assessment & Plan: Findings: There is a lucency at the left costophrenic sulcus , with there is previously pleural fluid. Small basilar pneumothorax possible. There is bilateral interstitial edema again demonstrated. Moderate to large right pleural effusion is again demonstrated. The heart is upper limits normal in size. Large eggshell calcification in the right neck is probably thyroid in origin. Impression: Doubt but cannot completely exclude small left basilar pneumothorax. Bilateral interstitial edema and moderate to large right pleural effusion, not significantly changed from 02/06/2019 Impression: No pneumothorax. Findings on recent chest radiograph or presumably factitious Large bilateral pleural effusions Evidence of anasarca, with diffuse edema of the subcutaneous, mediastinal, and abdominal fat in addition to the above Advanced destructive changes of the L2 and L3 vertebral bodies, presumably related to suspected discitis/osteomyelitis described on prior MRI of 12/14/2018 Atrophic bilateral kidneys, consistent with chronic renal insufficiency. Multiple renal cysts, consistent with polycystic disease of uremia. Mediastinal, axillary, and abdominal lymphadenopathy. Possible mild splenomegaly. Findings raise concern for lymphoproliferative disorder Gas bubbles in the right lower chest wall, may reflect recent injections versus penetrating trauma. Correlate with clinical findings Diffuse osteosclerosis, presumably representing renal osteodystrophy Inferior vena cava dialysis catheter demonstrated Tubular calcifications in the superior vena cava most likely represent an old fibrin sheath from a prior dialysis catheter Large right neck eggshell calcification, uncertain as to whether of thyroid or extrathyroidal origin. Presumably related to prior inflammatory disease. (2) Missed dialysis Assessment & Plan: Will receive dialysis during admission. Transfuse with dialysis. (3) Symptomatic anemia Assessment & Plan: Hematology work-up Labs noted. Transfusion with dialysis. (4) Noncompliance (5) Episode of generalized weakness (6) Fall Assessment & Plan: Patient with unwitnessed fall. States that she missed her dialysis felt weak and fell onto her right hip. Has had pain there since with decreased mobility and requiring her to live in her cardiac fast food from drive -through. Impression: No definite acute bony or soft tissue trauma. Destructive changes of the L3 vertebral body, inconclusively visualized, and a pathologic fracture of the left 3 pedicle. Note that advanced destructive changes of the L2 and L3 vertebral segments are described also on a prior MRI of 12/14/2018. Evidence of renal osteodystrophy Small focal lucencies within the bones probably represent areas of physiologic rarefaction, although some of these could represent small brown tumors Atrophic bilateral kidneys with multiple cysts, consistent with medical renal disease and cystic disease of uremia Right common femoral tunneled dialysis catheter Abdominal wall venous varicosities, may indicate central venoocclusive disease related to the above Anasarca Other findings as noted, in including distal sacral nerve root sleeve cysts, large synovial herniation pit in the right femoral neck PT/OT pain control outpatient ortho eval Overall improving will follow with Kar Post Feb 14, 2019 13:12
--- NOTE | 2019-02-14 13:30 | NUR ---
PT note Patient seen at patient's selected time, which was set after yesterday's PT session. Patient states that she has not had her lunch and feels very weak.
[2019-02-14 16:00] VITALS: BP_SYST 145; BP_SYST 159; BP_DIAS 80; BP_DIAS 90
--- NOTE | 2019-02-14 16:07 | NUR ---
NURSE NOTES: Patient noted with uncooperative/manipulative behavior. Called RN and BUTCHER lazy. Also refused gown change because gown was wrinkled. RN continued to communicate with calm tone.
--- NOTE | 2019-02-14 19:27 | NUR ---
HAND-OFF: Report given to Eileen.
--- NOTE | 2019-02-14 19:34 | NUR ---
NURSE NOTES: Patient is in bed and asleep. On RA with no signs of distress or SOB. Hemodialysis port noted on R femoral. IV intact. Bed locked and in lowest position. Call alarm in reach. Will continue to monitor the patient.
[2019-02-14 20:00] VITALS: BP 139/85
[2019-02-15] VITALS: BP 141/82
[2019-02-15] MEDS: Morphine Sulfate 2mg/ml Inj(IV/IM USE ONLY) IVP PRN ×4 (02:17→21:19)
[2019-02-15 04:00] VITALS: BP 136/89
[2019-02-15] MEDS: HydrALAZINE 50mg tab ORAL SCH ×3 (05:09→21:19)
--- NOTE | 2019-02-15 06:52 | NUR ---
HAND-OFF: Report given to JULIAN Martinez.
--- NOTE | 2019-02-15 06:53 | NUR ---
NURSE NOTES: Received patient on bed awake. No SOB or cadiac distress. IV line intact and patent. HD port on right femoral area intact, no s/s of infection, no bleeding. For HD today. Will continue plan of care. Addendum: 02/15/19 at 1057 by Michelle Rg RN Call light within reach.
[2019-02-15 07:33] LABS: BASOPHILS % (AUTO) 1.2 % (0.0-2.0); EOSINOPHILS % (AUTO) 3.7 % (0.0-3.0); HEMATOCRIT 24.7 % (37.0-47.0); HEMOGLOBIN 8.1 G/DL (12.0-16.0); LYMPHOCYTES % (AUTO) 9.8 % (20.0-45.0); MEAN CORPUSCULAR VOLUME 100 FL (80-99); MONOCYTES % (AUTO) 8.4 % (1.0-10.0); NEUTROPHILS % (AUTO) 76.9 % (45.0-75.0); PLATELET COUNT 308 K/UL (150-450); RED BLOOD COUNT 2.48 M/UL (4.20-5.40); RED CELL DISTRIBUTION WIDTH 14.5 % (11.6-14.8); WHITE BLOOD COUNT 6.6 K/UL (4.8-10.8)
[2019-02-15 07:51] LABS: ANION GAP 11 mmol/L (5-15); BLOOD UREA NITROGEN 80 mg/dL (7-18); CALCIUM 9.7 MG/DL (8.5-10.1); CARBON DIOXIDE 25 MMOL/L (21-32); CHLORIDE 91 MMOL/L (98-107); CREATININE 8.1 MG/DL (0.55-1.30); SODIUM 126 MMOL/L (136-145)
[2019-02-15 07:52] LABS: POTASSIUM 6.1 MMOL/L (3.5-5.1)
[2019-02-15 08:00] VITALS: BP 110/60
--- NOTE | 2019-02-15 08:03 | General Progress Note ---
Assessment/Plan Problem List: (1) HTN (hypertension) ICD Codes: I10 - Essential (primary) hypertension SNOMED: 38865452 (2) Weak ICD Codes: R53.1 - Weakness SNOMED: 10114034 (3) ESRD (end stage renal disease) ICD Codes: N18.6 - End stage renal disease SNOMED: 16401643 (4) Hypertensive chronic kidney disease ICD Codes: I12.9 - Hypertensive chronic kidney disease with stage 1 through stage 4 chronic kidney disease, or unspecified chronic kidney disease SNOMED: 958037424468201 (5) Anemia ICD Codes: D64.9 - Anemia, unspecified SNOMED: 407637806 (6) ESRF (end stage renal failure) ICD Codes: N18.6 - End stage renal disease SNOMED: 82424777 Status: stable, progressing Assessment/Plan: o2 pulm tx pt diet transfuse prn renal f/u cbc bmp am aru eval vs snf Subjective Constitutional: Reports: weakness Allergies: Coded Allergies: CEPHALEXIN (Unverified Allergy, Unknown, 12/14/18) SULFAMETHOXAZOLE (Unverified Allergy, Unknown, 12/14/18) TRIMETHOPRIM (Unverified Allergy, Unknown, 12/14/18) VANCOMYCIN (Unverified Allergy, Unknown, 12/14/18) Uncoded Allergies: BACTRIM DS (Allergy, Unknown, 02/09/19) All Systems: reviewed and negative except above Subjective calm in bed Objective Last 24 Hour Vital Signs Date Time Temp Pulse Resp B/P (MAP) Pulse Ox O2 Delivery O2 Flow Rate FiO2 02/15/19 05:09 136/89 02/15/19 04:00 97.0 76 20 136/89 (105) 95 02/15/19 00:00 97.8 79 21 141/82 (101) 99 02/14/19 21:15 139/85 02/14/19 21:15 81 139/85 02/14/19 20:26 79 18 97 Room Air 21 02/14/19 20:05 Room Air 02/14/19 20:00 98.1 81 20 139/85 (103) 94 02/14/19 16:00 98.1 77 20 145/90 (108) 94 02/14/19 13:30 145/85 02/14/19 11:03 82 146/92 02/14/19 11:03 82 146/92 10/27/19 09:00 Room Air Intake and Output 02/14/19 02/15/19 19:00 07:00 Intake Total 840 ml 480 ml Balance 840 ml 480 ml Intake Oral 840 ml 480 ml Laboratory Tests 02/15/19 06:40: White Blood Count 6.6, Red Blood Count 2.48L, Hemoglobin 8.1L, Hematocrit 24.7L , Mean Corpuscular Volume 100H, Mean Corpuscular Hemoglobin 32.5H, Mean Corpuscular Hemoglobin Concent 32.7, Red Cell Distribution Width 14.5, Platelet Count 308, Mean Platelet Volume 5.5L, Neutrophils (%) (Auto) 76.9H, Lymphocytes (%) (Auto) 9.8L, Monocytes (%) (Auto) 8.4, Eosinophils (%) (Auto) 3.7H, Basophils (%) (Auto) 1.2, Sodium Level 126L, Potassium Level 6.1*H, Chloride Level 91L, Carbon Dioxide Level 25, Anion Gap 11, Blood Urea Nitrogen 80H, Creatinine 8.1H, Estimat Glomerular Filtration Rate 5.3, Glucose Level 97, Calcium Level 9.7 Height (Feet): 5 Height (Inches): 5.00 Weight (Pounds): 142 General Appearance: lethargic EENT: normal ENT inspection Neck: normal alignment Cardiovascular: normal peripheral pulses, normal rate, regular rhythm Respiratory/Chest: chest wall non-tender, lungs clear, normal breath sounds, no respiratory distress Abdomen: normal bowel sounds, non tender, soft Extremities: normal inspection Edema: no edema noted Arm (L), no edema noted Arm (R), no edema noted Leg (L), no edema noted Leg (R), no edema noted Pedal (L), no edema noted Pedal (R), no edema noted Generalized Neurologic: motor weakness Skin: normal pigmentation, warm/dry Narinder Villatoro DO Feb 15, 2019 08:03
--- NOTE | 2019-02-15 08:07 | NUR ---
NURSE NOTES: Dr Villatoro made aware of patient's K level at 6.1, awaiting orders.
[2019-02-15] MEDS: Docusate 100mg cap ORAL SCH ×3 (08:22→17:41)
[2019-02-15] MEDS: Heparin 5000 units/ml inj SUBQ SCH ×2 (08:24→21:19)
[2019-02-15] MEDS: Carvedilol 12.5mg tab ORAL SCH ×2 (09:00→21:19)
--- NOTE | 2019-02-15 09:59 | NUR ---
NURSE NOTES: Dr Villatoro said that he has contacted Dr Lopez regarding K level of patient.
--- NOTE | 2019-02-15 10:00 | NUR ---
NURSE NOTES: Seen by Dr Lopez and he is aware of K level 6.1.
[2019-02-15 10:20] LABS: ALANINE AMINOTRANSFERASE 6 U/L (12-78); ALBUMIN 2.3 G/DL (3.4-5.0); ALKALINE PHOSPHATASE 236 U/L (46-116); ASPARTATE AMINO TRANSFERASE 26 U/L (15-37); BILIRUBIN,DIRECT 0.1 MG/DL (0.0-0.3); BILIRUBIN,TOTAL 0.4 MG/DL (0.2-1.0); PHOSPHORUS 7.4 MG/DL (2.5-4.9)
--- NOTE | 2019-02-15 11:06 | Nephrology Progress Note ---
Assessment/Plan Problem List: (1) ESRF (end stage renal failure) (2) Anemia (3) Hypertensive chronic kidney disease (4) Hyperkalemia Assessment ESRD- Missed HD Fall h/o Osteomyelitis of spine Anasarca Anemia of CKD, symptomatic now ? Lymphoproliferative Ds non compliance and last admit patient left AMA Plan refused dialysis 02/14 Kayexelate ordered- refused Patient transfused /23 and 02/12 next 02/15 since refused 02/14 Phos binders SQ EPO ? DC planning Chest CT: No pneumothorax. Findings on recent chest radiograph or presumably factitious Large bilateral pleural effusions Evidence of anasarca, with diffuse edema of the subcutaneous, mediastinal, and abdominal fat in addition to the above Advanced destructive changes of the L2 and L3 vertebral bodies, presumably related to suspected discitis/osteomyelitis described on prior MRI of 12/14/2018 Atrophic bilateral kidneys, consistent with chronic renal insufficiency. Multiple renal cysts, consistent with polycystic disease of uremia. Mediastinal, axillary, and abdominal lymphadenopathy. Possible mild splenomegaly. Findings raise concern for lymphoproliferative disorder Gas bubbles in the right lower chest wall, may reflect recent injections versus penetrating trauma. Correlate with clinical findings Diffuse osteosclerosis, presumably representing renal osteodystrophy Inferior vena cava dialysis catheter demonstrated Tubular calcifications in the superior vena cava most likely represent an old fibrin sheath from a prior dialysis catheter Large right neck eggshell calcification, uncertain as to whether of thyroid or extrathyroidal origin. Presumably related to prior inflammatory diseas Subjective ROS Limited/Unobtainable: No Objective Objective Last 24 Hour Vital Signs Date Time Temp Pulse Resp B/P (MAP) Pulse Ox O2 Delivery O2 Flow Rate FiO2 02/15/19 08:30 75 18 95 Room Air 21 02/15/19 08:00 98.0 77 19 110/60 (77) 97 02/15/19 05:09 136/89 02/15/19 04:00 97.0 76 20 136/89 (105) 95 02/15/19 00:00 97.8 79 21 141/82 (101) 99 02/14/19 21:15 139/85 02/14/19 21:15 81 139/85 02/14/19 20:26 79 18 97 Room Air 21 02/14/19 20:05 Room Air 02/14/19 20:00 98.1 81 20 139/85 (103) 94 02/14/19 16:00 98.1 77 20 145/90 (108) 94 02/14/19 13:30 145/85 Intake and Output 02/14/19 02/15/19 19:00 07:00 Intake Total 840 ml 480 ml Balance 840 ml 480 ml Intake Oral 840 ml 480 ml Laboratory Tests 02/15/19 06:30: Phosphorus Level 7.4H, Total Bilirubin 0.4, Direct Bilirubin 0.1, Aspartate Amino Transf (AST/SGOT) 26, Alanine Aminotransferase (ALT/SGPT) 6L, Alkaline Phosphatase 236H, Total Protein 8.4H, Albumin 2.3L 02/15/19 06:40: White Blood Count 6.6, Red Blood Count 2.48L, Hemoglobin 8.1L, Hematocrit 24.7L , Mean Corpuscular Volume 100H, Mean Corpuscular Hemoglobin 32.5H, Mean Corpuscular Hemoglobin Concent 32.7, Red Cell Distribution Width 14.5, Platelet Count 308, Mean Platelet Volume 5.5L, Neutrophils (%) (Auto) 76.9H, Lymphocytes (%) (Auto) 9.8L, Monocytes (%) (Auto) 8.4, Eosinophils (%) (Auto) 3.7H, Basophils (%) (Auto) 1.2, Sodium Level 126L, Potassium Level 6.1*H, Chloride Level 91L, Carbon Dioxide Level 25, Anion Gap 11, Blood Urea Nitrogen 80H, Creatinine 8.1H, Estimat Glomerular Filtration Rate 5.3, Glucose Level 97, Calcium Level 9.7 Height (Feet): 5 Height (Inches): 5.00 Weight (Pounds): 142 General Appearance: no apparent distress Objective no change Yobani Lopez MD Feb 15, 2019 11:06
[2019-02-15 12:00] VITALS: BP 138/88
--- NOTE | 2019-02-15 12:33 | Pulmonology Progress Note ---
Assessment/Plan Problems: (1) Symptomatic anemia (2) Bilateral pleural effusion (3) Anasarca (4) ESRF (end stage renal failure) (5) Noncompliance Assessment/Plan pt wants blood transfusion with next HD no new co mplains respiratory treatment HD by stoner hand, try to take out more fluids if possible dc planing Subjective ROS Limited/Unobtainable: No HEENT: Repors: no symptoms Allergies: Coded Allergies: CEPHALEXIN (Unverified Allergy, Unknown, 12/14/18) SULFAMETHOXAZOLE (Unverified Allergy, Unknown, 12/14/18) TRIMETHOPRIM (Unverified Allergy, Unknown, 12/14/18) VANCOMYCIN (Unverified Allergy, Unknown, 12/14/18) Uncoded Allergies: BACTRIM DS (Allergy, Unknown, 02/09/19) Objective Last 24 Hour Vital Signs Date Time Temp Pulse Resp B/P (MAP) Pulse Ox O2 Delivery O2 Flow Rate FiO2 02/15/19 09:00 Room Air 02/15/19 08:30 75 18 95 Room Air 21 02/15/19 08:00 98.0 77 19 110/60 (77) 97 02/15/19 05:09 136/89 02/15/19 04:00 97.0 76 20 136/89 (105) 95 02/15/19 00:00 97.8 79 21 141/82 (101) 99 02/14/19 21:15 139/85 02/14/19 21:15 81 139/85 02/14/19 20:26 79 18 97 Room Air 21 02/14/19 20:05 Room Air 02/14/19 20:00 98.1 81 20 139/85 (103) 94 02/14/19 16:00 98.1 77 20 145/90 (108) 94 02/14/19 13:30 145/85 Intake and Output 02/14/19 02/15/19 19:00 07:00 Intake Total 840 ml 480 ml Balance 840 ml 480 ml Intake Oral 840 ml 480 ml General Appearance: WD/WN HEENT: normocephalic, atraumatic Respiratory/Chest: lungs clear, normal breath sounds Breasts: no masses Cardiovascular: normal peripheral pulses Abdomen: normal bowel sounds, no organomegaly, no scars Extremities: no clubbing Skin: no rash, no lesions 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 Lymphatic: no neck adenopathy Laboratory Tests 02/15/19 06:30: Phosphorus Level 7.4H, Total Bilirubin 0.4, Direct Bilirubin 0.1, Aspartate Amino Transf (AST/SGOT) 26, Alanine Aminotransferase (ALT/SGPT) 6L, Alkaline Phosphatase 236H, Total Protein 8.4H, Albumin 2.3L 02/15/19 06:40: White Blood Count 6.6, Red Blood Count 2.48L, Hemoglobin 8.1L, Hematocrit 24.7L , Mean Corpuscular Volume 100H, Mean Corpuscular Hemoglobin 32.5H, Mean Corpuscular Hemoglobin Concent 32.7, Red Cell Distribution Width 14.5, Platelet Count 308, Mean Platelet Volume 5.5L, Neutrophils (%) (Auto) 76.9H, Lymphocytes (%) (Auto) 9.8L, Monocytes (%) (Auto) 8.4, Eosinophils (%) (Auto) 3.7H, Basophils (%) (Auto) 1.2, Sodium Level 126L, Potassium Level 6.1*H, Chloride Level 91L, Carbon Dioxide Level 25, Anion Gap 11, Blood Urea Nitrogen 80H, Creatinine 8.1H, Estimat Glomerular Filtration Rate 5.3, Glucose Level 97, Calcium Level 9.7 Current Medications Medications (Trade) Dose Ordered Sig/Juliano Route PRN Reason Start Time Stop Time Status Last Admin Dose Admin Acetaminophen (Tylenol) 650 mg Q4H PRN ORAL Fever 02/13/19 02:30 03/11/19 02:29 02/15/19 03:25 Albuterol/ Ipratropium (Albuterol/ Ipratropium) 3 ml Q4H PRN HHN Shortness of Breath 02/14/19 09:30 02/19/19 09:29 Amlodipine Besylate (Norvasc) 10 mg DAILY ORAL 02/13/19 09:00 03/12/19 08:59 02/14/19 11:03 Carvedilol (Coreg) 12.5 mg EVERY 12 HOURS ORAL 02/13/19 09:00 03/11/19 20:59 02/14/19 21:15 Clonidine HCl (Catapres TTS-3) 1 patch QWEEK TDERMAL 02/18/19 12:00 03/13/19 11:59 Dextrose (Dextrose 50%) 25 ml Q30M PRN IV Hypoglycemia 02/13/19 02:45 03/11/19 16:14 Dextrose (Dextrose 50%) 50 ml Q30M PRN IV Hypoglycemia 02/13/19 02:45 03/11/19 16:14 Docusate Sodium (Colace) 100 mg THREE TIMES A DAY ORAL 02/13/19 09:00 03/13/19 12:59 02/15/19 08:22 Epoetin David (Epoetin David(ESRD on dialysis)) 10,000 unit SUBQ 02/15/19 21:00 03/14/19 20:59 Folic Acid (Folate) 3 mg DAILY ORAL 02/13/19 09:00 03/13/19 08:59 02/15/19 08:22 Gabapentin (Neurontin) 100 mg THREE TIMES A DAY ORAL 02/13/19 09:00 03/11/19 17:59 02/15/19 08:22 Heparin Sodium (Porcine) (Heparin 5000 units/ml) 5,000 units EVERY 12 HOURS SUBQ 02/13/19 09:00 03/11/19 20:59 02/15/19 08:24 Hydralazine HCl (Apresoline) 25 mg Q4H PRN ORAL bp over 160 syst 02/13/19 02:30 03/12/19 10:29 Hydralazine HCl (Apresoline) 50 mg Q8HR ORAL 02/13/19 06:00 03/13/19 11:59 02/15/19 05:09 Morphine Sulfate (Morphine Sulfate) 2 mg Q4H PRN IVP PAIN 4-10 02/14/19 10:30 02/17/19 10:29 02/15/19 08:34 Ondansetron HCl (Zofran) 4 mg Q6H PRN IVP Nausea & Vomiting 02/13/19 02:30 03/11/19 02:29 Pantoprazole (Protonix) 40 mg EVERY 12 HOURS ORAL 02/13/19 09:00 03/13/19 10:59 02/15/19 08:22 Polyethylene Glycol (Miralax) 17 gm DAILYPRN PRN ORAL Constipation 02/13/19 02:30 03/11/19 02:29 Sevelamer Carbonate (Renvela) 2,400 mg THREE TIMES A DAY ORAL 02/13/19 09:00 03/13/19 08:59 02/15/19 08:22 Temazepam (Restoril) 15 mg HSPRN PRN ORAL Insomnia 02/14/19 21:00 02/17/19 20:59 Jarad King MD Feb 15, 2019 12:33
--- NOTE | 2019-02-15 12:45 | NUR ---
NURSE NOTES: Patient with blood transfusion orders. Patient postponed lab draw for type and cross until after she is finished eating. Will notify lab.
--- NOTE | 2019-02-15 13:24 | NUR ---
NURSE NOTES: Patient refuses to take 3 tabs of Renvela. She only takes 2. Dr Villatoro made aware, awaiting response.
--- NOTE | 2019-02-15 13:36 | NUR ---
NURSE NOTES: Dr Villatoro instructed RN to inform nephro regarding patient's taking 2 tabs of renvela instead of 3. Dr Lopez made aware. Awaiting response.
--- NOTE | 2019-02-15 15:00 | NUR ---
NURSE NOTES: Consent for blood transfusion secured.
--- NOTE | 2019-02-15 15:48 | Surgery Progress Note ---
Surgery Progress Note Subjective Additional Comments Patient seen and examined bedside. No acute events. Labs noted. Anemia plan for transfusion with the next HD. Hyperkalemia plan for HD soon. As per psych coordinator no nausea vomiting fever chills. Tolerating diet. Still complaining of food not tasting so great with bland taste. Hip pain improved. Objective Last 24 Hour Vital Signs Date Time Temp Pulse Resp B/P (MAP) Pulse Ox O2 Delivery O2 Flow Rate FiO2 02/15/19 12:00 97.7 69 19 138/88 (105) 94 02/15/19 09:00 69 138/88 02/15/19 09:00 69 138/88 02/15/19 09:00 Room Air 02/15/19 08:30 75 18 95 Room Air 21 02/15/19 08:00 98.0 77 19 110/60 (77) 97 02/15/19 05:09 136/89 02/15/19 04:00 97.0 76 20 136/89 (105) 95 02/15/19 00:00 97.8 79 21 141/82 (101) 99 02/14/19 21:15 139/85 02/14/19 21:15 81 139/85 02/14/19 20:26 79 18 97 Room Air 21 02/14/19 20:05 Room Air 02/14/19 20:00 98.1 81 20 139/85 (103) 94 02/14/19 16:00 98.1 77 20 145/90 (108) 94 I&O Intake and Output 02/14/19 02/15/19 19:00 07:00 Intake Total 840 ml 480 ml Balance 840 ml 480 ml Intake Oral 840 ml 480 ml Cardiovascular: RSR Respiratory: clear Abdomen: soft, non-tender, present bowel sounds Extremities: no cyanosis, other Laboratory Tests Test 02/15/19 06:30 02/15/19 06:40 Phosphorus Level 7.4 MG/DL (2.5-4.9) H Total Bilirubin 0.4 MG/DL (0.2-1.0) Direct Bilirubin 0.1 MG/DL (0.0-0.3) Aspartate Amino Transf (AST/SGOT) 26 U/L (15-37) Alanine Aminotransferase (ALT/SGPT) 6 U/L (12-78) L Alkaline Phosphatase 236 U/L (46-116) H Total Protein 8.4 G/DL (6.4-8.2) H Albumin 2.3 G/DL (3.4-5.0) L White Blood Count 6.6 K/UL (4.8-10.8) Red Blood Count 2.48 M/UL (4.20-5.40) L Hemoglobin 8.1 G/DL (12.0-16.0) L Hematocrit 24.7 % (37.0-47.0) L Mean Corpuscular Volume 100 FL (80-99) H Mean Corpuscular Hemoglobin 32.5 PG (27.0-31.0) H Mean Corpuscular Hemoglobin Concent 32.7 G/DL (32.0-36.0) Red Cell Distribution Width 14.5 % (11.6-14.8) Platelet Count 308 K/UL (150-450) Mean Platelet Volume 5.5 FL (6.5-10.1) L Neutrophils (%) (Auto) 76.9 % (45.0-75.0) H Lymphocytes (%) (Auto) 9.8 % (20.0-45.0) L Monocytes (%) (Auto) 8.4 % (1.0-10.0) Eosinophils (%) (Auto) 3.7 % (0.0-3.0) H Basophils (%) (Auto) 1.2 % (0.0-2.0) Sodium Level 126 MMOL/L (136-145) L Potassium Level 6.1 MMOL/L (3.5-5.1) *H Chloride Level 91 MMOL/L (98-107) L Carbon Dioxide Level 25 MMOL/L (21-32) Anion Gap 11 mmol/L (5-15) Blood Urea Nitrogen 80 mg/dL (7-18) H Creatinine 8.1 MG/DL (0.55-1.30) H Estimat Glomerular Filtration Rate 5.3 mL/min (>60) Glucose Level 97 MG/DL (74-106) Calcium Level 9.7 MG/DL (8.5-10.1) Plan Problems: (1) Pneumothorax on left Assessment & Plan: Findings: There is a lucency at the left costophrenic sulcus , with there is previously pleural fluid. Small basilar pneumothorax possible. There is bilateral interstitial edema again demonstrated. Moderate to large right pleural effusion is again demonstrated. The heart is upper limits normal in size. Large eggshell calcification in the right neck is probably thyroid in origin. Impression: Doubt but cannot completely exclude small left basilar pneumothorax. Bilateral interstitial edema and moderate to large right pleural effusion, not significantly changed from 02/06/2019 Impression: No pneumothorax. Findings on recent chest radiograph or presumably factitious Large bilateral pleural effusions Evidence of anasarca, with diffuse edema of the subcutaneous, mediastinal, and abdominal fat in addition to the above Advanced destructive changes of the L2 and L3 vertebral bodies, presumably related to suspected discitis/osteomyelitis described on prior MRI of 12/14/2018 Atrophic bilateral kidneys, consistent with chronic renal insufficiency. Multiple renal cysts, consistent with polycystic disease of uremia. Mediastinal, axillary, and abdominal lymphadenopathy. Possible mild splenomegaly. Findings raise concern for lymphoproliferative disorder Gas bubbles in the right lower chest wall, may reflect recent injections versus penetrating trauma. Correlate with clinical findings Diffuse osteosclerosis, presumably representing renal osteodystrophy Inferior vena cava dialysis catheter demonstrated Tubular calcifications in the superior vena cava most likely represent an old fibrin sheath from a prior dialysis catheter Large right neck eggshell calcification, uncertain as to whether of thyroid or extrathyroidal origin. Presumably related to prior inflammatory disease. (2) Missed dialysis Assessment & Plan: Will receive dialysis during admission. Transfuse with dialysis. (3) Symptomatic anemia Assessment & Plan: Hematology work-up Labs noted. Transfusion with dialysis. (4) Noncompliance (5) Episode of generalized weakness (6) Fall Assessment & Plan: Patient with unwitnessed fall. States that she missed her dialysis felt weak and fell onto her right hip. Has had pain there since with decreased mobility and requiring her to live in her cardiac fast food from drive -through. Impression: No definite acute bony or soft tissue trauma. Destructive changes of the L3 vertebral body, inconclusively visualized, and a pathologic fracture of the left 3 pedicle. Note that advanced destructive changes of the L2 and L3 vertebral segments are described also on a prior MRI of 12/14/2018. Evidence of renal osteodystrophy Small focal lucencies within the bones probably represent areas of physiologic rarefaction, although some of these could represent small brown tumors Atrophic bilateral kidneys with multiple cysts, consistent with medical renal disease and cystic disease of uremia Right common femoral tunneled dialysis catheter Abdominal wall venous varicosities, may indicate central venoocclusive disease related to the above Anasarca Other findings as noted, in including distal sacral nerve root sleeve cysts, large synovial herniation pit in the right femoral neck PT/OT pain control outpatient ortho eval Overall improving will follow with recs Additional Comments Discharge planning Kar Haywood Feb 15, 2019 15:48
[2019-02-15 16:00] VITALS: BP 141/84
--- NOTE | 2019-02-15 16:30 | NUR ---
NURSE NOTES: Blood taken from blood bank checked and transfused c/o HD personnel at bedside. Monitored for adverse reactions.
--- NOTE | 2019-02-15 18:54 | NUR ---
NURSE NOTES: Patient verbally abusive and manipulative througout the day, screaming at RN and calling RN lazy, idiot, stupid, weird. RN maintained therapeutic communication using calm tone.
--- NOTE | 2019-02-15 19:41 | NUR ---
HAND-OFF: Report given to Eileen.
[2019-02-15 20:00] VITALS: BP 173/107
[2019-02-15] MEDS ORDERED: Epoetin Alfa-EPBX(ESRD on dialysis)10,000 unit/ml vial SUBQ SCH (21:00)
[2019-02-16] VITALS: BP 149/94
[2019-02-16 04:00] VITALS: BP 152/91
[2019-02-16] MEDS: Morphine Sulfate 2mg/ml Inj(IV/IM USE ONLY) IVP PRN ×3 (04:03→18:25)
[2019-02-16] MEDS: HydrALAZINE 50mg tab ORAL SCH ×3 (05:30→20:54)
--- NOTE | 2019-02-16 07:29 | NUR ---
HAND-OFF: Report given to JULIAN Salazar.
[2019-02-16 07:37] LABS: BASOPHILS % (AUTO) 1.3 % (0.0-2.0); EOSINOPHILS % (AUTO) 2.3 % (0.0-3.0); HEMATOCRIT 29.1 % (37.0-47.0); HEMOGLOBIN 9.6 G/DL (12.0-16.0); LYMPHOCYTES % (AUTO) 6.8 % (20.0-45.0); MEAN CORPUSCULAR VOLUME 99 FL (80-99); MONOCYTES % (AUTO) 11.1 % (1.0-10.0); NEUTROPHILS % (AUTO) 78.5 % (45.0-75.0); PLATELET COUNT 285 K/UL (150-450); RED BLOOD COUNT 2.94 M/UL (4.20-5.40); WHITE BLOOD COUNT 6.1 K/UL (4.8-10.8)
[2019-02-16 07:43] LABS: ANION GAP 14 mmol/L (5-15); BLOOD UREA NITROGEN 72 mg/dL (7-18); CALCIUM 9.9 MG/DL (8.5-10.1); CARBON DIOXIDE 22 MMOL/L (21-32); CHLORIDE 92 MMOL/L (98-107); CREATININE 7.2 MG/DL (0.55-1.30); SODIUM 127 MMOL/L (136-145)
[2019-02-16 07:48] LABS: POTASSIUM 6.1 MMOL/L (3.5-5.1)
[2019-02-16 08:00] VITALS: BP 146/74
--- NOTE | 2019-02-16 08:57 | NUR ---
NURSE NOTES: PT AXOX4, CALM, IN NO APPARENT DISTRESS AT THIS TIME. RESTING IN BED. PT DOES NOT WANT TO SIT IN HIGH-LYLE'S POSITION TO EAT BREAKFAST. PT STATES SHE PREFERS SEMI-LYLE'S POSITION. RN EDUCATED PT ON CHOKING HAZARDS BUT PT STILL PREFERS SEMI-LYLE'S POSITION. RIGHT FEMORAL TUNNELED DIALYSIS CATH INTACT. BED IN LOWEST POSITION WITH BEDSIDE RAILS X3 RAISED. BED ALARM ON. EDUCATED TO USE CALL LIGHT. WILL CONTINUE TO MONITOR.
[2019-02-16] MEDS ORDERED: Sodium Polystyrene Sulfonate 15gm Powder ORAL SCH (09:30)
[2019-02-16] MEDS: Docusate 100mg cap ORAL SCH ×3 (09:37→18:24)
[2019-02-16] MEDS: Carvedilol 12.5mg tab ORAL SCH ×2 (09:47→20:55)
[2019-02-16] MEDS: Heparin 5000 units/ml inj SUBQ SCH ×2 (09:51→21:00)
--- NOTE | 2019-02-16 10:20 | NUR ---
NURSE NOTES: PT WITH CRITICAL VALUE POTASSIUM 6.1 TODAY, DR ACOSTA WITH ORDER FOR KAYEXALATE 45GM X1. PT EDUCATED ON USE OF MEDICATION. PT REFUSED STATING SHE DOES NOT WANT TO TAKE IT BECAUSE IT CAUSES DIARRHEA. PT EDUCATED IF PT DOES NOT WANT TO TAKE IT, RISK OF HEART DYSRHYTHMIAS AND HEART ATTACK POSSIBLE DUE TO HIGH POTASSIUM LEVEL. PT STATED, "I DON'T CARE, I'M NOT TAKING IT. I WILL DO EXTRA DIALYSIS INSTEAD". DR ACOSTA MADE AWARE AND NO NEW ORDERS. PER DR DAVE MD WILL ORDER DIALYSIS FOR TOMORROW.
[2019-02-16 12:00] VITALS: BP 150/90
--- NOTE | 2019-02-16 12:52 | Pulmonology Progress Note ---
Assessment/Plan Problems: (1) Symptomatic anemia (2) Bilateral pleural effusion (3) Anasarca (4) ESRF (end stage renal failure) (5) Noncompliance Assessment/Plan h/h better after blood transfusion no new co mplains respiratory treatment HD by client service representative, try to take out more fluids if possible dc planing to detention in process Subjective ROS Limited/Unobtainable: No Constitutional: Reports: no symptoms HEENT: Repors: no symptoms Respiratory: Reports: no symptoms Allergies: Coded Allergies: CEPHALEXIN (Unverified Allergy, Unknown, 12/14/18) SULFAMETHOXAZOLE (Unverified Allergy, Unknown, 12/14/18) TRIMETHOPRIM (Unverified Allergy, Unknown, 12/14/18) VANCOMYCIN (Unverified Allergy, Unknown, 12/14/18) Uncoded Allergies: BACTRIM DS (Allergy, Unknown, 02/09/19) Objective Last 24 Hour Vital Signs Date Time Temp Pulse Resp B/P (MAP) Pulse Ox O2 Delivery O2 Flow Rate FiO2 02/16/19 12:00 97.5 69 18 150/90 (110) 95 02/16/19 09:47 70 142/91 02/16/19 09:46 70 142/91 02/16/19 09:00 Room Air 02/16/19 08:00 97.9 72 18 146/74 (98) 96 02/16/19 07:45 72 20 98 Room Air 21 02/16/19 05:30 152/91 02/16/19 04:00 98.7 80 17 152/91 (111) 97 02/16/19 00:00 98.7 82 16 149/94 (112) 96 02/15/19 21:19 173/107 02/15/19 21:19 84 173/107 02/15/19 20:19 Room Air 02/15/19 20:00 98.6 84 17 173/107 (129) 96 02/15/19 19:18 70 16 96 Room Air 21 02/15/19 17:38 148/96 02/15/19 16:00 98.1 81 19 141/84 (103) Intake and Output 02/15/19 02/16/19 19:00 07:00 Intake Total 250 ml 480 ml Output Total 5000 ml Balance -4750 ml 480 ml Intake Oral 480 ml Blood Product 250 ml Output Hemodialysis UF 5000 ml General Appearance: WD/WN HEENT: normocephalic, anicteric Respiratory/Chest: lungs clear Breasts: no masses Cardiovascular: normal peripheral pulses Abdomen: normal bowel sounds, no organomegaly Skin: no rash Laboratory Tests 02/16/19 06:00: White Blood Count 6.1, Red Blood Count 2.94L, Hemoglobin 9.6L, Hematocrit 29.1L , Mean Corpuscular Volume 99, Mean Corpuscular Hemoglobin 32.7H, Mean Corpuscular Hemoglobin Concent 33.1, Red Cell Distribution Width 15.0H, Platelet Count 285, Mean Platelet Volume 6.0L, Neutrophils (%) (Auto) 78.5H, Lymphocytes (%) (Auto) 6.8L, Monocytes (%) (Auto) 11.1H, Eosinophils (%) (Auto) 2.3, Basophils (%) (Auto) 1.3, Sodium Level 127L, Potassium Level 6.1*H, Chloride Level 92L, Carbon Dioxide Level 22, Anion Gap 14, Blood Urea Nitrogen 72H, Creatinine 7.2H, Estimat Glomerular Filtration Rate 6.0, Glucose Level 93, Calcium Level 9.9 Current Medications Medications (Trade) Dose Ordered Sig/Juliano Route PRN Reason Start Time Stop Time Status Last Admin Dose Admin Acetaminophen (Tylenol) 650 mg Q4H PRN ORAL Fever 02/13/19 02:30 03/11/19 02:29 02/15/19 17:40 Albuterol/ Ipratropium (Albuterol/ Ipratropium) 3 ml Q4H PRN HHN Shortness of Breath 02/14/19 09:30 02/19/19 09:29 Amlodipine Besylate (Norvasc) 10 mg DAILY ORAL 02/13/19 09:00 03/12/19 08:59 02/16/19 09:46 Carvedilol (Coreg) 12.5 mg EVERY 12 HOURS ORAL 02/13/19 09:00 03/11/19 20:59 02/16/19 09:47 Clonidine HCl (Catapres TTS-3) 1 patch QWEEK TDERMAL 02/18/19 12:00 03/13/19 11:59 Dextrose (Dextrose 50%) 25 ml Q30M PRN IV Hypoglycemia 02/13/19 02:45 11/21/19 16:14 Dextrose (Dextrose 50%) 50 ml Q30M PRN IV Hypoglycemia 02/13/19 02:45 03/11/19 16:14 Docusate Sodium (Colace) 100 mg THREE TIMES A DAY ORAL 02/13/19 09:00 03/13/19 12:59 02/16/19 09:37 Epoetin David (Epoetin David(ESRD on dialysis)) 10,000 unit FRI-FRI-FRI SUBQ 02/15/19 21:00 03/14/19 20:59 02/15/19 21:19 Folic Acid (Folate) 3 mg DAILY ORAL 02/13/19 09:00 03/13/19 08:59 02/16/19 09:39 Gabapentin (Neurontin) 100 mg THREE TIMES A DAY ORAL 02/13/19 09:00 03/11/19 17:59 02/16/19 09:35 Heparin Sodium (Porcine) (Heparin 5000 units/ml) 5,000 units EVERY 12 HOURS SUBQ 02/13/19 09:00 03/11/19 20:59 02/16/19 09:51 Hydralazine HCl (Apresoline) 25 mg Q4H PRN ORAL bp over 160 syst 02/13/19 02:30 03/12/19 10:29 Hydralazine HCl (Apresoline) 50 mg Q8HR ORAL 02/13/19 06:00 03/13/19 11:59 02/16/19 05:30 Morphine Sulfate (Morphine Sulfate) 2 mg Q4H PRN IVP PAIN 4-10 02/14/19 10:30 02/17/19 10:29 02/16/19 10:05 Ondansetron HCl (Zofran) 4 mg Q6H PRN IVP Nausea & Vomiting 02/13/19 02:30 03/11/19 02:29 Pantoprazole (Protonix) 40 mg EVERY 12 HOURS ORAL 02/13/19 09:00 03/13/19 10:59 02/16/19 09:33 Polyethylene Glycol (Miralax) 17 gm DAILYPRN PRN ORAL Constipation 02/13/19 02:30 03/11/19 02:29 Sevelamer Carbonate (Renvela) 2,400 mg THREE TIMES A DAY ORAL 02/13/19 09:00 03/13/19 08:59 02/16/19 09:33 Temazepam (Restoril) 15 mg HSPRN PRN ORAL Insomnia 02/14/19 21:00 02/17/19 20:59 Jarad King MD Feb 16, 2019 12:52
--- NOTE | 2019-02-16 13:20 | NUR ---
DEAN OF MEN NOTES SPOKE WITH JUDAH FROM [facility], VERIFIED CHAIR TIME FRIDAY,FRIDAY,FRIDAY @ 1330. SPOKE WITH IDA FROM [facility] PT ACCEPTED AND TRANSPORTATION TO AND FROM HAS BEEN SET UP. PT AWARE OF DCP AND IS IN AGREEMENT WITH DC @ THIS TIME. WAITING FOR AN OFFICIAL ORDER. Addendum: 02/16/19 at 1323 by BELKIS FAJARDO RN RN [facility] [address] [facility] [id number] [facility] [id number]
--- NOTE | 2019-02-16 13:24 | Surgery Progress Note ---
Surgery Progress Note Subjective Additional Comments improved today states food takes better again no n/v/f/c comfortable pain improved pending d/c labs noted. K per renal HD per renal Objective Last 24 Hour Vital Signs Date Time Temp Pulse Resp B/P (MAP) Pulse Ox O2 Delivery O2 Flow Rate FiO2 02/16/19 12:00 97.5 69 18 150/90 (110) 95 02/16/19 09:47 70 142/91 02/16/19 09:46 70 142/91 02/16/19 09:00 Room Air 02/16/19 08:00 97.9 72 18 146/74 (98) 96 02/16/19 07:45 72 20 98 Room Air 21 02/16/19 05:30 152/91 02/16/19 04:00 98.7 80 17 152/91 (111) 97 02/16/19 00:00 98.7 82 16 149/94 (112) 96 02/15/19 21:19 173/107 02/15/19 21:19 84 173/107 02/15/19 20:19 Room Air 02/15/19 20:00 98.6 84 17 173/107 (129) 96 02/15/19 19:18 70 16 96 Room Air 21 02/15/19 17:38 148/96 02/15/19 16:00 98.1 81 19 141/84 (103) I&O Intake and Output 02/15/19 02/16/19 19:00 07:00 Intake Total 250 ml 480 ml Output Total 5000 ml Balance -4750 ml 480 ml Intake Oral 480 ml Blood Product 250 ml Output Hemodialysis UF 5000 ml Dressing: dry Wound: clean Cardiovascular: RSR Respiratory: clear Abdomen: soft, non-tender, present bowel sounds, non-distended Extremities: no tenderness, no cyanosis Laboratory Tests Test 02/16/19 06:00 White Blood Count 6.1 K/UL (4.8-10.8) Red Blood Count 2.94 M/UL (4.20-5.40) L Hemoglobin 9.6 G/DL (12.0-16.0) L Hematocrit 29.1 % (37.0-47.0) L Mean Corpuscular Volume 99 FL (80-99) Mean Corpuscular Hemoglobin 32.7 PG (27.0-31.0) H Mean Corpuscular Hemoglobin Concent 33.1 G/DL (32.0-36.0) Red Cell Distribution Width 15.0 % (11.6-14.8) H Platelet Count 285 K/UL (150-450) Mean Platelet Volume 6.0 FL (6.5-10.1) L Neutrophils (%) (Auto) 78.5 % (45.0-75.0) H Lymphocytes (%) (Auto) 6.8 % (20.0-45.0) L Monocytes (%) (Auto) 11.1 % (1.0-10.0) H Eosinophils (%) (Auto) 2.3 % (0.0-3.0) Basophils (%) (Auto) 1.3 % (0.0-2.0) Sodium Level 127 MMOL/L (136-145) L Potassium Level 6.1 MMOL/L (3.5-5.1) *H Chloride Level 92 MMOL/L (98-107) L Carbon Dioxide Level 22 MMOL/L (21-32) Anion Gap 14 mmol/L (5-15) Blood Urea Nitrogen 72 mg/dL (7-18) H Creatinine 7.2 MG/DL (0.55-1.30) H Estimat Glomerular Filtration Rate 6.0 mL/min (>60) Glucose Level 93 MG/DL (74-106) Calcium Level 9.9 MG/DL (8.5-10.1) Plan Problems: (1) Pneumothorax on left Assessment & Plan: Findings: There is a lucency at the left costophrenic sulcus , with there is previously pleural fluid. Small basilar pneumothorax possible. There is bilateral interstitial edema again demonstrated. Moderate to large right pleural effusion is again demonstrated. The heart is upper limits normal in size. Large eggshell calcification in the right neck is probably thyroid in origin. Impression: Doubt but cannot completely exclude small left basilar pneumothorax. Bilateral interstitial edema and moderate to large right pleural effusion, not significantly changed from 02/06/2019 Impression: No pneumothorax. Findings on recent chest radiograph or presumably factitious Large bilateral pleural effusions Evidence of anasarca, with diffuse edema of the subcutaneous, mediastinal, and abdominal fat in addition to the above Advanced destructive changes of the L2 and L3 vertebral bodies, presumably related to suspected discitis/osteomyelitis described on prior MRI of 12/14/2018 Atrophic bilateral kidneys, consistent with chronic renal insufficiency. Multiple renal cysts, consistent with polycystic disease of uremia. Mediastinal, axillary, and abdominal lymphadenopathy. Possible mild splenomegaly. Findings raise concern for lymphoproliferative disorder Gas bubbles in the right lower chest wall, may reflect recent injections versus penetrating trauma. Correlate with clinical findings Diffuse osteosclerosis, presumably representing renal osteodystrophy Inferior vena cava dialysis catheter demonstrated Tubular calcifications in the superior vena cava most likely represent an old fibrin sheath from a prior dialysis catheter Large right neck eggshell calcification, uncertain as to whether of thyroid or extrathyroidal origin. Presumably related to prior inflammatory disease. (2) Missed dialysis Assessment & Plan: Will receive dialysis during admission. Transfuse with dialysis. (3) Symptomatic anemia Assessment & Plan: Hematology work-up Labs noted. Transfusion with dialysis. (4) Noncompliance (5) Episode of generalized weakness (6) Fall Assessment & Plan: Patient with unwitnessed fall. States that she missed her dialysis felt weak and fell onto her right hip. Has had pain there since with decreased mobility and requiring her to live in her cardiac fast food from drive -through. Impression: No definite acute bony or soft tissue trauma. Destructive changes of the L3 vertebral body, inconclusively visualized, and a pathologic fracture of the left 3 pedicle. Note that advanced destructive changes of the L2 and L3 vertebral segments are described also on a prior MRI of 12/14/2018. Evidence of renal osteodystrophy Small focal lucencies within the bones probably represent areas of physiologic rarefaction, although some of these could represent small brown tumors Atrophic bilateral kidneys with multiple cysts, consistent with medical renal disease and cystic disease of uremia Right common femoral tunneled dialysis catheter Abdominal wall venous varicosities, may indicate central venoocclusive disease related to the above Anasarca Other findings as noted, in including distal sacral nerve root sleeve cysts, large synovial herniation pit in the right femoral neck PT/OT pain control outpatient ortho eval Overall improving will follow with recs Additional Comments okay to d/c from surgical standpoint Kar Haywood Feb 16, 2019 13:24
--- NOTE | 2019-02-16 13:26 | Nephrology Progress Note ---
Assessment/Plan Problem List: (1) ESRF (end stage renal failure) (2) Anemia (3) Hypertensive chronic kidney disease (4) Hyperkalemia Assessment ESRD- Missed HD Fall h/o Osteomyelitis of spine Anasarca Anemia of CKD, symptomatic now ? Lymphoproliferative Ds non compliance and last admit patient left AMA Plan refused dialysis 02/14 done 02/15 next HD 02/17 Kayexelate ordered- refused Patient transfused Phos binders SQ EPO ? DC planning Chest CT: No pneumothorax. Findings on recent chest radiograph or presumably factitious Large bilateral pleural effusions Evidence of anasarca, with diffuse edema of the subcutaneous, mediastinal, and abdominal fat in addition to the above Advanced destructive changes of the L2 and L3 vertebral bodies, presumably related to suspected discitis/osteomyelitis described on prior MRI of 12/14/2018 Atrophic bilateral kidneys, consistent with chronic renal insufficiency. Multiple renal cysts, consistent with polycystic disease of uremia. Mediastinal, axillary, and abdominal lymphadenopathy. Possible mild splenomegaly. Findings raise concern for lymphoproliferative disorder Gas bubbles in the right lower chest wall, may reflect recent injections versus penetrating trauma. Correlate with clinical findings Diffuse osteosclerosis, presumably representing renal osteodystrophy Inferior vena cava dialysis catheter demonstrated Tubular calcifications in the superior vena cava most likely represent an old fibrin sheath from a prior dialysis catheter Large right neck eggshell calcification, uncertain as to whether of thyroid or extrathyroidal origin. Presumably related to prior inflammatory diseas Subjective ROS Limited/Unobtainable: No Objective Objective Last 24 Hour Vital Signs Date Time Temp Pulse Resp B/P (MAP) Pulse Ox O2 Delivery O2 Flow Rate FiO2 02/16/19 12:00 97.5 69 18 150/90 (110) 95 02/16/19 09:47 70 142/91 02/16/19 09:46 70 142/91 02/16/19 09:00 Room Air 02/16/19 08:00 97.9 72 18 146/74 (98) 96 02/16/19 07:45 72 20 98 Room Air 21 02/16/19 05:30 152/91 02/16/19 04:00 98.7 80 17 152/91 (111) 97 02/16/19 00:00 98.7 82 16 149/94 (112) 96 02/15/19 21:19 173/107 02/15/19 21:19 84 173/107 02/15/19 20:19 Room Air 02/15/19 20:00 98.6 84 17 173/107 (129) 96 02/15/19 19:18 70 16 96 Room Air 21 02/15/19 17:38 148/96 02/15/19 16:00 98.1 81 19 141/84 (103) Intake and Output 02/15/19 02/16/19 19:00 07:00 Intake Total 250 ml 480 ml Output Total 5000 ml Balance -4750 ml 480 ml Intake Oral 480 ml Blood Product 250 ml Output Hemodialysis UF 5000 ml Laboratory Tests 02/16/19 06:00: White Blood Count 6.1, Red Blood Count 2.94L, Hemoglobin 9.6L, Hematocrit 29.1L , Mean Corpuscular Volume 99, Mean Corpuscular Hemoglobin 32.7H, Mean Corpuscular Hemoglobin Concent 33.1, Red Cell Distribution Width 15.0H, Platelet Count 285, Mean Platelet Volume 6.0L, Neutrophils (%) (Auto) 78.5H, Lymphocytes (%) (Auto) 6.8L, Monocytes (%) (Auto) 11.1H, Eosinophils (%) (Auto) 2.3, Basophils (%) (Auto) 1.3, Sodium Level 127L, Potassium Level 6.1*H, Chloride Level 92L, Carbon Dioxide Level 22, Anion Gap 14, Blood Urea Nitrogen 72H, Creatinine 7.2H, Estimat Glomerular Filtration Rate 6.0, Glucose Level 93, Calcium Level 9.9 Height (Feet): 5 Height (Inches): 5.00 Weight (Pounds): 142 General Appearance: no apparent distress Objective no change Yobani Lopez MD Feb 16, 2019 13:26
--- NOTE | 2019-02-16 13:38 | NUR ---
NURSE NOTES: DR ACOSTA WITH ORDER FOR HEMODIALYSIS FOR TOMORROW. RN SPOKE TO GEOFFREY AT [facility] AND MADE AWARE. PER GEOFFREY, A NURSE WILL CALL BACK TO CONFIRM HEMODIALYSIS TOMORROW.
--- NOTE | 2019-02-16 13:55 | General Progress Note ---
Assessment/Plan Problem List: (1) HTN (hypertension) ICD Codes: I10 - Essential (primary) hypertension SNOMED: 87311572 (2) Weak ICD Codes: R53.1 - Weakness SNOMED: 71555016 (3) ESRD (end stage renal disease) ICD Codes: N18.6 - End stage renal disease SNOMED: 46237331 (4) Hypertensive chronic kidney disease ICD Codes: I12.9 - Hypertensive chronic kidney disease with stage 1 through stage 4 chronic kidney disease, or unspecified chronic kidney disease SNOMED: 504893823886871 (5) Anemia ICD Codes: D64.9 - Anemia, unspecified SNOMED: 488389791 (6) ESRF (end stage renal failure) ICD Codes: N18.6 - End stage renal disease SNOMED: 11525182 Status: stable, progressing Assessment/Plan: o2 pulm tx pt diet transfuse prn renal f/u dc to snf Subjective Constitutional: Reports: weakness Allergies: Coded Allergies: CEPHALEXIN (Unverified Allergy, Unknown, 12/14/18) SULFAMETHOXAZOLE (Unverified Allergy, Unknown, 12/14/18) TRIMETHOPRIM (Unverified Allergy, Unknown, 12/14/18) VANCOMYCIN (Unverified Allergy, Unknown, 12/14/18) Uncoded Allergies: BACTRIM DS (Allergy, Unknown, 02/09/19) All Systems: reviewed and negative except above Subjective calm in bed Objective Last 24 Hour Vital Signs Date Time Temp Pulse Resp B/P (MAP) Pulse Ox O2 Delivery O2 Flow Rate FiO2 02/16/19 13:43 150/90 02/16/19 12:00 97.5 69 18 150/90 (110) 95 02/16/19 09:47 70 142/91 02/16/19 09:46 70 142/91 02/16/19 09:00 Room Air 02/16/19 08:00 97.9 72 18 146/74 (98) 96 02/16/19 07:45 72 20 98 Room Air 21 02/16/19 05:30 152/91 02/16/19 04:00 98.7 80 17 152/91 (111) 97 02/16/19 00:00 98.7 82 16 149/94 (112) 96 02/15/19 21:19 173/107 02/15/19 21:19 84 173/107 02/15/19 20:19 Room Air 02/15/19 20:00 98.6 84 17 173/107 (129) 96 02/15/19 19:18 70 16 96 Room Air 21 02/15/19 17:38 148/96 02/15/19 16:00 98.1 81 19 141/84 (103) Intake and Output 02/15/19 02/16/19 19:00 07:00 Intake Total 250 ml 480 ml Output Total 5000 ml Balance -4750 ml 480 ml Intake Oral 480 ml Blood Product 250 ml Output Hemodialysis UF 5000 ml Laboratory Tests 02/16/19 06:00: White Blood Count 6.1, Red Blood Count 2.94L, Hemoglobin 9.6L, Hematocrit 29.1L , Mean Corpuscular Volume 99, Mean Corpuscular Hemoglobin 32.7H, Mean Corpuscular Hemoglobin Concent 33.1, Red Cell Distribution Width 15.0H, Platelet Count 285, Mean Platelet Volume 6.0L, Neutrophils (%) (Auto) 78.5H, Lymphocytes (%) (Auto) 6.8L, Monocytes (%) (Auto) 11.1H, Eosinophils (%) (Auto) 2.3, Basophils (%) (Auto) 1.3, Sodium Level 127L, Potassium Level 6.1*H, Chloride Level 92L, Carbon Dioxide Level 22, Anion Gap 14, Blood Urea Nitrogen 72H, Creatinine 7.2H, Estimat Glomerular Filtration Rate 6.0, Glucose Level 93, Calcium Level 9.9 Height (Feet): 5 Height (Inches): 5.00 Weight (Pounds): 142 General Appearance: lethargic EENT: normal ENT inspection Neck: normal alignment Cardiovascular: normal peripheral pulses, normal rate, regular rhythm Respiratory/Chest: chest wall non-tender, lungs clear, normal breath sounds Abdomen: normal bowel sounds, non tender, soft Extremities: normal inspection Edema: no edema noted Arm (L), no edema noted Arm (R), no edema noted Leg (L), no edema noted Leg (R), no edema noted Pedal (L), no edema noted Pedal (R), no edema noted Generalized Neurologic: responsive, motor weakness Skin: normal pigmentation, warm/dry Narinder Villatoro DO Feb 16, 2019 13:55
--- NOTE | 2019-02-16 14:26 | NUR ---
RD ASSESSMENT & RECOMMENDATIONS SEE CARE ACTIVITY FOR COMPLETE ASSESSMENT DAILY ESTIMATED NEEDS: Needs based on underweight, ESRD/HD; 43kg 30-35 kcals/kg 1290- 1505 total kcals 1.2-1.8 g protein/kg 52- 77 g total protein Fluid per MD, on HD NUTRITION DIAGNOSIS: Increased kcal and pro needs r/t underweight status and renal dysfunction as evidenced by pt w/ ESRD, on HD, underweight per guidelines, @76% of [place] Body Weight. CURRENT DIET:Renal PO DIET RECOMMENDATIONS: Renal ADDITIONAL RECOMMENDATIONS: * Maintain accurate bedscale wt or obtain standing weight + Daily weight monitoring given ESRD/ HD status, underweight * Provide high protein snacks in b/w meals. -> pt does not like Nepro * Monitor lytes : K critically elev, phos elev
[2019-02-16] MEDS ORDERED: PROTONIX40 MG ORAL (14:33)
[2019-02-16] MEDS ORDERED: FOLIC ACID1 MG ORAL (14:33)
[2019-02-16] MEDS ORDERED: RENVELA2.4 GM ORAL (14:33)
[2019-02-16] MEDS ORDERED: COREG12.5 MG ORAL (14:34)
[2019-02-16] MEDS ORDERED: COLACE100 MG ORAL (14:34)
[2019-02-16] MEDS ORDERED: DUONEB 0.5-3(2.53 ML HHN (14:34)
[2019-02-16] MEDS ORDERED: CATAPRES-TTS 31 EACH TDERMAL (14:35)
[2019-02-16] MEDS ORDERED: ACETAMINOPHEN500 M5 ORAL (14:35)
[2019-02-16] MEDS ORDERED: MIRALAX17 G2 ORAL (14:35)
[2019-02-16] MEDS ORDERED: RESTORIL15 MG ORAL (14:36)
--- NOTE | 2019-02-16 15:27 | NUR ---
NURSE NOTES: PT REQUESTS TO SPEAK TO [employer] AGAIN. PT WANTS TO KNOW ANOTHER OPTION INSTEAD OF [facility]. RN SPOKE TO [employer] BELKIS AND MADE AWARE. PER BELKIS, SHE WILL NOT BE COMING OVER TO SPEAK TO PT AGAIN AND IF PT DOESN'T WANT TO GO TO [facility], SHE WILL HAVE TO GO HOME.
[2019-02-16] MEDS ORDERED: EPOGEN20000 UNI1 SUBQ (15:43)
--- NOTE | 2019-02-16 15:43 | NUR ---
DISCHARGE PLANNING DISCHARGE ORDER NOTED Patient has been accepted to; [facility] [id number] [place] [address] Bed: 214 for Nurse to Nurse report [facility] ETA for transportation: 17:30
[2019-02-16 16:00] VITALS: BP 136/77
--- NOTE | 2019-02-16 17:31 | Hematology/Onc Progress Note ---
Assessment/Plan Assessment/Plan Assessment and Recs: # Anemia of chronic disease due to underlying chronic medical issues, multifactorial --> Anemia workup has been ordered, rule out gi bleed --> No evidence of hemolysis is noted, peripheral smear has been reviewed. --> Hgb goal >7. Transfuse prn. --> Epogen has been started --> Medications have been reviewed --> low threshold for gi evaluation in case has occult + --> bone marrow biopsy is not indicated given the other more likely causes --> folic acid 1mg po daily started ---> hgb 5.8-->7-->6.9-->6.9->8.2-->9.6 --> noncomplaint with transfusions # Hyperproteinemia with decreased albumin -- this is a dissociation that is abnormal --> spep does show band elevation, and will likely be cause from renal d/o --> if above results in a m-spike or abnormally enhanced protein, will need to send off immunofixation serum/urine --> in the case of a m-spike or abnormally enhanced protein, will obtain a bone marrow biopsy # Fall --> to get pt/ot, eval for ads --> hearing test, vision as op # ESRD 3 x a week with missed session --> as per renal # Pneumothorax, left --> per pulm # Mechanical fall right hip pain # Dvt ppx heparin sq The timing of this note does not necessarily reflect the time of the patient was seen. Greatly appreciate consultation. Subjective Constitutional: Denies: no symptoms, chills, fever, malaise, weakness, other HEENT: Denies: no symptoms, eye pain, blurred vision, tearing, double vision, ear pain, ear discharge, nose pain, nose congestion, throat pain, throat swelling, mouth pain, mouth swelling, other Cardiovascular: Denies: no symptoms, chest pain, edema, irregular heart rate, lightheadedness, palpitations, syncope, other Respiratory: Denies: no symptoms, cough, shortness of breath, SOB with excertion, SOB at rest, sputum, wheezing, other Gastrointestinal/Abdominal: Denies: no symptoms, abdomen distended, abdominal pain, black stools, tarry stools, blood in stool, constipated, diarrhea, difficulty swallowing, nausea, poor appetite, poor fluid intake, rectal bleeding , vomiting, other Genitourinary: Denies: no symptoms, burning, discharge, frequency, flank pain, hematuria, incontinence, pain, urgency, other Neurologic/Psychiatric: Denies: no symptoms, anxiety, depressed, emotional problems, headache, numbness, paresthesia, pre-existing deficit, seizure, tingling, tremors, weakness, other Endocrine: Denies: no symptoms, excessive sweating, flushing, intolerance to cold, intolerance to heat, increased hunger, increased thirst, increased urine, unexplained weight gain, unexplained weight loss, other Allergies: Coded Allergies: CEPHALEXIN (Unverified Allergy, Unknown, 12/14/18) SULFAMETHOXAZOLE (Unverified Allergy, Unknown, 12/14/18) TRIMETHOPRIM (Unverified Allergy, Unknown, 12/14/18) VANCOMYCIN (Unverified Allergy, Unknown, 12/14/18) Uncoded Allergies: BACTRIM DS (Allergy, Unknown, 02/09/19) Subjective 02/11: labs pending from am, folic acid started, refusing temp 02/12: no events to note, no bleeding, to get hd, to get prbc too 02/13: for vip hd tomorrow, no bleeding no chills, reviewed labs 02/16: no bleeding or chills, accepted at [facility], no major changes Objective Objective Current Medications Medications (Trade) Dose Ordered Sig/Juliano Route PRN Reason Start Time Stop Time Status Last Admin Dose Admin Acetaminophen (Tylenol) 650 mg Q4H PRN ORAL Fever 02/13/19 02:30 03/11/19 02:29 02/15/19 17:40 Albuterol/ Ipratropium (Albuterol/ Ipratropium) 3 ml Q4H PRN HHN Shortness of Breath 02/14/19 09:30 02/19/19 09:29 Amlodipine Besylate (Norvasc) 10 mg DAILY ORAL 02/13/19 09:00 03/12/19 08:59 02/16/19 09:46 Carvedilol (Coreg) 12.5 mg EVERY 12 HOURS ORAL 02/13/19 09:00 03/11/19 20:59 02/16/19 09:47 Clonidine HCl (Catapres TTS-3) 1 patch QWEEK TDERMAL 02/18/19 12:00 03/13/19 11:59 Dextrose (Dextrose 50%) 25 ml Q30M PRN IV Hypoglycemia 02/13/19 02:45 03/11/19 16:14 Dextrose (Dextrose 50%) 50 ml Q30M PRN IV Hypoglycemia 02/13/19 02:45 03/11/19 16:14 Docusate Sodium (Colace) 100 mg THREE TIMES A DAY ORAL 02/13/19 09:00 03/13/19 12:59 02/16/19 13:43 Epoetin David (Epoetin David(ESRD on dialysis)) 10,000 unit FRI- SUBQ 02/15/19 21:00 03/14/19 20:59 02/15/19 21:19 Folic Acid (Folate) 3 mg DAILY ORAL 02/13/19 09:00 03/13/19 08:59 02/16/19 09:39 Gabapentin (Neurontin) 100 mg THREE TIMES A DAY ORAL 02/13/19 09:00 03/11/19 17:59 02/16/19 13:43 Heparin Sodium (Porcine) (Heparin 5000 units/ml) 5,000 units EVERY 12 HOURS SUBQ 02/13/19 09:00 03/11/19 20:59 02/16/19 09:51 Hydralazine HCl (Apresoline) 25 mg Q4H PRN ORAL bp over 160 syst 02/13/19 02:30 03/12/19 10:29 Hydralazine HCl (Apresoline) 50 mg Q8HR ORAL 02/13/19 06:00 03/13/19 11:59 02/16/19 13:43 Morphine Sulfate (Morphine Sulfate) 2 mg Q4H PRN IVP PAIN 4-10 02/14/19 10:30 02/17/19 10:29 02/16/19 10:05 Ondansetron HCl (Zofran) 4 mg Q6H PRN IVP Nausea & Vomiting 02/13/19 02:30 03/11/19 02:29 Pantoprazole (Protonix) 40 mg EVERY 12 HOURS ORAL 02/13/19 09:00 03/13/19 10:59 02/16/19 09:33 Polyethylene Glycol (Miralax) 17 gm DAILYPRN PRN ORAL Constipation 02/13/19 02:30 03/11/19 02:29 Sevelamer Carbonate (Renvela) 2,400 mg THREE TIMES A DAY ORAL 02/13/19 09:00 03/13/19 08:59 02/16/19 13:44 Temazepam (Restoril) 15 mg HSPRN PRN ORAL Insomnia 02/14/19 21:00 02/17/19 20:59 Last 24 Hour Vital Signs Date Time Temp Pulse Resp B/P (MAP) Pulse Ox O2 Delivery O2 Flow Rate FiO2 02/16/19 16:00 97.3 68 18 136/77 (96) 97 02/16/19 13:43 150/90 02/16/19 12:00 97.5 69 18 150/90 (110) 95 02/16/19 09:47 70 142/91 02/16/19 09:46 70 142/91 02/16/19 09:00 Room Air 02/16/19 08:00 97.9 72 18 146/74 (98) 96 02/16/19 07:45 72 20 98 Room Air 21 02/16/19 05:30 152/91 02/16/19 04:00 98.7 80 17 152/91 (111) 97 02/16/19 00:00 98.7 82 16 149/94 (112) 96 02/15/19 21:19 173/107 02/15/19 21:19 84 173/107 02/15/19 20:19 Room Air 02/15/19 20:00 98.6 84 17 173/107 (129) 96 02/15/19 19:18 70 16 96 Room Air 21 02/15/19 17:38 148/96 02/15/19 16:00 98.1 81 19 141/84 (103) 02/15/19 12:00 97.7 69 19 138/88 (105) 94 02/15/19 09:00 69 138/88 02/15/19 09:00 69 138/88 02/15/19 09:00 Room Air 02/15/19 08:30 75 18 95 Room Air 21 02/15/19 08:00 98.0 77 19 110/60 (77) 97 02/15/19 05:09 136/89 02/15/19 04:00 97.0 76 20 136/89 (105) 95 02/15/19 00:00 97.8 79 21 141/82 (101) 99 02/14/19 21:15 139/85 02/14/19 21:15 81 139/85 02/14/19 20:26 79 18 97 Room Air 21 02/14/19 20:05 Room Air 02/14/19 20:00 98.1 81 20 139/85 (103) 94 Intake and Output 02/15/19 02/16/19 19:00 07:00 Intake Total 250 ml 480 ml Output Total 5000 ml Balance -4750 ml 480 ml Intake Oral 480 ml Blood Product 250 ml Output Hemodialysis UF 5000 ml Labs Test 02/14/19 06:50 02/15/19 06:30 02/15/19 06:40 02/16/19 06:00 White Blood Count 6.2 K/UL (4.8-10.8) 6.6 K/UL (4.8-10.8) 6.1 K/UL (4.8-10.8) Red Blood Count 2.70 M/UL (4.20-5.40) 2.48 M/UL (4.20-5.40) 2.94 M/UL (4.20-5.40) Hemoglobin 8.7 G/DL (12.0-16.0) 8.1 G/DL (12.0-16.0) 9.6 G/DL (12.0-16.0) Hematocrit 27.0 % (37.0-47.0) 24.7 % (37.0-47.0) 29.1 % (37.0-47.0) Mean Corpuscular Volume 100 FL (80-99) 100 FL (80-99) 99 FL (80-99) Mean Corpuscular Hemoglobin 32.3 PG (27.0-31.0) 32.5 PG (27.0-31.0) 32.7 PG (27.0-31.0) Mean Corpuscular Hemoglobin Concent 32.4 G/DL (32.0-36.0) 32.7 G/DL (32.0-36.0) 33.1 G/DL (32.0-36.0) Red Cell Distribution Width 14.5 % (11.6-14.8) 14.5 % (11.6-14.8) 15.0 % (11.6-14.8) Platelet Count 293 K/UL (150-450) 308 K/UL (150-450) 285 K/UL (150-450) Mean Platelet Volume 5.4 FL (6.5-10.1) 5.5 FL (6.5-10.1) 6.0 FL (6.5-10.1) Neutrophils (%) (Auto) 75.6 % (45.0-75.0) 76.9 % (45.0-75.0) 78.5 % (45.0-75.0) Lymphocytes (%) (Auto) 10.6 % (20.0-45.0) 9.8 % (20.0-45.0) 6.8 % (20.0-45.0) Monocytes (%) (Auto) 9.2 % (1.0-10.0) 8.4 % (1.0-10.0) 11.1 % (1.0-10.0) Eosinophils (%) (Auto) 3.6 % (0.0-3.0) 3.7 % (0.0-3.0) 2.3 % (0.0-3.0) Basophils (%) (Auto) 1.1 % (0.0-2.0) 1.2 % (0.0-2.0) 1.3 % (0.0-2.0) Sodium Level 132 MMOL/L (136-145) 126 MMOL/L (136-145) 127 MMOL/L (136-145) Potassium Level 5.8 MMOL/L (3.5-5.1) 6.1 MMOL/L (3.5-5.1) 6.1 MMOL/L (3.5-5.1) Chloride Level 94 MMOL/L (98-107) 91 MMOL/L (98-107) 92 MMOL/L (98-107) Carbon Dioxide Level 23 MMOL/L (21-32) 25 MMOL/L (21-32) 22 MMOL/L (21-32) Anion Gap 15 mmol/L (5-15) 11 mmol/L (5-15) 14 mmol/L (5-15) Blood Urea Nitrogen 65 mg/dL (7-18) 80 mg/dL (7-18) 72 mg/dL (7-18) Creatinine 7.2 MG/DL (0.55-1.30) 8.1 MG/DL (0.55-1.30) 7.2 MG/DL (0.55-1.30) Estimat Glomerular Filtration Rate 6.0 mL/min (>60) 5.3 mL/min (>60) 6.0 mL/min (>60) Glucose Level 91 MG/DL (74-106) 97 MG/DL (74-106) 93 MG/DL (74-106) Calcium Level 10.2 MG/DL (8.5-10.1) 9.7 MG/DL (8.5-10.1) 9.9 MG/DL (8.5-10.1) Phosphorus Level 7.4 MG/DL (2.5-4.9) Total Bilirubin 0.4 MG/DL (0.2-1.0) Direct Bilirubin 0.1 MG/DL (0.0-0.3) Aspartate Amino Transf (AST/SGOT) 26 U/L (15-37) Alanine Aminotransferase (ALT/SGPT) 6 U/L (12-78) Alkaline Phosphatase 236 U/L (46-116) Total Protein 8.4 G/DL (6.4-8.2) Albumin 2.3 G/DL (3.4-5.0) Height (Feet): 5 Height (Inches): 5.00 Weight (Pounds): 142 Objective Physical Exam: Vitals: reviewed General Appearance: NAD HEENT: normocephalic, atraumatic Neck: non-tender, normal alignment Respiratory/Chest: normal breath sounds bilaterally Cardiovascular/Chest: normal peripheral pulses, normal rate Abdomen: normal bowel sounds, soft, nontender Extremities: normal range of motion Germán Herron MD Feb 16, 2019 17:31
--- NOTE | 2019-02-16 19:39 | NUR ---
HAND-OFF: Report given to Yisel QUILES RN.
[2019-02-16 20:55] VITALS: BP 150/92
--- NOTE | 2019-02-16 21:00 | NUR ---
NURSE NOTES: patient refused MRSA nares swab.
--- NOTE | 2019-02-16 21:12 | NUR ---
NURSE NOTES: [facility] ambulance were already in the unit ready to fruit or nut picker patient and report was given to the superannuation clerk. Patient was slightly agitated and her BP was 172/95 on first try with a big BP cuff. 150/92 with correct sized BP cuff on 2nd try. Scheduled BP medication was given; and patient is asymptomatic. Ambulance personnel suddenly notified RN that they were re-routed to fruit or nut picker a different patient and another ambulance personnel will come and pick patient up. Called [facility], spoke to Nuria. She stated that ambulance personnel had told her that patient's SBP was 185, and another ambulance will be arriving at [phone] for the patient. Original fruit or nut picker time was 1730. Patient becomes agitated from waiting to be discharged and had changed her mind multiple times into being discharged or not. Will be awaiting for the next ambulance.
--- NOTE | 2019-02-16 22:50 | NUR ---
NURSE NOTES: pt discharged and transferred to [facility] by ambulance. pt is stable condition. no acute respiratory or cardiac distress. no c/o pain. removed pt ID band and IV access. all belonging checked and validated. Matt JORDAN contacted and informed to Varun MEYER from [facility].
--- NOTE | 2019-02-17 12:42 | Discharge Summary ---
Discharge Summary Discharge Summary _ DATE OF ADMISSION: 02/09/2019 DATE OF DISCHARGE: 02/16/2019 DISCHARGED BY: Dr Villatoro REASON FOR ADMISSION: 48 years old female with past medical history of end-stage renal disease, on hemodialysis, hypertension, missed her dialysis. Patient reported fall at home and presented to emergency department with right hip pain. Patient reported that she tripped and fell and subsequently was unable to get up. Patient denied loss of consciousness. Upon evaluation vital signs revealed elevated blood pressure 180/110. Laboratory work-up revealed no leukocytosis , hemoglobin 5.8, hematocrit 18.7 with MCV of 105. Platelet count 281. Stable electrolytes. BUN 58, creatinine 7.2. Glucose 89. Stable LFT and lipase. Albumin 2.3. Troponin negative. EKG revealed sinus rhythm , no acute ischemic changes. Chest x-ray demonstrated findings possibly suggestive of small left basilar pneumothorax. Bilateral interstitial edema, moderate to large right pleural effusion, not significantly changed from prior assessment. ABG done on room air and revealed evidence of hypoxia with PO2 of 88%. Patient was typed and crossed in the emergency department , supplemental oxygen provided. Patient was admitted for further management. CONSULTANTS: hospitalist Dr. King retail sales specialist Dr. Lopez rib trim separator/oncologist Dr. Herron surgery [facility] COURSE: Patient admitted. Surgeon seen and evaluated patient . Patient subsequently undergone CT of the chest , which revealed no pneumothorax. Large bilateral pleural effusion. Evidence of anasarca with diffuse edema . CT of the pelvis revealed no definite acute bony or soft tissue trauma. Destructive changes of the left L3 vertebral body and conclusively visualized and pathological fracture of the left pedicle. Advanced destructive changes of the L2-L3 vertebral segments were described also on prior MRI in 12/14/2018. Evidence of renal osteodystrophy. Fall precaution maintained . Patient was working with physical therapist. Pain management was addressed. Blood pressure was managed with multiply antihypertensive medications, including calcium channel kimbelrey, beta-kimberley, clonidine patch and hydralazine. Supplemental oxygen provided and titrated to keep pulse oximetry above 92%. Pulmonary toilet with bronchodilator therapy provided as needed. Hemodialysis provided as per retail sales specialist recommendations with close monitoring of volumes, renal parameters, electrolytes. Hyperkalemia was treated. Hemoglobin and hematocrit were closely monitored with goal to keep hemoglobin above 7. Patient undergone transfusion of total of 2 units of packed red blood cells while in the hospital. Patient started on Epogen. GI prophylaxis provided. Anemia workup was consistent with anemia of chronic disease . Low level of folate noted. Patient started on folic acid 1 mg daily. DVT prophylaxis with heparin provided. Prior to discharge hemoglobin 9.6 hematocrit 29.1. Serum protein electrophoresis showed band elevation , likely cause from the renal disease. Placement was arranged and secured at [facility]. Patient subsequently was transferred to residential [facility] for further management. FINAL DIAGNOSES: Status post mechanical fall with right hip pain Bilateral pleural effusion Anasarca End-stage renal disease , on hemodialysis Noncompliance/missed hemodialysis Symptomatic anemia, status post 2 units of packed red blood cells transfusion Anemia of chronic disease, due to end-stage renal disease Hypertensive chronic kidney disease History of osteomyelitis of spine Renal osteodystrophy DISCHARGE MEDICATIONS: See Medication Reconciliation list. DISCHARGE INSTRUCTIONS: Patient was discharged to the residential facility. Follow up with medical doctor at the facility. Barbara Sheridan NP Feb 17, 2019 12:42
--- NOTE | 2019-02-17 15:52 | Cardiology Report ---
APPROVED REPORT EKG Measurement Heart [id number] Normal sinus rhythm Septal infarct, age undetermined Abnormal ECG
== END 2019-02-16 22:55 | DRG 555 ==
LOC: EDBD 12:52 → EMR 13:25 → 2E 13:56 → EDBEDREQ 15:59 → 4E 02-13 02:30
PROC: 30233N1 Transfusion of Nonautologous Red Blood Cells into Peripheral Vein, Percutaneous Approach (ICD-10-PCS; principal; 2019-02-09)
DX: M25.551 Pain in right hip (principal); N18.6 End stage renal disease; J93.9 Pneumothorax, unspecified; I12.0 Hypertensive chronic kidney disease with stage 5 chronic kidney disease or end stage renal disease; M84.48XA Pathological fracture, other site, initial encounter for fracture; Z88.1 Allergy status to other antibiotic agents; Z88.2 Allergy status to sulfonamides; D64.9 Anemia, unspecified; Z99.2 Dependence on renal dialysis; N25.0 Renal osteodystrophy; Z91.15 Patient's noncompliance with renal dialysis; W01.0XXA Fall on same level from slipping, tripping and stumbling without subsequent striking against object, initial encounter; Y92.481 Parking lot as the place of occurrence of the external cause; Z66 Do not resuscitate; R60.1 Generalized edema; R53.1 Weakness; E88.09 Other disorders of plasma-protein metabolism, not elsewhere classified
CPT/HCPCS: 36415; 36600; 71045; 71250; 72192; 80048; 80053; 80069; 80076; 82550; 82607; 82728; 82746; 82803; 83036; 83540; 83550; 83690; 83735; 83880; 84100; 84165; 84484; 84550; 85007; 85025; 85610; 85730; 86140; 86850; 86900; 86901; 86920; 87081; 93005; 94664; 96374; 96375; 99285; J2405; J7030

== ENCOUNTER 2019-02-28 17:55 | Inpatient (IN) | payer MEDICARE ==
[~2019-02-28] VITALS: Ht 165.1 cm; Wt 54.0 kg
[~2019-02-28 17:55] MED LIST changes: +ACETAMINOPHEN325 M1 ORAL; +ACETAMINOPHEN500 M5 ORAL; +AMLODIPINE BESY10 MG ORAL; +CARVEDILOL12.5 MG ORAL; +CATAPRES-TTS 31 EACH TDERMAL; +COLACE100 MG ORAL; +COREG12.5 MG ORAL; +DUONEB 0.5-3(2.53 ML HHN; +EPOGEN20000 UNI1 SUBQ; +FOLIC ACID1 MG ORAL; +IBUPROFEN200 M2 ORAL; +MIRALAX17 G2 ORAL; +NORCO 5-325 TA1 EACH ORAL; +PROTONIX40 MG ORAL; +RENVELA2.4 GM ORAL; +RESTORIL15 MG ORAL
--- NOTE | 2019-02-28 17:59 | NUR ---
ED Nurse Note: Pt brought by ambulance from [facility] due to Lt shoulder swelling for 2 days. pt aao x4 and bedbound at this moment. calm and follows commands. skin clean and intact. no cardiac or pulmonary distress noted at this moment. pt gets dialysis every M, W, but skipped on Friday. Rt hip access for dialysis present. pt is in gown and on autocad designer.
[2019-02-28 18:02] VITALS: BP 167/94
--- NOTE | 2019-02-28 18:10 | NUR ---
ED Nurse Note: EKG at bedside.
--- NOTE | 2019-02-28 18:36 | NUR ---
ED Nurse Note: x-ray at bedside.
--- NOTE | 2019-02-28 18:42 | NUR ---
ED Nurse Note: pt refused VRE swab. pt aao x4.
--- NOTE | 2019-02-28 18:45 | NUR ---
ED Nurse Note: ERMD at bedside with US to insert IV.
--- NOTE | 2019-02-28 18:57 | NUR ---
HAND-OFF: Report given to JULIAN Gilbert. IV needs to be inserted. per ERMD, he will try.
[2019-02-28 19:08] LABS: BASOPHILS % (AUTO) 0.9 % (0.0-2.0); EOSINOPHILS % (AUTO) 3.5 % (0.0-3.0); HEMATOCRIT 30.3 % (37.0-47.0); HEMOGLOBIN 9.5 G/DL (12.0-16.0); LYMPHOCYTES % (AUTO) 6.4 % (20.0-45.0); MEAN CORPUSCULAR VOLUME 103 FL (80-99); MONOCYTES % (AUTO) 8.2 % (1.0-10.0); NEUTROPHILS % (AUTO) 80.9 % (45.0-75.0); PLATELET COUNT 258 K/UL (150-450); RED BLOOD COUNT 2.95 M/UL (4.20-5.40); RED CELL DISTRIBUTION WIDTH 14.6 % (11.6-14.8); WHITE BLOOD COUNT 8.3 K/UL (4.8-10.8)
[2019-02-28 19:22] LABS: ALANINE AMINOTRANSFERASE 7 U/L (12-78); ALBUMIN 2.3 G/DL (3.4-5.0); ALBUMIN/GLOBULIN RATIO 0.4 (1.0-2.7); ALKALINE PHOSPHATASE 251 U/L (46-116); ANION GAP 13 mmol/L (5-15); ASPARTATE AMINO TRANSFERASE 18 U/L (15-37); BILIRUBIN,TOTAL 0.3 MG/DL (0.2-1.0); BLOOD UREA NITROGEN 94 mg/dL (7-18); CALCIUM 9.3 MG/DL (8.5-10.1); CARBON DIOXIDE 22 MMOL/L (21-32); CHLORIDE 97 MMOL/L (98-107); SODIUM 133 MMOL/L (136-145)
[2019-02-28 19:25] LABS: POTASSIUM 7.5 MMOL/L (3.5-5.1)
[2019-02-28] MEDS ORDERED: Calcium Gluconate 1gm/10ml vial IVP ONE (19:30)
[2019-02-28] MEDS ORDERED: Insulin Human Regular 100units/ml 3ml IV ONE (19:30)
--- NOTE | 2019-02-28 20:13 | NUR ---
TRANSFER TO FLOOR: Patient transferred to as ordered, per ER PA. Report given to . Belongings and medications sent with pt. SNF informed of admit
--- NOTE | 2019-02-28 20:45 | NUR ---
NURSE NOTES: Pt received on [facility] awake alert able to make needs known, left arm edema, vitals 97 T, 81hr, 20rr, 191/96, 98O2, pt upset while blood pressure being taken, pain level of 7, calling dialysis center [facility], will continue to monitor, get orders from MD.
--- NOTE | 2019-02-28 21:00 | NUR ---
NURSE NOTES: Pt refused MRSA and VRE swabs in ER
--- NOTE | 2019-02-28 21:47 | Emergency Room Report ---
History of Present Illness General Chief Complaint: Edema Present Illness HPI 49-year-old female currently undergoing dialysis history of CKD and hyperkalemia who has been to [facility] multiple times brought in by the paramedics complaining of left arm swelling x2 days as well as missing her last session of dialysis 2 days ago. Patient rating the pain in the left arm 10 out of 10 without radiation. Has a shunt placed in the right thigh. Patient was recently admitted to [facility] and left AGAINST MEDICAL ADVICE. Patient was recently seen in January at [facility] for similar issues and left AGAINST MEDICAL ADVICE. Denies chest pain, shortness of breath, palpitation, no other associated symptoms. Edema and erythema to left arm seen upon physical exam. (Alfonso Bass) Allergies: Coded Allergies: CEPHALEXIN (Unverified Allergy, Unknown, 12/14/18) SULFAMETHOXAZOLE (Unverified Allergy, Unknown, 12/14/18) TRIMETHOPRIM (Unverified Allergy, Unknown, 12/14/18) VANCOMYCIN (Unverified Allergy, Unknown, 12/14/18) Uncoded Allergies: BACTRIM DS (Allergy, Unknown, 02/09/19) Patient History Past Medical History: see triage record Past Surgical History: unable to obtain Pertinent Family History: none Last Menstrual Period: N/A Now: No Reviewed Nursing Documentation: PMH: Agreed; PSxH: Agreed (Alfonso Bass) Nursing Documentation-PMH Hx Cardiac Problems: Yes Hx Hypertension: Yes Hx Cancer: No Hx Gastrointestinal Problems: No Hx Dialysis: Yes - M,W,F Hx Neurological Problems: No (Alfonso Bass) Review of Systems All Other Systems: negative except mentioned in HPI (Alfonso Bass) Physical Exam Vital Signs Date Time Temp Pulse Resp B/P (MAP) Pulse Ox O2 Delivery O2 Flow Rate FiO2 02/28/19 17:40 97.9 72 18 167/94 (118) 93 Room Air Sp02 EP Interpretation: reviewed, normal General Appearance: no apparent distress, alert, GCS 15, non-toxic Head: normocephalic, atraumatic Eyes: bilateral eye normal inspection, bilateral eye PERRL ENT: hearing grossly normal, normal pharynx, no angioedema, normal voice Neck: full range of motion, supple/symm/no masses Respiratory: no rhonchi, no respiratory distress, no retraction, no accessory muscle use, no wheezing, crackles - diffuse Cardiovascular #1: regular rate, rhythm, no edema, no murmur Cardiovascular #2: 2+ carotid (R), 2+ carotid (L), 2+ radial (R), 2+ radial (L) , 2+ dorsalis pedis (R), 2+ dorsalis pedis (L) Gastrointestinal: normal bowel sounds, non tender, soft, non-distended, no guarding, no rebound Rectal: deferred Genitourinary: adnexa normal Musculoskeletal: back normal, normal range of motion, non-tender, no calf tenderness Neurologic: alert, oriented x3, responsive, motor strength/tone normal, sensory intact, speech normal Psychiatric: judgement/insight normal, memory normal, mood/affect normal, no suicidal/homicidal ideation Skin: other - edema and erythmea left arm Lymphatic: no adenopathy (Alfonso Bass) Procedures Critical Care Time Critical Care Time Given the critical condition in which the patient arrived, the patient was immediately assessed by myself and the nurse, and cardiac monitoring initiated due to the potential for rapid decompensation of the patient's clinical condition. During the course of the patient's stay, I spent a considerable amount of time at the bedside performing serial re-evaluations of the patient's hemodynamic and clinical status because of the recognized potential threat to life or limb in this condition. I then had a chance to review not only all of the available current laboratory and radiographic studies obtained today, but I also reviewed old records available to me at the time. Additionally, any ancillary information available including manager ui records were reviewed. Sequential vital signs were obtained. Critical Care time of 37 minutes was performed exclusive of billable procedures. (Jose Winters MD) Medical Decision Making PA Attestation Diagnosis and treatment plans were reviewed and discussed with my supervising physician Dr. Winters (Alfonso Bass) Diagnostic Impression: Primary Impression: Hyperkalemia Additional Impressions: Pulmonary edema Qualified Codes: J81.0 - Acute pulmonary edema Missed dialysis ER Course 49-year-old female currently undergoing dialysis history of CKD and hyperkalemia who has been to [facility] multiple times brought in by the paramedics complaining of left arm swelling x2 days as well as missing her last session of dialysis 2 days ago. Patient rating the pain in the left arm 10 out of 10 without radiation. Has a shunt placed in the right thigh. Patient was recently admitted to [facility] and left AGAINST MEDICAL ADVICE. Patient was recently seen in January at [facility] for similar issues and left AGAINST MEDICAL ADVICE. Denies chest pain, shortness of breath, palpitation, no other associated symptoms. Edema and erythema to left arm seen upon physical exam. Ddx considered but are not limited to: Renal failure, hyperkalemia, missed dialysis, DKA Vital signs: are WNL, pt. is afebrile H&PE are most consistent with missed dialysis, hyperkalemia, pulmonary edema ORDERS: EKG, Chest XR, cardiac labs(troponin, CBC, CMP, ABGs, ED INTERVENTIONS: None required at this time. Patient was admited with diagnosis of hyperkalemia, missed dialysis, pulmonary edema to Dr. Villatoro and consultation by Dr. Lopez under supervision of Dr.: Singh pt stable at time of admission (Alfonso Bass) ER Course I saw and evaluated the patient and discussed the care with Alfonso CAMPOS. I agree with the findings and plan as documented in the note. Patient hyperkalemic requiring calcium gluconate, patient also required insulin , dextrose. Patient was critical but has chronic hyperkalemia due to her multiple missed dialysis in the past Consultation with nephrology as well as hospitalist in order to coordinate care was conducted (Jose Winters MD) Last Vital Signs Date Time Temp Pulse Resp B/P (MAP) Pulse Ox O2 Delivery O2 Flow Rate FiO2 02/28/19 20:56 85 17 165/94 95 Room Air 02/28/19 18:02 97.9 (Alfonso Bass) Disposition: ADMITTED INPATIENT Condition: Serious Referrals: Narinder Villatoro DO (PCP) Alfonso Bass Feb 28, 2019 21:47 Jose Winters MD Mar 01, 2019 13:33
[2019-02-28] MEDS ORDERED: Morphine Sulfate 2mg/ml Inj(IV/IM USE ONLY) IVP PRN (23:15)
[2019-03-01] VITALS (8 sets, daily range): BP systolic 120–166; BP diastolic 72–110
--- NOTE | 2019-03-01 00:32 | NUR ---
NURSE NOTES: Pt received dialysis 3.5L out.
--- NOTE | 2019-03-01 01:30 | NUR ---
NURSE NOTES: Pt has clonidine patch ordered, entered room to take pt BP of 154/98, then pt refused the clonidine patch once it was placed on her arm she started screaming stating she never had a patch and she takes blood pressure pills, I removed the patch and discarded it. Charge nurse aware.
[2019-03-01] MEDS ORDERED: LORazepam 1mg tab ORAL PRN (04:30)
--- NOTE | 2019-03-01 07:41 | NUR ---
HAND-OFF: Report given to Michelle, RN. left message for Dr King, Dr Villatoro regarding admitting orders, Endorsed to nurse
[2019-03-01 07:49] LABS: BASOPHILS % (AUTO) 1.1 % (0.0-2.0); EOSINOPHILS % (AUTO) 2.8 % (0.0-3.0); HEMATOCRIT 30.5 % (37.0-47.0); HEMOGLOBIN 9.7 G/DL (12.0-16.0); LYMPHOCYTES % (AUTO) 3.1 % (20.0-45.0); MEAN CORPUSCULAR VOLUME 104 FL (80-99); MONOCYTES % (AUTO) 8.1 % (1.0-10.0); NEUTROPHILS % (AUTO) 84.9 % (45.0-75.0); PLATELET COUNT 256 K/UL (150-450); RED BLOOD COUNT 2.94 M/UL (4.20-5.40); RED CELL DISTRIBUTION WIDTH 14.5 % (11.6-14.8); WHITE BLOOD COUNT 9.3 K/UL (4.8-10.8)
[2019-03-01 08:21] LABS: ALANINE AMINOTRANSFERASE 6 U/L (12-78); ALBUMIN 2.4 G/DL (3.4-5.0); ALBUMIN/GLOBULIN RATIO 0.4 (1.0-2.7); ALKALINE PHOSPHATASE 231 U/L (46-116); ANION GAP 7 mmol/L (5-15); ASPARTATE AMINO TRANSFERASE 17 U/L (15-37); BILIRUBIN,TOTAL 0.4 MG/DL (0.2-1.0); BLOOD UREA NITROGEN 63 mg/dL (7-18); CALCIUM 9.6 MG/DL (8.5-10.1); CARBON DIOXIDE 27 MMOL/L (21-32); CHLORIDE 98 MMOL/L (98-107); CREATININE 7.5 MG/DL (0.55-1.30); PHOSPHORUS 6.5 MG/DL (2.5-4.9); SODIUM 132 MMOL/L (136-145)
[2019-03-01 08:52] LABS: POTASSIUM 6.3 MMOL/L (3.5-5.1)
[2019-03-01] MEDS: Renvela 2400 mg pkt ORAL SCH ×3 (09:12→17:05)
[2019-03-01] MEDS ORDERED: Miralax 17gm pkt ORAL PRN (09:15)
[2019-03-01] MEDS ORDERED: Albuterol/Ipratropium 3ml neb HHN PRN (09:15)
[2019-03-01] MEDS ORDERED: Sodium Polystyrene Sulfonate 15gm Powder ORAL SCH ×2 (12:15→21:00)
[2019-03-01] MEDS: Morphine Sulfate 2mg/ml Inj(IV/IM USE ONLY) IVP PRN ×2 (12:26→17:05)
--- NOTE | 2019-03-01 12:35 | NUR ---
NURSE NOTES: Potassium this AM 6.3. Dr. Lopez gave order for kayexalate. Patient refused. Patient educated on risks of not taking medication. Patient said "I do not want it, I will have dialysis tomorrow."
--- NOTE | 2019-03-01 12:36 | Consultation ---
History of Present Illness General Date patient seen: Mar 01, 2019 Chief Complaint: Edema Present Illness HPI 49-year-old female with hx of ESRD, on HD, [facility]dc resident presented to ER with left arm pain and swelling. Her pain is aggravated with movement alleviated with rest. Pt is admitted to med/surg for further evaluation. Allergies: Coded Allergies: CEPHALEXIN (Unverified Allergy, Unknown, 12/14/18) SULFAMETHOXAZOLE (Unverified Allergy, Unknown, 12/14/18) TRIMETHOPRIM (Unverified Allergy, Unknown, 12/14/18) VANCOMYCIN (Unverified Allergy, Unknown, 12/14/18) Uncoded Allergies: BACTRIM DS (Allergy, Unknown, 02/09/19) Medication History Scheduled Amlodipine Besylate* (Amlodipine Besylate*), 10 MG ORAL DAILY, (Reported) Carvedilol (Coreg), 12.5 MG ORAL EVERY 12 HOURS, (Reported) Carvedilol* (Carvedilol*), 12.5 MG ORAL DAILY, (Reported) Slmcvplgv-Viq-6* (Yiblnlbk-Lbr-3*), 1 PATCH TDERMAL ONCE A WEEK, (Reported) Docusate Sodium* (Colace*), 100 MG ORAL THREE TIMES A DAY, (Reported) Epoetin David (Epogen), 10,000 UNIT SUBQ 3XW, (Reported) Folic Acid* (Folic Acid*), 3 MG ORAL DAILY, (Reported) Gabapentin* (Gabapentin*), 200 MG ORAL THREE TIMES A DAY, (Reported) Pantoprazole* (Protonix*), 40 MG ORAL EVERY 12 HOURS, (Reported) Sevelamer Carbonate* (Renvela*), 2,400 MG ORAL THREE TIMES A DAY, (Reported) Scheduled PRN Acetaminophen (Acetaminophen), 650 MG ORAL Q4H PRN for Mild Pain/Temp > 100.5, ( Reported) Acetaminophen* (Acetaminophen 325MG Tablet*), 650 MG ORAL Q8HR PRN for Mild Pain (Pain Scale 1-3), (Reported) Hydrocodone Bit/Acetaminophen 5-325* (Concord 5-325*), 1 TAB ORAL Q4HR PRN for Severe Pain (Pain Scale 7-10), (Reported) Ibuprofen (Ibuprofen), 400 MG ORAL Q8HR PRN for Moderate Pain (Pain Scale 4-6), (Reported) Ipratropium/Albuterol Sulfate (DuoNeb 0.5-3(2.5)mg/3ml), 3 ML HHN for Shortness of Breath, (Reported) Polyethylene Glycol 3350* (Miralax*), 17 GM ORAL DAILY PRN for Constipation, ( Reported) Temazepam* (Restoril*), 15 MG ORAL BEDTIME PRN for Insomnia, (Reported) Patient History Healthcare decision maker Resuscitation status Full Code Advanced Directive on File Past Medical/Surgical History Past Medical/Surgical History: (1) Hypertensive chronic kidney disease (2) ESRD (end stage renal disease) (3) HTN (hypertension) (4) Noncompliance Review of Systems Neurological: Reports: no symptoms Endocrine: Reports: no symptoms Hematologic/Lymphatic: Reports: no symptoms All Other Systems: negative except mentioned in HPI Physical Exam General Appearance: WD/WN HEENT: normocephalic, atraumatic Neck: non-tender, normal alignment Respiratory/Chest: chest wall non-tender, lungs clear Cardiovascular/Chest: normal peripheral pulses, normal rate Abdomen: normal bowel sounds, non tender Genitourinary/Rectal: normal genital exam Extremities: normal range of motion 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: 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 benefits specialist II-XII grossly normal Last 24 Hour Vital Signs Date Time Temp Pulse Resp B/P (MAP) Pulse Ox O2 Delivery O2 Flow Rate FiO2 03/01/19 09:14 154 118/89 03/01/19 08:00 89 19 154/110 (125) 95 03/01/19 04:00 98.4 90 19 120/72 (88) 96 03/01/19 00:00 154/98 (116) 02/28/19 22:10 Room Air 02/28/19 21:45 81 191/96 02/28/19 20:56 85 17 165/94 95 Room Air 02/28/19 18:02 72 18 Room Air 02/28/19 18:02 97.9 71 18 167/94 93 Room Air 02/28/19 17:40 97.9 72 18 167/94 (118) 93 Room Air Intake and Output 02/28/19 03/01/19 19:00 07:00 Intake Total 0 ml 500 ml Balance 0 ml 500 ml Intake Oral 0 ml 500 ml # Voids 1 Laboratory Tests Test 02/28/19 18:20 03/01/19 07:06 White Blood Count 8.3 K/UL (4.8-10.8) 9.3 K/UL (4.8-10.8) Red Blood Count 2.95 M/UL (4.20-5.40) L 2.94 M/UL (4.20-5.40) L Hemoglobin 9.5 G/DL (12.0-16.0) L 9.7 G/DL (12.0-16.0) L Hematocrit 30.3 % (37.0-47.0) L 30.5 % (37.0-47.0) L Mean Corpuscular Volume 103 FL (80-99) H 104 FL (80-99) H Mean Corpuscular Hemoglobin 32.3 PG (27.0-31.0) H 33.0 PG (27.0-31.0) H Mean Corpuscular Hemoglobin Concent 31.4 G/DL (32.0-36.0) L 31.8 G/DL (32.0-36.0) L Red Cell Distribution Width 14.6 % (11.6-14.8) 14.5 % (11.6-14.8) Platelet Count 258 K/UL (150-450) 256 K/UL (150-450) Mean Platelet Volume 4.6 FL (6.5-10.1) L 4.6 FL (6.5-10.1) L Neutrophils (%) (Auto) 80.9 % (45.0-75.0) H 84.9 % (45.0-75.0) H Lymphocytes (%) (Auto) 6.4 % (20.0-45.0) L 3.1 % (20.0-45.0) L Monocytes (%) (Auto) 8.2 % (1.0-10.0) 8.1 % (1.0-10.0) Eosinophils (%) (Auto) 3.5 % (0.0-3.0) H 2.8 % (0.0-3.0) Basophils (%) (Auto) 0.9 % (0.0-2.0) 1.1 % (0.0-2.0) Prothrombin Time 10.4 SEC (9.30-11.50) Prothromb Time International Ratio 1.0 (0.9-1.1) Activated Partial Thromboplast Time 28 SEC (23-33) Sodium Level 133 MMOL/L (136-145) L 132 MMOL/L (136-145) L Potassium Level 7.5 MMOL/L (3.5-5.1) *H 6.3 MMOL/L (3.5-5.1) *H Chloride Level 97 MMOL/L (98-107) L 98 MMOL/L (98-107) Carbon Dioxide Level 22 MMOL/L (21-32) 27 MMOL/L (21-32) Anion Gap 13 mmol/L (5-15) 7 mmol/L (5-15) Blood Urea Nitrogen 94 mg/dL (7-18) H 63 mg/dL (7-18) H Creatinine 9.0 MG/DL (0.55-1.30) H 7.5 MG/DL (0.55-1.30) H Estimat Glomerular Filtration Rate 4.7 mL/min (>60) 5.7 mL/min (>60) Glucose Level 100 MG/DL (74-106) 85 MG/DL (74-106) Calcium Level 9.3 MG/DL (8.5-10.1) 9.6 MG/DL (8.5-10.1) Total Bilirubin 0.3 MG/DL (0.2-1.0) 0.4 MG/DL (0.2-1.0) Aspartate Amino Transf (AST/SGOT) 18 U/L (15-37) 17 U/L (15-37) Alanine Aminotransferase (ALT/SGPT) 7 U/L (12-78) L 6 U/L (12-78) L Alkaline Phosphatase 251 U/L (46-116) H 231 U/L (46-116) H Total Protein 8.1 G/DL (6.4-8.2) 8.5 G/DL (6.4-8.2) H Albumin 2.3 G/DL (3.4-5.0) L 2.4 G/DL (3.4-5.0) L Globulin 5.8 g/dL 6.1 g/dL Albumin/Globulin Ratio 0.4 (1.0-2.7) L 0.4 (1.0-2.7) L Lipase 138 U/L (73-393) Uric Acid 4.1 MG/DL (2.6-7.2) Phosphorus Level 6.5 MG/DL (2.5-4.9) H Magnesium Level 2.4 MG/DL (1.8-2.4) Troponin I 0.003 ng/mL (0.000-0.056) Vitamin B12 Level 688 PG/ML (193-986) Folate 38.0 NG/ML (8.6-58.9) Height (Feet): 5 Height (Inches): 5.00 Weight (Pounds): 100 Medications Current Medications Medications (Trade) Dose Ordered Sig/Juliano Route PRN Reason Start Time Stop Time Status Last Admin Dose Admin Acetaminophen (Tylenol) 650 mg Q4H PRN ORAL Fever 03/01/19 09:15 03/31/19 09:14 03/01/19 09:56 Acetaminophen/ Codeine Phosphate (Tylenol #3) 1 tab Q6H PRN ORAL MODERATE PAIN 03/01/19 11:45 03/08/19 11:44 Albuterol/ Ipratropium (Albuterol/ Ipratropium) 3 ml Q4H PRN HHN Shortness of Breath 03/01/19 09:15 03/06/19 09:14 Amlodipine Besylate (Norvasc) 10 mg DAILY ORAL 03/01/19 09:00 03/31/19 08:59 03/01/19 09:14 Aripiprazole (Abilify) 2 mg QPM ORAL 03/01/19 16:30 03/31/19 16:29 Clonidine HCl (Catapres TTS-3) 1 patch ONCE A WEEK TDERMAL 02/28/19 22:00 03/30/19 21:59 Clonidine HCl (Catapres Tab) 0.1 mg Q4H PRN ORAL bp over 160 syst 02/28/19 20:45 03/30/19 20:44 Dextrose (Dextrose 50%) 25 ml Q30M PRN IV Hypoglycemia 03/01/19 09:15 03/31/19 09:14 Dextrose (Dextrose 50%) 50 ml Q30M PRN IV Hypoglycemia 03/01/19 09:15 03/31/19 09:14 Gabapentin (Neurontin) 200 mg THREE TIMES A DAY ORAL 03/01/19 09:00 03/31/19 08:59 03/01/19 09:12 Heparin Sodium (Porcine) (Heparin 5000 units/ml) 5,000 units EVERY 12 HOURS SUBQ 03/01/19 21:00 03/31/19 20:59 Lorazepam (Ativan) 1 mg Q6H PRN ORAL For Anxiety 03/01/19 04:30 03/08/19 04:29 Morphine Sulfate (Morphine Sulfate) 2 mg Q4H PRN IVP severe pain 03/01/19 11:45 03/08/19 11:44 Ondansetron HCl (Zofran) 4 mg Q6H PRN IVP Nausea & Vomiting 03/01/19 09:15 03/31/19 09:14 Pantoprazole (Protonix) 40 mg EVERY 12 HOURS ORAL 02/28/19 21:00 03/30/19 20:59 03/01/19 09:13 Polyethylene Glycol (Miralax) 17 gm DAILYPRN PRN ORAL Constipation 03/01/19 09:15 03/31/19 09:14 Sevelamer Carbonate (Renvela) 2,400 mg THREE TIMES A DAY ORAL 03/01/19 09:00 03/31/19 08:59 03/01/19 09:12 Sodium Polystyrene Sulfonate (Kayexalate) 60 gm ONCE ORAL 03/01/19 12:15 03/01/19 14:00 Temazepam (Restoril) 15 mg HSPRN PRN ORAL Insomnia 03/01/19 09:15 03/08/19 09:14 Assessment/Plan Problem List: (1) Swelling of left upper extremity ICD Codes: M79.89 - Other specified soft tissue disorders SNOMED: 983960251 (2) ESRD (end stage renal disease) ICD Codes: N18.6 - End stage renal disease SNOMED: 08279391 (3) Hypertensive chronic kidney disease ICD Codes: I12.9 - Hypertensive chronic kidney disease with stage 1 through stage 4 chronic kidney disease, or unspecified chronic kidney disease SNOMED: 617428250933746 (4) HTN (hypertension) ICD Codes: I10 - Essential (primary) hypertension SNOMED: 04709286 (5) Anasarca ICD Codes: R60.1 - Generalized edema SNOMED: 758046166, 827041180 Assessment/Plan: venous doppler of left arm symptomatic treatment monitor BP respiratory treatment titrate fio2 to sat of 92% Jarad King MD 11, 2019 12:36
[2019-03-01] MEDS: Tylenol #3 tab (300mg/30mg) ORAL PRN ×2 (13:15→21:49)
--- NOTE | 2019-03-01 13:23 | Consultation ---
Consult Note Consult Note asked to eval for dialysis management known to me from her previous admissions uncooperative with dialysis and meds patient admitted via ER last night with high K and chest congestion interviewed examined complains of left hand swelling ER: 49-year-old female currently undergoing dialysis history of CKD and hyperkalemia who has been to [place] [facility] multiple times brought in by the paramedics complaining of left arm swelling x2 days as well as missing her last session of dialysis 2 days ago. Patient rating the pain in the left arm 10 out of 10 without radiation. Has a shunt placed in the right thigh. Patient was recently admitted to [facility] and left AGAINST MEDICAL ADVICE. Patient was recently seen in January at [place] [facility] for similar issues and left AGAINST MEDICAL ADVICE. Denies chest pain, shortness of breath, palpitation, no other associated symptoms. Edema and erythema to left arm seen upon physical exam. Allergies: Coded Allergies: CEPHALEXIN (Unverified Allergy, Unknown, 12/14/18) SULFAMETHOXAZOLE (Unverified Allergy, Unknown, 12/14/18) TRIMETHOPRIM (Unverified Allergy, Unknown, 12/14/18) VANCOMYCIN (Unverified Allergy, Unknown, 12/14/18) Uncoded Allergies: BACTRIM DS (Allergy, Unknown, 02/09/19) Assessment/Plan High K -ESRD- Missed HD h/o Fall h/o Osteomyelitis of spine Anasarca Anemia of CKD, symptomatic now ? Lymphoproliferative Ds non compliance and last admit patient left AMA in the past Dialysed early today will dialyse in am renal diet keep bp in check per consultants and psych PREVIOUSLY: Chest CT: No pneumothorax. Findings on recent chest radiograph or presumably factitious Large bilateral pleural effusions Evidence of anasarca, with diffuse edema of the subcutaneous, mediastinal, and abdominal fat in addition to the above Advanced destructive changes of the L2 and L3 vertebral bodies, presumably related to suspected discitis/osteomyelitis described on prior MRI of 12/14/2018 Atrophic bilateral kidneys, consistent with chronic renal insufficiency. Multiple renal cysts, consistent with polycystic disease of uremia. Mediastinal, axillary, and abdominal lymphadenopathy. Possible mild splenomegaly. Findings raise concern for lymphoproliferative disorder Gas bubbles in the right lower chest wall, may reflect recent injections versus penetrating trauma. Correlate with clinical findings Diffuse osteosclerosis, presumably representing renal osteodystrophy Inferior vena cava dialysis catheter demonstrated Tubular calcifications in the superior vena cava most likely represent an old fibrin sheath from a prior dialysis catheter Large right neck eggshell calcification, uncertain as to whether of thyroid or extrathyroidal origin. Presumably related to prior inflammatory disease. Yobani Lopez MD Mar 01, 2019 13:23
--- NOTE | 2019-03-01 14:00 | NUR ---
HAND-OFF: Report given to [email or web address].
--- NOTE | 2019-03-01 15:00 | NUR ---
NURSE NOTES: RN called [facility] spoke to cath regarding HD for tomorrow. will continue to monitor.
--- NOTE | 2019-03-01 15:14 | NUR ---
NURSE NOTES: Received pt from ALEXI RN at 1420. Pt is alert and orient x4. pt is in RA, no SOB or acute respiratory distress noted. pt has in tact iv access RFA 24G SL. pt has L arm swollen and she refused sean duplex . per RN ALEXI, Dr ACOSTA is aware about all lab results. all belongings are with pt and list signed by pt. all needs attended, bed is locked and is in the lowest position, call light within easy reach. will continue to monitor. Addendum: 03/01/19 at 1829 by Curtis Lopez RN pt has dialysis access on the R hip.
--- NOTE | 2019-03-01 15:18 | Diagnostic Imaging Report ---
Indication: Chest pain Comparison: 02/09/2019 A single view chest radiograph was obtained. Findings: Pulmonary vascular congestion is moderate and worse compared to the prior occasion. Heart is enlarged. There is evidence of bilateral pleural effusions. Bones are osteopenic. IMPRESSION: Congestive heart failure. Bilateral pleural effusions
--- NOTE | 2019-03-01 15:37 | Consultation ---
Consult Note Consult Note HPI: 49yo woman with PMH ESRD presents with L arm swelling of 2 days. Pt missed her last HD session, which was supposed to be 02/26. Pt has several history of AMA. Pt states that at baseline, pt's LUE is more swollen the right. The swelling worsened after missing HD. Pt feels better now that pt had HD this morning. Denies fever chills. ROS: per HPI PMH: HTN ESRD Lumbar spine OM Meds: reviewed All: Bactrim, cephalexin, vancomycin Fhx: noncontributory VS: reviewed Gen: NAD HEENT: anicteric sclera CV: RRR Resp: RRR Abd: soft. no TTP LUE: warmth, swelling, mild tenderness Neuro: alert Labs: reviewed Assessment: Afebrile No leukocytosis LUE cellulitis CXR: Congestive heart failure. Bilateral pleural effusions Keflex allergy: itchiness without rash Bactrim allergy: itchiness without rash Vancomycin allergy: itchiness without rash For the above allergies, pt denies SOB, anaphylaxis, throat closing, delayed reaction, skin sloughing. Hyperkalemia ESRD HTN Poor compliance Poor medical literacy Plan: Ceftriaxone #1 to target skin danny including strep agree with duplex to r/o thrombus elevate LUE HD per nephrology aspiration precaution skin care catheter care Thank you for this consult. [facility] will continue to follow the patient with you. Eitan Porter MD Mar 01, 2019 15:37
--- NOTE | 2019-03-01 16:00 | Consultation ---
DATE OF CONSULTATION: 03/01/2019 CONSULTING PHYSICIAN: Sherwin Greene M.D. HISTORY OF PRESENT ILLNESS: This is a 49-year-old female patient with edema, respiratory failure. She also has been refusing treatments and dialysis. She also has anemia, so because of her refusal and psychomotor agitation, there was a daily psychiatric consultation for this patient to be seen. I saw and assessed this patient at bedside. She is stating that she has left arm swelling for two days. She is very poor when asked about missing her dialysis treatments. The patient seems to not have any clear response as to why she missed her treatments and unclear if she is accepting and refusing treatments as of now. Even though she understands that she does have some symptoms and problems from that during her dialysis such as her arm swelling she is complaining of. MEDICAL HISTORY: The patient has a history of edema and erythema of her left arm. She has chronic renal disease and hyperkalemia as well. She has hypertension. ALLERGIES: Double-strength Bactrim, cephalexin, sulfamethoxazole, trimethoprim, and vancomycin. PSYCHOTROPIC MEDICATIONS ON ADMISSION: This patient is on Neurontin 300 mg three times a day with no other clear psychotropic medications at this time. SUBSTANCE ABUSE HISTORY: There is no known history of any drug and alcohol use. FAMILY PSYCHIATRIC HISTORY: Denies. PAIN ASSESSMENT: 06/28. DEVELOPMENTAL PROBLEMS: Denies. SOCIAL HISTORY: This patient live in [facility]. Financially supported by [facility] and Medicare. PSYCHIATRIC HISTORY: History of major depression, rule out dementia with psychosis. MENTAL STATUS EXAMINATION: This is a 49-year-old female. Appearance is disheveled. Attitude, irritable and agitated. Affect, guarded and restricted. Intellect poor. Mood, depressed and anxious. Motor activity, psychomotor agitation. Attention span is poor. Orientation x2. Speech is normal volume. Thought process, linear and goal directed. Thought content, denies auditory hallucinations or paranoid delusions. Insight and judgment is poor. DIAGNOSIS: Major depression, mild, recurrent with psychotic features. PLAN: I am going to add Ativan 1 mg every 6 hours p.r.n. anxiety and agitation. I am also going to add a low dose of Abilify at a dose of 2 mg to help stabilize her mood and reduce her agitation level and titrate up as needed. Provided with 20 minutes of cognitive behavioral therapy to help her identify automatic negative thoughts and help her convert negative thoughts to more positive thoughts to reduce depression, anxiety, and mood lability. A 20 minutes of cognitive behavioral therapy also to help her have a more adaptive behavioral pattern. Chart reviewed. Discussed with staff. Seen and assessed at bedside. Sherwin Greene M.D. DR: DUSTIN JOB#: [id number] CC:
--- NOTE | 2019-03-01 16:00 | NUR ---
NURSE NOTES: Pt asked for pain, RN pulled out morphine but because it wasn't due time medication returned to pexis.
[2019-03-01] MEDS: ARIPiprazole 2mg tab ORAL SCH (17:05)
--- NOTE | 2019-03-01 18:15 | History and Physical Report ---
DATE OF ADMISSION: 02/28/2019 DATE AND TIME SEEN: 03/01/2019 at 9 a.m. CONSULTANTS: 1. Yobani Lopez M.D. 2. Jarad King M.D. 3. Marco Antonio M.D. 4. Nik Blevins M.D. 5. Sherwin Greene M.D. CHIEF COMPLAINT: ESRD, pulmonary edema, left arm cellulitis and edema. BRIEF HISTORY: This is a 49-year-old female from [facility] who presented with the above-mentioned diagnoses, left arm cellulitis and edema for about a week. The patient came to [facility] slightly anxious, now oriented x2, in no acute distress. PAST MEDICAL HISTORY: ESRD and hypertension. PAST SURGICAL HISTORY: . ALLERGIES: Keflex, vancomycin, and Bactrim. MEDICATIONS: Include heparin, omeprazole, albuterol, Zofran, Tylenol, temazepam, amlodipine, gabapentin, , lorazepam, morphine, and clonidine. SOCIAL HISTORY: No smoking. No alcohol. No intravenous drug abuse. FAMILY HISTORY: Noncontributory. PHYSICAL EXAMINATION: GENERAL: Slightly anxious in bed, oriented x2, in no acute distress. VITAL SIGNS: Temperature is 98 degrees, pulse 90, respirations 19, and blood pressure 120/72. CARDIOVASCULAR: No murmur. LUNGS: Poor air exchange. ABDOMEN: Bowel sounds distant. EXTREMITIES: No cyanosis or clubbing. 1+ edema. Left arm slightly warm. NEUROLOGIC: The patient moves all extremities, slightly weak. LABORATORY AND DIAGNOSTIC DATA: Labs at this time show H and H of 9.7/30, otherwise CBC is normal. BMP shows sodium 132, potassium 6.3, BUN and creatinine 60/7.5. INR is 1.0, PTT 28. ASSESSMENT: 1. ESRD. 2. Pulmonary edema. 3. Left arm cellulitis and edema. 4. Hypertension. PLAN: 1. Dialysis p.r.n. 2. Wound care. 3. Antibiotics per Infectious Disease. 4. Blood pressure and pain control. 5. Dietary followup. 6. Psych treatment. 7. PT and dietary evaluation. 8. CBC and BMP in the morning. Narinder Villatoro D.O. DR: RAMANDEEP JOB#: [id number] CC:
--- NOTE | 2019-03-01 18:22 | NUR ---
NURSE NOTES: Dr ZAMBRANO is notified that pt has allergy to ROCEPHIN, and Dr alcantar pt gets itchy with Keflex order, no other reaction, we can give it to her. noted . will continue to monitor.
--- NOTE | 2019-03-01 19:10 | NUR ---
HAND-OFF: Report given to FERNANDO JORDAN .
--- NOTE | 2019-03-01 19:11 | NUR ---
NURSE NOTES: Received a report from JULIAN Acevedo. Pt is in stable condition. AAOX4. Able to make needs known. On room air. IV site is patent and intact. Bed in lowest position. Bed alarm is on. Call light within reach. Will continue to monitor.
--- NOTE | 2019-03-01 19:30 | NUR ---
NURSE NOTES: Morning nurse Afsoon talked to hemodialysis nurse for scheduled hemodialysis tomorrow.
[2019-03-01] MEDS ORDERED: cefTRIAXone 1 GM in D5W 55 ML IVPB SCH (20:00)
[2019-03-01] MEDS: Heparin 5000 units/ml inj SUBQ SCH (21:26)
--- NOTE | 2019-03-01 22:30 | NUR ---
NURSE NOTES: Pt experienced chest pain. Will call MD to notify. Pt is in stable condition. Charge Nurse Ale made aware.
--- NOTE | 2019-03-01 23:00 | NUR ---
NURSE NOTES: Called Dr. Villatoro to inform him about the pt's chest pain 1hr ago. Awaiting for call back.
--- NOTE | 2019-03-01 23:30 | NUR ---
NURSE NOTES: Called Dr. Villatoro to inform him about the pt's chest pain. Will inform the Nursing Fire Captain Marine.
[2019-03-02] VITALS: BP 151/89
[2019-03-02] MEDS: Morphine Sulfate 2mg/ml Inj(IV/IM USE ONLY) IVP PRN ×4 (00:23→18:20)
--- NOTE | 2019-03-02 00:53 | NUR ---
NURSE NOTES: Nursing supervisor fabrication Mari called Dr. King about the pt's chest pain [address] King ordered Morphine 2mg IVP Q4H for chest pain. Nursing supervisor fabrication Mari asked Dr. King if he wants to transfer the pt to [facility] for cardiac monitoring since the potassium of the pt yesterday was 6.3. According to Dr. King, there's no need to transfer the pt since she's going to have hemodialysis today. Pt is currently in stable condition. Will continue to monitor.
[2019-03-02] MEDS ORDERED: Morphine Sulfate 2mg/ml Inj(IV/IM USE ONLY) IVP PRN (01:00)
--- NOTE | 2019-03-02 03:31 | Consultation ---
DATE OF CONSULTATION: 03/01/2019 NOTE: POOR AUDIO PSYCHOTHERAPY CONSULTATION PROGRESS NOTE CONSULTING PHYSICIAN: Adalberto Bailon M.D. TREATING ATTENDING PHYSICIAN: Sherwin Greene M.D. HISTORY OF PRESENT ILLNESS: The patient is a 49-year-old female patient. nursing facility. The patient is brought to the hospital for missed dialysis, anemia, and for this reason is referred for psychotherapeutic services to treat her anxiety. We assessed this patient. She was tearful and crying. She states that she has been severely depressed. She is depressed and helpless. The patient states that she is depressed secondary to . She has been feeling hopeless that her pain has been very high. . She has been also having anxiety. She states that she still has a history of mental illness. She denies suicidal or homicidal thoughts of ideation. Denies any auditory or visual hallucinations. The patient is cooperative and able to communicate. Able to . This clinician assessed this patient extensively. PAST MEDICAL HISTORY: The patient has a history of dialysis, hypertension. ALLERGIES: The patient has allergies to Bactrim, cephalexin, , trimethoprim, and vancomycin. SUBSTANCE ABUSE HISTORY: The patient denies any history of alcohol use and substance use. PSYCHIATRIC HISTORY: The patient states that she has a history of anxiety and depression and has been treated with psychotropic medications in the past. SOCIAL HISTORY: The patient is a 49-year-old single female patient. The patient is from [facility]. Financially sustained through [facility]. MENTAL STATUS EXAMINATION: The patient is alert and oriented to person, place, and time. Mood is anxious. Affect is . Thought process, . She has poor attention and concentration. Fair insight and judgment. Poor impulse control. DIAGNOSIS: Major depressive disorder, moderate without psychotic features. ASSESSMENT: I assessed the patient and provided the patient with: 1. Supportive psychotherapy, which would provide the patient with positive thoughts, emotional distress. wider range of affect, problem . 2. Cognitive behavioral therapy dysfunctional thinking behavior and . 3. Individual psychotherapy . This patient has been assessed today with treatment team. This clinician has reviewed the patient's chart and discussed the treatment with treatment team. Adalberto Bailon PsyD. DR: BRIGITTE JOB#: [id number] CC:
[2019-03-02 04:00] VITALS: BP 170/103
[2019-03-02 04:37] LABS: HEMATOCRIT 29.3 % (37.0-47.0); HEMOGLOBIN 9.3 G/DL (12.0-16.0); MEAN CORPUSCULAR VOLUME 103 FL (80-99); PLATELET COUNT 234 K/UL (150-450); RED BLOOD COUNT 2.86 M/UL (4.20-5.40); RED CELL DISTRIBUTION WIDTH 13.9 % (11.6-14.8); WHITE BLOOD COUNT 11.4 K/UL (4.8-10.8)
[2019-03-02 04:53] LABS: ALBUMIN 2.2 G/DL (3.4-5.0); ANION GAP 10 mmol/L (5-15); BLOOD UREA NITROGEN 77 mg/dL (7-18); CALCIUM 9.3 MG/DL (8.5-10.1); CARBON DIOXIDE 24 MMOL/L (21-32); CHLORIDE 97 MMOL/L (98-107); PHOSPHORUS 7.4 MG/DL (2.5-4.9); SODIUM 131 MMOL/L (136-145)
--- NOTE | 2019-03-02 06:06 | NUR ---
NURSE NOTES: Left a message to Dr. Lopez regarding high potassium: 7.0. Awaiting for call back.
--- NOTE | 2019-03-02 06:51 | NUR ---
NURSE NOTES: Dr. King ordered to D/C the Rocephin. Morning nurse Andrew made aware.
--- NOTE | 2019-03-02 07:15 | NUR ---
HAND-OFF: Report given to JULIAN Morales. Pt is in stable condition.
--- NOTE | 2019-03-02 07:20 | NUR ---
NURSE NOTES: Patient lying in bed awake. Complain of pain 7/10 on bilateral knee and will administer pain medication as ordered. Skin intact and dry. IV dressing intact and dry. Bed lowest position. Call light within reach. Will continue to monitor.
[2019-03-02 08:00] VITALS: BP 169/94
[2019-03-02] MEDS: Renvela 2400 mg pkt ORAL SCH ×2 (08:47→13:00)
[2019-03-02] MEDS: Heparin 5000 units/ml inj SUBQ SCH ×2 (08:56→21:31)
--- NOTE | 2019-03-02 09:00 | NUR ---
NURSE NOTES: Called [facility] Nephrology and spoke to MELISSA. Notified MELISSA that patient has dialysis order today and he will call religion department chair nurse.
--- NOTE | 2019-03-02 09:10 | NUR ---
PT NOTE Received MD order for PT evaluation. Patient about to begin dialysis. Will re-attempt later in the afternoon as schedule permits.
--- NOTE | 2019-03-02 09:15 | NUR ---
NURSE NOTES: Dialysis started and patient stable condition. Dialysis site on right femoral. Will continue to monitor.
[2019-03-02] MEDS ORDERED: Cathflo Alteplase 2mg Inj INJ SCH (10:08)
--- NOTE | 2019-03-02 10:30 | NUR ---
NURSE NOTES: Finished dialysis and 1.3 L removed. Patient in stable condition. Cathflo given by Dialysis. Will continue to monitor.
[2019-03-02] MEDS ORDERED: Acetaminophen 500mg (ES) tab ORAL PRN (11:00)
--- NOTE | 2019-03-02 11:06 | Pulmonology Progress Note ---
Assessment/Plan Problems: (1) Swelling of left upper extremity (2) ESRD (end stage renal disease) (3) Hypertensive chronic kidney disease (4) HTN (hypertension) (5) Anasarca Assessment/Plan swelling less no new complains pt wants more tylenol for pain BP controlled HD by nephrology Subjective ROS Limited/Unobtainable: No Constitutional: Reports: no symptoms HEENT: Repors: no symptoms Allergies: Coded Allergies: CEPHALEXIN (Unverified Allergy, Unknown, 12/14/18) SULFAMETHOXAZOLE (Unverified Allergy, Unknown, 12/14/18) TRIMETHOPRIM (Unverified Allergy, Unknown, 12/14/18) VANCOMYCIN (Unverified Allergy, Unknown, 12/14/18) Uncoded Allergies: BACTRIM DS (Allergy, Unknown, 02/09/19) Objective Last 24 Hour Vital Signs Date Time Temp Pulse Resp B/P (MAP) Pulse Ox O2 Delivery O2 Flow Rate FiO2 03/02/19 09:00 Room Air 03/02/19 08:47 68 169/94 03/02/19 08:00 97.6 68 18 169/94 (119) 98 03/02/19 04:39 170/103 03/02/19 04:00 98.6 81 19 170/103 (125) 94 03/02/19 00:53 98.4 03/02/19 00:00 98.8 78 19 151/89 (109) 98 03/01/19 22:19 98.4 03/01/19 21:23 166/109 03/01/19 21:00 Room Air 03/01/19 20:00 98.4 84 18 166/109 (128) 95 03/01/19 18:00 153/86 (108) 03/01/19 17:05 164/92 03/01/19 16:00 98.2 85 17 164/92 (116) 98 03/01/19 14:30 98.6 84 18 158/93 (114) 96 03/01/19 12:00 99.1 81 18 156/95 (115) 94 Intake and Output 03/01/19 03/02/19 19:00 07:00 Intake Total 360 ml 240 ml Balance 360 ml 240 ml Intake Oral 360 ml 240 ml # Voids 1 General Appearance: WD/WN HEENT: normocephalic, atraumatic Respiratory/Chest: chest wall non-tender, lungs clear Breasts: no masses Cardiovascular: normal peripheral pulses, normal rate Abdomen: normal bowel sounds, soft, non tender Genitourinary: normal external genitalia Extremities: no clubbing Skin: no rash Laboratory Tests 03/01/19 15:05: Troponin I 0.004 03/02/19 04:00: Troponin I 0.022, White Blood Count 11.4H, Red Blood Count 2.86L, Hemoglobin 9.3L, Hematocrit 29.3L, Mean Corpuscular Volume 103H, Mean Corpuscular Hemoglobin 32.6H, Mean Corpuscular Hemoglobin Concent 31.8L, Red Cell Distribution Width 13.9, Platelet Count 234, Mean Platelet Volume 4.6L, Neutrophils (%) (Auto) , Lymphocytes (%) (Auto) , Monocytes (%) (Auto) , Eosinophils (%) (Auto) , Basophils (%) (Auto) , Sodium Level 131L, Potassium Level 7.0*H, Chloride Level 97L, Carbon Dioxide Level 24, Anion Gap 10, Blood Urea Nitrogen 77H, Creatinine 8.0H, Estimat Glomerular Filtration Rate 5.3, Glucose Level 105, Calcium Level 9.3, Phosphorus Level 7.4H, Albumin 2.2L 03/02/19 09:47: Troponin I 0.021 Current Medications Medications (Trade) Dose Ordered Sig/Juliano Route PRN Reason Start Time Stop Time Status Last Admin Dose Admin Acetaminophen (Tylenol) 1,000 mg Q8H PRN ORAL Mild Pain/Temp > 100.5 03/02/19 11:00 04/01/19 10:59 Acetaminophen/ Codeine Phosphate (Tylenol #3) 1 tab Q6H PRN ORAL MODERATE PAIN 03/01/19 11:45 03/08/19 11:44 03/01/19 21:49 Albuterol/ Ipratropium (Albuterol/ Ipratropium) 3 ml Q4H PRN HHN Shortness of Breath 03/01/19 09:15 03/06/19 09:14 Amlodipine Besylate (Norvasc) 10 mg DAILY ORAL 03/01/19 09:00 03/31/19 08:59 03/02/19 08:47 Aripiprazole (Abilify) 2 mg QPM ORAL 03/01/19 16:30 03/31/19 16:29 03/01/19 17:05 Clonidine HCl (Catapres TTS-3) 1 patch ONCE A WEEK TDERMAL 02/28/19 22:00 03/30/19 21:59 Clonidine HCl (Catapres Tab) 0.1 mg Q4H PRN ORAL bp over 160 syst 02/28/19 20:45 03/30/19 20:44 03/02/19 04:39 Dextrose (Dextrose 50%) 25 ml Q30M PRN IV Hypoglycemia 03/01/19 09:15 03/31/19 09:14 Dextrose (Dextrose 50%) 50 ml Q30M PRN IV Hypoglycemia 03/01/19 09:15 03/31/19 09:14 Diphenhydramine HCl (Benadryl) 50 mg Q6H PRN ORAL Itching 03/02/19 03:30 04/01/19 03:29 Gabapentin (Neurontin) 300 mg THREE TIMES A DAY ORAL 03/01/19 18:00 03/31/19 08:59 03/02/19 08:47 Heparin Sodium (Porcine) (Heparin 5000 units/ml) 5,000 units EVERY 12 HOURS SUBQ 03/01/19 21:00 03/31/19 20:59 03/02/19 08:56 Lorazepam (Ativan) 1 mg Q6H PRN ORAL For Anxiety 03/01/19 04:30 03/08/19 04:29 Morphine Sulfate (Morphine Sulfate) 2 mg Q4H PRN IVP severe pain 03/01/19 11:45 03/08/19 11:44 03/02/19 08:48 Morphine Sulfate (Morphine Sulfate) 2 mg Q4H PRN IVP For Chest Pain 6-10 03/02/19 01:00 03/09/19 00:59 Ondansetron HCl (Zofran) 4 mg Q6H PRN IVP Nausea & Vomiting 03/01/19 09:15 03/31/19 09:14 Pantoprazole (Protonix) 40 mg EVERY 12 HOURS ORAL 02/28/19 21:00 03/30/19 20:59 03/02/19 08:47 Polyethylene Glycol (Miralax) 17 gm DAILYPRN PRN ORAL Constipation 03/01/19 09:15 03/31/19 09:14 Sevelamer Carbonate (Renvela) 2,400 mg THREE TIMES A DAY ORAL 03/01/19 09:00 03/31/19 08:59 03/02/19 08:47 Sodium Polystyrene Sulfonate (Kayexalate) 30 gm QHS ORAL 03/01/19 21:00 03/31/19 20:59 Temazepam (Restoril) 15 mg HSPRN PRN ORAL Insomnia 03/01/19 09:15 03/08/19 09:14 Jarad King MD Mar 02, 2019 11:06
[2019-03-02 12:00] VITALS: BP 163/91
--- NOTE | 2019-03-02 12:27 | Nephrology Progress Note ---
Assessment/Plan Problem List: (1) Hyperkalemia (2) ESRD (end stage renal disease) (3) Hypertensive chronic kidney disease (4) Anemia Assessment High K -ESRD- Missed HD h/o Fall h/o Osteomyelitis of spine Anasarca Anemia of CKD, symptomatic now ? Lymphoproliferative Ds non compliance and last admit patient left AMA in the past Plan Dialysed now, Cath poor flow will dialyse in am after activase today renal diet keep bp in check per consultants and psych Subjective ROS Limited/Unobtainable: No Objective Objective Last 24 Hour Vital Signs Date Time Temp Pulse Resp B/P (MAP) Pulse Ox O2 Delivery O2 Flow Rate FiO2 03/02/19 09:00 Room Air 03/02/19 08:47 68 169/94 03/02/19 08:00 97.6 68 18 169/94 (119) 98 03/02/19 04:39 170/103 03/02/19 04:00 98.6 81 19 170/103 (125) 94 03/02/19 00:53 98.4 03/02/19 00:00 98.8 78 19 151/89 (109) 98 03/01/19 22:19 98.4 03/01/19 21:23 166/109 03/01/19 21:00 Room Air 03/01/19 20:00 98.4 84 18 166/109 (128) 95 03/01/19 18:00 153/86 (108) 03/01/19 17:05 164/92 03/01/19 16:00 98.2 85 17 164/92 (116) 98 03/01/19 14:30 98.6 84 18 158/93 (114) 96 Intake and Output 03/01/19 03/02/19 19:00 07:00 Intake Total 360 ml 240 ml Balance 360 ml 240 ml Intake Oral 360 ml 240 ml # Voids 1 Laboratory Tests 03/01/19 15:05: Troponin I 0.004 03/02/19 04:00: Troponin I 0.022, White Blood Count 11.4H, Red Blood Count 2.86L, Hemoglobin 9.3L, Hematocrit 29.3L, Mean Corpuscular Volume 103H, Mean Corpuscular Hemoglobin 32.6H, Mean Corpuscular Hemoglobin Concent 31.8L, Red Cell Distribution Width 13.9, Platelet Count 234, Mean Platelet Volume 4.6L, Neutrophils (%) (Auto) , Lymphocytes (%) (Auto) , Monocytes (%) (Auto) , Eosinophils (%) (Auto) , Basophils (%) (Auto) , Differential Total Cells Counted 100, Neutrophils % (Manual) 91H, Lymphocytes % (Manual) 5L, Monocytes % (Manual) 4, Eosinophils % (Manual) 0, Basophils % (Manual) 0, Band Neutrophils 0 , Platelet Estimate Adequate, Platelet Morphology Normal, Macrocytosis 1+, Sodium Level 131L, Potassium Level 7.0*H, Chloride Level 97L, Carbon Dioxide Level 24, Anion Gap 10, Blood Urea Nitrogen 77H, Creatinine 8.0H, Estimat Glomerular Filtration Rate 5.3, Glucose Level 105, Calcium Level 9.3, Phosphorus Level 7.4H, Albumin 2.2L 03/02/19 09:47: Troponin I 0.021 Height (Feet): 5 Height (Inches): 5.00 Weight (Pounds): 99 General Appearance: no apparent distress Objective no change Yobani Lopez MD Mar 02, 2019 12:27
--- NOTE | 2019-03-02 12:52 | Infectious Diseases Prog Note ---
Assessment/Plan Assessment/Plan Assessment: Afebrile LUE cellulitis CXR: Congestive heart failure. Bilateral pleural effusions Keflex allergy: itchiness without rash Bactrim allergy: itchiness without rash Vancomycin allergy: itchiness without rash For the above allergies, pt denies SOB, anaphylaxis, throat closing, delayed reaction, skin sloughing. Options for treatment of cellulitis was discussed and pt elected to try Keflex stating that she can tolerate the itchiness associated with it. Pt was given Ceftriaxone 03/01. Pt developed itchiness and chest pain, which was not a reaction pt mentioned with keflex. Pt is comfortable this morning. No change in vital signs reported. Hyperkalemia ESRD HTN Poor compliance Poor medical literacy Anxiety Depression Plan: 03/01 SP Ceftriaxone #1 agree with duplex to r/o thrombus elevate LUE HD per nephrology aspiration precaution skin care catheter care Thank you for this consult. Subjective Allergies: Coded Allergies: CEPHALEXIN (Unverified Allergy, Unknown, 12/14/18) SULFAMETHOXAZOLE (Unverified Allergy, Unknown, 12/14/18) TRIMETHOPRIM (Unverified Allergy, Unknown, 12/14/18) VANCOMYCIN (Unverified Allergy, Unknown, 12/14/18) Uncoded Allergies: BACTRIM DS (Allergy, Unknown, 02/09/19) Subjective Afebrile. Pt received Ceftriaxone yesterday at 9PM. Reported having itchiness and chest pain an hour later. No change in vital signs. Objective Vital Signs Last 24 Hour Vital Signs Date Time Temp Pulse Resp B/P (MAP) Pulse Ox O2 Delivery O2 Flow Rate FiO2 03/02/19 09:00 Room Air 03/02/19 08:47 68 169/94 03/02/19 08:00 97.6 68 18 169/94 (119) 98 03/02/19 04:39 170/103 03/02/19 04:00 98.6 81 19 170/103 (125) 94 03/02/19 00:53 98.4 03/02/19 00:00 98.8 78 19 151/89 (109) 98 03/01/19 22:19 98.4 03/01/19 21:23 166/109 03/01/19 21:00 Room Air 03/01/19 20:00 98.4 84 18 166/109 (128) 95 03/01/19 18:00 153/86 (108) 03/01/19 17:05 164/92 03/01/19 16:00 98.2 85 17 164/92 (116) 98 03/01/19 14:30 98.6 84 18 158/93 (114) 96 Height (Feet): 5 Height (Inches): 5.00 Weight (Pounds): 99 Objective Gen: NAD HEENT: anicteric sclera CV: RRR Resp: RRR Abd: soft. no TTP LUE: warmth, swelling, mild tenderness Neuro: alert Skin: no rash or lesions Laboratory Tests Test 03/01/19 15:05 03/02/19 04:00 03/02/19 09:47 Troponin I 0.004 ng/mL (0.000-0.056) 0.022 ng/mL (0.000-0.056) 0.021 ng/mL (0.000-0.056) White Blood Count 11.4 K/UL (4.8-10.8) H Red Blood Count 2.86 M/UL (4.20-5.40) L Hemoglobin 9.3 G/DL (12.0-16.0) L Hematocrit 29.3 % (37.0-47.0) L Mean Corpuscular Volume 103 FL (80-99) H Mean Corpuscular Hemoglobin 32.6 PG (27.0-31.0) H Mean Corpuscular Hemoglobin Concent 31.8 G/DL (32.0-36.0) L Red Cell Distribution Width 13.9 % (11.6-14.8) Platelet Count 234 K/UL (150-450) Mean Platelet Volume 4.6 FL (6.5-10.1) L Neutrophils (%) (Auto) % (45.0-75.0) Lymphocytes (%) (Auto) % (20.0-45.0) Monocytes (%) (Auto) % (1.0-10.0) Eosinophils (%) (Auto) % (0.0-3.0) Basophils (%) (Auto) % (0.0-2.0) Differential Total Cells Counted 100 Neutrophils % (Manual) 91 % (45-75) H Lymphocytes % (Manual) 5 % (20-45) L Monocytes % (Manual) 4 % (1-10) Eosinophils % (Manual) 0 % (0-3) Basophils % (Manual) 0 % (0-2) Band Neutrophils 0 % (0-8) Platelet Estimate Adequate Platelet Morphology Normal Macrocytosis 1+ Sodium Level 131 MMOL/L (136-145) L Potassium Level 7.0 MMOL/L (3.5-5.1) *H Chloride Level 97 MMOL/L (98-107) L Carbon Dioxide Level 24 MMOL/L (21-32) Anion Gap 10 mmol/L (5-15) Blood Urea Nitrogen 77 mg/dL (7-18) H Creatinine 8.0 MG/DL (0.55-1.30) H Estimat Glomerular Filtration Rate 5.3 mL/min (>60) Glucose Level 105 MG/DL (74-106) Calcium Level 9.3 MG/DL (8.5-10.1) Phosphorus Level 7.4 MG/DL (2.5-4.9) H Albumin 2.2 G/DL (3.4-5.0) L Current Medications Medications (Trade) Dose Ordered Sig/Juliano Route PRN Reason Start Time Stop Time Status Last Admin Dose Admin Acetaminophen (Tylenol) 1,000 mg Q8H PRN ORAL Mild Pain/Temp > 100.5 03/02/19 11:00 04/01/19 10:59 Acetaminophen/ Codeine Phosphate (Tylenol #3) 1 tab Q6H PRN ORAL MODERATE PAIN 03/01/19 11:45 03/08/19 11:44 03/01/19 21:49 Albuterol/ Ipratropium (Albuterol/ Ipratropium) 3 ml Q4H PRN HHN Shortness of Breath 03/01/19 09:15 03/06/19 09:14 Amlodipine Besylate (Norvasc) 10 mg DAILY ORAL 03/01/19 09:00 03/31/19 08:59 03/02/19 08:47 Aripiprazole (Abilify) 2 mg QPM ORAL 03/01/19 16:30 03/31/19 16:29 03/01/19 17:05 Clonidine HCl (Catapres TTS-3) 1 patch ONCE A WEEK TDERMAL 02/28/19 22:00 03/30/19 21:59 Clonidine HCl (Catapres Tab) 0.1 mg Q4H PRN ORAL bp over 160 syst 02/28/19 20:45 03/30/19 20:44 03/02/19 04:39 Dextrose (Dextrose 50%) 25 ml Q30M PRN IV Hypoglycemia 03/01/19 09:15 03/31/19 09:14 Dextrose (Dextrose 50%) 50 ml Q30M PRN IV Hypoglycemia 03/01/19 09:15 03/31/19 09:14 Diphenhydramine HCl (Benadryl) 50 mg Q6H PRN ORAL Itching 03/02/19 03:30 04/01/19 03:29 Gabapentin (Neurontin) 300 mg THREE TIMES A DAY ORAL 03/01/19 18:00 03/31/19 08:59 03/02/19 08:47 Heparin Sodium (Porcine) (Heparin 5000 units/ml) 5,000 units EVERY 12 HOURS SUBQ 03/01/19 21:00 03/31/19 20:59 03/02/19 08:56 Lorazepam (Ativan) 1 mg Q6H PRN ORAL For Anxiety 03/01/19 04:30 03/08/19 04:29 Morphine Sulfate (Morphine Sulfate) 2 mg Q4H PRN IVP severe pain 03/01/19 11:45 03/08/19 11:44 03/02/19 08:48 Morphine Sulfate (Morphine Sulfate) 2 mg Q4H PRN IVP For Chest Pain 6-10 03/02/19 01:00 03/09/19 00:59 Ondansetron HCl (Zofran) 4 mg Q6H PRN IVP Nausea & Vomiting 03/01/19 09:15 03/31/19 09:14 Pantoprazole (Protonix) 40 mg EVERY 12 HOURS ORAL 02/28/19 21:00 03/30/19 20:59 03/02/19 08:47 Polyethylene Glycol (Miralax) 17 gm DAILYPRN PRN ORAL Constipation 03/01/19 09:15 03/31/19 09:14 Sevelamer Carbonate (Renvela) 2,400 mg THREE TIMES A DAY ORAL 03/01/19 09:00 03/31/19 08:59 03/02/19 08:47 Sodium Polystyrene Sulfonate (Kayexalate) 45 gm QHS ORAL 03/02/19 21:00 03/31/19 20:59 Temazepam (Restoril) 15 mg HSPRN PRN ORAL Insomnia 03/01/19 09:15 03/08/19 09:14 Eitan Porter MD Mar 02, 2019 12:52
--- NOTE | 2019-03-02 13:08 | NUR ---
NURSE NOTES: Called [facility] Nephrology and spoke to Lucas. Notified patient has dialysis order for tomorrow. Lucas will notify dialysis nurse.
--- NOTE | 2019-03-02 13:20 | NUR ---
PT NOTE Attempted to see patient for PT evaluation. Patient declining to participate at this time, waiting for certified histologic technician, requesting that therapist return tomorrow. Andrew JORDAN notified, will follow up tomorrow.
--- NOTE | 2019-03-02 13:35 | NUR ---
RD ASSESSMENT & RECOMMENDATIONS SEE CARE ACTIVITY FOR COMPLETE ASSESSMENT DAILY ESTIMATED NEEDS: Needs based on ESRD/HD; 50kg 30-35 kcals/kg [id number] total kcals 1.2-1.8 g protein/kg 60-90 g total protein Fluid per MD, on HD NUTRITION DIAGNOSIS: Increased kcal and pro needs r/t renal dysfunction AEB pt w/ ESRD, on HD. PO DIET RECOMMENDATIONS: Maintain renal diet for Low Na/ Low phos/ Low K needs ADDITIONAL RECOMMENDATIONS: Maintain accurate bedscale wt + Daily weight monitoring given ESRD/ HD status, underweight Provide high protein snacks in b/w meals. -> pt does not like Nepro Monitor lytes : K critically elev, phos elev (currently on binders) Provided diet edu for renal diet
--- NOTE | 2019-03-02 14:39 | General Progress Note ---
Assessment/Plan Problem List: (1) Swelling of left upper extremity ICD Codes: M79.89 - Other specified soft tissue disorders SNOMED: 152230582 (2) Hyperkalemia ICD Codes: E87.5 - Hyperkalemia SNOMED: 09359967 (3) Chest pain ICD Codes: R07.9 - Chest pain, unspecified SNOMED: 12247551 (4) Anemia ICD Codes: D64.9 - Anemia, unspecified SNOMED: 896122679 (5) Pulmonary edema ICD Codes: J81.1 - Chronic pulmonary edema SNOMED: 70299803 Qualifiers: Qualified Codes: J81.0 - Acute pulmonary edema (6) ESRD (end stage renal disease) ICD Codes: N18.6 - End stage renal disease SNOMED: 33876507 (7) Missed dialysis SNOMED: 169324604 (8) HTN (hypertension) ICD Codes: I10 - Essential (primary) hypertension SNOMED: 10164545 Status: stable, progressing Assessment/Plan: pt diet abx dialysis cbc bmp am Subjective Constitutional: Reports: weakness Allergies: Coded Allergies: CEPHALEXIN (Unverified Allergy, Unknown, 12/14/18) SULFAMETHOXAZOLE (Unverified Allergy, Unknown, 12/14/18) TRIMETHOPRIM (Unverified Allergy, Unknown, 12/14/18) VANCOMYCIN (Unverified Allergy, Unknown, 12/14/18) Uncoded Allergies: BACTRIM DS (Allergy, Unknown, 02/09/19) All Systems: reviewed and negative except above Subjective calm in bed Objective Last 24 Hour Vital Signs Date Time Temp Pulse Resp B/P (MAP) Pulse Ox O2 Delivery O2 Flow Rate FiO2 03/02/19 12:00 97.8 75 16 163/91 (115) 95 03/02/19 09:00 Room Air 03/02/19 08:47 68 169/94 03/02/19 08:00 97.6 68 18 169/94 (119) 98 03/02/19 04:39 170/103 03/02/19 04:00 98.6 81 19 170/103 (125) 94 03/02/19 00:53 98.4 03/02/19 00:00 98.8 78 19 151/89 (109) 98 03/01/19 22:19 98.4 03/01/19 21:23 166/109 03/01/19 21:00 Room Air 03/01/19 20:00 98.4 84 18 166/109 (128) 95 03/01/19 18:00 153/86 (108) 03/01/19 17:05 164/92 03/01/19 16:00 98.2 85 17 164/92 (116) 98 Intake and Output 03/01/19 03/02/19 19:00 07:00 Intake Total 360 ml 240 ml Balance 360 ml 240 ml Intake Oral 360 ml 240 ml # Voids 1 Laboratory Tests 03/01/19 15:05: Troponin I 0.004 03/02/19 04:00: Troponin I 0.022, White Blood Count 11.4H, Red Blood Count 2.86L, Hemoglobin 9.3L, Hematocrit 29.3L, Mean Corpuscular Volume 103H, Mean Corpuscular Hemoglobin 32.6H, Mean Corpuscular Hemoglobin Concent 31.8L, Red Cell Distribution Width 13.9, Platelet Count 234, Mean Platelet Volume 4.6L, Neutrophils (%) (Auto) , Lymphocytes (%) (Auto) , Monocytes (%) (Auto) , Eosinophils (%) (Auto) , Basophils (%) (Auto) , Differential Total Cells Counted 100, Neutrophils % (Manual) 91H, Lymphocytes % (Manual) 5L, Monocytes % (Manual) 4, Eosinophils % (Manual) 0, Basophils % (Manual) 0, Band Neutrophils 0 , Platelet Estimate Adequate, Platelet Morphology Normal, Macrocytosis 1+, Sodium Level 131L, Potassium Level 7.0*H, Chloride Level 97L, Carbon Dioxide Level 24, Anion Gap 10, Blood Urea Nitrogen 77H, Creatinine 8.0H, Estimat Glomerular Filtration Rate 5.3, Glucose Level 105, Calcium Level 9.3, Phosphorus Level 7.4H, Albumin 2.2L 03/02/19 09:47: Troponin I 0.021 Height (Feet): 5 Height (Inches): 5.00 Weight (Pounds): 99 General Appearance: alert EENT: normal ENT inspection Neck: normal alignment Cardiovascular: normal peripheral pulses, normal rate, regular rhythm Respiratory/Chest: chest wall non-tender, lungs clear, normal breath sounds Abdomen: normal bowel sounds, non tender, soft Edema: 1+ Arm (L) Edema: trace edema Neurologic: responsive, motor weakness Skin: normal pigmentation, warm/dry Villatoro,Narinder Chi-Lela DO Mar 02, 2019 14:39
--- NOTE | 2019-03-02 15:15 | Progress Note ---
DATE: 03/02/2019 SUBJECTIVE: This is a 49-year-old female patient who is admitted to the hospital secondary to renal failure. She has edema. She also admits to dialysis. She is feeling high levels of anxiety, depression, and mood lability worsened by stress of her medical illness. That is why, she does require daily psychiatric consultation due to high levels of anxiety. She does have some psychomotor agitation and she states "I I believe these are get my dialysis." MENTAL STATUS EXAMINATION: This is a 49-year-old female. Appearance is disheveled. Attitude, irritable and agitated. Affect, guarded and restricted. Intellect poor. Mood, depressed and anxious. Motor activity, psychomotor agitation. Attention span is poor. Orientation x2. Speech is low volume, slurred. Thought process is disorganized and illogical. Insight and judgment is poor. DIAGNOSIS: Major depressive disorder, mild, recurrent with psychotic features. PLAN: Plan for this patient is to treat her with a medication regimen of Neurontin 300 mg three times a day and Abilify 10 mg daily. Provided the patient with 20 minutes of cognitive behavioral therapy to help her identify automatic negative thoughts and help her convert those negative thoughts to more positive thoughts to reduce depression, anxiety, and mood lability. Chart reviewed. Discussed with staff. Seen and assessed in her room. Sherwin Greene M.D. DR: DUSTIN JOB#: [id number] CC:
[2019-03-02 16:00] VITALS: BP 169/96
[2019-03-02] MEDS: ARIPiprazole 2mg tab ORAL SCH (17:01)
--- NOTE | 2019-03-02 17:45 | Cardiology Progress Note ---
Assessment/Plan Assessment/Plan [id number] Objective Last 24 Hour Vital Signs Date Time Temp Pulse Resp B/P (MAP) Pulse Ox O2 Delivery O2 Flow Rate FiO2 03/02/19 16:00 98.5 80 20 169/96 (120) 95 03/02/19 12:00 97.8 75 16 163/91 (115) 95 03/02/19 09:00 Room Air 03/02/19 08:47 68 169/94 03/02/19 08:00 97.6 68 18 169/94 (119) 98 03/02/19 04:39 170/103 03/02/19 04:00 98.6 81 19 170/103 (125) 94 03/02/19 00:53 98.4 03/02/19 00:00 98.8 78 19 151/89 (109) 98 03/01/19 22:19 98.4 03/01/19 21:23 166/109 03/01/19 21:00 Room Air 03/01/19 20:00 98.4 84 18 166/109 (128) 95 03/01/19 18:00 153/86 (108) Intake and Output 03/01/19 03/02/19 19:00 07:00 Intake Total 360 ml 240 ml Balance 360 ml 240 ml Intake Oral 360 ml 240 ml # Voids 1 Laboratory Tests Test 03/02/19 04:00 03/02/19 09:47 White Blood Count 11.4 K/UL (4.8-10.8) H Red Blood Count 2.86 M/UL (4.20-5.40) L Hemoglobin 9.3 G/DL (12.0-16.0) L Hematocrit 29.3 % (37.0-47.0) L Mean Corpuscular Volume 103 FL (80-99) H Mean Corpuscular Hemoglobin 32.6 PG (27.0-31.0) H Mean Corpuscular Hemoglobin Concent 31.8 G/DL (32.0-36.0) L Red Cell Distribution Width 13.9 % (11.6-14.8) Platelet Count 234 K/UL (150-450) Mean Platelet Volume 4.6 FL (6.5-10.1) L Neutrophils (%) (Auto) % (45.0-75.0) Lymphocytes (%) (Auto) % (20.0-45.0) Monocytes (%) (Auto) % (1.0-10.0) Eosinophils (%) (Auto) % (0.0-3.0) Basophils (%) (Auto) % (0.0-2.0) Differential Total Cells Counted 100 Neutrophils % (Manual) 91 % (45-75) H Lymphocytes % (Manual) 5 % (20-45) L Monocytes % (Manual) 4 % (1-10) Eosinophils % (Manual) 0 % (0-3) Basophils % (Manual) 0 % (0-2) Band Neutrophils 0 % (0-8) Platelet Estimate Adequate Platelet Morphology Normal Macrocytosis 1+ Sodium Level 131 MMOL/L (136-145) L Potassium Level 7.0 MMOL/L (3.5-5.1) *H Chloride Level 97 MMOL/L (98-107) L Carbon Dioxide Level 24 MMOL/L (21-32) Anion Gap 10 mmol/L (5-15) Blood Urea Nitrogen 77 mg/dL (7-18) H Creatinine 8.0 MG/DL (0.55-1.30) H Estimat Glomerular Filtration Rate 5.3 mL/min (>60) Glucose Level 105 MG/DL (74-106) Calcium Level 9.3 MG/DL (8.5-10.1) Phosphorus Level 7.4 MG/DL (2.5-4.9) H Troponin I 0.022 ng/mL (0.000-0.056) 0.021 ng/mL (0.000-0.056) Albumin 2.2 G/DL (3.4-5.0) Nik Montenegro MD Mar 02, 2019 17:45
--- NOTE | 2019-03-02 17:59 | Cardiology Report ---
APPROVED REPORT EXAM: Two-dimensional and M-mode echocardiogram with Doppler and color Doppler. INDICATION Chest Pain M-Mode DIMENSIONS IVSd1.3 (0.7-1.1cm)Left Atrium (MM)2.9 (1.6-4.0cm) LVDd5.4 (3.5-5.6cm)Aortic Root3.6 (2.0-3.7cm) PWd1.3 (0.7-1.1cm)Aortic Cusp Exc.1.5 (1.5-2.0cm) IVSs1.6 cm LVDs4.0 (2.5-4.0cm) PWs0.9 cm Technically difficult study due to combative patient . Normal left ventricular chamber size, systolic function and wall motion to extent visualized. Left ventricular ejection fraction estimated to be65-70%. No left ventricular hypertrophy. No evidence of pericardial effusion. Pleural effusion present. All other cardiac chamber sizes are within normal limits. Focal aortic valve sclerosis with adequate cusp excursion. Thickened mitral valve leaflets with normal excursion. Mitral annulus and aortic root calcification. Normal pulmonic valve structure. Normal tricuspid valve structure. IVC at normal size without physiologic collapse. A color flow and spectral Doppler study was performed and revealed: Mild aortic insufficiency. Mild mitral regurgitation. Mitral diastolic velocities suggest reduced left ventricular relaxation c/w mild LV diastolic dysfunction (Grade I ). Mild tricuspid regurgitation. Tricuspid systolic velocities suggests peak right ventricular systolic pressure of 31 mmHg.
--- NOTE | 2019-03-02 19:30 | NUR ---
HAND-OFF: Report given to Matt JORDAN. Patient in stable condition.
[2019-03-02 20:00] VITALS: BP 168/93
--- NOTE | 2019-03-02 20:30 | NUR ---
NURSE NOTES: Patient received in bed, aaox4, refused full physical assessment including femoral catheter. Demanded pain medication, explained frequency of her pain medications. Patient requested for it to be changed. Suddenly complained of itching, offered benadryl, patient refused and demanded half a dosage IV form. Explained to patient need new order from MD. Patient demanded RN speak with Dr. Blevins (restaurant and bar manager) regarding her allergic symptom reoccuring (itching) as she had forgotten to mention it to MD. Dr. Blevins was made aware and stated to offer benadryl. MD made aware that patient was refusing benadryl and kayexelate. Left message to Dr. King regarding patient's request to change benadryl from 50mg capsule to 25mg IV, and also tylenol 1000mg q8h to 500mg q4h. Awaiting call back.
[2019-03-02] MEDS ORDERED: Sodium Polystyrene Sulfonate 15gm Powder ORAL SCH (21:00)
[2019-03-02] MEDS ORDERED: DiphenhydrAMINE 50mg/ml Inj IVP PRN (21:45)
[2019-03-02] MEDS: Acetaminophen 500mg (ES) tab ORAL PRN (21:51)
--- NOTE | 2019-03-02 23:30 | Consultation ---
DATE OF CONSULTATION: 03/02/2019 CARDIAC CONSULTATION CONSULTING PHYSICIAN: Nik Blevins M.D. REFERRING PHYSICIAN: Narinder Villatoro D.O. REASON FOR REFERRAL: Chest pain. HISTORY OF PRESENT ILLNESS: This is a middle-aged female, who is a resident of a convalescent facility. The patient presented to the [facility] because of left arm swelling for 2 days as well as missing her last session of dialysis 2 days ago. The left arm was 10/10 pain without any radiation. She had a shunt placed in the right thigh. She has had hospitalization at a different facility and left against medical advice from that facility and was seen in the emergency room for similar issues and again left against medical advice at that time. The patient has been admitted to the hospital, however, at this time and was noted to have severely hyperkalemic and congestive heart failure/pulmonary edema and required and subsequently has gone under dialysis refusing Kayexalate. The patient was given some antibiotics. At the time of administration of antibiotics, she started complaining of some itching as well as some pain in her chest. Severe pain and pressure and shortness of breath that lasted according to the patient's description maybe anywhere between 2-5 minutes and as soon as the antibiotics were discontinued, the pain just started to resolve and she has not had the pain anymore. She really has not had this pain on prior occasions. She has never had any cardiac problems. She has been able to ambulate with the use of a cane around the facility, but does not have any pain when she does ambulate. There is no dyspnea on exertion. There is no PND. There is no orthopnea. She has occasional dizziness and she has occasional palpitations. PAST MEDICAL HISTORY: Negative for diabetes. Positive for high blood pressure. Possibly high cholesterol. No history of heart attack, cancer, stroke, hepatitis, tuberculosis, asthma, or emphysema. No history of ulcers, but she has renal failure secondary to hypertension. No liver problem or thyroid problems that she knows of. No anemia, arthritis, HIV, AIDS, or any bleeding disorders. She does have history of blood clots in the upper chest wall veins apparently and for that reason, her shunt has been placed in her groin. No other medical major issues. ALLERGIES: She is allergic to Keflex, vancomycin, and Bactrim and now possibly even medication she received here. MEDICATIONS: Medications prior to admission include heparin, omeprazole, albuterol, Zofran, Tylenol, temazepam, amlodipine, gabapentin, lorazepam, morphine, and clonidine. SOCIAL HISTORY: She used to smoke and drink for approximately 6 months in her 20s, but she has not done that anymore. She lives in a convalescent facility. REVIEW OF SYSTEMS: GASTROINTESTINAL: She denies any nausea, vomiting, diarrhea, or constipation. GENITOURINARY: She denies. PULMONARY: She does have cough, but no sputum. CONSTITUTIONAL: She has occasional night sweats. NEUROLOGIC: She has numbness and tingling sensation in her right leg below the knee at times. PHYSICAL EXAMINATION: GENERAL: Shows to be elderly female, in no respiratory distress. NECK: Supple. No jugular venous distention. LUNGS: Clear to auscultation and percussion. CARDIAC: S1 is normal. S2 is normal. Regular rate and rhythm. No heaves or thrills. She has a systolic ejection murmur. ABDOMEN: Soft and nontender. Positive bowel sounds. EXTREMITIES: There is no edema, clubbing, or cyanosis. NEUROLOGIC: She is awake, alert, responsive, and she moves all four extremities. LABORATORY AND DIAGNOSTIC DATA: White count of 11.4, hemoglobin 9.3, and platelet count of 234,000. Sodium is 131, potassium 7.0, chloride 97, bicarbonate 24, BUN 77, creatinine 8.0, phosphorus is 7.4, and calcium is 9.3. Albumin of 2.2. Four sets of cardiac enzymes since admission yesterday have all been negative including two from today. Coags, INR is 1 and PTT of 28. A chest x-ray was performed today that showed congestive heart failure and bilateral pleural effusions. ASSESSMENT AND PLAN: 1. Hyperkalemia secondary to missed dialysis. 2. Missed dialysis. 3. An episode of acute chest pain during administration of IV antibiotics, resolved on discontinuation. 4. Hypertension history. 5. Borderline hyperlipidemia. Dr. Villatoro, this patient was seen in cardiac consultation. The patient's electrocardiogram reviewed on several occasions showed no evidence of ST or T-wave abnormalities of any significant degree. Her pain was at the time of administration of intravenous antibiotics, which she had associated itching as well. Her EKG is unremarkable. We will repeat EKG and cardiac enzymes for tomorrow morning; however, she has no significant pain. Her pain according to herself lasted maybe less than 5 minutes or so. Nevertheless, an echocardiogram will be reviewed. EKG will be ordered again and further recommendations will be provided depending on the results of the above testing. She looks quite stable at the present time with no pain or discomfort of any kind or shortness of breath. Nik Blevins M.D. DR: Devika JOB#: [id number] CC:
[2019-03-03] VITALS: BP 154/98
[2019-03-03] MEDS: Morphine Sulfate 2mg/ml Inj(IV/IM USE ONLY) IVP PRN ×5 (01:53→23:17)
[2019-03-03] MEDS: Acetaminophen 500mg (ES) tab ORAL PRN ×3 (02:26→23:33)
--- NOTE | 2019-03-03 06:27 | NUR ---
NURSE NOTES: Patient refused lab draw at this time. Patient irritable and angry, difficult to convince and educate. Pt continued to be noncompliant with most care.
--- NOTE | 2019-03-03 07:16 | NUR ---
HAND-OFF: Report given to Michelle JORDAN.
--- NOTE | 2019-03-03 07:17 | NUR ---
NURSE NOTES: Received patient on bed asleep. No SOB or cardiac distress. With IV site intact and patent, no s/s of infiltration. Right femoral permacatheter intact. HOB elevated. Bed locked in lowest position. For HD today. Will continue plan of care.
[2019-03-03 08:00] VITALS: BP 185/103
--- NOTE | 2019-03-03 09:00 | NUR ---
NURSE NOTES: Called [facility] (dialysis center), asking for time of HD. Awaiting call back. Patient aware of HD today but does not know what time.
--- NOTE | 2019-03-03 09:19 | General Progress Note ---
Assessment/Plan Problem List: (1) Swelling of left upper extremity ICD Codes: M79.89 - Other specified soft tissue disorders SNOMED: 481315505 (2) Hyperkalemia ICD Codes: E87.5 - Hyperkalemia SNOMED: 54791715 (3) Chest pain ICD Codes: R07.9 - Chest pain, unspecified SNOMED: 45951054 (4) Anemia ICD Codes: D64.9 - Anemia, unspecified SNOMED: 369147072 (5) Pulmonary edema ICD Codes: J81.1 - Chronic pulmonary edema SNOMED: 12779285 Qualifiers: Qualified Codes: J81.0 - Acute pulmonary edema (6) ESRD (end stage renal disease) ICD Codes: N18.6 - End stage renal disease SNOMED: 21612277 (7) Missed dialysis SNOMED: 979608637 (8) HTN (hypertension) ICD Codes: I10 - Essential (primary) hypertension SNOMED: 40081093 Status: stable, progressing Assessment/Plan: pt diet abx dialysis cbc bmp am aru eval Subjective Constitutional: Reports: weakness Allergies: Coded Allergies: CEPHALEXIN (Unverified Allergy, Unknown, 12/14/18) SULFAMETHOXAZOLE (Unverified Allergy, Unknown, 12/14/18) TRIMETHOPRIM (Unverified Allergy, Unknown, 12/14/18) VANCOMYCIN (Unverified Allergy, Unknown, 12/14/18) Uncoded Allergies: BACTRIM DS (Allergy, Unknown, 02/09/19) All Systems: reviewed and negative except above Subjective calm in bed Objective Last 24 Hour Vital Signs Date Time Temp Pulse Resp B/P (MAP) Pulse Ox O2 Delivery O2 Flow Rate FiO2 03/03/19 08:00 97.5 82 20 185/103 (130) 96 03/03/19 02:56 98.7 03/03/19 02:23 98.7 03/03/19 00:00 98.7 71 20 154/98 (116) 96 03/02/19 21:25 168/93 03/02/19 21:00 Room Air 03/02/19 20:00 98.9 79 18 168/93 (118) 97 03/02/19 16:00 98.5 80 20 169/96 (120) 95 03/02/19 12:00 97.8 75 16 163/91 (115) 95 Intake and Output 03/02/19 03/03/19 19:00 07:00 Intake Total 480 ml Output Total 1300 ml Balance -1300 ml 480 ml Intake Oral 480 ml Output Hemodialysis UF 1300 ml # Voids 2 Laboratory Tests 03/02/19 09:47: Troponin I 0.021 Height (Feet): 5 Height (Inches): 5.00 Weight (Pounds): 115 General Appearance: lethargic EENT: normal ENT inspection Neck: normal alignment Cardiovascular: normal peripheral pulses, normal rate, regular rhythm Respiratory/Chest: chest wall non-tender, lungs clear, normal breath sounds Abdomen: normal bowel sounds, non tender, soft Extremities: normal inspection Edema: 1+ Arm (L) Neurologic: motor weakness Skin: normal pigmentation, warm/dry Narinder Villatoro DO Mar 03, 2019 09:19
[2019-03-03] MEDS: Heparin 5000 units/ml inj SUBQ SCH ×2 (09:59→20:19)
--- NOTE | 2019-03-03 10:42 | NUR ---
PT NOTE Attempted to see patient for PT evaluation. Patient declining to participate at this time. Explained to patient benefits of participating with PT however patient continued to decline. Michelle RN notified, will follow up tomorrow.
--- NOTE | 2019-03-03 10:50 | NUR ---
NURSE NOTES: Called [facility] (dialysis center) to ff up, awaiting call back for time of HD.
--- NOTE | 2019-03-03 11:03 | NUR ---
Spoke to Isaias of [facility] dialysis center, he said that HD will be at 7pm tonight. He will call back for any changes.
--- NOTE | 2019-03-03 11:40 | NUR ---
Patient informed of time of HD. EKG done, rhythm strip in chart. Addendum: 03/03/19 at 1144 by Michelle Rg RN NURSE NOTES: Patient informed of time of HD. EKG done, rhythm strip in chart.
--- NOTE | 2019-03-03 11:50 | NUR ---
NURSE NOTES: Isaias of [facility] dialysis center called, he said that the patient will receive HD "in about and hour or an hour and a half." Patient informed.
[2019-03-03 12:00] VITALS: BP 187/102
--- NOTE | 2019-03-03 12:13 | Pulmonology Progress Note ---
Assessment/Plan Problems: (1) Swelling of left upper extremity (2) ESRD (end stage renal disease) (3) Hypertensive chronic kidney disease (4) HTN (hypertension) (5) Anasarca Assessment/Plan doing bettery symptomatic treatment swelling less no new complains pt wants more tylenol for pain BP controlled HD by nephrology Subjective ROS Limited/Unobtainable: No Constitutional: Reports: no symptoms HEENT: Repors: no symptoms Respiratory: Reports: no symptoms Allergies: Coded Allergies: CEPHALEXIN (Unverified Allergy, Unknown, 12/14/18) SULFAMETHOXAZOLE (Unverified Allergy, Unknown, 12/14/18) TRIMETHOPRIM (Unverified Allergy, Unknown, 12/14/18) VANCOMYCIN (Unverified Allergy, Unknown, 12/14/18) Uncoded Allergies: BACTRIM DS (Allergy, Unknown, 02/09/19) Objective Last 24 Hour Vital Signs Date Time Temp Pulse Resp B/P (MAP) Pulse Ox O2 Delivery O2 Flow Rate FiO2 03/03/19 09:56 82 185/103 03/03/19 09:56 185/103 03/03/19 09:00 Room Air 03/03/19 08:00 97.5 82 20 185/103 (130) 96 03/03/19 02:56 98.7 03/03/19 02:23 98.7 03/03/19 00:00 98.7 71 20 154/98 (116) 96 03/02/19 21:25 168/93 03/02/19 21:00 Room Air 03/02/19 20:00 98.9 79 18 168/93 (118) 97 03/02/19 16:00 98.5 80 20 169/96 (120) 95 Intake and Output 03/02/19 03/03/19 19:00 07:00 Intake Total 480 ml Output Total 1300 ml Balance -1300 ml 480 ml Intake Oral 480 ml Output Hemodialysis UF 1300 ml # Voids 2 General Appearance: WD/WN HEENT: normocephalic, anicteric Respiratory/Chest: chest wall non-tender, lungs clear Breasts: no masses Cardiovascular: normal peripheral pulses, normal rate Abdomen: normal bowel sounds, soft, non tender Genitourinary: normal external genitalia Skin: no rash Neurologic/Psychiatric: cylinder tester II-XII grossly normal, no motor/sensory deficits Lymphatic: no neck adenopathy Microbiology Date/Time Source Procedure Growth Status 02/28/19 20:30 Nasal Nares Left MRSA Culture - Final NO METHICILLIN RESISTANT STAPH AUREUS... Complete Laboratory Tests 03/03/19 11:15: Sodium Level [Pending], Potassium Level [Pending], Chloride Level [Pending], Carbon Dioxide Level [Pending], Blood Urea Nitrogen [Pending], Creatinine [ Pending], Estimat Glomerular Filtration Rate [Pending], Glucose Level [Pending] , Calcium Level [Pending], Troponin I [Pending], Pro-B-Type Natriuretic Peptide [Pending], Thyroid Stimulating Hormone (TSH) [Pending] Current Medications Medications (Trade) Dose Ordered Sig/Juliano Route PRN Reason Start Time Stop Time Status Last Admin Dose Admin Acetaminophen (Tylenol) 500 mg Q4H PRN ORAL Mild Pain/Temp > 100.5 03/02/19 21:45 04/01/19 21:44 03/03/19 11:16 Acetaminophen/ Codeine Phosphate (Tylenol #3) 1 tab Q6H PRN ORAL MODERATE PAIN 03/01/19 11:45 03/08/19 11:44 03/01/19 21:49 Albuterol/ Ipratropium (Albuterol/ Ipratropium) 3 ml Q4H PRN HHN Shortness of Breath 03/01/19 09:15 03/06/19 09:14 Amlodipine Besylate (Norvasc) 10 mg DAILY ORAL 03/01/19 09:00 03/31/19 08:59 03/03/19 09:56 Aripiprazole (Abilify) 2 mg QPM ORAL 03/01/19 16:30 03/31/19 16:29 03/02/19 17:01 Clonidine HCl (Catapres TTS-3) 1 patch ONCE A WEEK TDERMAL 02/28/19 22:00 03/30/19 21:59 Clonidine HCl (Catapres Tab) 0.1 mg Q4H PRN ORAL bp over 160 syst 02/28/19 20:45 03/30/19 20:44 03/03/19 09:56 Dextrose (Dextrose 50%) 25 ml Q30M PRN IV Hypoglycemia 03/01/19 09:15 03/31/19 09:14 Dextrose (Dextrose 50%) 50 ml Q30M PRN IV Hypoglycemia 03/01/19 09:15 03/31/19 09:14 Diphenhydramine HCl (Benadryl) 25 mg Q6H PRN IVP Itching 03/02/19 21:45 04/01/19 21:44 03/02/19 21:51 Gabapentin (Neurontin) 300 mg THREE TIMES A DAY ORAL 03/01/19 18:00 03/31/19 08:59 03/03/19 09:56 Heparin Sodium (Porcine) (Heparin 5000 units/ml) 5,000 units EVERY 12 HOURS SUBQ 03/01/19 21:00 03/31/19 20:59 03/03/19 09:59 Lorazepam (Ativan) 1 mg Q6H PRN ORAL For Anxiety 03/01/19 04:30 03/08/19 04:29 Morphine Sulfate (Morphine Sulfate) 2 mg Q4H PRN IVP severe pain 03/01/19 11:45 03/08/19 11:44 03/03/19 09:57 Morphine Sulfate (Morphine Sulfate) 2 mg Q4H PRN IVP For Chest Pain 6-03/02/19 01:00 03/09/19 00:59 Ondansetron HCl (Zofran) 4 mg Q6H PRN IVP Nausea & Vomiting 03/01/19 09:15 03/31/19 09:14 Pantoprazole (Protonix) 40 mg EVERY 12 HOURS ORAL 02/28/19 21:00 03/30/19 20:59 03/03/19 09:57 Polyethylene Glycol (Miralax) 17 gm DAILYPRN PRN ORAL Constipation 03/01/19 09:15 03/31/19 09:14 Sevelamer Carbonate (Renvela) 2,400 mg THREE TIMES A DAY ORAL 03/02/19 18:00 04/01/19 17:59 03/03/19 09:57 Sodium Polystyrene Sulfonate (Kayexalate) 45 gm QHS ORAL 03/02/19 21:00 03/31/19 20:59 Temazepam (Restoril) 15 mg HSPRN PRN ORAL Insomnia 03/01/19 09:15 03/08/19 09:14 Jarad King MD Mar 03, 2019 12:12
--- NOTE | 2019-03-03 12:18 | NUR ---
NURSE NOTES: Seen by Dr King, ordered venous duplex of left arm.
[2019-03-03 12:19] LABS: ANION GAP 14 mmol/L (5-15); BLOOD UREA NITROGEN 87 mg/dL (7-18); CALCIUM 8.9 MG/DL (8.5-10.1); CARBON DIOXIDE 23 MMOL/L (21-32); CHLORIDE 97 MMOL/L (98-107); CREATININE 8.6 MG/DL (0.55-1.30); SODIUM 133 MMOL/L (136-145)
--- NOTE | 2019-03-03 12:47 | NUR ---
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 97.5 HR 82 RR 20 B/P 185/103 IS: VENOUS DUPLEX ABILIFY PO NEURONTIN PO HEPARIN SUBC BROTMAN ARU EVAL MED/SURG STATUS
[2019-03-03 12:58] LABS: POTASSIUM 7.4 MMOL/L (3.5-5.1)
--- NOTE | 2019-03-03 13:14 | NUR ---
NURSE NOTES: Potassium level 7.4, left message for Dr Lopez. Awaiting orders. Also left message that HD is around 1:30 or 2pm today.
--- NOTE | 2019-03-03 13:40 | Nephrology Progress Note ---
Assessment/Plan Problem List: (1) Hyperkalemia (2) ESRD (end stage renal disease) (3) Hypertensive chronic kidney disease (4) Anemia Assessment High K -ESRD- Missed HD h/o Fall h/o Osteomyelitis of spine Anasarca Anemia of CKD, symptomatic now ? Lymphoproliferative Ds non compliance and last admit patient left AMA in the past Plan non compliant with diet and kayexelate Dialysed incomplete yesterday due to poor cath function and Cath poor flow will dialysetoday activase given 03/02 renal diet keep bp in check per consultants and psych Subjective ROS Limited/Unobtainable: No Constitutional: Reports: malaise, weakness Objective Objective Last 24 Hour Vital Signs Date Time Temp Pulse Resp B/P (MAP) Pulse Ox O2 Delivery O2 Flow Rate FiO2 03/03/19 12:00 97.7 74 18 187/102 (130) 93 03/03/19 09:56 82 185/103 03/03/19 09:56 185/103 03/03/19 09:00 Room Air 03/03/19 08:00 97.5 82 20 185/103 (130) 96 03/03/19 02:56 98.7 03/03/19 02:23 98.7 03/03/19 00:00 98.7 71 20 154/98 (116) 96 03/02/19 21:25 168/93 03/02/19 21:00 Room Air 03/02/19 20:00 98.9 79 18 168/93 (118) 97 03/02/19 16:00 98.5 80 20 169/96 (120) 95 Intake and Output 03/02/19 03/03/19 19:00 07:00 Intake Total 480 ml Output Total 1300 ml Balance -1300 ml 480 ml Intake Oral 480 ml Output Hemodialysis UF 1300 ml # Voids 2 Laboratory Tests 03/03/19 11:15: Sodium Level 133L, Potassium Level 7.4*H, Chloride Level 97L, Carbon Dioxide Level 23, Anion Gap 14, Blood Urea Nitrogen 87H, Creatinine 8.6H, Estimat Glomerular Filtration Rate 4.9, Glucose Level 106, Calcium Level 8.9, Troponin I 0.010, Pro-B-Type Natriuretic Peptide 7913H, Thyroid Stimulating Hormone (TSH ) 17.154H Height (Feet): 5 Height (Inches): 5.00 Weight (Pounds): 119 General Appearance: no apparent distress Cardiovascular: normal rate Respiratory/Chest: decreased breath sounds Abdomen: soft Objective no change Yobani Lopez MD Mar 03, 2019 13:40
[2019-03-03] MEDS ORDERED: Minoxidil 2.5mg tab ORAL PRN (13:45)
[2019-03-03] MEDS: Sodium Polystyrene Sulfonate 15gm Powder ORAL SCH ×2 (13:45→18:00)
--- NOTE | 2019-03-03 13:52 | NUR ---
NURSE NOTES: HD nurse asked for a consent for HD, consent secured by charge nurse.
[2019-03-03] MEDS: cloNIDine 0.2mg Tab ORAL SCH ×2 (14:00→22:00)
[2019-03-03 16:00] VITALS: BP 141/90
--- NOTE | 2019-03-03 16:20 | NUR ---
NURSE NOTES: HD done, took out 3100 ml fluid. Procedure tolerated well.
[2019-03-03] MEDS: ARIPiprazole 2mg tab ORAL SCH (16:23)
--- NOTE | 2019-03-03 19:56 | NUR ---
HAND-OFF: Report given to Braulio.
--- NOTE | 2019-03-03 20:13 | Cardiology Progress Note ---
Assessment/Plan Assessment/Plan 1. Hyperkalemia secondary to missed dialysis. 2. Missed dialysis. 3. An episode of acute chest pain during administration of IV antibiotics, resolved on discontinuation. 4. Hypertension history. 5. Borderline hyperlipidemia 6. hypothyroid 7. arm swelling all trop neg echo neg need veous duplex of lue . arm elevation Subjective Cardiovascular: Denies: chest pain, lightheadedness, palpitations Respiratory: Denies: shortness of breath Gastrointestinal/Abdominal: Reports: nausea, other - over ate Genitourinary: Denies: burning Objective Last 24 Hour Vital Signs Date Time Temp Pulse Resp B/P (MAP) Pulse Ox O2 Delivery O2 Flow Rate FiO2 03/03/19 16:00 20 141/90 (107) 03/03/19 14:00 187/102 03/03/19 12:00 97.7 74 18 187/102 (130) 93 03/03/19 09:56 82 185/103 03/03/19 09:56 185/103 03/03/19 09:00 Room Air 03/03/19 08:00 97.5 82 20 185/103 (130) 96 03/03/19 02:56 98.7 03/03/19 02:23 98.7 03/03/19 00:00 98.7 71 20 154/98 (116) 96 03/02/19 21:25 168/93 03/02/19 21:00 Room Air General Appearance: alert Neck: supple Cardiovascular: normal rate Respiratory/Chest: lungs clear Abdomen: normal bowel sounds, non tender, soft Extremities: other - sig swellign left arm Intake and Output 03/02/19 03/03/19 19:00 07:00 Intake Total 480 ml Output Total 1300 ml Balance -1300 ml 480 ml Intake Oral 480 ml Output Hemodialysis UF 1300 ml # Voids 2 Laboratory Tests Test 03/03/19 11:15 Sodium Level 133 MMOL/L (136-145) L Potassium Level 7.4 MMOL/L (3.5-5.1) *H Chloride Level 97 MMOL/L (98-107) L Carbon Dioxide Level 23 MMOL/L (21-32) Anion Gap 14 mmol/L (5-15) Blood Urea Nitrogen 87 mg/dL (7-18) H Creatinine 8.6 MG/DL (0.55-1.30) H Estimat Glomerular Filtration Rate 4.9 mL/min (>60) Glucose Level 106 MG/DL (74-106) Calcium Level 8.9 MG/DL (8.5-10.1) Troponin I 0.010 ng/mL (0.000-0.056) Pro-B-Type Natriuretic Peptide 7913 pg/mL (0-125) H Thyroid Stimulating Hormone (TSH) 17.154 uiU/mL (0.358-3.740) Hepatitis B Surface Antibody, Quant Pending Microbiology Date/Time Source Procedure Growth Status 02/28/19 20:30 Nasal Nares Left MRSA Culture - Final NO METHICILLIN RESISTANT STAPH AUREUS... Complete Nik Blevins MD Mar 03, 2019 20:13
[2019-03-03 20:16] VITALS: BP 169/99
--- NOTE | 2019-03-03 20:44 | NUR ---
NURSE NOTES: Received patient awake in bed finishing dinner. Left upper extremity edema noted, reminded patient to elevate extremity. IV access intact, dressing dry. Bed low and locked, 2 siderails up.
[2019-03-04] VITALS: BP 161/90
--- NOTE | 2019-03-04 03:15 | Progress Note ---
DATE: 03/03/2019 SUBJECTIVE: This is a 49-year-old female patient of Dr. Narinder Villatoro . This patient is very confused and disorganized. She has renal failure and needs dialysis. That is why, she does require inpatient treatment at this time. She also poor appetite, loss of interest in activity and that is why, she does require inpatient treatment at this time. She still has agitation, irritability. Still has some anxiety. . She is denying any current suicidal or homicidal ideations at this time. MENTAL STATUS EXAMINATION: This is a 49-year-old female. Appearance is disheveled. Attitude, irritable and agitated. Affect, guarded and restricted. Intellect, poor. Mood, depressed and anxious. Motor activity, psychomotor agitation. Attention span is poor. Orientation x2. Speech is low volume, slurred. Thought process, disorganized and illogical. Insight and judgment is poor. DIAGNOSIS: Major depressive disorder, rule out dementia with psychosis mild recurrent. PLAN: For this, patient is to treat her with a medication regimen of Ativan 1 mg every 6 hours p.r.n. anxiety and agitation, Neurontin 300 mg 3 times a day, and Abilify 2 mg every evening. 20 minutes of cognitive behavioral therapy to help her identify automatic negative thoughts and help to convert her negative thoughts to more positive thoughts to reduce depression, anxiety, mood lability. Chart reviewed. Discussed with staff. Seen and assesses in her room. Sherwin Greene M.D. DR: LES JOB#: [id number] CC:
[2019-03-04 04:00] VITALS: BP 157/93
[2019-03-04] MEDS: Acetaminophen 500mg (ES) tab ORAL PRN ×2 (04:53→20:59)
[2019-03-04] MEDS: Morphine Sulfate 2mg/ml Inj(IV/IM USE ONLY) IVP PRN ×3 (04:53→21:40)
[2019-03-04] MEDS: cloNIDine 0.2mg Tab ORAL SCH ×3 (06:24→21:40)
--- NOTE | 2019-03-04 07:20 | NUR ---
HAND-OFF: Report given to JULIAN Francisco.
[2019-03-04 08:00] VITALS: BP 171/68
[2019-03-04] MEDS: Sodium Polystyrene Sulfonate 15gm Powder ORAL SCH ×2 (09:00→17:22)
[2019-03-04] MEDS: Heparin 5000 units/ml inj SUBQ SCH ×2 (09:44→21:03)
[2019-03-04] MEDS ORDERED: Carvedilol 6.25mg Tab ORAL SCH (11:00)
--- NOTE | 2019-03-04 11:45 | NUR ---
PT EVALUATION NOTE Patient seen for initial evaluation. Patient presents with generalized weakness which impairs patient's ability to perform mobility tasks safely. Patient requires SBA/CGA for bed mobility activities. Patient declined OOB activities due to c/o SOB. Patient will benefit from skilled inpatient PT intervention to address strength, balance, and safety for improved level of functional mobility and for decreased fall risk. Recommend discharge to ARU/SNF for further rehab to return to prior level of function once medically cleared by MD. Addendum: 03/04/19 at 1341 by MAU ARMIJO PT Amended: Links added.
[2019-03-04 12:00] VITALS: BP 148/82
--- NOTE | 2019-03-04 12:16 | Nephrology Progress Note ---
Assessment/Plan Problem List: (1) Hyperkalemia (2) ESRD (end stage renal disease) (3) Hypertensive chronic kidney disease (4) Anemia Assessment High K -ESRD- Missed HD h/o Fall h/o Osteomyelitis of spine Anasarca Anemia of CKD, symptomatic now ? Lymphoproliferative Ds non compliance and last admit patient left AMA in the past Plan non compliant with diet and kayexelate BUT seeks MS every4 hours ! adjust BP meds dialysis 03/03- next 03/05 activase given 03/02 renal diet keep bp in check per consultants and psych DC planning Subjective ROS Limited/Unobtainable: No Objective Objective Last 24 Hour Vital Signs Date Time Temp Pulse Resp B/P (MAP) Pulse Ox O2 Delivery O2 Flow Rate FiO2 03/04/19 09:42 87 171/104 03/04/19 09:00 Room Air 03/04/19 08:00 98.9 18 171/68 (102) 98 03/04/19 06:24 161/90 03/04/19 05:23 98.3 03/04/19 05:23 98.3 03/04/19 04:00 99.0 84 20 157/93 (114) 96 03/04/19 00:00 98.3 89 20 161/90 (113) 93 03/03/19 22:00 169/99 03/03/19 20:49 Room Air 03/03/19 20:18 169/99 03/03/19 20:16 98.7 86 20 169/99 (122) 93 03/03/19 16:00 20 141/90 (107) 03/03/19 14:00 187/102 Intake and Output 03/03/19 03/04/19 19:00 07:00 Intake Total 400 ml 480 ml Balance 400 ml 480 ml Intake Oral 400 ml 480 ml # Voids 2 Current Medications Medications (Trade) Dose Ordered Sig/Juliano Route PRN Reason Start Time Stop Time Status Last Admin Dose Admin Acetaminophen (Tylenol) 500 mg Q4H PRN ORAL Mild Pain/Temp > 100.5 03/02/19 21:45 04/01/19 21:44 03/04/19 04:53 Acetaminophen/ Codeine Phosphate (Tylenol #3) 1 tab Q6H PRN ORAL MODERATE PAIN 03/01/19 11:45 03/08/19 11:44 03/01/19 21:49 Albuterol/ Ipratropium (Albuterol/ Ipratropium) 3 ml Q4H PRN HHN Shortness of Breath 03/01/19 09:15 03/06/19 09:14 Amlodipine Besylate (Norvasc) 10 mg DAILY ORAL 03/01/19 09:00 03/31/19 08:59 03/04/19 09:42 Aripiprazole (Abilify) 2 mg QPM ORAL 03/01/19 16:30 03/31/19 16:29 03/03/19 16:23 Carvedilol (Coreg) 12.5 mg EVERY 12 HOURS ORAL 03/04/19 12:15 04/03/19 10:59 UNV Clonidine HCl (Catapres tab) 0.2 mg EVERY 8 HOURS ORAL 03/03/19 14:00 04/02/19 13:59 03/04/19 06:24 Dextrose (Dextrose 50%) 25 ml Q30M PRN IV Hypoglycemia 03/01/19 09:15 03/31/19 09:14 Dextrose (Dextrose 50%) 50 ml Q30M PRN IV Hypoglycemia 03/01/19 09:15 03/31/19 09:14 Diphenhydramine HCl (Benadryl) 25 mg Q6H PRN IVP Itching 03/02/19 21:45 04/01/19 21:44 03/02/19 21:51 Gabapentin (Neurontin) 300 mg THREE TIMES A DAY ORAL 03/01/19 18:00 03/31/19 08:59 03/04/19 09:40 Heparin Sodium (Porcine) (Heparin 5000 units/ml) 5,000 units EVERY 12 HOURS SUBQ 03/01/19 21:00 03/31/19 20:59 03/04/19 09:44 Lorazepam (Ativan) 1 mg Q6H PRN ORAL For Anxiety 03/01/19 04:30 03/08/19 04:29 Minoxidil (Loniten) 2.5 mg Q4H PRN ORAL bp 160 syst and over 03/03/19 13:45 04/02/19 13:44 03/03/19 20:18 Morphine Sulfate (Morphine Sulfate) 2 mg Q4H PRN IVP severe pain 03/01/19 11:45 03/08/19 11:44 03/04/19 04:53 Ondansetron HCl (Zofran) 4 mg Q6H PRN IVP Nausea & Vomiting 03/01/19 09:15 03/31/19 09:14 Pantoprazole (Protonix) 40 mg EVERY 12 HOURS ORAL 02/28/19 21:00 03/30/19 20:59 03/04/19 09:40 Polyethylene Glycol (Miralax) 17 gm DAILYPRN PRN ORAL Constipation 03/01/19 09:15 03/31/19 09:14 Sevelamer Carbonate (Renvela) 2,400 mg THREE TIMES A DAY ORAL 03/02/19 18:00 04/01/19 17:59 03/04/19 09:40 Sodium Polystyrene Sulfonate (Kayexalate) 45 gm BID ORAL 03/03/19 13:45 03/31/19 20:59 Temazepam (Restoril) 15 mg HSPRN PRN ORAL Insomnia 03/01/19 09:15 03/08/19 09:14 Height (Feet): 5 Height (Inches): 5.00 Weight (Pounds): 119 General Appearance: no apparent distress Objective no change Yobani Lopez MD Mar 04, 2019 12:16
[2019-03-04] MEDS: Carvedilol 12.5mg tab ORAL SCH ×2 (12:34→20:59)
--- NOTE | 2019-03-04 14:18 | General Progress Note ---
Assessment/Plan Problem List: (1) Swelling of left upper extremity ICD Codes: M79.89 - Other specified soft tissue disorders SNOMED: 481392889 (2) Hyperkalemia ICD Codes: E87.5 - Hyperkalemia SNOMED: 01780148 (3) Chest pain ICD Codes: R07.9 - Chest pain, unspecified SNOMED: 16106137 (4) Anemia ICD Codes: D64.9 - Anemia, unspecified SNOMED: 122041916 (5) Pulmonary edema ICD Codes: J81.1 - Chronic pulmonary edema SNOMED: 58276465 Qualifiers: Qualified Codes: J81.0 - Acute pulmonary edema (6) ESRD (end stage renal disease) ICD Codes: N18.6 - End stage renal disease SNOMED: 68726935 (7) Missed dialysis SNOMED: 090403106 (8) HTN (hypertension) ICD Codes: I10 - Essential (primary) hypertension SNOMED: 15226695 Status: stable, progressing Assessment/Plan: pt diet abx dialysis cbc bmp am dc plan Subjective Constitutional: Reports: weakness Allergies: Coded Allergies: CEPHALEXIN (Unverified Allergy, Unknown, 12/14/18) SULFAMETHOXAZOLE (Unverified Allergy, Unknown, 12/14/18) TRIMETHOPRIM (Unverified Allergy, Unknown, 12/14/18) VANCOMYCIN (Unverified Allergy, Unknown, 12/14/18) Uncoded Allergies: BACTRIM DS (Allergy, Unknown, 02/09/19) All Systems: reviewed and negative except above Subjective calm in bed Objective Last 24 Hour Vital Signs Date Time Temp Pulse Resp B/P (MAP) Pulse Ox O2 Delivery O2 Flow Rate FiO2 03/04/19 12:34 82 138/72 03/04/19 12:00 97.8 84 18 148/82 (104) 98 03/04/19 09:42 87 171/104 03/04/19 09:00 Room Air 03/04/19 08:00 98.9 18 171/68 (102) 98 03/04/19 06:24 161/90 03/04/19 05:23 98.3 03/04/19 05:23 98.3 03/04/19 04:00 99.0 84 20 157/93 (114) 96 03/04/19 00:00 98.3 89 20 161/90 (113) 93 03/03/19 22:00 169/99 03/03/19 20:49 Room Air 03/03/19 20:18 169/99 03/03/19 20:16 98.7 86 20 169/99 (122) 93 03/03/19 16:00 20 141/90 (107) Intake and Output 03/03/19 03/04/19 19:00 07:00 Intake Total 400 ml 480 ml Balance 400 ml 480 ml Intake Oral 400 ml 480 ml # Voids 2 Height (Feet): 5 Height (Inches): 5.00 Weight (Pounds): 119 General Appearance: lethargic EENT: normal ENT inspection Neck: normal alignment Cardiovascular: normal peripheral pulses, normal rate, regular rhythm Respiratory/Chest: chest wall non-tender, lungs clear, normal breath sounds Abdomen: normal bowel sounds, non tender, soft Edema: 1+ Arm (L) Edema: trace edema Neurologic: motor weakness Skin: normal pigmentation, warm/dry Narinder Villatoro DO Mar 04, 2019 14:18
--- NOTE | 2019-03-04 14:45 | Pulmonology Progress Note ---
Assessment/Plan Problems: (1) Swelling of left upper extremity (2) ESRD (end stage renal disease) (3) Hypertensive chronic kidney disease (4) HTN (hypertension) (5) Anasarca Assessment/Plan d/w radiologist, Dr. Borges, the venous doppler of left arm negative. will get CTA with axillary image pt crying swelling less no new complains pt wants more tylenol for pain BP controlled HD by nephrology Subjective ROS Limited/Unobtainable: No Constitutional: Reports: no symptoms HEENT: Repors: no symptoms Respiratory: Reports: no symptoms Allergies: Coded Allergies: CEPHALEXIN (Unverified Allergy, Unknown, 12/14/18) SULFAMETHOXAZOLE (Unverified Allergy, Unknown, 12/14/18) TRIMETHOPRIM (Unverified Allergy, Unknown, 12/14/18) VANCOMYCIN (Unverified Allergy, Unknown, 12/14/18) Uncoded Allergies: BACTRIM DS (Allergy, Unknown, 02/09/19) Objective Last 24 Hour Vital Signs Date Time Temp Pulse Resp B/P (MAP) Pulse Ox O2 Delivery O2 Flow Rate FiO2 03/04/19 14:31 147/88 03/04/19 12:34 82 138/72 03/04/19 12:00 97.8 84 18 148/82 (104) 98 03/04/19 09:42 87 171/104 03/04/19 09:00 Room Air 03/04/19 08:00 98.9 18 171/68 (102) 98 03/04/19 06:24 161/90 03/04/19 05:23 98.3 03/04/19 05:23 98.3 03/04/19 04:00 99.0 84 20 157/93 (114) 96 03/04/19 00:00 98.3 89 20 161/90 (113) 93 03/03/19 22:00 169/99 03/03/19 20:49 Room Air 03/03/19 20:18 169/99 03/03/19 20:16 98.7 86 20 169/99 (122) 93 03/03/19 16:00 20 141/90 (107) Intake and Output 03/03/19 03/04/19 19:00 07:00 Intake Total 400 ml 480 ml Balance 400 ml 480 ml Intake Oral 400 ml 480 ml # Voids 2 General Appearance: cachetic HEENT: normocephalic Respiratory/Chest: chest wall non-tender, lungs clear Breasts: no masses Cardiovascular: normal rate Genitourinary: normal external genitalia Skin: no rash 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 Current Medications Medications (Trade) Dose Ordered Sig/Juliano Route PRN Reason Start Time Stop Time Status Last Admin Dose Admin Acetaminophen (Tylenol) 500 mg Q4H PRN ORAL Mild Pain/Temp > 100.5 03/02/19 21:45 04/01/19 21:44 03/04/19 04:53 Acetaminophen/ Codeine Phosphate (Tylenol #3) 1 tab Q6H PRN ORAL MODERATE PAIN 03/01/19 11:45 03/08/19 11:44 03/01/19 21:49 Albuterol/ Ipratropium (Albuterol/ Ipratropium) 3 ml Q4H PRN HHN Shortness of Breath 03/01/19 09:15 03/06/19 09:14 Aripiprazole (Abilify) 2 mg QPM ORAL 03/01/19 16:30 03/31/19 16:29 03/03/19 16:23 Carvedilol (Coreg) 12.5 mg EVERY 12 HOURS ORAL 03/04/19 12:17 04/03/19 12:16 03/04/19 12:34 Clonidine HCl (Catapres tab) 0.2 mg EVERY 8 HOURS ORAL 03/03/19 14:00 04/02/19 13:59 03/04/19 14:31 Dextrose (Dextrose 50%) 25 ml Q30M PRN IV Hypoglycemia 03/01/19 09:15 03/31/19 09:14 Dextrose (Dextrose 50%) 50 ml Q30M PRN IV Hypoglycemia 03/01/19 09:15 03/31/19 09:14 Diphenhydramine HCl (Benadryl) 25 mg Q6H PRN IVP Itching 03/02/19 21:45 04/01/19 21:44 03/02/19 21:51 Gabapentin (Neurontin) 300 mg THREE TIMES A DAY ORAL 03/01/19 18:00 03/31/19 08:59 03/04/19 12:30 Heparin Sodium (Porcine) (Heparin 5000 units/ml) 5,000 units EVERY 12 HOURS SUBQ 03/01/19 21:00 03/31/19 20:59 03/04/19 09:44 Lorazepam (Ativan) 1 mg Q6H PRN ORAL For Anxiety 03/01/19 04:30 03/08/19 04:29 Minoxidil (Loniten) 2.5 mg Q4H PRN ORAL bp 160 syst and over 03/03/19 13:45 04/02/19 13:44 03/03/19 20:18 Morphine Sulfate (Morphine Sulfate) 2 mg Q4H PRN IVP severe pain 03/01/19 11:45 03/08/19 11:44 03/04/19 04:53 Nifedipine (Procardia XL) 30 mg BID ORAL 03/04/19 18:00 04/03/19 17:59 Ondansetron HCl (Zofran) 4 mg Q6H PRN IVP Nausea & Vomiting 03/01/19 09:15 03/31/19 09:14 Pantoprazole (Protonix) 40 mg EVERY 12 HOURS ORAL 02/28/19 21:00 03/30/19 20:59 03/04/19 09:40 Polyethylene Glycol (Miralax) 17 gm DAILYPRN PRN ORAL Constipation 03/01/19 09:15 03/31/19 09:14 Sevelamer Carbonate (Renvela) 2,400 mg THREE TIMES A DAY ORAL 03/02/19 18:00 04/01/19 17:59 03/04/19 12:30 Sodium Polystyrene Sulfonate (Kayexalate) 45 gm BID ORAL 03/03/19 13:45 03/31/19 20:59 Temazepam (Restoril) 15 mg HSPRN PRN ORAL Insomnia 03/01/19 09:15 03/08/19 09:14 Jarad King MD Mar 04, 2019 14:45
--- NOTE | 2019-03-04 14:58 | NUR ---
NURSE NOTES: pt seen by Dr King , for further evaluation of left arm
--- NOTE | 2019-03-04 15:45 | Progress Note ---
DATE: 03/04/2019 SUBJECTIVE: This is a 49-year-old female patient with edema, renal failure, and she has missed dialysis. This patient continues to have some depression, confusion, mood lability, decline in cognition below baseline. That is why, her attending physician has requested daily psychiatric consultation at this time. This patient is a 49-year-old female patient, confused, disorganized. She has renal failure. She needs dialysis, so she requires acute inpatient treatment. She has poor appetite, loss of interest in activity, so she does require acute psychiatric inpatient treatment at this time. She has agitation, irritability, anxiety. MENTAL STATUS EXAMINATION: A 49-year-old female patient. Appearance is disheveled. Attitude, irritable and agitated. Affect, guarded and restricted. Intellect poor. Mood, depressed and anxious. Motor activity, psychomotor agitation. Attention span is poor. Orientation x2. Speech is normal volume slow. Thought process, disorganized and illogical. Insight and judgment is poor. DIAGNOSIS: Major depressive disorder, mild, recurrent. PLAN: To treat her with a medication regimen consisting of Abilify 2 mg every evening, Neurontin 300 mg three times a day, Ativan 1 every 6 hours p.r.n. anxiety and agitation. 20 minutes of reality-based supportive psychotherapy. Chart reviewed. Discussed with staff. Seen and assessed at bedside. Sherwin Greene M.D. DR: LES JOB#: [id number] CC:
[2019-03-04 16:00] VITALS: BP 136/82
--- NOTE | 2019-03-04 16:38 | Diagnostic Imaging Report ---
Indication: Chest pain Technique: Continuous helical transaxial imaging of the chest was obtained from the thoracic inlet to the upper abdomen during rapid intravenous contrast administration. Arterial phase of enhancement obtained. Coronal 2-D reformats were also obtained and maximum intensity projection images in multiple planes. Study obtained in a Siemens sensation [address] Automatic Exposure Control was utilized. Total Dose length Product (DLP): 592.[address] Dose Index Volume (CTDIvol): 97.4 mGy Comparison: None Findings: The pulmonary artery is suboptimally opacified and shows no central filling defects. More distal branches of the pulmonary artery are difficult to evaluate but having said that no obvious filling defect seen. There is no adenopathy, pleural or pericardial effusions are identified. There is no aortic dissection or aneurysm identified within the chest. There is some calcification of aorta consistent with atherosclerotic disease. Generalized anasarca is noted. The injection was from the right side. There are extensive collaterals within the chest wall, mediastinum, diaphragmatic region indicating impediment to venous inflow from the right. This could be from stenosis or central occlusion involving venous inflow into the chest. There is an SVC stent which appears to be occluded. There are multiple small venous channels in and around the stent presumably providing flow into the right atrium. There are moderate-sized bilateral pleural effusions present. In general this appears slightly decreased in size compared to the CT chest from 02/09/2019. There is associated mild posterior basal atelectasis. There is generalized anasarca present. Part of the left kidney as seen on this examination and appears atrophic. There are multiple cysts present within the kidneys. There is a wedge-shaped focus of hyperenhancement within the medial segment of the left lobe of the liver. This asymmetric blood flow and enhancement of the liver may be related to the collateral vessels described earlier. IMPRESSION: No definite evidence of pulmonary embolus, aortic dissection or aneurysm. Some limitation due to suboptimal bolus. Atherosclerotic vascular disease. Moderate-sized bilateral pleural effusions Query SVC syndrome. Extensive venous collaterals within the right side of the chest wall from a right upper arm injection. The presence of collaterals suggests some impediment to inflow which is likely on the basis of a stenotic or occluded SVC stent. Correlate clinically for SVC syndrome. Atrophic kidneys consistent with end-stage renal disease. The CT scanner at [facility] is accredited by the [employer] and the scans are performed using dose optimization techniques as appropriate to a performed exam including Automatic Exposure control.
[2019-03-04] MEDS: ARIPiprazole 2mg tab ORAL SCH (17:21)
[2019-03-04 20:00] VITALS: BP 151/90
--- NOTE | 2019-03-04 20:35 | NUR ---
NURSE NOTES: CT to chest negative no pulmonary embolism noted . Dr Hernández gave instructions not to render any labs 2 to pt refusal. Refused Kayexalate. Requires verbal redirection to stay on task. Call light in reach
--- NOTE | 2019-03-04 20:38 | NUR ---
NURSE NOTES: Per Dr Noble pt okay for discharge after dialysis
--- NOTE | 2019-03-04 20:38 | NUR ---
HAND-OFF: Report given to Carlos JORDAN.
--- NOTE | 2019-03-04 21:45 | NUR ---
NURSE NOTES: Given PRN pain medication IVP, pain level 10/10, generalized pain. Patient is alert x 4. Will reassess patient. Call light is at bedside. Will continue plan of care.
[2019-03-05] VITALS (7 sets, daily range): BP systolic 101–150; BP diastolic 53–91
[2019-03-05] MEDS: Morphine Sulfate 2mg/ml Inj(IV/IM USE ONLY) IVP PRN ×3 (01:33→17:21)
[2019-03-05] MEDS: cloNIDine 0.2mg Tab ORAL SCH ×2 (06:00→13:26)
--- NOTE | 2019-03-05 07:24 | NUR ---
HAND-OFF: Report given to JULIAN Smith.
--- NOTE | 2019-03-05 07:30 | NUR ---
NURSE NOTES: Received report from JULIAN Gonzalez. Pt a/o x 4, in bed, having a breakfast. No respiratory distress noted. Mentioned pain scale is 10/10. Pain medicine will be given as MD ordered. Rt FA IV site is patent. Bed in lowest position, call light within reach. Will continue to monitor.
[2019-03-05] MEDS: Sodium Polystyrene Sulfonate 15gm Powder ORAL SCH ×2 (09:00→17:21)
[2019-03-05] MEDS: Carvedilol 12.5mg tab ORAL SCH (09:01)
[2019-03-05] MEDS: Heparin 5000 units/ml inj SUBQ SCH (09:03)
--- NOTE | 2019-03-05 09:10 | NUR ---
PT NOTE Attempted to see patient for PT treatment. Patient declining to participate with PT due to c/o pain. Nayan JORDAN notified, will re-attempt later as schedule permits.
--- NOTE | 2019-03-05 09:22 | General Progress Note ---
Assessment/Plan Problem List: (1) Swelling of left upper extremity ICD Codes: M79.89 - Other specified soft tissue disorders SNOMED: 423747158 (2) Hyperkalemia ICD Codes: E87.5 - Hyperkalemia SNOMED: 39219286 (3) Chest pain ICD Codes: R07.9 - Chest pain, unspecified SNOMED: 93445330 (4) Anemia ICD Codes: D64.9 - Anemia, unspecified SNOMED: 374102291 (5) Pulmonary edema ICD Codes: J81.1 - Chronic pulmonary edema SNOMED: 94488273 Qualifiers: Qualified Codes: J81.0 - Acute pulmonary edema (6) ESRD (end stage renal disease) ICD Codes: N18.6 - End stage renal disease SNOMED: 95227151 (7) Missed dialysis SNOMED: 147979312 (8) HTN (hypertension) ICD Codes: I10 - Essential (primary) hypertension SNOMED: 73649869 Status: stable, progressing Assessment/Plan: pt diet abx dialysis cbc bmp am dc if clear Subjective Constitutional: Reports: weakness Allergies: Coded Allergies: CEPHALEXIN (Unverified Allergy, Unknown, 12/14/18) SULFAMETHOXAZOLE (Unverified Allergy, Unknown, 12/14/18) TRIMETHOPRIM (Unverified Allergy, Unknown, 12/14/18) VANCOMYCIN (Unverified Allergy, Unknown, 12/14/18) Uncoded Allergies: BACTRIM DS (Allergy, Unknown, 02/09/19) All Systems: reviewed and negative except above Subjective calm in bed Objective Last 24 Hour Vital Signs Date Time Temp Pulse Resp B/P (MAP) Pulse Ox O2 Delivery O2 Flow Rate FiO2 03/05/19 09:01 70 140/82 03/05/19 09:01 70 140/82 03/05/19 08:00 97.8 70 20 140/82 (101) 93 03/05/19 06:00 150/53 03/05/19 04:00 98.0 74 18 150/53 (85) 94 03/05/19 00:00 98.5 76 18 150/91 (110) 94 03/04/19 21:40 151/90 03/04/19 21:00 Room Air 03/04/19 20:59 73 151/90 03/04/19 20:00 99.2 73 18 151/90 (110) 96 03/04/19 17:21 70 130/80 03/04/19 16:00 98.4 72 18 136/82 (100) 03/04/19 14:31 147/88 03/04/19 12:34 82 138/72 03/04/19 12:00 97.8 84 18 148/82 (104) 98 03/04/19 09:42 87 171/104 Intake and Output 03/04/19 03/05/19 18:59 06:59 Intake Total 1200 ml 480 ml Balance 1200 ml 480 ml Intake Oral 1200 ml 480 ml Height (Feet): 5 Height (Inches): 5.00 Weight (Pounds): 119 General Appearance: alert EENT: normal ENT inspection Neck: normal alignment Cardiovascular: normal peripheral pulses, normal rate, regular rhythm Respiratory/Chest: chest wall non-tender, lungs clear, normal breath sounds Abdomen: normal bowel sounds, non tender, soft Extremities: normal inspection Edema: no edema noted Arm (L), no edema noted Arm (R), no edema noted Leg (L), no edema noted Leg (R), no edema noted Pedal (L), no edema noted Pedal (R), no edema noted Generalized Neurologic: responsive, motor weakness Skin: normal pigmentation, warm/dry Narinder Villatoro DO Mar 05, 2019 09:22
--- NOTE | 2019-03-05 10:32 | Nephrology Progress Note ---
Assessment/Plan Problem List: (1) Hyperkalemia (2) ESRD (end stage renal disease) (3) Hypertensive chronic kidney disease (4) Anemia Assessment High K -ESRD- Missed HD h/o Fall h/o Osteomyelitis of spine Anasarca Anemia of CKD, symptomatic now ? Lymphoproliferative Ds non compliance and last admit patient left AMA in the past Plan non compliant with diet and kayexelate BUT seeks MS every4 hours ! adjust BP meds dialysis 03/03- next 03/05 activase given 03/02 renal diet keep bp in check per consultants and psych DC planning Subjective ROS Limited/Unobtainable: No Objective Objective Last 24 Hour Vital Signs Date Time Temp Pulse Resp B/P (MAP) Pulse Ox O2 Delivery O2 Flow Rate FiO2 03/05/19 09:01 70 140/82 03/05/19 09:01 70 140/82 03/05/19 09:00 Room Air 03/05/19 08:00 97.8 70 20 140/82 (101) 93 03/05/19 06:00 150/53 03/05/19 04:00 98.0 74 18 150/53 (85) 94 03/05/19 00:00 98.5 76 18 150/91 (110) 94 03/04/19 21:40 151/90 03/04/19 21:00 Room Air 03/04/19 20:59 73 151/90 03/04/19 20:00 99.2 73 18 151/90 (110) 96 03/04/19 17:21 70 130/80 03/04/19 16:00 98.4 72 18 136/82 (100) 03/04/19 14:31 147/88 03/04/19 12:34 82 138/72 03/04/19 12:00 97.8 84 18 148/82 (104) 98 Intake and Output 03/04/19 03/05/19 19:00 07:00 Intake Total 1200 ml 480 ml Balance 1200 ml 480 ml Intake Oral 1200 ml 480 ml Height (Feet): 5 Height (Inches): 5.00 Weight (Pounds): 119 General Appearance: no apparent distress Objective no change Yobani Lopez MD Mar 05, 2019 10:32
[2019-03-05 11:52] LABS: HEMATOCRIT 22.6 % (37.0-47.0); HEMOGLOBIN 7.2 G/DL (12.0-16.0); MEAN CORPUSCULAR VOLUME 102 FL (80-99); PLATELET COUNT 191 K/UL (150-450); RED BLOOD COUNT 2.21 M/UL (4.20-5.40); RED CELL DISTRIBUTION WIDTH 12.7 % (11.6-14.8); WHITE BLOOD COUNT 5.4 K/UL (4.8-10.8)
[2019-03-05 12:15] LABS: ALANINE AMINOTRANSFERASE < 6 U/L (12-78); ALBUMIN 1.9 G/DL (3.4-5.0); ALBUMIN/GLOBULIN RATIO 0.4 (1.0-2.7); CALCIUM 8.6 MG/DL (8.5-10.1); CHLORIDE 94 MMOL/L (98-107); SODIUM 125 MMOL/L (136-145)
[2019-03-05 12:31] LABS: ALKALINE PHOSPHATASE 179 U/L (46-116); ANION GAP 4 mmol/L (5-15); ASPARTATE AMINO TRANSFERASE 13 U/L (15-37); BILIRUBIN,TOTAL 0.2 MG/DL (0.2-1.0); BLOOD UREA NITROGEN 63 mg/dL (7-18); CARBON DIOXIDE 26 MMOL/L (21-32); CREATININE 7.1 MG/DL (0.55-1.30); PHOSPHORUS 6.9 MG/DL (2.5-4.9)
[2019-03-05 12:34] LABS: POTASSIUM 6.5 MMOL/L (3.5-5.1)
--- NOTE | 2019-03-05 12:47 | Pulmonology Progress Note ---
Assessment/Plan Problems: (1) Swelling of left upper extremity (2) ESRD (end stage renal disease) (3) Hypertensive chronic kidney disease (4) HTN (hypertension) (5) Anasarca Assessment/Plan d/w Radiologist, there is a clotted SVC stent causing the edema of the upper extremities. no new complains pt wants more tylenol for pain BP controlled HD by nephrology IR can treat the clotted SVC Subjective ROS Limited/Unobtainable: No Constitutional: Reports: no symptoms HEENT: Repors: no symptoms Respiratory: Reports: no symptoms Allergies: Coded Allergies: CEPHALEXIN (Unverified Allergy, Unknown, 12/14/18) SULFAMETHOXAZOLE (Unverified Allergy, Unknown, 12/14/18) TRIMETHOPRIM (Unverified Allergy, Unknown, 12/14/18) VANCOMYCIN (Unverified Allergy, Unknown, 12/14/18) Uncoded Allergies: BACTRIM DS (Allergy, Unknown, 02/09/19) Objective Last 24 Hour Vital Signs Date Time Temp Pulse Resp B/P (MAP) Pulse Ox O2 Delivery O2 Flow Rate FiO2 03/05/19 09:01 70 140/82 03/05/19 09:01 70 140/82 03/05/19 09:00 Room Air 03/05/19 08:00 97.8 70 20 140/82 (101) 93 03/05/19 06:00 150/53 03/05/19 04:00 98.0 74 18 150/53 (85) 94 03/05/19 00:00 98.5 76 18 150/91 (110) 94 03/04/19 21:40 151/90 03/04/19 21:00 Room Air 03/04/19 20:59 73 151/90 03/04/19 20:00 99.2 73 18 151/90 (110) 96 03/04/19 17:21 70 130/80 03/04/19 16:00 98.4 72 18 136/82 (100) 03/04/19 14:31 147/88 Intake and Output 03/04/19 03/05/19 19:00 07:00 Intake Total 1200 ml 480 ml Balance 1200 ml 480 ml Intake Oral 1200 ml 480 ml General Appearance: WD/WN HEENT: atraumatic Respiratory/Chest: chest wall non-tender, lungs clear Cardiovascular: normal rate Abdomen: normal bowel sounds, soft, non tender Extremities: no cyanosis Skin: no rash Neurologic/Psychiatric: hosiery repairer II-XII grossly normal Lymphatic: no neck adenopathy Laboratory Tests 03/05/19 11:25: White Blood Count 5.4, Red Blood Count 2.21L, Hemoglobin 7.2L, Hematocrit 22.6L , Mean Corpuscular Volume 102H, Mean Corpuscular Hemoglobin 32.4H, Mean Corpuscular Hemoglobin Concent 31.6L, Red Cell Distribution Width 12.7, Platelet Count 191, Mean Platelet Volume 4.6L, Neutrophils (%) (Auto) , Lymphocytes (%) (Auto) , Monocytes (%) (Auto) , Eosinophils (%) (Auto) , Basophils (%) (Auto) , Neutrophils % (Manual) [Pending], Lymphocytes % (Manual) [Pending], Platelet Estimate [Pending], Platelet Morphology [Pending], Sodium Level 125L, Potassium Level 6.5*H, Chloride Level 94L, Carbon Dioxide Level 26, Anion Gap 4L, Blood Urea Nitrogen 63H, Creatinine 7.1H, Estimat Glomerular Filtration Rate 6.1, Glucose Level 100, Calcium Level 8.6, Phosphorus Level 6.9H , Total Bilirubin 0.2, Aspartate Amino Transf (AST/SGOT) 13L, Alanine Aminotransferase (ALT/SGPT) < 6L, Alkaline Phosphatase 179H, Total Protein 7.0, Albumin 1.9L, Globulin 5.1, Albumin/Globulin Ratio 0.4L Current Medications Medications (Trade) Dose Ordered Sig/Juliano Route PRN Reason Start Time Stop Time Status Last Admin Dose Admin Acetaminophen (Tylenol) 500 mg Q4H PRN ORAL Mild Pain/Temp > 100.5 03/02/19 21:45 04/01/19 21:44 03/04/19 20:59 Acetaminophen/ Codeine Phosphate (Tylenol #3) 1 tab Q6H PRN ORAL MODERATE PAIN 03/01/19 11:45 03/08/19 11:44 03/01/19 21:49 Albuterol/ Ipratropium (Albuterol/ Ipratropium) 3 ml Q4H PRN HHN Shortness of Breath 03/01/19 09:15 03/06/19 09:14 Aripiprazole (Abilify) 2 mg QPM ORAL 03/01/19 16:30 03/31/19 16:29 03/04/19 17:21 Carvedilol (Coreg) 12.5 mg EVERY 12 HOURS ORAL 03/04/19 12:17 04/03/19 12:16 03/05/19 09:01 Clonidine HCl (Catapres tab) 0.2 mg EVERY 8 HOURS ORAL 03/03/19 14:00 04/02/19 13:59 03/04/19 21:40 Dextrose (Dextrose 50%) 25 ml Q30M PRN IV Hypoglycemia 03/01/19 09:15 03/31/19 09:14 Dextrose (Dextrose 50%) 50 ml Q30M PRN IV Hypoglycemia 03/01/19 09:15 03/31/19 09:14 Diphenhydramine HCl (Benadryl) 25 mg Q6H PRN IVP Itching 03/02/19 21:45 04/01/19 21:44 03/02/19 21:51 Gabapentin (Neurontin) 300 mg THREE TIMES A DAY ORAL 03/01/19 18:00 03/31/19 08:59 03/05/19 09:00 Heparin Sodium (Porcine) (Heparin 5000 units/ml) 5,000 units EVERY 12 HOURS SUBQ 03/01/19 21:00 03/31/19 20:59 03/05/19 09:03 Levothyroxine Sodium (Synthroid) 50 mcg DAILY@0630 ORAL 03/05/19 12:00 04/04/19 11:59 Lorazepam (Ativan) 1 mg Q6H PRN ORAL For Anxiety 03/01/19 04:30 03/08/19 04:29 Minoxidil (Loniten) 2.5 mg Q4H PRN ORAL bp 160 syst and over 03/03/19 13:45 04/02/19 13:44 03/03/19 20:18 Morphine Sulfate (Morphine Sulfate) 2 mg Q4H PRN IVP severe pain 03/01/19 11:45 03/08/19 11:44 03/05/19 07:37 Nifedipine (Procardia XL) 30 mg BID ORAL 03/04/19 18:00 04/03/19 17:59 03/05/19 09:01 Ondansetron HCl (Zofran) 4 mg Q6H PRN IVP Nausea & Vomiting 03/01/19 09:15 03/31/19 09:14 Pantoprazole (Protonix) 40 mg EVERY 12 HOURS ORAL 02/28/19 21:00 03/30/19 20:59 03/05/19 09:01 Polyethylene Glycol (Miralax) 17 gm DAILYPRN PRN ORAL Constipation 03/01/19 09:15 03/31/19 09:14 Sevelamer Carbonate (Renvela) 2,400 mg THREE TIMES A DAY ORAL 03/02/19 18:00 04/01/19 17:59 03/05/19 09:01 Sodium Polystyrene Sulfonate (Kayexalate) 45 gm BID ORAL 03/03/19 13:45 03/31/19 20:59 Temazepam (Restoril) 15 mg HSPRN PRN ORAL Insomnia 03/01/19 09:15 03/08/19 09:14 Jarad King MD Mar 05, 2019 12:47
[2019-03-05] MEDS ORDERED: Cathflo Alteplase 2mg Inj INJ SCH (13:15)
--- NOTE | 2019-03-05 13:40 | NUR ---
NURSE NOTES: Cathflo was given to pt by HD nurse.
--- NOTE | 2019-03-05 13:47 | NUR ---
NURSE NOTES: Patient does not go to [facility]. Dr. Villatoro ordered transfer to [facility] as Patient requests. Farnaz manager case management is aware.
--- NOTE | 2019-03-05 14:04 | NUR ---
NURSE NOTES: HD was not complete d/t clogged catheter and potassium was 6.5. Called Dr. Lopez and left the message.
--- NOTE | 2019-03-05 14:12 | NUR ---
NURSE NOTES: Dr. Lopez called back and pt can get outpatient HD if pt will be transferred today. Dr. Lopez is aware of potassium is 6.5.
--- NOTE | 2019-03-05 14:30 | Progress Note ---
DATE: 03/05/2019 SUBJECTIVE: The patient is a 49-year-old female patient with and renal failure, history of missed dialysis, she also has some mood lability, confusion, worsened by stress of medical illness. DIAGNOSIS: Bipolar 2 disorder. PLAN: Plan for this patient is to treat her with Ativan 1 mg every 6 hours p.r.n. anxiety and agitation, Neurontin 300 mg three times a day and then also Abilify mg q.p.m.. A 20 minutes of cognitive behavioral therapy to help identify automatic negative thoughts, help convert negative thoughts to more positive thoughts to reduce depression, anxiety, mood lability. Chart reviewed. Discussed with staff. Seen and assessed in her room. Sherwin Greene M.D. DR: Danyel JOB#: [id number] CC:
--- NOTE | 2019-03-05 14:52 | NUR ---
NURSE NOTES: Dr. King ordered continue current hospital meds except for prn meds. Each meds read back.
--- NOTE | 2019-03-05 15:05 | NUR ---
NURSE NOTES: Dr. Villatoro called and ordered that keep pt until tomorrow HD and transfer to [facility] for radiologist to redo her shunt. Will put the order in. Addendum: 03/05/19 at 1858 by Ina Smith RN ADDENDUM Hgb 7.[address] Villatoro was notified.
--- NOTE | 2019-03-05 15:12 | NUR ---
NURSE NOTES: socorro 7.[address] King is aware. Addendum: 03/05/19 at 1708 by Ina Smith RN ADDENDUM Dr. King said ok to be d/c.
--- NOTE | 2019-03-05 15:30 | NUR ---
NURSE NOTES: Farnaz, case planner called and said that Dr. Villatoro changed order that D/C to SNF. Noted.
[2019-03-05] MEDS ORDERED: ACETAMINOPHEN-1 EAC1 ORAL (15:37)
[2019-03-05] MEDS ORDERED: COREG12.5 MG ORAL (15:39)
[2019-03-05] MEDS ORDERED: ABILIFY2 MG ORAL (15:39)
[2019-03-05] MEDS ORDERED: HEPARIN SO5000 UNIT2 SUBQ (15:40)
[2019-03-05] MEDS ORDERED: GABAPENTIN300 MG ORAL (15:40)
[2019-03-05] MEDS ORDERED: CATAPRES0.2 MG ORAL (15:40)
[2019-03-05] MEDS ORDERED: ADALAT10 MG ORAL (15:41)
[2019-03-05] MEDS ORDERED: SYNTHROID25 MCG ORAL (15:41)
[2019-03-05] MEDS ORDERED: RENVELA2.4 GM ORAL (15:42)
[2019-03-05] MEDS ORDERED: PANTOPRAZOLE SO40 MG ORAL (15:42)
[2019-03-05] MEDS ORDERED: KALEXATE15 GM PO (15:43)
--- NOTE | 2019-03-05 15:51 | Cardiology Report ---
APPROVED REPORT EKG Measurement Heart [id number] Normal sinus rhythm Low voltage QRS Borderline ECG
--- NOTE | 2019-03-05 16:01 | Cardiology Report ---
APPROVED REPORT EKG Measurement Heart [id number] Normal sinus rhythm Low voltage QRS T wave abnormality, consider lateral ischemia Abnormal ECG
[2019-03-05] MEDS: ARIPiprazole 2mg tab ORAL SCH (16:53)
--- NOTE | 2019-03-05 17:18 | NUR ---
[employer] CONSULTANT NOTES SPOKE WITH CAROLINE MIDDLETONCHIP TESTER AT [facility], BED REQUESTED. PER CAROLINE SHE HAS TO CALL THE IR TEAM TO ADD PT ON THE LIST.CAROLINE WILL CALL [facility] WHEN BED AVAILABLE AND TRANSFER UPDATES. FACE SHEET FAXED TO [facility]. [phone]
--- NOTE | 2019-03-05 17:39 | NUR ---
NURSE NOTES: Spoke to Farnaz, case assembler regarding her d/c plan. Farnaz f/u with [facility] and waiting for bad available.
--- NOTE | 2019-03-05 18:33 | NUR ---
NURSE NOTES: Report was given to Sandra at [facility].
--- NOTE | 2019-03-05 19:35 | NUR ---
HAND-OFF: Report given to JULIAN Collado. Pt is stable.
--- NOTE | 2019-03-05 19:52 | NUR ---
NURSE NOTES: Received report from Ina Spicer RN, pt laying in bed sleeping with no signs of distress or other issues at this time. plan to go back to previous SNF: [facility]. transportation arranged with [employer] to [place] at [place]. call light within reach, bed in lowest position, side rales up x2. I will f/u as needed.
--- NOTE | 2019-03-05 20:03 | Cardiology Progress Note ---
Assessment/Plan Assessment/Plan 1. Hyperkalemia secondary to missed dialysis. 2. Missed dialysis. 3. An episode of acute chest pain during administration of IV antibiotics, resolved on discontinuation. 4. Hypertension history. 5. Borderline hyperlipidemia 6. hypothyroid 7. arm swelling 8. clotted svc stent all trop neg echo neg arm elevation cta noted will be transfering for interventiona procedure Subjective Cardiovascular: Denies: chest pain, lightheadedness Respiratory: Denies: shortness of breath Gastrointestinal/Abdominal: Denies: abdominal pain Genitourinary: Denies: burning Subjective worried Objective Last 24 Hour Vital Signs Date Time Temp Pulse Resp B/P (MAP) Pulse Ox O2 Delivery O2 Flow Rate FiO2 03/05/19 17:20 80 143/83 03/05/19 16:00 97.4 80 17 143/83 (103) 93 03/05/19 13:26 138/82 03/05/19 12:45 72 138/82 (100) 03/05/19 12:00 97.2 67 19 133/79 (97) 95 03/05/19 09:01 70 140/82 03/05/19 09:01 70 140/82 03/05/19 09:00 Room Air 03/05/19 08:00 97.8 70 20 140/82 (101) 93 03/05/19 06:00 150/53 03/05/19 04:00 98.0 74 18 150/53 (85) 94 03/05/19 00:00 98.5 76 18 150/91 (110) 94 03/04/19 21:40 151/90 03/04/19 21:00 Room Air 03/04/19 20:59 73 151/90 General Appearance: no apparent distress, alert Neck: supple Cardiovascular: normal rate Respiratory/Chest: lungs clear Abdomen: non tender, soft Extremities: no swelling Intake and Output 03/04/19 03/05/19 19:00 07:00 Intake Total 1200 ml 480 ml Balance 1200 ml 480 ml Intake Oral 1200 ml 480 ml Laboratory Tests Test 03/05/19 11:25 White Blood Count 5.4 K/UL (4.8-10.8) Red Blood Count 2.21 M/UL (4.20-5.40) L Hemoglobin 7.2 G/DL (12.0-16.0) L Hematocrit 22.6 % (37.0-47.0) L Mean Corpuscular Volume 102 FL (80-99) H Mean Corpuscular Hemoglobin 32.4 PG (27.0-31.0) H Mean Corpuscular Hemoglobin Concent 31.6 G/DL (32.0-36.0) L Red Cell Distribution Width 12.7 % (11.6-14.8) Platelet Count 191 K/UL (150-450) Mean Platelet Volume 4.6 FL (6.5-10.1) L Neutrophils (%) (Auto) % (45.0-75.0) Lymphocytes (%) (Auto) % (20.0-45.0) Monocytes (%) (Auto) % (1.0-10.0) Eosinophils (%) (Auto) % (0.0-3.0) Basophils (%) (Auto) % (0.0-2.0) Differential Total Cells Counted 100 Neutrophils % (Manual) 78 % (45-75) H Lymphocytes % (Manual) 8 % (20-45) L Monocytes % (Manual) 9 % (1-10) Eosinophils % (Manual) 3 % (0-3) Basophils % (Manual) 2 % (0-2) Band Neutrophils 0 % (0-8) Platelet Estimate Adequate Platelet Morphology Normal Sodium Level 125 MMOL/L (136-145) L Potassium Level 6.5 MMOL/L (3.5-5.1) *H Chloride Level 94 MMOL/L (98-107) L Carbon Dioxide Level 26 MMOL/L (21-32) Anion Gap 4 mmol/L (5-15) L Blood Urea Nitrogen 63 mg/dL (7-18) H Creatinine 7.1 MG/DL (0.55-1.30) H Estimat Glomerular Filtration Rate 6.1 mL/min (>60) Glucose Level 100 MG/DL (74-106) Calcium Level 8.6 MG/DL (8.5-10.1) Phosphorus Level 6.9 MG/DL (2.5-4.9) H Total Bilirubin 0.2 MG/DL (0.2-1.0) Aspartate Amino Transf (AST/SGOT) 13 U/L (15-37) L Alanine Aminotransferase (ALT/SGPT) < 6 U/L (12-78) L Alkaline Phosphatase 179 U/L (46-116) H Total Protein 7.0 G/DL (6.4-8.2) Albumin 1.9 G/DL (3.4-5.0) L Globulin 5.1 g/dL Albumin/Globulin Ratio 0.4 (1.0-2.7) L Nik Blevins MD Mar 05, 2019 20:03
[2019-03-05] MEDS: Tylenol #3 tab (300mg/30mg) ORAL PRN (21:21)
--- NOTE | 2019-03-05 21:30 | NUR ---
NURSE NOTES: Given report to Ambulance crew. pt left via ambulance/gurney with no signs of distress or other issues at this time. I will f/u as needed.
--- NOTE | 2019-03-06 20:41 | Diagnostic Imaging Report ---
APPROVED REPORT CPT Code: 33400 Present Symptoms Left Comments: LEFT ARM PAIN AND EDEMA. LEFT UPPER EXTREMITY: Venous imaging reveals patency of the internal jugular, subclavian, axillary and brachial veins. The basilic veins is also patent. Doppler indicates normal spontaneous flow within these venous segments. However, edema is noted around this area.The cephalic vein was not well visualized due to edema.
--- NOTE | 2019-03-07 15:47 | Discharge Summary ---
Discharge Summary Discharge Summary _ DATE OF ADMISSION: 02/28/2019 DATE OF DISCHARGE: 03/05/2019 DISCHARGED BY: Dr. Narinder Villatoro CONSULTANTS: Dr. Nik Bailon [facility] COURSE: Patient is a 49-year-old female from [facility], who presented to ED for evaluation of edema. Patient has history of end-stage renal disease on hemodialysis. Patient has been in [place] ER multiple times brought in by paramedics due to left arm swelling and missed dialysis sessions. Patient was recently at [facility] and left AGAINST MEDICAL ADVICE. She was recently seen in January at [facility] for similar issues and left AGAINST MEDICAL ADVICE. Upon evaluation in ED, blood pressure was elevated to 167/94. She was saturating 93% on room air. Blood work showed potassium elevated to 7.5. Sodium 133. Chloride 97. BUN was 94 and creatinine was 9.0. Chest x-ray showed congestive heart failure with bilateral pleural effusion. She was given calcium gluconate. She was given insulin and dextrose. She was admitted due to hyperkalemia and pulmonary edema secondary to missed dialysis session. She was admitted to medical floor. She was given a respiratory treatment. She was given inpatient hemodialysis. Patient has noncompliance with dialysis sessions. Venous duplex of the left arm was negative for acute DVT. ID was consulted, she was given ceftriaxone. Psychiatric evaluation was done. Patient was refusing treatment and dialysis. Patient was diagnosed to have major depression. Ativan 1 mg was added to her regimen. She was given Abilify 2 mg to help stabilize mood and reduce agitation. She was given cognitive behavioral therapy. She was eventually given 100 mg Hemodialysis catheter had poor flow. She was given Activase. Hemodialysis was not completed. Dialysis was continued the following day. Patient is noncompliant with dialysis and Kayexalate. She is requesting for morphine every 4 hours. Patient had severe chest pain and pressure with shortness of breath. Irrigation Worker consulted. Symptoms were present at the time of administration of antibiotic. Her symptoms resolved as soon as antibiotics were discontinued. EKG was unremarkable. Echocardiogram showed EF 65 to 70%. Cardiac enzymes were negative. CTA chest did not show any definite evidence of pulmonary emboli, aortic dissection or aneurysm. Extensive venous collaterals within the right side of the chest wall from right upper arm injection. Presence of collaterals suggestive of impediment to inflow which is likely on the basis of the stenotic or occluded SVC stent. Patient was referred to [facility] for interventional procedure. No bed available yet. Patient was discharged back to correction. FINAL DIAGNOSES: Hyperkalemia secondary to missed dialysis Noncompliance with medication and dialysis Arm swelling secondary to clotted SVC stent Acute episode of chest pain during administration of IV antibiotics, resolved on discontinuation. Hypertension by history Borderline hyperlipidemia Hypothyroidism Major depressive disorder Anemia of CKD DISPOSITION: Patient was discharged to a SNF. DISCHARGE MEDICATIONS: Refer to Discharge Medication List. DISCHARGE INSTRUCTIONS: Follow-up in a week. I have been assigned to complete a discharge summary on this account, I was not involved with the patient's management.--BRUNA Manuel Jacqueline Robles NP Mar 07, 2019 15:47
== END 2019-03-05 21:30 | DRG 314 ==
LOC: EDBD 17:55 → EMR 18:33 → 4E 18:40 → EDBEDREQ 19:26 → 4E 03-01 01:00 → 3E 03-01 14:22
DX: T82.868A Thrombosis due to vascular prosthetic devices, implants and grafts, initial encounter (principal); N18.6 End stage renal disease; L03.114 Cellulitis of left upper limb; F33.3 Major depressive disorder, recurrent, severe with psychotic symptoms; I12.0 Hypertensive chronic kidney disease with stage 5 chronic kidney disease or end stage renal disease; M46.26 Osteomyelitis of vertebra, lumbar region; Y83.8 Other surgical procedures as the cause of abnormal reaction of the patient, or of later complication, without mention of misadventure at the time of the procedure; E87.5 Hyperkalemia; Z88.1 Allergy status to other antibiotic agents; Z88.2 Allergy status to sulfonamides; F32.9 Major depressive disorder, single episode, unspecified; Z91.14 Patient's other noncompliance with medication regimen; Z91.15 Patient's noncompliance with renal dialysis; Z99.2 Dependence on renal dialysis; R07.9 Chest pain, unspecified; E78.5 Hyperlipidemia, unspecified; E03.9 Hypothyroidism, unspecified; D63.1 Anemia in chronic kidney disease; R59.1 Generalized enlarged lymph nodes
CPT/HCPCS: 36415; 71045; 71275; 80048; 80053; 80069; 82607; 82746; 83690; 83735; 83880; 84100; 84443; 84484; 84550; 85007; 85025; 85610; 85730; 86706; 87040; 87081; 87181; 93005; 93306; 93931; 96374; 96375; 99285